=== PATIENT | female | born 1960 | race Caucasian/White ===

== ENCOUNTER 2017-09-18 09:00 | Outpatient (CLI) | payer MEDICARE, MEDICAID, SELFPAY ==
[2017-09-18 10:55] VITALS: BP 155/75; PULSE 82; RESP 18; O2SAT 98
== END 2017-09-18 11:20 | disposition home or self-care (01) ==
LOC: INF 14:18
PROVIDERS: Family Provider Nurse Practitioner Family; PCP Nurse Practitioner Family; Visit Provider Allergy & Immunology
DX: J45.998 Other asthma (principal)
CPT/HCPCS: 96372; J2357

== ENCOUNTER 2017-10-16 09:30 | Outpatient (CLI) | payer MEDICARE, MEDICAID, SELFPAY ==
[2017-10-16 09:42] VITALS: BMI 36.1
[2017-10-16 10:24] VITALS: BP 159/80; PULSE 80; RESP 20; TEMP 36.4; O2SAT 98
== END 2017-10-16 10:30 | disposition home or self-care (01) ==
LOC: INF 09:42
PROVIDERS: Family Provider Nurse Practitioner Family; PCP Nurse Practitioner Family; Visit Provider Allergy & Immunology
DX: J45.21 Mild intermittent asthma with (acute) exacerbation (principal)
CPT/HCPCS: 96372; J2357

== ENCOUNTER 2017-11-15 09:30 | Outpatient (CLI) | payer MEDICARE, MEDICAID, SELFPAY ==
[2017-11-15 10:05] VITALS: BP 160/76; PULSE 81; RESP 18; TEMP 36.7; O2SAT 96
== END 2017-11-15 10:15 | disposition home or self-care (01) ==
LOC: INF 09:37
PROVIDERS: Family Provider Nurse Practitioner Family; PCP Nurse Practitioner Family; Visit Provider Allergy & Immunology
DX: J45.21 Mild intermittent asthma with (acute) exacerbation (principal)
CPT/HCPCS: 96372

== ENCOUNTER 2017-12-11 09:20 | Outpatient (CLI) | payer MEDICARE, MEDICAID, SELFPAY ==
[2017-12-11 09:20] VITALS: BP 143/61; PULSE 76; RESP 18; TEMP 36.7; O2SAT 97
== END 2017-12-11 10:25 | disposition home or self-care (01) ==
LOC: INF 16:12
PROVIDERS: Family Provider Nurse Practitioner Family; PCP Nurse Practitioner Family; Visit Provider Allergy & Immunology
DX: J45.21 Mild intermittent asthma with (acute) exacerbation (principal)
CPT/HCPCS: 96372; J2357

== ENCOUNTER 2018-01-08 09:25 | Outpatient (CLI) | payer MEDICARE, MEDICAID, SELFPAY ==
[2018-01-08 10:03] VITALS: BP 148/70; PULSE 78; RESP 18; TEMP 36.6; O2SAT 95
--- NOTE | 2018-01-08 10:04 | PC.NURSE ---
01/08/18 0931 xolair 150mg SQ per L upper arm. xolair 150mg S! per R upper arm. Total of 300mg given. Pt emmett very well
[2018-01-08 10:20] VITALS: BP 136/72; PULSE 80; RESP 18; TEMP 36.6; O2SAT 97
== END 2018-01-08 10:20 | disposition home or self-care (01) ==
LOC: INF 09:38
PROVIDERS: Family Provider Nurse Practitioner Family; PCP Nurse Practitioner Family; Visit Provider Allergy & Immunology
DX: J45.21 Mild intermittent asthma with (acute) exacerbation (principal)
CPT/HCPCS: 96372; J2357

== ENCOUNTER → 2018-01-11 07:47 | Outpatient (CLI) | payer MEDICARE, MEDICAID, SELFPAY ==
[2018-01-11 13:45] LABS: Hemoglobin A1C 6.4 % (0.0-7.0)
[2018-01-11 14:17] LABS: Alanine Aminotransferase 30 U/L (12-78); Albumin Level 3.6 gm/dL (3.4-5.0); Albumin/Globulin Ratio 1.1 (1.1-1.8); Alkaline Phosphatase 60 U/L (46-116); Anion Gap 15.1 mEq/L (5-15); Aspartate Amino Transferase 20 U/L (15-37); Bilirubin,Total 0.4 mg/dL (0.2-1.0); Blood Urea Nitrogen 8 mg/dL (7-18); Calcium 9.6 mg/dL (8.5-10.1); Carbon Dioxide 26 mmol/L (21.0-32.0); Chloride 104 mmol/L (98-107); Cholesterol 173 mg/dL (140-200); Creatinine,Serum 0.76 mg/dL (0.55-1.02); Estimated Glomerular Filt Rate 79 ml/min (>60); GFR (African American) 96 ML/MIN (>60); Globulin 3.3 gm/dl (1.3-3.2); Glucose 157 mg/dL (74-106); HDL Cholesterol 43 mg/dL (29-89); LDL Cholesterol 93 mg/dL (0-130); Potassium 4.1 mmoL/L (3.5-5.1); Sodium 141 mmol/L (136-145); Thyroid Stimulating Hormone 0.99 uIU/ml (0.358-3.740); Total Protein,Serum 6.9 gm/dL (6.4-8.2); Triglycerides 186 mg/dL (30-200); VLDL Cholesterol 37 mg/dL (0-40)
[2018-01-11 14:30] LABS: Basophils # 0.1 K/mm3 (0-0.2); Basophils % 0.6 % (0.1-2.0); Eosinophils # 0.3 K/mm3 (0.0-0.4); Eosinophils % 3.1 % (0.1-12.0); Hematocrit 38.9 % (37.0-47.0); Hemoglobin 12.4 g/dL (12.2-16.2); Lymphocytes # 1.8 K/mm3 (0.7-4.5); Lymphocytes % 20.3 K/mm3 (10-50); Mean Corpuscular HGB Conc 31.8 g/dL (31.8-35.4); Mean Corpuscular Hemoglobin 29.8 pg (27.0-31.2); Mean Corpuscular Volume 93.6 fl (81-99); Mean Platelet Volume 7.9 fl (7.4-10.4); Monocytes # 0.3 K/mm3 (0.1-1.0); Monocytes % 3.1 % (1.7-9.3); Neutrophils # 6.6 K/mm3 (1.8-7.8); Neutrophils % 72.9 % (37.0-80.0); Platelet Count 309 K/mm3 (142-424); Red Blood Count 4.16 M/mm3 (4.20-5.40); Red Cell Distribution Width 13.9 % (11.5-17.5)
[2018-01-12 20:16] LABS: Lithium (Eskalith(R)) 0.6 mmol/L (0.6-1.2)
== END ==
PROVIDERS: PCP Nurse Practitioner Family; Visit Provider Nurse Practitioner Psychiatric/Mental Health
DX: F25.9 Schizoaffective disorder, unspecified (principal); Z79.899 Other long term (current) drug therapy
CPT/HCPCS: 36415; 80053; 80061; 80178; 83036; 84146; 84443; 85025

== ENCOUNTER 2018-02-05 09:14 | Outpatient (CLI) | payer MEDICARE, MEDICAID, SELFPAY ==
[2018-02-05 09:34] VITALS: BMI 36.1
[2018-02-05 09:40] VITALS: BP 143/79; PULSE 83; RESP 18; TEMP 36.4; O2SAT 96
--- NOTE | 2018-02-05 09:49 | PC.NURSE ---
02/05/18 0940 Xolair 300mg total given, Xolair 150mg L arm, Xolair 150mg R arm. Pt emmett very well
== END 2018-02-05 09:50 | disposition home or self-care (01) ==
LOC: INF 09:14
PROVIDERS: Family Provider Nurse Practitioner Family; PCP Nurse Practitioner Family; Visit Provider Allergy & Immunology
DX: J45.21 Mild intermittent asthma with (acute) exacerbation (principal)
CPT/HCPCS: 96372; J2357

== ENCOUNTER 2018-03-05 08:59 | Outpatient (CLI) | payer MEDICARE, MEDICAID, SELFPAY ==
[2018-03-05 09:22] VITALS: BP 148/83; PULSE 78; RESP 18; TEMP 36.6; O2SAT 97
--- NOTE | 2018-03-05 09:31 | PC.NURSE ---
03/05/18 0922 Xolair 150mg SQ L arm, Xolair 150mg SQ R arm, total of 300mg Xolair given as ordered. Pt emmett well
[2018-03-05 09:40] VITALS: BP 138/74; PULSE 69; RESP 18; TEMP 36.6; O2SAT 98
== END 2018-03-05 09:45 | disposition home or self-care (01) ==
LOC: INF 08:59
PROVIDERS: Family Provider Nurse Practitioner Family; PCP Nurse Practitioner Family; Visit Provider Allergy & Immunology
DX: J45.21 Mild intermittent asthma with (acute) exacerbation (principal)
CPT/HCPCS: 96372; J2357

== ENCOUNTER 2018-04-04 08:55 | Outpatient (CLI) | payer MEDICARE, MEDICAID, SELFPAY ==
[2018-04-04 09:20] VITALS: BP 156/82; PULSE 78; RESP 18; TEMP 36.7; O2SAT 96
== END 2018-04-04 09:40 | disposition home or self-care (01) ==
LOC: INF 08:55
PROVIDERS: Family Provider Nurse Practitioner Family; PCP Nurse Practitioner Family; Visit Provider Allergy & Immunology
DX: J45.21 Mild intermittent asthma with (acute) exacerbation (principal)
CPT/HCPCS: 96372; J2357

== ENCOUNTER 2018-05-17 08:49 | Outpatient (CLI) | payer MEDICARE, MEDICAID, SELFPAY ==
[2018-05-17 09:00] VITALS: BP 139/84; PULSE 68; RESP 20; TEMP 36.9; O2SAT 96
== END 2018-05-17 09:15 | disposition home or self-care (01) ==
LOC: INF 08:50
PROVIDERS: PCP Nurse Practitioner Family; Visit Provider Allergy & Immunology
DX: J45.21 Mild intermittent asthma with (acute) exacerbation (principal)
CPT/HCPCS: 96372; J2357

== ENCOUNTER 2018-06-13 08:43 | Outpatient (CLI) | payer MEDICARE, MEDICAID, SELFPAY ==
[2018-06-13 09:07] VITALS: BP 177/98; PULSE 73; RESP 18; TEMP 36.6; O2SAT 98
--- NOTE | 2018-06-13 09:11 | PC.NURSE ---
06/13/18 0907 Xolair 150mg SQ L arm , Xolair 150mg SQ R arm, total 300mg. Pt emmett well
== END 2018-06-13 09:15 | disposition home or self-care (01) ==
LOC: INF 08:43
PROVIDERS: Family Provider Nurse Practitioner Family; PCP Nurse Practitioner Family; Visit Provider Allergy & Immunology
DX: J45.21 Mild intermittent asthma with (acute) exacerbation (principal)
CPT/HCPCS: 96372; J2357

== ENCOUNTER 2018-07-11 08:59 | Outpatient (CLI) | payer MEDICARE, MEDICAID, SELFPAY ==
[2018-07-11 09:22] VITALS: BP 160/76; PULSE 65; RESP 18; TEMP 36.4; O2SAT 98
== END 2018-07-11 09:45 | disposition home or self-care (01) ==
LOC: INF 09:00
PROVIDERS: Visit Provider Allergy & Immunology
DX: J45.21 Mild intermittent asthma with (acute) exacerbation (principal)
CPT/HCPCS: 96372; J2357

== ENCOUNTER 2018-08-06 09:21 | Outpatient (CLI) | payer MEDICARE, MEDICAID, SELFPAY ==
[2018-08-06 09:40] VITALS: BP 147/79; PULSE 78; RESP 18; TEMP 36.6; O2SAT 96
== END 2018-08-06 10:00 | disposition home or self-care (01) ==
LOC: INF 09:21
PROVIDERS: Visit Provider Allergy & Immunology
DX: J45.21 Mild intermittent asthma with (acute) exacerbation (principal)
CPT/HCPCS: 96372; J2357

== ENCOUNTER → 2018-09-02 09:03 | Outpatient (CLI) | payer MEDICARE, MEDICAID, SELFPAY ==
[2018-09-02 13:57] LABS: Basophils % 0.3 % (0.1-2.0); Eosinophils # 0.3 K/mm3 (0.0-0.4); Hematocrit 37.9 % (37.0-47.0); Hemoglobin 11.9 g/dL (12.2-16.2); Lymphocytes # 1.4 K/mm3 (0.7-4.5); Lymphocytes % 14.9 % (10-50); Mean Corpuscular HGB Conc 31.5 g/dL (31.8-35.4); Mean Corpuscular Hemoglobin 29.1 pg (27.0-31.2); Mean Corpuscular Volume 92.4 fl (81-99); Mean Platelet Volume 7.4 fl (7.4-10.4); Monocytes # 0.3 K/mm3 (0.1-1.0); Monocytes % 3.5 % (1.7-9.3); Neutrophils # 7.3 K/mm3 (1.8-7.8); Neutrophils % 78.3 % (37.0-80.0); Platelet Count 274 K/mm3 (142-424); Red Cell Distribution Width 14.6 % (11.5-17.5); White Blood Count 9.3 K/mm3 (4.8-10.8)
[2018-09-02 14:06] LABS: Alanine Aminotransferase 27 U/L (12-78); Albumin Level 3.7 gm/dL (3.4-5.0); Albumin/Globulin Ratio 1.1 (1.1-1.8); Alkaline Phosphatase 64 U/L (46-116); Anion Gap 11.3 mEq/L (5-15); Aspartate Amino Transferase 15 U/L (15-37); Bilirubin,Total 0.5 mg/dL (0.2-1.0); Blood Urea Nitrogen 8 mg/dL (7-18); Calcium 9.2 mg/dL (8.5-10.1); Carbon Dioxide 28 mmol/L (21.0-32.0); Chloride 103 mmol/L (98-107); Chol/HDL Ratio 3.8 (1-3.5); Cholesterol 155 mg/dL (140-200); Creatinine,Serum 0.85 mg/dL (0.55-1.02); Estimated Glomerular Filt Rate 69 ml/min (>60); GFR (African American) 84 ML/MIN (>60); Globulin 3.3 gm/dl (1.3-3.2); Glucose 165 mg/dL (74-106); HDL Cholesterol 41 mg/dL (29-89); LDL Cholesterol 89 mg/dL (0-130); Potassium 4.3 mmoL/L (3.5-5.1); Sodium 138 mmol/L (136-145); Thyroid Stimulating Hormone 0.75 uIU/ml (0.358-3.740); Triglycerides 123 mg/dL (30-200); VLDL Cholesterol 25 mg/dL (0-40)
[2018-09-02 14:16] LABS: Hemoglobin A1C 6.8 % (0.0-7.0)
[2018-09-03 08:26] LABS: Prolactin 53.1 ng/mL (4.8-23.3)
[2018-09-03 11:14] LABS: Lithium (Eskalith(R)) 0.8 mmol/L (0.6-1.2)
== END ==
PROVIDERS: PCP Nurse Practitioner Family; Visit Provider Nurse Practitioner Psychiatric/Mental Health
DX: F25.9 Schizoaffective disorder, unspecified (principal); Z79.899 Other long term (current) drug therapy
CPT/HCPCS: 36415; 80053; 80061; 80178; 83036; 84146; 84443; 85025

== ENCOUNTER 2018-09-05 09:00 | Outpatient (CLI) | payer MEDICARE, MEDICAID, SELFPAY ==
[2018-09-05 09:20] VITALS: BP 151/72; PULSE 77; RESP 18; TEMP 36.6; O2SAT 96
== END 2018-09-05 09:24 | disposition home or self-care (01) ==
LOC: INF 09:04
PROVIDERS: Visit Provider Allergy & Immunology
DX: J45.21 Mild intermittent asthma with (acute) exacerbation (principal)
CPT/HCPCS: 96372; J2357

== ENCOUNTER 2018-10-03 09:02 | Outpatient (CLI) | payer MEDICARE, MEDICAID, SELFPAY ==
[2018-10-03 09:23] VITALS: BP 142/80; PULSE 72; RESP 18; TEMP 36.9; O2SAT 96
--- NOTE | 2018-10-03 09:35 | PC.NURSE ---
10/03/18 0923 Xolair 300mg given as ordered, 150mg SQ L arm, 150mg SQ R arm. Pt emmett well with no problems noted
[2018-10-03 09:45] VITALS: BP 144/72; PULSE 69; RESP 18; TEMP 36.8; O2SAT 96
== END 2018-10-03 09:45 | disposition home or self-care (01) ==
LOC: INF 09:02
PROVIDERS: Visit Provider Allergy & Immunology
DX: J45.21 Mild intermittent asthma with (acute) exacerbation (principal)
CPT/HCPCS: 96372; J2357

== ENCOUNTER 2018-10-31 09:12 | Outpatient (CLI) | payer MEDICARE, MEDICAID, SELFPAY ==
[2018-10-31 09:28] VITALS: BP 162/76; PULSE 78; RESP 18; TEMP 36.7; O2SAT 98
== END 2018-10-31 09:43 | disposition home or self-care (01) ==
LOC: INF 09:12
PROVIDERS: Visit Provider Allergy & Immunology
DX: J45.21 Mild intermittent asthma with (acute) exacerbation (principal)
CPT/HCPCS: 96372; J2357

== ENCOUNTER → 2018-11-21 08:33 | Outpatient (CLI) | payer MEDICARE, MEDICAID, SELFPAY ==
--- NOTE | 2018-11-21 | CA_ITS ---
PROCEDURE: 2-D M-mode and color Doppler study INDICATIONS FOR THE TEST: Chest pain COPD Heart Murmur Tobacco Smoking Palpitations+ Fatigue+ Syncope Edema Hypertension+Diabetes Mellitus+ Rheumatic Fever SOB+CRANE Obesity Hyperlipidemia+ Family History HD Additional History PATIENT INFORMATION HEIGHT: 65 WEIGHT: 220 GENDER: Female B/P: 138/72 2-D/M-MODE INTERPRETATION: 2-D MEASUREMENTS OBSERVED VALUES IN CMS Right Ventricular Dimension (RVDd) 3.0 Interventricular Septum (Thickness)(IVsd) 0.9 Left Ventricular Internal Dimensions(LVIDd) 3.1 Left Ventricular Posterior Wall (Thickness)(LVPWd) 0.9 Aortic Root 2.4 Aortic Cusp Separation 1.6 Left Atrial Dimensions (LAD) 4.2 2D 1. Left atrium is mildly enlarged, left ventricle is normal size, mild concentric left ventricular hypertrophy, visually estimated ejection fraction 55% with no regional wall motion abnormality. 2. The right atrium and right ventricle are mildly enlarged with normal contractility. 3. The aortic valve is minimally thickened and fibrosed. 4. The mitral and tricuspid valve leaflets are minimally thickened 5. The pulmonic valve is poorly present. 6. Small pericardial effusion noted. DOPPLER INTERROGATION: Doppler interrogation of the aortic, mitral and tricuspid valvular presence of mild mitral and tricuspid regurgitation, tricuspid regurgitation jet velocity is inadequate for calculation of the right ventricular systolic pressure, diastolic parameters are inconclusive. CONCLUSION: 1. Mildly enlarged left atrium, normal left ventricular size, mild concentric left ventricular hypertrophy, visually estimated ejection fraction 55% with no regional wall motion abnormality, diastolic parameters are inconclusive. 2. Mildly enlarged right atrium and right ventricle. Contractility of the right ventricle is normal. 3. Mild mitral and tricuspid regurgitation 4. Small pericardial effusion noted.
--- NOTE | 2018-11-21 | CI_ITS ---
Cerebrovascular Exam Indications: Follow-up carotid 433.10. 780.4 Dizziness and giddiness. IMPRESSIONS 1. The bilateral vertebral arteries are patent with normal antegrade flow. 2. Study suggests less than 20% stenosis involving the right internal carotid artery. No change from the study of 10-Mar-2015. 3. Study suggests less than 20% stenosis involving the left internal carotid artery. No change from the study of 10-Mar-2015. History: Risk factors: Hypertension. Diabetes mellitus. Hyperlipidemia. Carotid duplex study. Complete study and Doppler flow study including spectral analysis, color and morfin scale imaging. Location: Vascular laboratory. Patient status: Outpatient. Tables: Arterial flow: + +--------+--------+ Location V sys V ed + +--------+--------+ Right CCA - proximal 102cm/s 18.1cm/s + +--------+--------+ Right CCA - distal 76.2cm/s 18.9cm/s + +--------+--------+ Right ECA 130cm/s 17.3cm/s + +--------+--------+ Right ICA - proximal 85.6cm/s 33cm/s + +--------+--------+ Right ICA - mid 124cm/s 37.7cm/s + +--------+--------+ Right ICA - distal 111cm/s 25.1cm/s + +--------+--------+ Right vertebral 44cm/s 10.2cm/s + +--------+--------+ Left CCA - proximal 148cm/s 25.1cm/s + +--------+--------+ Left CCA - distal 105cm/s 21.2cm/s + +--------+--------+ Left ECA 111cm/s 13.4cm/s + +--------+--------+ Left ICA - proximal 80.9cm/s 19.6cm/s + +--------+--------+ Left ICA - mid 118cm/s 34.6cm/s + +--------+--------+ Left ICA - distal 119cm/s 33.8cm/s + +--------+--------+ Left vertebral 70.7cm/s 18.1cm/s + +--------+--------+ Velocity ratios: + + + + + + Right, V sys Right, V ed Left, V sys Left, V ed + + + + + + Max ICA/dist CCA 1.63 1.99 1.13 1.63 + + + + + + (Report amended ) Electronically signed by: Nnamdi Haynes [id number]
--- NOTE | 2018-11-21 | NVE_ITS ---
Venous Exam Indications: 729.5 Pain in limb. IMPRESSIONS 1. There is no evidence of significant Reflux. 2. No evidence of deep or superficial vein thrombosis involving the right lower extremity History: Risk factors: Obese. Right leg pain behind knee Right lower extremity venous duplex evaluation. Doppler flow study including spectral analysis, color and morfin scale imaging. Tables: Venous flow and imaging: + +-------+ + Location Overall Flow properties + +-------+ + Right common femoral Patent Normal phasicity; spontaneous; normal augmentation; compressible + +-------+ + Right saphenofemoral junction Patent Compressible + +-------+ + Right profunda femoral Patent Compressible + +-------+ + Right femoral Patent Normal phasicity; spontaneous; normal augmentation; compressible + +-------+ + Right greater saphenous Patent Normal phasicity; spontaneous; normal augmentation; compressible + +-------+ + Right popliteal Patent Normal phasicity; spontaneous; normal augmentation; compressible + +-------+ + Right posterior tibial Patent Compressible + +-------+ + Right peroneal Patent Compressible + +-------+ + Right gastrocnemius Patent Compressible + +-------+ + Right soleal Patent Compressible + +-------+ + (Report amended ) Electronically signed by: Nnamdi Haynes [id number]
== END ==
PROVIDERS: PCP Nurse Practitioner Family; Visit Provider Nurse Practitioner Family
DX: R06.00 Dyspnea, unspecified (principal); M79.661 Pain in right lower leg; R42 Dizziness and giddiness
CPT/HCPCS: 93306; 93880; 93970; 93971

== ENCOUNTER 2018-11-28 09:23 | Outpatient (CLI) | payer MEDICARE, MEDICAID, SELFPAY ==
[2018-11-28 09:45] VITALS: BP 152/60; PULSE 89; RESP 20; TEMP 36.9; O2SAT 97
[2018-11-28 10:13] VITALS: BMI 36.1
== END 2018-11-28 09:45 | disposition home or self-care (01) ==
LOC: INF 09:23
PROVIDERS: Visit Provider Allergy & Immunology
DX: J45.21 Mild intermittent asthma with (acute) exacerbation (principal)
CPT/HCPCS: 96372; J2357

== ENCOUNTER 2018-12-31 10:00 | Outpatient (CLI) | payer MEDICARE, MEDICAID, SELFPAY ==
[2018-12-31 10:02] VITALS: BP 139/73; PULSE 75; RESP 20; TEMP 36.9; O2SAT 95
== END 2018-12-31 10:33 | disposition home or self-care (01) ==
LOC: INF 10:00
PROVIDERS: Visit Provider Allergy & Immunology
DX: J45.21 Mild intermittent asthma with (acute) exacerbation (principal)
CPT/HCPCS: 96372; J2357

== ENCOUNTER 2019-01-30 09:35 | Outpatient (CLI) | payer MEDICARE, MEDICAID, SELFPAY ==
[2019-01-30 10:00] VITALS: BP 129/61; PULSE 80; RESP 18
== END 2019-01-30 10:00 | disposition home or self-care (01) ==
LOC: INF 09:35
PROVIDERS: Visit Provider Allergy & Immunology
DX: J45.21 Mild intermittent asthma with (acute) exacerbation (principal)
CPT/HCPCS: 96372; J2357

== ENCOUNTER → 2019-01-31 10:06 | Outpatient (CLI) | payer MEDICARE, MEDICAID, SELFPAY ==
--- NOTE | 2019-01-31 10:08 | MM_ITS ---
MM Dig screening mamm BI w/CAD ORDERING PHYSICIAN : Arely Hannon APRN PATIENT AGE: 59 years GENDER: Female COMPARISON: 02/26/2017 bilateral mammogram. Also bilateral breast ultrasound studies from February 2017 INDICATION: Routine screening mammogram. Takes Prempro.. No new complaints Percutaneous biopsy ultrasound-guided right and left breast June 2017 Family history. Mother breast cancer at age 89 TECHNIQUE: Standard CC and MLO images were obtained. R2 CAD reviewed. FINDINGS: Moderately dense rest imaging technique towards upper outer quadrant of region of both breasts. Mammography is slightly diminished sensitivity but we see no dominant or suspicious new areas of concern. Stable minimal calcifications bilaterally RIGHT BREAST:No new areas of significant concern. Follow up one year on right Tiny faint punctate calcifications superior right breast Is stable areas of mild asymmetry. Patient has had a ultrasound guided aspiration o'clock right breast-Ultrasound demonstrated a area at 12:00 right breast and February 2017. This was a debris-filled cyst and was aspirated March 2017. Thus Small Round density 12:00 no longer evident. LEFT BREAST:No new areas significant concern. Follow-up in one year on left. Metallic marker clip related to previous for today's biopsy is at the lateral left breast. Small nodule was removed The remaining the left breast appears stable. Mild stable asymmetric densities on the left, with no new areas of significant concern. IMPRESSION: No new areas of significant concern. Moderate breast density. BI-RADS Category: 1 Negative RECOMMENDED FOLLOW-UP: 1YR - 1 YEAR FOLLOW-UP (A letter has been sent to the patient regarding results of the study.)
== END ==
PROVIDERS: PCP Nurse Practitioner Family; Visit Provider Nurse Practitioner Family
DX: Z12.31 Encounter for screening mammogram for malignant neoplasm of breast (principal)
CPT/HCPCS: 77067

== ENCOUNTER 2019-02-25 15:25 | Outpatient (CLI) | payer MEDICARE, MEDICAID, SELFPAY ==
[2019-02-25 15:41] VITALS: BP 138/70; PULSE 77; RESP 18; TEMP 36.7; O2SAT 98
== END 2019-02-25 16:03 | disposition home or self-care (01) ==
LOC: INF 15:25
PROVIDERS: Visit Provider Allergy & Immunology
DX: J45.21 Mild intermittent asthma with (acute) exacerbation (principal)
CPT/HCPCS: 96372; J2357

== ENCOUNTER 2019-03-14 09:45 | Observation (INO) ==
--- NOTE | 2019-03-14 09:58 | Emergency Department Note ---
ED Disposition Clinical Impression: Acute kidney injury, Dehydration, Gastroenteritis Disposition: Admitted as Observation Condition on Discharge: Fair Referrals: Arely Hannon APRN [Primary Care Provider] - - Critical Care Critical Care Time: Yes Attestation: On , the high probability of a clinically significant, sudden or life threatening deterioration of the following system(s) required my full and direct attention, intervention and personal management. The time I documented below is in addition to time spent performing reported procedures but includes the following listed in this critical care notation. Total Critical Care Time: 30 Vital system(s) involved:: Renal Failure My critical care processes included: Assessment & monitoring of V/S, Initial and Re-exams, Data Review/Interpretation, Coordinating Care, Medication Orders and management, Documentation Medical Decision Making - Emile Inquiry Pt receiving controlled substance: No Vital Signs: 03/14/19 10:00 03/14/19 11:02 03/14/19 11:43 Temperature 98.7 F Temperature Source Oral Pulse Rate [Left Radial] 72 70 85 Respiratory Rate 18 Blood Pressure [Right Arm] 139/68 121/64 122/62 Blood Pressure Mean [Right Arm] 91 83 82 Blood Pressure Source [Right Arm] Automatic Cuff Automatic Cuff Blood Pressure Position [Right Arm] Sitting Sitting 02 Sat by Pulse Oximetry 98 99 Oxygen Delivery Method Room Air - Lab Data Lab Results 03/14/19 09:55: WBC 12.9 H, RBC 3.78 L, Hgb 11.7 L, Hct 37.2, MCV 98.3, MCH 30.8, MCHC 31.3 L, RDW 14.2, Plt Count 354, MPV 7.5, Neut % (Auto) 87.2 H, Lymph % (Auto) 8.2 L, [place] % (Auto) 2.5, Eos % (Auto) 1.8, Baso % (Auto) 0.3, Neut # (Auto) 11.2 H, Lymph # (Auto) 1.1, [place] # (Auto) 0.3, Eos # (Auto) 0.2, Baso # (Auto) 0.0, Total Counted 100, Neutrophils % (Manual) 90 H, Lymphocytes % (Manual) 9 L, Eosinophils % (Manual) 1, Platelet Estimate Normal, Hypochromasia 1+, Macrocytosis 1+ 03/14/19 09:55: Sodium 133 L, Potassium 4.3, Chloride 98, Carbon Dioxide 27, Anion Gap 12.3, BUN 34 H, Creatinine 2.30 H, Estimated Creat Clear 39, Estimated GFR 22 L, Est GFR ( Amer) 26 L, Glucose 124 H, Calcium 9.7, Total Bilirubin 0.6, AST 13 L, ALT 40, Alkaline Phosphatase 103, Troponin I < 0.02, Total Protein 7.8, Albumin 4.1, Globulin 3.7 H, Albumin/Globulin Ratio 1.1, Lipase 196, TSH 2.50 D, Free T4 1.28 Result diagrams: 03/14/19 09:55 03/14/19 09:55 Orders (Tests/Meds): ED MEDICATIONS Generic Name Dose Route Start Last Admin Trade Name Freq PRN Reason Stop Dose Admin Sodium Chloride 1,000 mls @ 150 mls/hr 03/14/19 12:00 Sod Chlor 0.9% 1000ml Bag IV 04/13/19 11:59 .[id number] DAYA Discontinued Medications Generic Name Dose Route Start Last Admin Trade Name Freq PRN Reason Stop Dose Admin Ondansetron HCl 4 mg 03/14/19 10:05 03/14/19 10:08 Zofran 4mg/2ml Vial IV 03/14/19 10:06 4 mg ONCE ONE Administration Sodium Chloride 1,000 ml 03/14/19 10:05 03/14/19 10:07 Sod Chlor 0.9% 1000ml Bag IV 03/14/19 10:06 1,000 ml BOLUS ONE Administration ORDERS Category Date Time Status Diarrhea 23 Panel, PCR Stat Lab 03/14/19 10:04 Ordered [place] (Eskalith(R)) Stat Lab 03/14/19 09:55 Received Urinalysis and Microscopic Stat Lab 03/14/19 11:50 Received - CT Data CT Scan: Abdomen, Pelvis Time Received: 11:[address] Reviewed: Yes: I have viewed the radiologist's interpretation Findings Narrative: Impression: Bilateral very small pleural effusions versus pleural thickening. There is possible posterior minimal pericardial effusion. Mild hepatic steatosis. Cholecystectomy. No other acute process. Dictated By: Ranjeet Ansari MD Signed By: <Electronically signed by Ranjeet Ansari MD in OV> 03/14/19 1121 - ECG Data Tracing #1 EKG interpreted by Javid Lewis MD: Rhythm: sinus Rate: 70 [place]: normal Ectopy: none Conduction: normal ST Segment Changes: none T Wave Changes: none Q Waves: none No evidence of acute ischemia or injury Low voltage QRS - Physician Consults Physician Consulted: Rosalio Time: 11:58 Reason -: Admission Comment/Response: Agrees to admit the patient to the hospital. We discussed the patient's clinical information, including history, exam, laboratory and radiology results and ED course. Per hospital procedure, I will write temporary bridge inpatient orders on the patient. Specific orders requested by the admitting physician: IV fluids, antiemetics, clear liquid diet General Adult HPI - General Stated complaint: lethargic, v/d Time Seen by Provider: 03/14/19 10:00 - History of Present Illness HPI narrative: Sick for 1 week with vomiting and diarrhea. She says very little abdominal pain. No fever. No blood in the diarrhea. Has seen her primary care doctor couple of times and was told it was likely a virus. No testing done in the office. Today feels lethargic and was sent to the emergency room. No recent antibiotics or travel. No recent exposures. - Related Data Home Medications Medication Instructions Recorded Confirmed Estrogen,Con/M-Progest Acet 1 each PO DAILY 09/18/17 03/14/19 [Prempro 0.625-2.5 mg Tablet] Levothyroxine Sodium 50 mcg PO DAILY 09/18/17 03/14/19 [Levothyroxine 50mcg (0.05mg) Tab] [place] Carbonate [[place] 900 mg PO DAILY 09/18/17 03/14/19 Carbonate ER] Losartan/Hydrochlorothiazide 1 each PO DAILY 09/18/17 03/14/19 [Losartan-Hctz 50-12.5 mg Tab] Metformin HCl 1,000 mg PO BID 09/18/17 03/14/19 Montelukast Sodium [Singulair 10mg 10 mg PO DAILY 09/18/17 03/14/19 tablet] Pravastatin Sodium [Pravachol 40mg 80 mg PO HS 09/18/17 03/14/19 Tablet] Risperidone Microspheres 50 mg IM MONTHLY 09/18/17 03/14/19 [Risperdal Consta] lamoTRIgine [Lamictal Xr] 250 mg PO HS 09/18/17 03/14/19 metHOTREXate sodium [metHOTREXate 10 mg PO WEEKLY 09/18/17 03/14/19 2.5mg Tablet] Fluoxetine HCl 40 mg PO DAILY 01/08/18 03/14/19 Allergies Allergy/AdvReac Type Severity Reaction Status Date / Time No Known Drug Allergies Allergy Unknown Verified 10/03/18 09:06 [NKDA] ENVIRONMENTAL ALLERGENS Allergy Unknown Uncoded 09/04/17 14:48 [facility] History - Hepatitis A Screen Attestation statement:: This patient has been screened for Hepatitis A risk factors. I have reviewed the patient's past medical history: Yes ROS Obtained: Yes All systems reviewed & no additional complaints - Constitutional Constitutional: Denies fever(s), Reports lethargy - Cardiovascular Cardiovascular: Denies chest pain - Respiratory Respiratory: No dyspnea - Gastrointestinal Gastrointestingal: Reports: abdominal pain, diarrhea, vomiting. Denies: vomiting blood, bright red blood in stools, black, tarry stools Physical Exam - General General appearance: other (Legs with eyes closed, but answers questions appropriately with clear speech) - Head Head exam: atraumatic, normocephalic - Eye Eye exam: Present: normal appearance - ENT ENT exam: Present: mucous membranes dry - Chest Chest inspection: Present: normal inspection, symmetric chest wall rise - Respiratory Respiratory exam: Present: normal lung sounds bilaterally. Absent: respiratory distress - Cardiovascular Cardiovascular exam: Present: regular rate, normal rhythm, normal heart sounds - Abdominal Exam Abdominal exam: Present: soft, tenderness, normal bowel sounds. Absent: distention, guarding, rebound, rigidity Abdominal tenderness: Present: LLQ - Extremities Exam Extremities exam: Present: normal inspection - Neurological Exam Neurological exam: Present: oriented X3, CN II-XII intact. Absent: motor sensory deficit - Psychiatric Psychiatric exam: Present: normal affect, normal mood - Skin Skin exam: Present: warm, dry
[2019-03-14 10:18] LABS: Basophils % 0.3 % (0.1-2.0); Eosinophils # 0.2 K/mm3 (0.0-0.4); Eosinophils % 1.8 % (0.1-12.0); Hematocrit 37.2 % (37.0-47.0); Hemoglobin 11.7 g/dL (12.2-16.2); Lymphocytes # 1.1 K/mm3 (0.7-4.5); Lymphocytes % 8.2 % (10-50); Mean Corpuscular HGB Conc 31.3 g/dL (31.8-35.4); Mean Corpuscular Volume 98.3 fl (81-99); Mean Platelet Volume 7.5 fl (7.4-10.4); Monocytes # 0.3 K/mm3 (0.1-1.0); Monocytes % 2.5 % (1.7-9.3); Neutrophils # 11.2 K/mm3 (1.8-7.8); Neutrophils % 87.2 % (37.0-80.0); Platelet Count 354 K/mm3 (142-424); Red Blood Count 3.78 M/mm3 (4.20-5.40); Red Cell Distribution Width 14.2 % (11.5-17.5); White Blood Count 12.9 K/mm3 (4.8-10.8)
[2019-03-14 10:36] LABS: Alanine Aminotransferase 40 U/L (12-78); Albumin Level 4.1 gm/dL (3.4-5.0); Albumin/Globulin Ratio 1.1 (1.1-1.8); Alkaline Phosphatase 103 U/L (46-116); Anion Gap 12.3 mEq/L (5-15); Aspartate Amino Transferase 13 U/L (15-37); Bilirubin,Total 0.6 mg/dL (0.2-1.0); Blood Urea Nitrogen 34 mg/dL (7-18); Calcium 9.7 mg/dL (8.5-10.1); Carbon Dioxide 27 mmol/L (21.0-32.0); Chloride 98 mmol/L (98-107); Free T4 (Free Thyroxine) 1.28 ng/dl (0.76-1.46); Globulin 3.7 gm/dl (1.3-3.2); Glucose 124 mg/dL (74-106); Sodium 133 mmol/L (136-145); Total Protein,Serum 7.8 gm/dL (6.4-8.2)
[2019-03-14 11:19] LABS: Eosinophils % 1 % (0-3); Hypochromasia 1+; Lymphocytes % 9 % (10-50); Macrocytosis 1+; Neutrophils % 90 % (42-76); Total Cells Counted 100
[2019-03-14 11:54] LABS: Microscopic, Urine URINE MICROSCOPIC (MICROSCOPIC)
[2019-03-14 11:56] LABS: Appearance,Urine CLEAR (Clear); Bilirubin,Urine Negative (Negative); Blood, Urine Negative (Negative); Color,Urine YELLOW (Yellow); Glucose,Urine (UA) Negative (Negative); Ketones,Urine TRACE (Negative); Leukocyte Esterase,Urine Negative (Negative); Protein,Urine Negative (Negative); Urobilinogen,Urine 0.2 EU/dl (0.2)
[2019-03-14 12:07] LABS: Bacteria,Urine 1+ /lpf; WBC,Urine Occasional #/hpf (0-3)
--- NOTE | 2019-03-14 15:23 | Pharmacy Consult Notes ---
[facility] Pharmacy VTE Monitoring - Patient Demographics Admission date: 03/14/19 Report Date: 03/14/19 Time: 15:22 Allergies/Adverse Reactions: Patient Allergies No Known Drug Allergies [NKDA] Allergy (Unknown, Verified 10/03/18 09:06) ENVIRONMENTAL ALLERGENS Allergy (Unknown, Uncoded 09/04/17 14:48) Height: 1.65 m Weight: 90.889 kg Patient Problems: Current Active Problems (Updated 03/14/19 @ 11:55 by Javid Lewis MD) Acute kidney injury (Acute) Dehydration (Acute) Gastroenteritis (Acute) - VTE Risk Labs: VTE Related Lab Results Hgb 11.7 g/dL (12.2-16.2) L 03/14/19 09:55 Hct 37.2 % (37.0-47.0) 03/14/19 09:55 Plt Count 354 K/mm3 (142-424) 03/14/19 09:55 BUN 34 mg/dL (7-18) H 03/14/19 09:55 Creatinine 2.30 mg/dL (0.55-1.02) H 03/14/19 09:55 Estimated Creat Clear 39 mL/min (50-200) 03/14/19 09:55 VTE Score: 3 VTE Risk Level: Low Risk Clinical Trial Participant: No - Prophylaxis VTE Prophylaxis Ordered?: Yes Types of VTE Prophylaxis: TEDS Knee High
--- NOTE | 2019-03-14 16:54 | History & Physical Report ---
*Admission Date: 03/14/19 *Chief complaint: Vomiting and diarrhea *History of present illness: 59-year-old female presented to the emergency department after weeklong episodes of vomiting and diarrhea which were unrelenting. She tells me her symptoms started 1 week ago. She visited her primary care provider and was given antiemetics. Symptoms persisted. Last episode of both vomiting and diarrhea was this morning prior to presentation to the emergency department. In the emergency department she was asymptomatic but work-up revealed acute kidney injury. Patient takes losartan with HCTZ as well as metformin. Patient was felt to be dehydrated as a partial cause of her acute kidney injury and decision was made to admit for IV fluids. Since admission patient has not had any further symptoms. She has tolerated a small can of Sprite and a small container of great juice. She denies fevers or chills during the week. She denies blood in her stool. CT scan performed in the emergency department was unremarkable [facility] History I have reviewed the patient's past medical history: Yes Medical History: Reports:: Cancer, Diabetes Mellitus Type 2, Hyperlipidemia, Hypertension Denies:: Diabetes Mellitus Type 1, MRSA *Have you ever received a pneumonia vaccine?: No *Have you received a flu vaccine this season?: Yes Other Surgeries: Yes: Cholecystectomy Amputation: No Fractures: No - *Social History Educational Level: Attended College Smoking Status: Never smoker Alcohol Intake: never *Occupational Status:: disabled Housing: house Household Members: family *Travel in the last 8 weeks: None - Psychiatric History Expresses thoughts of harming self/others: None Suicide Plan Description: No Plan Family Hx:: Cancer, Diabetes, Heart Attack, Hyperlipidemia, Hypertension, Stroke Review of Systems - Review of Systems Review of systems:: unable to obtain Meds Home Medications Medication Instructions Recorded Confirmed Type Levothyroxine Sodium 50 mcg PO DAILY 09/18/17 03/14/19 History [Levothyroxine 50mcg (0.05mg) Tab] Losartan/Hydrochlorothiazide 1 each PO DAILY 09/18/17 03/14/19 History [Losartan-Hctz 50-12.5 mg Tab] Metformin HCl 1,000 mg PO BID 09/18/17 03/14/19 History Montelukast Sodium [Singulair 10mg 10 mg PO DAILY 09/18/17 03/14/19 History tablet] Risperidone Microspheres 50 mg IM MONTHLY 09/18/17 03/14/19 History [Risperdal Consta] metHOTREXate sodium [metHOTREXate 10 mg PO WEEKLY 09/18/17 03/14/19 History 2.5mg Tablet] Fluoxetine HCl 40 mg PO DAILY 01/08/18 03/14/19 History Aspirin [Aspirin 81mg EC Tab] 81 mg PO DAILY 03/14/19 03/14/19 History Atorvastatin Calcium [Atorvastatin 40 mg PO HS 03/14/19 03/14/19 History 40mg Tab] Esomeprazole Magnesium 20 mg PO DAILY 03/14/19 03/14/19 History Estrogen,Con/M-Progest Acet 1 tab PO DAILY 03/14/19 03/14/19 History [Prempro 0.625-5 mg Tablet] Lisinopril/Hydrochlorothiazide 1 tab PO DAILY 03/14/19 03/14/19 History [Lisinopril-Hctz 20-12.5 mg Tab] [place] Carbonate 600 mg PO BID 03/14/19 03/14/19 History Loratadine [Allerclear] 10 mg PO DAILY 03/14/19 03/14/19 History buPROPion HCl [Bupropion HCl Sr] 150 mg PO DAILY 03/14/19 03/14/19 History lamoTRIgine [Lamotrigine] 200 mg PO BID 03/14/19 03/14/19 History Allergies Allergy/AdvReac Type Severity Reaction Status Date / Time No Known Drug Allergies Allergy Unknown Verified 10/03/18 09:06 [NKDA] ENVIRONMENTAL ALLERGENS Allergy Unknown Uncoded 09/04/17 14:48 Exam Vital signs and Labs for Last 24 Hours: Temp Pulse Resp BP Pulse Ox 98.1 F 70 20 144/58 H 98 03/14/19 16:00 03/14/19 16:00 03/14/19 16:00 03/14/19 16:00 03/14/19 16:00 Laboratory Results - last 24 hr 03/14/19 09:55: WBC 12.9 H, RBC 3.78 L, Hgb 11.7 L, Hct 37.2, MCV 98.3, MCH 30.8, MCHC 31.3 L, RDW 14.2, Plt Count 354, MPV 7.5, Neut % (Auto) 87.2 H, Lymph % (Auto) 8.2 L, [place] % (Auto) 2.5, Eos % (Auto) 1.8, Baso % (Auto) 0.3, Neut # (Auto) 11.2 H, Lymph # (Auto) 1.1, [place] # (Auto) 0.3, Eos # (Auto) 0.2, Baso # (Auto) 0.0, Total Counted 100, Neutrophils % (Manual) 90 H, Lymphocytes % (Manual) 9 L, Eosinophils % (Manual) 1, Platelet Estimate Normal, Hypochromasia 1+, Macrocytosis 1+ 03/14/19 09:55: Sodium 133 L, Potassium 4.3, Chloride 98, Carbon Dioxide 27, Anion Gap 12.3, BUN 34 H, Creatinine 2.30 H, Estimated Creat Clear 39, Estimated GFR 22 L, Est GFR ( Amer) 26 L, Glucose 124 H, Calcium 9.7, Total Bilirubin 0.6, AST 13 L, ALT 40, Alkaline Phosphatase 103, Troponin I < 0.02, Total Protein 7.8, Albumin 4.1, Globulin 3.7 H, Albumin/Globulin Ratio 1.1, Lipase 196, TSH 2.50 D, Free T4 1.28 03/14/19 11:50: Urine Color Yellow, Urine Appearance Clear, Urine pH 6.0, Ur Specific [place] 1.020, Urine Protein Negative, Urine Glucose (UA) Negative, Urine Ketones Trace, Urine Blood Negative, Urine Nitrate Negative, Urine Bilirubin Negative, Urine Urobilinogen 0.2, Ur Leukocyte Esterase Negative, Urine WBC Occasional, Ur Squamous Epith Cells 10-20, Urine Bacteria 1+ 03/14/19 16:03: POC Glucose 98 I & O for Last 24 hours: Intake & Output 03/12/19 03/13/19 03/14/19 03/15/19 11:59 11:59 11:59 11:59 Output Total 400 / 400 Balance -400 / -400 Weight 200 lb 200 lb 6 oz - Constitutional no acute distress, average body habitus - *Routine HEENT Exam Head: Present: normocephalic ENT: Present: mucous membranes moist - *Routine Neck Exam Present: supple - *Routine Respiratory Exam Present: CTA bilaterally - *Routine Cardiovascular Exam Present: RRR, Normal S1, Normal S2 - *Routine Abdominal Exam Present: soft, normoactive bowel sounds. Absent: tenderness, distended, rebound, guarding Assessment and Plan (1) Acute kidney injury Current visit: Yes Status: Acute Category: Medical Code(s): N17.9 - Acute kidney failure, unspecified (2) Dehydration Current visit: Yes Status: Acute Category: Medical Code(s): E86.0 - Dehydration (3) Gastroenteritis Current visit: Yes Status: Acute Category: Medical Code(s): K52.9 - Noninfective gastroenteritis and colitis, unspecified - Assessment and plan all Dx Assessment and Plan for all problems:: Patient has been admitted for IV fluids. She is already tolerating some liquids. BMP will be repeated in the morning and losartan with HCTZ and metformin are being held. Continue patient's other home medications. Out of bed with assistance
[2019-03-15 07:39] LABS: Anion Gap 8.5 mEq/L (5-15); Calcium 9.1 mg/dL (8.5-10.1)
--- NOTE | 2019-03-15 07:42 | Progress Note ---
Internal Medicine - PN: Subj *Date: 03/15/19 *Time: 07:41 Interval history: Patient has no new complaints this morning. There was apparently an unwitnessed episode of small emesis after a trip to the bathroom. Patient also reports diarrhea during that same trip to the bathroom although nursing staff just reports a small bowel movement. Exam Vital signs and Labs for Last 24 Hours: Temp Pulse Resp BP Pulse Ox 98.5 F 72 20 133/63 96 03/15/19 04:00 03/15/19 04:00 03/15/19 04:00 03/15/19 04:00 03/15/19 04:00 Laboratory Results - last 24 hr 03/14/19 09:55: WBC 12.9 H, RBC 3.78 L, Hgb 11.7 L, Hct 37.2, MCV 98.3, MCH 30.8, MCHC 31.3 L, RDW 14.2, Plt Count 354, MPV 7.5, Neut % (Auto) 87.2 H, Lymph % (Auto) 8.2 L, [place] % (Auto) 2.5, Eos % (Auto) 1.8, Baso % (Auto) 0.3, Neut # (Auto) 11.2 H, Lymph # (Auto) 1.1, [place] # (Auto) 0.3, Eos # (Auto) 0.2, Baso # (Auto) 0.0, Total Counted 100, Neutrophils % (Manual) 90 H, Lymphocytes % (Manual) 9 L, Eosinophils % (Manual) 1, Platelet Estimate Normal, Hypochromasia 1+, Macrocytosis 1+ 03/14/19 09:55: Sodium 133 L, Potassium 4.3, Chloride 98, Carbon Dioxide 27, Anion Gap 12.3, BUN 34 H, Creatinine 2.30 H, Estimated Creat Clear 39, Estimated GFR 22 L, Est GFR ( Amer) 26 L, Glucose 124 H, Calcium 9.7, Total Bilirubin 0.6, AST 13 L, ALT 40, Alkaline Phosphatase 103, Troponin I < 0.02, Total Protein 7.8, Albumin 4.1, Globulin 3.7 H, Albumin/Globulin Ratio 1.1, Lipase 196, TSH 2.50 D, Free T4 1.28 03/14/19 11:50: Urine Color Yellow, Urine Appearance Clear, Urine pH 6.0, Ur Specific [place] 1.020, Urine Protein Negative, Urine Glucose (UA) Negative, Urine Ketones Trace, Urine Blood Negative, Urine Nitrate Negative, Urine Bilirubin Negative, Urine Urobilinogen 0.2, Ur Leukocyte Esterase Negative, Urine WBC Occasional, Ur Squamous Epith Cells 10-20, Urine Bacteria 1+ 03/14/19 16:03: POC Glucose 98 03/14/19 20:56: POC Glucose 109 I & O for Last 24 hours: Intake & Output 03/12/19 03/13/19 03/14/19 03/15/19 11:59 11:59 11:59 11:59 Intake Total 1841 / 1841 Output Total 1900 / 1900 Balance - / - Weight 200 lb 200 lb 3 oz Narrative: Patient looks well. Lungs are clear. Heart has regular rate and rhythm. Abdomen is soft and nontender Assessment and Plan (1) Acute kidney injury Current visit: Yes Status: Acute Category: Medical Code(s): N17.9 - Acute kidney failure, unspecified (2) Dehydration Current visit: Yes Status: Acute Category: Medical Code(s): E86.0 - Dehydration (3) Gastroenteritis Current visit: Yes Status: Acute Category: Medical Code(s): K52.9 - Noninfective gastroenteritis and colitis, unspecified - Assessment and plan all Dx Assessment and Plan for all problems:: Await labs and tentatively plan for discharge
--- NOTE | 2019-03-15 07:45 | Discharge Summary ---
General - General Admission date:: 03/14/19 Discharge date: 03/15/19 HPI HPI: 59-year-old female presented to the emergency department after weeklong episodes of vomiting and diarrhea which were unrelenting. She tells me her symptoms started 1 week ago. She visited her primary care provider and was given antiemetics. Symptoms persisted. Last episode of both vomiting and diarrhea was this morning prior to presentation to the emergency department. In the emergency department she was asymptomatic but work-up revealed acute kidney injury. Patient takes losartan with HCTZ as well as metformin. Patient was felt to be dehydrated as a partial cause of her acute kidney injury and decision was made to admit for IV fluids. Since admission patient has not had any further symptoms. She has tolerated a small can of Sprite and a small container of great juice. She denies fevers or chills during the week. She denies blood in her stool. CT scan performed in the emergency department was unremarkable Hospital Course Hospital Course: Patient was admitted and placed on IV fluids. She tolerated clear liquids. 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 However she continued to be able to tolerate liquids. On repeat labs renal function had improved. Patient was discharged home Objective Vital signs: Temp Pulse Resp BP Pulse Ox 98.5 F 72 20 133/63 96 03/15/19 04:00 03/15/19 04:00 03/15/19 04:00 03/15/19 04:00 03/15/19 04:00 Results Labs on day of discharge: Labs from last 24 hours 03/14/19 03/14/19 03/14/19 20:56 16:03 11:50 WBC RBC Hgb Hct MCV MCH MCHC RDW Plt Count MPV Neut % (Auto) Lymph % (Auto) [place] % (Auto) Eos % (Auto) Baso % (Auto) Neut # (Auto) Lymph # (Auto) [place] # (Auto) Eos # (Auto) Baso # (Auto) Total Counted Neutrophils % (Manual) Lymphocytes % (Manual) Eosinophils % (Manual) Platelet Estimate Hypochromasia Macrocytosis Sodium Potassium Chloride Carbon Dioxide Anion Gap BUN Creatinine Estimated Creat Clear Estimated GFR Est GFR ( Amer) Glucose POC Glucose 109 98 Calcium Total Bilirubin AST ALT Alkaline Phosphatase Troponin I Total Protein Albumin Globulin Albumin/Globulin Ratio Lipase TSH Free T4 Urine Color Yellow Urine Appearance Clear Urine pH 6.0 Ur Specific [place] 1.020 Urine Protein Negative Urine Glucose (UA) Negative Urine Ketones Trace Urine Blood Negative Urine Nitrate Negative Urine Bilirubin Negative Urine Urobilinogen 0.2 Ur Leukocyte Esterase Negative Urine WBC Occasional Ur Squamous Epith Cells 10-20 Urine Bacteria 1+ 03/14/19 03/14/19 09:55 09:55 WBC 12.9 H RBC 3.78 L Hgb 11.7 L Hct 37.2 MCV 98.3 MCH 30.8 MCHC 31.3 L RDW 14.2 Plt Count 354 MPV 7.5 Neut % (Auto) 87.2 H Lymph % (Auto) 8.2 L [place] % (Auto) 2.5 Eos % (Auto) 1.8 Baso % (Auto) 0.3 Neut # (Auto) 11.2 H Lymph # (Auto) 1.1 [place] # (Auto) 0.3 Eos # (Auto) 0.2 Baso # (Auto) 0.0 Total Counted 100 Neutrophils % (Manual) 90 H Lymphocytes % (Manual) 9 L Eosinophils % (Manual) 1 Platelet Estimate Normal Hypochromasia 1+ Macrocytosis 1+ Sodium 133 L Potassium 4.3 Chloride 98 Carbon Dioxide 27 Anion Gap 12.3 BUN 34 H Creatinine 2.30 H Estimated Creat Clear 39 Estimated GFR 22 L Est GFR ( Amer) 26 L Glucose 124 H POC Glucose Calcium 9.7 Total Bilirubin 0.6 AST 13 L ALT 40 Alkaline Phosphatase 103 Troponin I < 0.02 Total Protein 7.8 Albumin 4.1 Globulin 3.7 H Albumin/Globulin Ratio 1.1 Lipase 196 TSH 2.50 D Free T4 1.28 Urine Color Urine Appearance Urine pH Ur Specific [place] Urine Protein Urine Glucose (UA) Urine Ketones Urine Blood Urine Nitrate Urine Bilirubin Urine Urobilinogen Ur Leukocyte Esterase Urine WBC Ur Squamous Epith Cells Urine Bacteria DS: Diagnosis - Discharge Diagnosis (1) Acute kidney injury Status: Acute (2) Dehydration Status: Acute (3) Gastroenteritis Status: Acute Discharge Plan - Patient Discharge Instructions ACTIVITY: Continue current activity DIET: continue same diet - Follow up Plan Follow up with: Arely Hannon APRN [Primary Care Provider] - 03/17/19 Disposition: Home, Self-Half-Way Medications: Home Medications Medication Instructions Recorded Confirmed Type Levothyroxine Sodium 50 mcg PO DAILY 09/18/17 03/14/19 History [Levothyroxine 50mcg (0.05mg) Tab] Losartan/Hydrochlorothiazide 1 each PO DAILY 09/18/17 03/14/19 History [Losartan-Hctz 50-12.5 mg Tab] Metformin HCl 1,000 mg PO BID 09/18/17 03/14/19 History Montelukast Sodium [Singulair 10mg 10 mg PO DAILY 09/18/17 03/14/19 History tablet] Risperidone Microspheres 50 mg IM MONTHLY 09/18/17 03/14/19 History [Risperdal Consta] metHOTREXate sodium [metHOTREXate 10 mg PO WEEKLY 09/18/17 03/14/19 History 2.5mg Tablet] Fluoxetine HCl 40 mg PO DAILY 01/08/18 03/14/19 History Aspirin [Aspirin 81mg EC Tab] 81 mg PO DAILY 03/14/19 03/14/19 History Atorvastatin Calcium [Atorvastatin 40 mg PO HS 03/14/19 03/14/19 History 40mg Tab] Esomeprazole Magnesium 20 mg PO DAILY 03/14/19 03/14/19 History Estrogen,Con/M-Progest Acet 1 tab PO DAILY 03/14/19 03/14/19 History [Prempro 0.625-5 mg Tablet] Lisinopril/Hydrochlorothiazide 1 tab PO DAILY 03/14/19 03/14/19 History [Lisinopril-Hctz 20-12.5 mg Tab] [place] Carbonate 600 mg PO BID 03/14/19 03/14/19 History Loratadine [Allerclear] 10 mg PO DAILY 03/14/19 03/14/19 History buPROPion HCl [Bupropion HCl Sr] 150 mg PO DAILY 03/14/19 03/14/19 History lamoTRIgine [Lamotrigine] 200 mg PO BID 03/14/19 03/14/19 History Promethazine HCl [Phenergan 25mg 25 mg PO Q6H PRN #10 tab 03/15/19 Rx tab] Prescriptions/Medication Reconciliation: New Promethazine HCl [Phenergan 25mg tab] 25 mg PO Q6H PRN #10 tab PRN Reason: Nausea And Vomiting Continued Levothyroxine Sodium [Levothyroxine 50mcg (0.05mg) Tab] 50 mcg PO DAILY metHOTREXate sodium [metHOTREXate 2.5mg Tablet] 10 mg PO WEEKLY Fluoxetine HCl 40 mg PO DAILY lamoTRIgine [Lamotrigine] 200 mg PO BID [place] Carbonate 600 mg PO BID buPROPion HCl [Bupropion HCl Sr] 150 mg PO DAILY Loratadine [Allerclear] 10 mg PO DAILY Aspirin [Aspirin 81mg EC Tab] 81 mg PO DAILY Estrogen,Con/M-Progest Acet [Prempro 0.625-5 mg Tablet] 1 tab PO DAILY Esomeprazole Magnesium 20 mg PO DAILY Atorvastatin Calcium [Atorvastatin 40mg Tab] 40 mg PO HS Risperidone Microspheres [Risperdal Consta] 50 mg IM MONTHLY Montelukast Sodium [Singulair 10mg tablet] 10 mg PO DAILY Discontinued Metformin HCl 1,000 mg PO BID Losartan/Hydrochlorothiazide [Losartan-Hctz 50-12.5 mg Tab] 1 each PO DAILY Lisinopril/Hydrochlorothiazide [Lisinopril-Hctz 20-12.5 mg Tab] 1 tab PO DAILY
== END 2019-03-15 10:36 | disposition home or self-care (01) ==
LOC: 2ND 09:45 → ER 09:45 → 2ND 13:24
PROVIDERS: ADMIT Family Medicine; ATTEND Family Medicine
DX: N17.9 Acute kidney failure, unspecified; Z79.899 Other long term (current) drug therapy; K52.9 Noninfective gastroenteritis and colitis, unspecified; Z79.890 Hormone replacement therapy; Z79.84 Long term (current) use of oral hypoglycemic drugs; E86.0 Dehydration
CPT/HCPCS: 74176; 80048; 80053; 80178; 81001; 82962; 83690; 84439; 84443; 84484; 85007; 85025; 93005; 96365; 96366; 96375; 99284; G0378; J2405

== ENCOUNTER 2019-03-16 18:43 | Observation (INO) ==
--- NOTE | 2019-03-16 19:19 | Emergency Department Note ---
ED Disposition Clinical Impression: Altered mental status, Renal insufficiency, Anemia, Bipolar disorder, Medication side effect Disposition: Still a Patient Condition on Discharge: Fair Referrals: Provider,Referral, [Referring] - - Critical Care Critical Care Time: No Attestation: On 03/16/19, the high probability of a clinically significant, sudden or life threatening deterioration of the following system(s) required my full and direct attention, intervention and personal management. The time I documented below is in addition to time spent performing reported procedures but includes the fol lowing listed in this critical care notation. Medical Decision Making - Emile Inquiry Pt receiving controlled substance: No Emile was queried for this patient: No Vital Signs: 03/16/19 18:44 Temperature 98.6 F Temperature Source Oral Pulse Rate [Left Radial] 77 Respiratory Rate 18 Blood Pressure [Right Arm] 164/78 H Blood Pressure Mean [Right Arm] 106 Blood Pressure Source [Right Arm] Automatic Cuff Blood Pressure Position [Right Arm] Sitting 02 Sat by Pulse Oximetry 98 Oxygen Delivery Method Room Air - Lab Data Lab Results 03/16/19 19:10: WBC 9.3 D, RBC 3.46 L, Hgb 10.6 L, Hct 33.4 L, MCV 96.7, MCH 30.6, MCHC 31.6 L, RDW 14.5, Plt Count 300, MPV 7.7, Neut % (Auto) 81.8 H, Lymph % (Auto) 11.1, [place] % (Auto) 4.4, Eos % (Auto) 2.4, Baso % (Auto) 0.3, Neut # (Auto) 7.6, Lymph # (Auto) 1.0, [place] # (Auto) 0.4, Eos # (Auto) 0.2, Baso # (Auto) 0.0 03/16/19 19:10: Sodium 138, Potassium 4.0, Chloride 103, Carbon Dioxide 27, Anion Gap 12.0, BUN 11 D, Creatinine 1.31 H, Estimated Creat Clear 68, Estimated GFR 42 L, Est GFR ( Amer) 51 L, Glucose 146 H, Calcium 9.3, Total Bilirubin 0.4, AST 17 D, ALT 40, Alkaline Phosphatase 121 H, Total Protein 6.9, Albumin 3.5, Globulin 3.4 H, Albumin/Globulin Ratio 1.0 L 03/16/19 19:10: PT 10.6, INR 1.02, APTT 22.4 L 03/16/19 19:10: Ammonia 23 03/16/19 19:10: Troponin I < 0.02, Plasma/Serum Alcohol 0 03/16/19 19:20: Urine Color Yellow, Urine Appearance Clear, Urine pH 6.5, Ur Specific [place] 1.010, Urine Protein Negative, Urine Glucose (UA) Negative, Urine Ketones Negative, Urine Blood Negative, Urine Nitrate Negative, Urine Bilirubin Negative, Urine Urobilinogen 0.2, Ur Leukocyte Esterase Negative, Urine WBC 3-5, Ur Squamous Epith Cells 3-5 03/16/19 19:20: Urine Opiates Screen Negative, Urine Methadone Screen Negative, Ur Barbituates Screen Negative, Ur Phencyclidine Scrn Negative, Ur Amphetamines Screen Negative, U Benzodiazepines Scrn Negative, Urine Cocaine Screen Negative, U Marijuana (THC) Screen Negative 03/16/19 19:38: Specimen Source R/r, O2 % R/a, ABG pH 7.40, ABG pCO2 37.4, ABG pO2 74.0 L, ABG HCO3 22.8, ABG Total CO2 23.9, ABG O2 Saturation 95, ABG Base Excess -2.0, Nnamdi Test Y Result diagrams: 03/16/19 19:10 03/16/19 19:10 Orders (Tests/Meds): ORDERS Category Date Time Status Chest XR -- portable [XR chest portable] Stat Exams 03/16/19 19:16 Taken Arterial Blood Gas Stat RT 03/16/19 19:15 Ordered ECG Request by Dr/Nse Stat Y 03/16/19 19:22 Ordered - Radiology Data #1 Image(s): Chest Image Reviewed: Yes I reviewed the patient's radiology image Preliminary Findings: Normal/NAD Medical Decision Narrative: I discussed with Dr. Johnson who agreed to admit the patient for observation and top her newest psych medications. After medication review I found that that the patient is on trazodone 50 mg at bedtime that is in her medicine bag but not on the list. I will asto her Trazodon and wellbutrin. Altered Mental Status HPI - General Chief Complaint: Weakness Stated Complaint: WEAKNESS Time Seen by Provider: 03/16/19 18:50 Mode of Arrival: Wheelchair Limitations: No Limitations Description of Symptoms (Recalled from ER Triage Doc. by RN): c/o slurred speech, drooling, weakness, family states pt was discharged here yesterday for dehydration. PT is A&O x4, NIHSS 0 - History of Present Illness HPI narrative: 59 years old white female with multiple mental and medical problems on long list of psychiatric medications. Yesterday, she was released from the hospital after a short stay due to dehydration. Per family members she was drooling on herself prior to discharge and this morning at 1140 she was found to be sitting nodding in her seat. This afternoon she is sleepy with slurred speech she was brought to the hospital with a stroke alert. 1850 in the emergency department the patient is arousable alert oriented x4, she has no focal complain, she denies having chest pain headache abdominal pain numbness tingling weakness involving upper or lower extremities she complains of fatigue and is wanting to go to sleep. Underwent NIH stroke scale of [address] scan that was negative of acute findings. MD complaint: other (See HPI. ) Onset (ago): day(s) Time: 10:30 (Yesterday morning) Timing confirmed by: family member Severity: mild Consistency of symptoms: waxing and waning Associated symptoms: denies other symptoms - Related Data Home Medications Medication Instructions Recorded Confirmed RX: Levothyroxine Sodium 50 mcg PO DAILY 09/18/17 03/14/19 [Levothyroxine 50mcg (0.05mg) Tab] RX: Montelukast Sodium [Singulair 10 mg PO DAILY 09/18/17 03/14/19 10mg tablet] RX: Risperidone Microspheres 50 mg IM MONTHLY 09/18/17 03/14/19 [Risperdal Consta] RX: metHOTREXate sodium 10 mg PO WEEKLY 09/18/17 03/14/19 [metHOTREXate 2.5mg Tablet] RX: Fluoxetine HCl 40 mg PO DAILY 01/08/18 03/14/19 RX: Aspirin [Aspirin 81mg EC 81 mg PO DAILY 03/14/19 03/14/19 Tab] RX: Atorvastatin Calcium 40 mg PO HS 03/14/19 03/14/19 [Atorvastatin 40mg Tab] RX: Esomeprazole Magnesium 20 mg PO DAILY 03/14/19 03/14/19 RX: Estrogen,Con/M-Progest Acet 1 tab PO DAILY 03/14/19 03/14/19 [Prempro 0.625-5 mg Tablet] RX: [place] Carbonate 600 mg PO BID 03/14/19 03/14/19 RX: Loratadine [Allerclear] 10 mg PO DAILY 03/14/19 03/14/19 RX: buPROPion HCl [Bupropion HCl 150 mg PO DAILY 03/14/19 03/14/19 Sr] RX: lamoTRIgine [Lamotrigine] 200 mg PO BID 03/14/19 03/14/19 Previous Rx's Medication Instructions Recorded RX: Promethazine HCl [Phenergan 25 mg PO Q6H PRN #10 tab 03/15/19 25mg tab] Allergies Allergy/AdvReac Type Severity Reaction Status Date / Time No Known Drug Allergies Allergy Unknown Verified 10/03/18 09:06 [NKDA] ENVIRONMENTAL ALLERGENS Allergy Unknown Uncoded 09/04/17 14:48 [facility] History - Hepatitis A Screen Drug use history?: No High risk sexual behaviors?: No History of sexually transmitted infection?: No Currently employed?: No Childcare worker?: No Do you have indoor plumbing?: Yes Do you have electricity?: Yes Attestation statement:: This patient has been screened for Hepatitis A risk factors. I have reviewed the patient's past medical history: Yes Medical History: Reports:: Cancer, Diabetes Mellitus Type 2, Hyperlipidemia, Hypertension Denies:: Diabetes Mellitus Type 1, MRSA Other Surgeries: Yes: Cholecystectomy Amputation: No Fractures: No - Social History Smoking Status: Never smoker Alcohol Intake: never Occupational Status: disabled Housing: house Household Members: family - Psychiatric History Expresses thoughts of harming self/others: None Suicide Plan Description: No Plan Family Hx:: Cancer, Diabetes, Heart Attack, Hyperlipidemia, Hypertension, Stroke ROS Obtained: Yes All systems reviewed & no additional complaints Physical Exam - General General appearance: alert, in no apparent distress, other (She is sleepy but easily arousable.) - Head Head exam: atraumatic, normocephalic, normal inspection - Eye Eye exam: Present: normal appearance, PERRL, EOMI. Absent: scleral icterus, nystagmus - ENT ENT exam: Present: normal exam, normal oropharynx, mucous membranes moist, TM's normal bilaterally, normal external ear exam - Neck Neck exam: Present: normal inspection, full ROM, trachea midline. Absent: tenderness, meningismus, lymphadenopathy - Chest Chest inspection: Present: normal inspection, symmetric chest wall rise. Absent: tenderness - Respiratory Respiratory exam: Present: normal lung sounds bilaterally. Absent: respiratory distress, wheezes - Cardiovascular Cardiovascular exam: Present: regular rate, normal rhythm, normal heart sounds. Absent: JVD - Abdominal Exam Abdominal exam: Present: soft, normal bowel sounds. Absent: distention, tenderness, guarding, rebound, rigidity - Extremities Exam Extremities exam: Present: normal inspection, full ROM, normal capillary refill. Absent: pedal edema, calf tenderness - Back Exam Back exam: Present: normal inspection. Absent: tenderness, CVA tenderness (R), CVA tenderness (L) - Neurological Exam Neurological exam: Present: alert, oriented X3, CN II-XII intact, motor sensory deficit, reflexes normal - Psychiatric Psychiatric exam: Present: normal affect, normal mood - Skin Skin exam: Present: warm, dry, intact, normal color - Lymphatic Lymphatic Findings: no adenopathy
[2019-03-16 19:26] LABS: Basophils % 0.3 % (0.1-2.0); Eosinophils # 0.2 K/mm3 (0.0-0.4); Eosinophils % 2.4 % (0.1-12.0); Hematocrit 33.4 % (37.0-47.0); Hemoglobin 10.6 g/dL (12.2-16.2); Lymphocytes % 11.1 % (10-50); Mean Corpuscular HGB Conc 31.6 g/dL (31.8-35.4); Mean Corpuscular Volume 96.7 fl (81-99); Mean Platelet Volume 7.7 fl (7.4-10.4); Monocytes # 0.4 K/mm3 (0.1-1.0); Monocytes % 4.4 % (1.7-9.3); Neutrophils # 7.6 K/mm3 (1.8-7.8); Neutrophils % 81.8 % (37.0-80.0); Platelet Count 300 K/mm3 (142-424); Red Blood Count 3.46 M/mm3 (4.20-5.40); Red Cell Distribution Width 14.5 % (11.5-17.5); White Blood Count 9.3 K/mm3 (4.8-10.8)
[2019-03-16 19:27] LABS: Microscopic, Urine URINE MICROSCOPIC (MICROSCOPIC)
[2019-03-16 19:29] LABS: Activated Partial Thrombo Time 22.4 seconds (23.6-34.0); INR 1.02 (0.9-1.1); Prothrombin Time 10.6 seconds (9.4-11.8)
[2019-03-16 19:39] LABS: Appearance,Urine CLEAR (Clear); Bilirubin,Urine Negative (Negative); Blood, Urine Negative (Negative); Color,Urine YELLOW (Yellow); Glucose,Urine (UA) Negative (Negative); Ketones,Urine Negative (Negative); Leukocyte Esterase,Urine Negative (Negative); PH,Urine 6.5 (5.0-8.5); Protein,Urine Negative (Negative); Urobilinogen,Urine 0.2 EU/dl (0.2)
[2019-03-16 19:40] LABS: Ethyl Alcohol 0 mg/dL (0-99)
[2019-03-16 19:40] LABS: ABG HCO3 22.8 mmhg (22.0-26.0); ABG Oxygen Saturation 95 % (90-100); ABG PCO2 37.4 mmhg (35.0-45.0); ABG TCO2 23.9 mmhg (23-27); Allen's Test Y; Oxygen R/A %
[2019-03-16 19:43] LABS: Amphetamine/Metha Screen,Urine Negative ng/mL (<1000); Barbiturates Screen,Urine Negative ng/mL (<200); Benzodiazepines Screen,Urine Negative ng/mL (<200); Cannabinoid Screen,Urine Negative ng/mL (<50); Cocaine Screen,Urine Negative ng/mL (<300); Methadone Screen,Urine Negative ng/mL (<300); Opiate Screen,Urine Negative ng/mL (<300); Phencyclidine Screen,Urine Negative ng/mL (<25)
[2019-03-16 19:44] LABS: Albumin Level 3.5 gm/dL (3.4-5.0); Bilirubin,Total 0.4 mg/dL (0.2-1.0); Calcium 9.3 mg/dL (8.5-10.1); Globulin 3.4 gm/dl (1.3-3.2); Total Protein,Serum 6.9 gm/dL (6.4-8.2)
[2019-03-17 06:14] LABS: Basophils % 0.5 % (0.1-2.0); Eosinophils # 0.2 K/mm3 (0.0-0.4); Eosinophils % 2.5 % (0.1-12.0); Hematocrit 33.7 % (37.0-47.0); Hemoglobin 10.4 g/dL (12.2-16.2); Lymphocytes # 1.2 K/mm3 (0.7-4.5); Lymphocytes % 13.7 % (10-50); Mean Corpuscular Volume 98.3 fl (81-99); Mean Platelet Volume 8.2 fl (7.4-10.4); Monocytes # 0.3 K/mm3 (0.1-1.0); Monocytes % 3.5 % (1.7-9.3); Neutrophils # 7.1 K/mm3 (1.8-7.8); Neutrophils % 79.9 % (37.0-80.0); Platelet Count 269 K/mm3 (142-424); Red Blood Count 3.42 M/mm3 (4.20-5.40); Red Cell Distribution Width 14.4 % (11.5-17.5); White Blood Count 8.9 K/mm3 (4.8-10.8)
[2019-03-17 06:48] LABS: Anion Gap 9.1 mEq/L (5-15); Calcium 9.3 mg/dL (8.5-10.1)
--- NOTE | 2019-03-17 07:17 | History & Physical Report ---
*Admission Date: 03/16/19 *Chief complaint: Extreme drowsiness *History of present illness: 59-year-old female with recent hospitalization at [facility] for dehydration from gastroenteritis causing some renal insufficiency. On 15 March she was discharged home with a prescription for Phenergan to use for nausea. Patient reports she took Phenergan on Sunday night and Sunday morning and by Sunday afternoon felt like she could not "control my arms and legs". Family reported patient did not seem to be herself. She presented to the ER. In the ER she underwent evaluation without any significant findings. She was alert and oriented x3 but extremely somnolent. It was postulated that she was experiencing a reaction or an extreme response to the use of Phenergan and decision was made to admit her for observation. [facility] History I have reviewed the patient's past medical history: Yes Medical History: Reports:: Diabetes Mellitus Type 2, Hyperlipidemia, Hypertension Denies:: Cancer, Diabetes Mellitus Type 1, MRSA *Have you ever received a pneumonia vaccine?: No *Have you received a flu vaccine this season?: Yes Other Surgeries: Yes: Cholecystectomy Amputation: No Fractures: No - *Social History Educational Level: Attended College Smoking Status: Never smoker Alcohol Intake: never *Occupational Status:: disabled Housing: house Household Members: family *Travel in the last 8 weeks: None - Psychiatric History Expresses thoughts of harming self/others: None Suicide Plan Description: No Plan Family Hx:: Cancer, Diabetes, Heart Attack, Hyperlipidemia, Hypertension, Stroke Review of Systems - Review of Systems Review of systems:: pertinent systems reviewed and negative unless documented below Meds Home Medications Medication Instructions Recorded Confirmed Type Levothyroxine Sodium 50 mcg PO DAILY 09/18/17 03/16/19 History [Levothyroxine 50mcg (0.05mg) Tab] Montelukast Sodium [Singulair 10mg 10 mg PO DAILY 09/18/17 03/16/19 History tablet] Risperidone Microspheres 50 mg IM MONTHLY 09/18/17 03/16/19 History [Risperdal Consta] metHOTREXate sodium [metHOTREXate 15 mg PO WEEKLY 09/18/17 03/17/19 History 2.5mg Tablet] Fluoxetine HCl 40 mg PO DAILY 01/08/18 03/16/19 History Aspirin [Aspirin 81mg EC Tab] 81 mg PO DAILY 03/14/19 03/16/19 History Atorvastatin Calcium [Atorvastatin 40 mg PO HS 03/14/19 03/16/19 History 40mg Tab] Esomeprazole Magnesium 20 mg PO DAILY 03/14/19 03/16/19 History Estrogen,Con/M-Progest Acet 1 tab PO DAILY 03/14/19 03/16/19 History [Prempro 0.625-5 mg Tablet] [place] Carbonate 600 mg PO BID 03/14/19 03/16/19 History Loratadine [Allerclear] 10 mg PO DAILY 03/14/19 03/16/19 History buPROPion HCl [Bupropion HCl Sr] 150 mg PO DAILY 03/14/19 03/16/19 History lamoTRIgine [Lamotrigine] 200 mg PO BID 03/14/19 03/16/19 History Promethazine HCl [Phenergan 25mg 25 mg PO Q6H PRN #10 tab 03/15/19 03/16/19 Rx tab] Lisinopril/Hydrochlorothiazide 1 tab PO DAILY 03/17/19 03/17/19 History [Lisinopril-Hctz 20-12.5 mg Tab] Allergies Allergy/AdvReac Type Severity Reaction Status Date / Time No Known Drug Allergies Allergy Unknown Verified 10/03/18 09:06 [NKDA] ENVIRONMENTAL ALLERGENS Allergy Unknown Uncoded 09/04/17 14:48 Exam Vital signs and Labs for Last 24 Hours: Temp Pulse Resp BP Pulse Ox 97.9 F 66 16 139/69 98 03/17/19 04:00 03/17/19 04:00 03/17/19 04:00 03/17/19 04:00 03/17/19 04:00 Laboratory Results - last 24 hr 03/16/19 19:10: WBC 9.3 D, RBC 3.46 L, Hgb 10.6 L, Hct 33.4 L, MCV 96.7, MCH 30.6, MCHC 31.6 L, RDW 14.5, Plt Count 300, MPV 7.7, Neut % (Auto) 81.8 H, Lymph % (Auto) 11.1, [place] % (Auto) 4.4, Eos % (Auto) 2.4, Baso % (Auto) 0.3, Neut # (Auto) 7.6, Lymph # (Auto) 1.0, [place] # (Auto) 0.4, Eos # (Auto) 0.2, Baso # (Auto) 0.0 03/16/19 19:10: Sodium 138, Potassium 4.0, Chloride 103, Carbon Dioxide 27, Anion Gap 12.0, BUN 11 D, Creatinine 1.31 H, Estimated Creat Clear 68, Estimated GFR 42 L, Est GFR ( Amer) 51 L, Glucose 146 H, Calcium 9.3, Total Bilirubin 0.4, AST 17 D, ALT 40, Alkaline Phosphatase 121 H, Total Protein 6.9, Albumin 3.5, Globulin 3.4 H, Albumin/Globulin Ratio 1.0 L 03/16/19 19:10: PT 10.6, INR 1.02, APTT 22.4 L 03/16/19 19:10: Ammonia 23 03/16/19 19:10: Troponin I < 0.02, Plasma/Serum Alcohol 0 03/16/19 19:20: Urine Color Yellow, Urine Appearance Clear, Urine pH 6.5, Ur Specific [place] 1.010, Urine Protein Negative, Urine Glucose (UA) Negative, Urine Ketones Negative, Urine Blood Negative, Urine Nitrate Negative, Urine Bilirubin Negative, Urine Urobilinogen 0.2, Ur Leukocyte Esterase Negative, Urine WBC 3-5, Ur Squamous Epith Cells 3-5 03/16/19 19:20: Urine Opiates Screen Negative, Urine Methadone Screen Negative, Ur Barbituates Screen Negative, Ur Phencyclidine Scrn Negative, Ur Amphetamines Screen Negative, U Benzodiazepines Scrn Negative, Urine Cocaine Screen Negative, U Marijuana (THC) Screen Negative 03/16/19 19:38: Specimen Source R/r, O2 % R/a, ABG pH 7.40, ABG pCO2 37.4, ABG pO2 74.0 L, ABG HCO3 22.8, ABG Total CO2 23.9, ABG O2 Saturation 95, ABG Base Excess -2.0, Nnamdi Test Y 03/17/19 06:00: WBC 8.9, RBC 3.42 L, Hgb 10.4 L, Hct 33.7 L, MCV 98.3, MCH 30.4, MCHC 31.0 L, RDW 14.4, Plt Count 269, MPV 8.2, Neut % (Auto) 79.9, Lymph % (Auto) 13.7, [place] % (Auto) 3.5, Eos % (Auto) 2.5, Baso % (Auto) 0.5, Neut # (Auto) 7.1, Lymph # (Auto) 1.2, [place] # (Auto) 0.3, Eos # (Auto) 0.2, Baso # (Auto) 0.0 03/17/19 06:00: Sodium 138, Potassium 4.1, Chloride 104, Carbon Dioxide 29, Anion Gap 9.1, BUN 10, Creatinine 1.30 H, Estimated Creat Clear 67, Estimated GFR 42 L, Est GFR ( Amer) 51 L, Glucose 171 H, Calcium 9.3 I & O for Last 24 hours: Intake & Output 03/14/19 03/15/19 03/16/19 03/17/19 11:59 11:59 11:59 11:59 Intake Total 383 / 383 Balance 383 / 383 Weight 196 lb 4 oz Narrative: Patient is snoring loudly when I enter the room. With a lot of effort she awakens. ENT exam is normal. Neck has no carotid bruits. Lungs are clear to auscultation. Heart has a regular rate and rhythm. Abdomen is obese and soft. Patient has active range of motion in all extremities. Neurologically there is no deficits. Patient is oriented to person place and time Assessment and Plan (1) Medication side effect Current visit: Yes Status: Acute Category: Medical Code(s): T88.7XXA - Unspecified adverse effect of drug or medicament, initial encounter - Assessment and plan all Dx Assessment and Plan for all problems:: Phenergan has been discontinued. IV fluids will be stopped. Patient will be out of bed to chair today. She may be discharged this afternoon
--- NOTE | 2019-03-17 07:18 | Pharmacy Consult Notes ---
[facility] Pharmacy VTE Monitoring - Patient Demographics Admission date: 03/16/19 Report Date: 03/17/19 Time: 07:18 Allergies/Adverse Reactions: Patient Allergies No Known Drug Allergies [NKDA] Allergy (Unknown, Verified 10/03/18 09:06) ENVIRONMENTAL ALLERGENS Allergy (Unknown, Uncoded 09/04/17 14:48) Height: 1.65 m Weight: 89.018 kg Patient Problems: Current Active Problems (Updated 03/16/19 @ 20:05 by Ondina Randolph MD) Altered mental status (Acute) Renal insufficiency (Acute) Anemia (Acute) Bipolar disorder (Acute) Medication side effect (Acute) - VTE Risk Labs: VTE Related Lab Results Hgb 10.4 g/dL (12.2-16.2) L 03/17/19 06:00 Hct 33.7 % (37.0-47.0) L 03/17/19 06:00 Plt Count 269 K/mm3 (142-424) 03/17/19 06:00 PT 10.6 seconds (9.4-11.8) 03/16/19 19:10 INR 1.02 (0.9-1.1) 03/16/19 19:10 APTT 22.4 seconds (23.6-34.0) L 03/16/19 19:10 BUN 10 mg/dL (7-18) 03/17/19 06:00 Creatinine 1.30 mg/dL (0.55-1.02) H 03/17/19 06:00 Estimated Creat Clear 67 mL/min (50-200) 03/17/19 06:00 Was VTE Risk Assessment Performed: Yes VTE Score: 5 VTE Risk Level: Low Risk - Prophylaxis VTE Prophylaxis Ordered?: Yes Types of VTE Prophylaxis: TEDS Knee High Location of Applied Device: Bilateral Lower Extremeties - VTE Diagnosis Confirmed Treatment or plan recommended: Continue Current Treatment
--- NOTE | 2019-03-17 15:43 | Consult Report ---
*Admission Date: 03/16/19 *Reason for consult:: behavioral health; altered mental status *History of present illness: I was consulted on Ms. Ramos for altered mental status; questionable if this is related to her medications: HOME MEDICATIONS; -Risperdal Consta 50mg IM every 2 weeks -Lamitcal 200mg BID -Wellubtrin SR 150mg daily -Bernice 600mg BID -Prozac 40mg daily -Trazodone 50mg at bedtime--states this is new -vistaril unknown dose; this is also new She states that she came to the ER cause her sister came to check on her and she was really sleepy. States that the doctor in the ER thought that she was on drugs. -she has been getting the above medications from her PMHNP Lavinia Torrez in [place], [place]. -she is not oriented today; states that it is February; cannot give me a date; and that it is Sunday. She did get the year and president correct. -she states that she is sleepy; but she is not sure if this is related to her medications -she states that she does get a regular lithium level done by her PCP; Arely Hannon in [place]. NOt sure when her last one was or the level or this -reports she was on the trazodone and vistaril at bedtime only for about the past week Reports she was in the hospital last week as well. That she was told she was dehydrated and that her kidneys were not working like they should have. Reports diarrhea; nausea; vomiting; lethargy; and being really tired. NO tremor. Positive slurred speech today; thick tongue. States that she also had the urge to urinate a lot last week; but would get to the toilet and nothing would happen. -was not sleeping good prior to admit last week into the hospital -reports only getting about 5 hours of sleep on a regular basis -denies any depression -denies anxiety I did review her chart; labs; and medications. They did draw a lithium level on her; called lab; it was recorded that on 03.14.2019 her lithium level was 3.0. Ernestina heredia did draw one yesterday; but this is a send out so this has not come back yet. Her kidney function is also slightly off. However, this has improved over the past couple days. Her lithium is currently on hold by her attending. He also put her lamictal, wellbutrin, and prozac on hold for the time being. I did talk to Dr. Santamaria regarding this patient. SHe appears to me to be lithium toxic. This is reflected by symptoms as well as the lab work that was done. We did order a repeat lithium level with stat results as well as a TSH stat to check this. -no other orders today -continue to leave the lithium on hold at this time -did discuss that lithium may not be the best medication for her at this time -may need to change to a different mood stabilizer or antipsychotic TIME IN: 1230 TIME OUT: 1300 [facility] History Medical History: Reports:: Diabetes Mellitus Type 2, Hyperlipidemia, Hypertension Denies:: Cancer, Diabetes Mellitus Type 1, MRSA *Have you ever received a pneumonia vaccine?: No *Have you received a flu vaccine this season?: Yes Other Surgeries: Yes: Cholecystectomy Amputation: No Fractures: No - *Social History Educational Level: Attended College Smoking Status: Never smoker Alcohol Intake: never *Occupational Status:: disabled Housing: house Household Members: family *Travel in the last 8 weeks: None - Psychiatric History Expresses thoughts of harming self/others: None Suicide Plan Description: No Plan Family Hx:: Cancer, Diabetes, Heart Attack, Hyperlipidemia, Hypertension, Stroke Meds Home Medications Medication Instructions Recorded Confirmed Type Levothyroxine Sodium 50 mcg PO DAILY 09/18/17 03/16/19 History [Levothyroxine 50mcg (0.05mg) Tab] Montelukast Sodium [Singulair 10mg 10 mg PO HS 09/18/17 03/17/19 History tablet] Risperidone Microspheres 50 mg IM DIRECTED 09/18/17 03/17/19 History [Risperdal Consta] metHOTREXate sodium [metHOTREXate 15 mg PO WEEKLY 09/18/17 03/17/19 History 2.5mg Tablet] Fluoxetine HCl 40 mg PO DAILY 01/08/18 03/16/19 History Aspirin [Aspirin 81mg EC Tab] 81 mg PO DAILY 03/14/19 03/16/19 History Atorvastatin Calcium [Atorvastatin 40 mg PO HS 03/14/19 03/16/19 History 40mg Tab] Esomeprazole Magnesium 20 mg PO DAILY 03/14/19 03/16/19 History Estrogen,Con/M-Progest Acet 1 tab PO DAILY 03/14/19 03/16/19 History [Prempro 0.625-5 mg Tablet] [place] Carbonate 600 mg PO BID 03/14/19 03/16/19 History Loratadine [Allerclear] 10 mg PO DAILY 03/14/19 03/16/19 History buPROPion HCl [Bupropion HCl Sr] 150 mg PO DAILY 03/14/19 03/16/19 History lamoTRIgine [Lamotrigine] 200 mg PO BID 03/14/19 03/16/19 History Promethazine HCl [Phenergan 25mg 25 mg PO Q6H PRN #10 tab 03/15/19 03/16/19 Rx tab] Losartan/Hydrochlorothiazide 1 each PO DAILY 03/17/19 03/17/19 History [Losartan-Hctz 50-12.5 mg Tab] Trazodone HCl 50 mg PO HS 03/17/19 03/17/19 History Allergies Allergy/AdvReac Type Severity Reaction Status Date / Time No Known Drug Allergies Allergy Unknown Verified 10/03/18 09:06 [NKDA] ENVIRONMENTAL ALLERGENS Allergy Unknown Uncoded 09/04/17 14:48 Exam Vital signs and Labs for Last 24 Hours: Temp Pulse Resp BP Pulse Ox 98.2 F 67 16 138/69 100 03/17/19 07:58 03/17/19 07:58 03/17/19 07:58 03/17/19 07:58 03/17/19 07:58 Laboratory Results - last 24 hr 03/16/19 18:43: POC Glucose 147 H 03/16/19 19:10: WBC 9.3 D, RBC 3.46 L, Hgb 10.6 L, Hct 33.4 L, MCV 96.7, MCH 30.6, MCHC 31.6 L, RDW 14.5, Plt Count 300, MPV 7.7, Neut % (Auto) 81.8 H, Lymph % (Auto) 11.1, [place] % (Auto) 4.4, Eos % (Auto) 2.4, Baso % (Auto) 0.3, Neut # (Auto) 7.6, Lymph # (Auto) 1.0, [place] # (Auto) 0.4, Eos # (Auto) 0.2, Baso # (Auto) 0.0 03/16/19 19:10: Sodium 138, Potassium 4.0, Chloride 103, Carbon Dioxide 27, Anion Gap 12.0, BUN 11 D, Creatinine 1.31 H, Estimated Creat Clear 68, Estimated GFR 42 L, Est GFR ( Amer) 51 L, Glucose 146 H, Calcium 9.3, Total Bilirubin 0.4, AST 17 D, ALT 40, Alkaline Phosphatase 121 H, Total Protein 6.9, Albumin 3.5, Globulin 3.4 H, Albumin/Globulin Ratio 1.0 L 03/16/19 19:10: PT 10.6, INR 1.02, APTT 22.4 L 03/16/19 19:10: Ammonia 23 03/16/19 19:10: Troponin I < 0.02, Plasma/Serum Alcohol 0 03/16/19 19:20: Urine Color Yellow, Urine Appearance Clear, Urine pH 6.5, Ur Specific [place] 1.010, Urine Protein Negative, Urine Glucose (UA) Negative, Urine Ketones Negative, Urine Blood Negative, Urine Nitrate Negative, Urine Bilirubin Negative, Urine Urobilinogen 0.2, Ur Leukocyte Esterase Negative, Urine WBC 3-5, Ur Squamous Epith Cells 3-5 03/16/19 19:20: Urine Opiates Screen Negative, Urine Methadone Screen Negative, Ur Barbituates Screen Negative, Ur Phencyclidine Scrn Negative, Ur Amphetamines Screen Negative, U Benzodiazepines Scrn Negative, Urine Cocaine Screen Negative, U Marijuana (THC) Screen Negative 03/16/19 19:38: Specimen Source R/r, O2 % R/a, ABG pH 7.40, ABG pCO2 37.4, ABG pO2 74.0 L, ABG HCO3 22.8, ABG Total CO2 23.9, ABG O2 Saturation 95, ABG Base Excess -2.0, Nnamdi Test Y 03/17/19 06:00: WBC 8.9, RBC 3.42 L, Hgb 10.4 L, Hct 33.7 L, MCV 98.3, MCH 30.4, MCHC 31.0 L, RDW 14.4, Plt Count 269, MPV 8.2, Neut % (Auto) 79.9, Lymph % (Auto) 13.7, [place] % (Auto) 3.5, Eos % (Auto) 2.5, Baso % (Auto) 0.5, Neut # (Auto) 7.1, Lymph # (Auto) 1.2, [place] # (Auto) 0.3, Eos # (Auto) 0.2, Baso # (Auto) 0.0 03/17/19 06:00: Sodium 138, Potassium 4.1, Chloride 104, Carbon Dioxide 29, Anion Gap 9.1, BUN 10, Creatinine 1.30 H, Estimated Creat Clear 67, Estimated GF R 42 L, Est GFR ( Amer) 51 L, Glucose 171 H, Calcium 9.3 03/17/19 08:51: Ammonia 21 03/17/19 13:13: TSH 1.25 D I & O for Last 24 hours: Intake & Output 03/15/19 03/16/19 03/17/19 03/18/19 11:59 11:59 11:59 11:59 Intake Total 623 / 623 329 / 329 Balance 623 / 623 329 / 329 Weight 196 lb 4 oz 196 lb 4.017 oz Internal Medicine - CN: Reslt - Labs CBC & Chem 7: 03/17/19 06:00 03/17/19 06:00 Labs: Short CBC 03/16/19 03/17/19 Range/Units 19:10 06:00 WBC 9.3 D 8.9 (4.8-10.8) K/mm3 Hgb 10.6 L 10.4 L (12.2-16.2) g/dL Hct 33.4 L 33.7 L (37.0-47.0) % Plt Count 300 269 (142-424) K/mm3 BMP 03/16/19 03/17/19 19:10 06:00 Sodium 138 138 Potassium 4.0 4.1 Chloride 103 104 Carbon Dioxide 27 29 BUN 11 D 10 Creatinine 1.31 H 1.30 H Glucose 146 H 171 H Calcium 9.3 9.3 Cardiac Enzymes 03/16/19 Range/Units 19:10 Troponin I < 0.02 (0.00-0.06) ng/ml Liver Function 03/16/19 Range/Units 19:10 Total Bilirubin 0.4 (0.2-1.0) mg/dL AST 17 D (15-37) U/L ALT 40 (12-78) U/L Alkaline Phosphatase 121 H (46-116) U/L Albumin 3.5 (3.4-5.0) gm/dL Urine 03/16/19 Range/Units 19:20 Urine Color Yellow (Yellow) Urine Appearance Clear (Clear) Urine pH 6.5 (5.0-8.5) Ur Specific [place] 1.010 (1.005-1.030) Urine Protein Negative (Negative) Urine Glucose (UA) Negative (Negative) - ABG Interpretation ABG results: 03/16/19 19:38 ABG pH 7.40 ABG pCO2 37.4 ABG pO2 74.0 L ABG HCO3 22.8 ABG Total CO2 23.9 ABG O2 Saturation 95 ABG Base Excess -2.0 Assessment and Plan (1) Medication side effect Current visit: Yes Status: Acute Category: Medical Code(s): T88.7XXA - Unspecified adverse effect of drug or medicament, initial encounter
--- NOTE | 2019-03-18 07:10 | Progress Note ---
Internal Medicine - PN: Subj *Date: 03/18/19 *Time: 07:09 Interval history: Patient feels a little more awake this morning. She feels like she is participating when she is actually up walking. Exam Vital signs and Labs for Last 24 Hours: Temp Pulse Resp BP Pulse Ox 97.6 F 74 17 151/72 H 94 L 03/18/19 04:00 03/18/19 04:00 03/18/19 04:00 03/18/19 04:00 03/18/19 04:00 Laboratory Results - last 24 hr 03/16/19 18:43: POC Glucose 147 H 03/17/19 08:51: Ammonia 21 03/17/19 13:13: TSH 1.25 D 03/17/19 21:00: POC Glucose 119 H I & O for Last 24 hours: Intake & Output 03/15/19 03/16/19 03/17/19 03/18/19 11:59 11:59 11:59 11:59 Intake Total 623 / 623 749 / 749 Output Total 500 / 500 Balance 623 / 623 249 / 249 Weight 196 lb 4 oz 199 lb 6 oz Narrative: She is awake and more alert. Lungs are clear. Heart has regular rate and rhythm today Assessment and Plan (1) [place] toxicity Current visit: Yes Status: Acute Category: Medical Code(s): T56.891A - Toxic effect of other metals, accidental (unintentional), initial encounter (2) Medication side effect Current visit: Yes Status: Acute Category: Medical Code(s): T88.7XXA - Unspecified adverse effect of drug or medicament, initial encounter - Assessment and plan all Dx Assessment and Plan for all problems:: Continue IV fluids to the day today and patient is a possible discharge this afternoon
--- NOTE | 2019-03-18 12:42 | Discharge Summary ---
General - General Admission date:: 03/16/19 Discharge date: 03/18/19 HPI HPI: 59-year-old female with recent hospitalization at [facility] for dehydration from gastroenteritis causing some renal insufficiency. On 15 March she was discharged home with a prescription for Phenergan to use for nausea. Patient reports she took Phenergan on Sunday night and Sunday morning and by Sunday afternoon felt like she could not "control my arms and legs". Family reported patient did not seem to be herself. She presented to the ER. In the ER she underwent evaluation without any significant findings. She was alert and oriented x3 but extremely somnolent. It was postulated that she was experiencing a reaction or an extreme response to the use of Phenergan and decision was made to admit her for observation. Hospital Course Hospital Course: He was admitted and placed on IV fluids and encouraged to ambulate. She required 2 person assist to transfer from bed to chair initially. Patient was f ound to be lithium toxic which likely explain her symptoms. [place] toxicity developed after her acute kidney injury from her gastroenteritis. Patient was hydrated. By the morning of March 18 patient's lithium level had decreased. She was becoming more alert and was ambulating under her own power. At this point she was discharged home. She will follow-up with her primary care provider within the next 1 to 2 days. She will discontinue use of lithium. Objective Vital signs: Temp Pulse Resp BP Pulse Ox 98.1 F 76 16 159/72 H 97 03/18/19 07:48 03/18/19 07:48 03/18/19 07:48 03/18/19 07:48 03/18/19 08:00 Results Labs on day of discharge: Labs from last 24 hours 03/17/19 03/17/19 03/16/19 21:00 13:13 19:10 POC Glucose 119 H TSH 1.25 D [place] 2.1 H* DS: Diagnosis - Discharge Diagnosis (1) [place] toxicity Status: Acute (2) Medication side effect Status: Acute Discharge Plan - Patient Discharge Instructions ACTIVITY: Continue current activity DIET: continue same diet Patient Instructions: Bipolar Disorder, Anemia, Delirium, Carbohydrate-Counting Diet, DI for Altered Mental Status - Follow up Plan Follow up with: Arely Hannon APRN [Primary Care Provider] - 1 day Disposition: Home, Self-Halfway Medications: Home Medications Medication Instructions Recorded Confirmed Type Levothyroxine Sodium 50 mcg PO DAILY 09/18/17 03/16/19 History [Levothyroxine 50mcg (0.05mg) Tab] Montelukast Sodium [Singulair 10mg 10 mg PO HS 09/18/17 03/17/19 History tablet] Risperidone Microspheres 50 mg IM DIRECTED 09/18/17 03/17/19 History [Risperdal Consta] metHOTREXate sodium [metHOTREXate 15 mg PO WEEKLY 09/18/17 03/17/19 History 2.5mg Tablet] Fluoxetine HCl 40 mg PO DAILY 01/08/18 03/16/19 History Aspirin [Aspirin 81mg EC Tab] 81 mg PO DAILY 03/14/19 03/16/19 History Atorvastatin Calcium [Atorvastatin 40 mg PO HS 03/14/19 03/16/19 History 40mg Tab] Esomeprazole Magnesium 20 mg PO DAILY 03/14/19 03/16/19 History Estrogen,Con/M-Progest Acet 1 tab PO DAILY 03/14/19 03/16/19 History [Prempro 0.625-5 mg Tablet] [place] Carbonate 600 mg PO BID 03/14/19 03/16/19 History Loratadine [Allerclear] 10 mg PO DAILY 03/14/19 03/16/19 History buPROPion HCl [Bupropion HCl Sr] 150 mg PO DAILY 03/14/19 03/16/19 History lamoTRIgine [Lamotrigine] 200 mg PO BID 03/14/19 03/16/19 History Promethazine HCl [Phenergan 25mg 25 mg PO Q6H PRN #10 tab 03/15/19 03/16/19 Rx tab] Losartan/Hydrochlorothiazide 1 each PO DAILY 03/17/19 03/17/19 History [Losartan-Hctz 50-12.5 mg Tab] Metformin HCl 1,000 mg PO BID 03/17/19 03/17/19 History Trazodone HCl 50 mg PO HS 03/17/19 03/17/19 History Prescriptions/Medication Reconciliation: Continued Levothyroxine Sodium [Levothyroxine 50mcg (0.05mg) Tab] 50 mcg PO DAILY metHOTREXate sodium [metHOTREXate 2.5mg Tablet] 15 mg PO WEEKLY Fluoxetine HCl 40 mg PO DAILY lamoTRIgine [Lamotrigine] 200 mg PO BID buPROPion HCl [Bupropion HCl Sr] 150 mg PO DAILY Loratadine [Allerclear] 10 mg PO DAILY Aspirin [Aspirin 81mg EC Tab] 81 mg PO DAILY Estrogen,Con/M-Progest Acet [Prempro 0.625-5 mg Tablet] 1 tab PO DAILY Esomeprazole Magnesium 20 mg PO DAILY Atorvastatin Calcium [Atorvastatin 40mg Tab] 40 mg PO HS Promethazine HCl [Phenergan 25mg tab] 25 mg PO Q6H PRN #10 tab PRN Reason: Nausea And Vomiting Losartan/Hydrochlorothiazide [Losartan-Hctz 50-12.5 mg Tab] 1 each PO DAILY Trazodone HCl 50 mg PO HS Risperidone Microspheres [Risperdal Consta] 50 mg IM DIRECTED Montelukast Sodium [Singulair 10mg tablet] 10 mg PO HS Metformin HCl 1,000 mg PO BID Discontinued [place] Carbonate 600 mg PO BID
== END 2019-03-18 15:12 | disposition home or self-care (01) ==
LOC: ER 18:43 → 2ND 18:43
PROVIDERS: ADMIT Internal Medicine Adolescent Medicine; ATTEND Family Medicine
CPT/HCPCS: 36415; 70450; 71010; 71045; 80048; 80053; 80178; 80305; 81001; 82140; 82803; 82962; 84443; 84484; 85025; 85610; 85730; 93005; 99284; G0378

== ENCOUNTER 2019-04-02 12:40 | Outpatient (CLI) | payer MEDICARE, MEDICAID, SELFPAY ==
[2019-04-02 13:19] VITALS: BP 142/74; PULSE 85; RESP 18; O2SAT 96
== END 2019-04-02 13:40 | disposition home or self-care (01) ==
LOC: INF 13:02
PROVIDERS: Visit Provider Allergy & Immunology
DX: J45.21 Mild intermittent asthma with (acute) exacerbation (principal)
CPT/HCPCS: 96372; J2357

== ENCOUNTER 2019-05-02 12:48 | Outpatient (CLI) | payer MEDICARE, MEDICAID, SELFPAY ==
[2019-05-02 13:10] VITALS: BP 143/71; PULSE 82; RESP 20; TEMP 36.9; O2SAT 95
== END 2019-05-02 13:35 | disposition home or self-care (01) ==
LOC: INF 12:48
PROVIDERS: Visit Provider Allergy & Immunology
DX: J45.21 Mild intermittent asthma with (acute) exacerbation (principal)
CPT/HCPCS: 96372; J2357

== ENCOUNTER 2019-05-27 13:02 | Outpatient (CLI) | payer MEDICARE, MEDICAID, SELFPAY ==
[2019-05-27 13:04] VITALS: BP 159/78; PULSE 77; RESP 20; TEMP 36.9; O2SAT 95
== END 2019-05-27 13:10 | disposition home or self-care (01) ==
LOC: INF 13:02
PROVIDERS: Visit Provider Allergy & Immunology
DX: J45.21 Mild intermittent asthma with (acute) exacerbation (principal)
CPT/HCPCS: 96372; J2357

== ENCOUNTER → 2019-06-11 09:52 | Outpatient (CLI) | payer MEDICARE, MEDICAID, SELFPAY ==
--- NOTE | 2019-06-11 09:57 | XR_ITS ---
PROCEDURE: XR SHOULDER RT MIN 2V CLINICAL INDICATION: RT SHOULDER PAIN COMPARISON: No exams were available for comparison FINDINGS: No acute fracture or dislocation. There are hypertrophic changes along the undersurface of the a chromium which may result in impingement upon the supraspinatus tendon. IMPRESSION: Hypertrophic changes along the undersurface of the a chromium otherwise negative Dictated by: Nnamdi Haynes MD 06/11/2019 12:59 Electronically signed by Nnamdi Haynes MD in [place] 06/11/2019 12:59
== END ==
PROVIDERS: PCP Nurse Practitioner; Visit Provider Nurse Practitioner
DX: M25.511 Pain in right shoulder (principal)
CPT/HCPCS: 73030

== ENCOUNTER 2019-06-18 13:00 | Outpatient (RCR) | payer MEDICARE, MEDICAID, SELFPAY | END 2019-07-28 15:51 | disposition home or self-care (01) | LOC: OT 13:00 | PROVIDERS: PCP Nurse Practitioner; Visit Provider Nurse Practitioner | DX: M75.40 Impingement syndrome of unspecified shoulder (principal); M25.511 Pain in right shoulder | CPT/HCPCS: 97014; 97033; 97110; 97165; G0283 ==

== ENCOUNTER 2019-06-24 13:03 | Outpatient (CLI) | payer MEDICARE, MEDICAID, SELFPAY ==
[2019-06-24 13:27] VITALS: BP 145/77; PULSE 96; RESP 20; TEMP 36.7; O2SAT 98
== END 2019-06-24 13:50 | disposition home or self-care (01) ==
LOC: INF 13:03
PROVIDERS: Visit Provider Allergy & Immunology
DX: J45.21 Mild intermittent asthma with (acute) exacerbation (principal)
CPT/HCPCS: 96372; J2357

== ENCOUNTER 2019-07-22 12:07 | Outpatient (CLI) | payer MEDICARE, MEDICAID, SELFPAY ==
[2019-07-22 12:58] VITALS: BP 155/73; PULSE 105; RESP 18; O2SAT 100
== END 2019-07-22 12:58 | disposition home or self-care (01) ==
LOC: INF 12:07
PROVIDERS: Visit Provider Nurse Practitioner
DX: J45.21 Mild intermittent asthma with (acute) exacerbation (principal)
CPT/HCPCS: 96372; J2357

== ENCOUNTER 2019-08-19 12:37 | Outpatient (CLI) | payer MEDICARE, MEDICAID, SELFPAY ==
[2019-08-19 12:45] VITALS: BP 112/67; PULSE 82; RESP 18; TEMP 36.6; O2SAT 98
== END 2019-08-19 13:00 | disposition home or self-care (01) ==
LOC: INF 12:37
PROVIDERS: Visit Provider Allergy & Immunology
DX: J45.21 Mild intermittent asthma with (acute) exacerbation (principal)
CPT/HCPCS: 96372; J2357

== ENCOUNTER 2019-09-18 12:15 | Outpatient (CLI) | payer MEDICARE, MEDICAID, SELFPAY ==
[2019-09-18 12:25] VITALS: BP 136/69; PULSE 81; RESP 18; TEMP 36.6; O2SAT 98
== END 2019-09-18 12:39 | disposition home or self-care (01) ==
LOC: INF 12:16
PROVIDERS: Visit Provider Allergy & Immunology
DX: J45.21 Mild intermittent asthma with (acute) exacerbation (principal)
CPT/HCPCS: 96372; J2357

== ENCOUNTER 2019-10-14 12:41 | Outpatient (CLI) | payer MEDICARE, MEDICAID, SELFPAY ==
[2019-10-14 13:07] VITALS: BP 135/57; PULSE 87; RESP 18; O2SAT 98
== END 2019-10-14 13:07 | disposition home or self-care (01) ==
LOC: INF 12:42
PROVIDERS: Visit Provider Allergy & Immunology
DX: J45.21 Mild intermittent asthma with (acute) exacerbation (principal)
CPT/HCPCS: 96372; J2357

== ENCOUNTER 2019-11-17 11:56 | Outpatient (CLI) | payer MEDICARE, MEDICAID, SELFPAY ==
[2019-11-17 12:20] VITALS: BP 145/70; PULSE 66; RESP 18; O2SAT 96
== END 2019-11-17 12:20 | disposition home or self-care (01) ==
LOC: INF 11:56
PROVIDERS: PCP Nurse Practitioner; Visit Provider Allergy & Immunology
DX: J45.21 Mild intermittent asthma with (acute) exacerbation (principal)
CPT/HCPCS: 96372; J2357

== ENCOUNTER 2019-12-16 13:23 | Outpatient (CLI) | payer MEDICARE, MEDICAID, SELFPAY ==
[2019-12-16 13:54] VITALS: BP 131/74; PULSE 99; RESP 18; TEMP 36.7; O2SAT 99
== END 2019-12-16 14:15 | disposition home or self-care (01) ==
LOC: INF 13:23
PROVIDERS: Visit Provider Allergy & Immunology
DX: J45.21 Mild intermittent asthma with (acute) exacerbation (principal)
CPT/HCPCS: 96372; J2357

== ENCOUNTER 2020-01-14 08:33 | Outpatient (CLI) | payer MEDICARE, MEDICAID, SELFPAY ==
[2020-01-14 08:46] VITALS: BP 144/60; PULSE 84; RESP 20; TEMP 36.4; O2SAT 96
== END 2020-01-14 09:00 | disposition home or self-care (01) ==
LOC: INF 08:33
PROVIDERS: Visit Provider Allergy & Immunology
DX: J45.21 Mild intermittent asthma with (acute) exacerbation (principal)
CPT/HCPCS: 96372; J2357

== ENCOUNTER 2020-02-10 10:08 | Outpatient (CLI) | payer MEDICARE, MEDICAID, SELFPAY ==
[2020-02-10 10:15] VITALS: BP 127/64; PULSE 86; RESP 18; TEMP 36.7; O2SAT 96
== END 2020-02-10 10:30 | disposition home or self-care (01) ==
LOC: INF 10:08
PROVIDERS: Visit Provider Allergy & Immunology
DX: J45.21 Mild intermittent asthma with (acute) exacerbation (principal)
CPT/HCPCS: 96372; J2357

== ENCOUNTER → 2020-02-12 10:26 | Outpatient (CLI) | payer MEDICARE, MEDICAID, SELFPAY ==
--- NOTE | 2020-02-12 10:26 | NM_ITS ---
APPROVED REPORT Exam: Nuclear Stress Test Indication: chest pain..short of breath Patient Location: Outpatient Stress Tech: Preethi Blair MT Tech:Dahlia Villalpando ALTHEAErnestina RT(R)(N) Ht: 5 ft 5 in Wt: 220 lbs Bra Size: 40D HR: 67 bpm BP: 125/83 mmHg BSA: 2.06 m2 BMI: 36.6 History: chest pain..short of breath Procedure: Patient received a 0.4 mg of intravenous Lexiscan, resting heart rate 67 bpm, resting blood pressure 125/83 mmHg, with Lexiscan maximum heart rate achived was 101 bpm which is Less than 85 % of the maximum predicted heart rate and blood pressure was 157/73 mmHg. With Lexiscan, patient denied any complaint of chest pain. Electrocardiogram Resting electrocardiogram showed sinus rhythm, with Lexiscan there is less than 1.[address] segment depression noted from the baseline EKG. The EKG portion of the Lexiscan Myoview is nondiagnostic. Cardiac Stress and Resting SPECT Images: Cardiac Stress and Resting SPECT images were obtained using technetium 99m Myoview 32.0 mCi stress and 10.33 mCi at rest. Gated SPECT with analysis of segmental wall motion and calculation of the ejection fraction also done. Cardiac stress and resting SPECT images show decrease tracer activity in the anteroapical apex and anterolateral wall which improves on the resting images suggestive of reversible ischemia. Possibility of soft tissue attenuation from the breast cannot be excluded. The study is technically limited due to patient's body habitus. Computer derived ejection fraction is 65% with no regional wall motion abnormality, right ventricle is normal size and contractility. Conclusion: 1. The EKG portion of the Lexiscan Myoview is nondiagnostic. 2. Scintigraphic evidence of reversible ischemia involving the anterior apical and anterolateral wall, possibility of soft tissue attenuation cannot be excluded. Computer derived ejection fraction is 65% with no regional wall motion abnormality, right ventricle is normal size and contractility. 3. Likely normal Lexiscan Myoview study. Electronically signed by : Benson Leonardo, 02/12/2020 15:36:19
--- NOTE | 2020-02-12 10:41 | CA_ITS ---
APPROVED REPORT EXAM: Comprehensive 2D, Doppler, and color-flow Echocardiogram Full Stack Engineer: Marylou Navarro RDCS Ht: 5 ft 5 in Wt: 213lbs BSA: 2.03 BP: 140/57 mmHg Indications: CP ABN EKG 2D Dimensions LVOT 1.44 cm (M/F) 1.5-2.5 M-Mode Dimensions RVDd 3.57 cm (0.9-2.6) LVDd 5.13 cm (3.5-5.7) LVDs 3.42 cm (3.5-5.7) IVSd 1.03 cm (0.6-1.1) PWd 0.76 cm (0.6-1.1) EF (Teich) 61.70% FS 33.30% EDV (Teich) 125.50 mL ESV (Teich) 48.10 mL LV Diastology E/A Ratio 0.50 Mitral Valve MV A Velocity 74.00 (40-130 cm/s) Left Ventricle Left atrium is mildly enlarged, left ventricle is normal size, left ventricle wall thickness is upper limit of the normal, there is preserved left ventricular systolic function, visually estimated ejection fraction 55% with no regional wall motion abnormality, endocardial surfaces are poorly visualized. Grade 1 diastolic dysfunction seen without tissue Doppler evidence of raise left atrial pressure. Right Ventricle Right atrium and right ventricular normal size and contractility. Aortic Valve Aortic valve is minimally thickened and fibrosed. There is no aortic stenosis or aortic insufficiency. Mitral Valve Mitral valve is grossly normal, there is mild mitral regurgitation. Tricuspid Valve Tricuspid valve is grossly normal, there is trace tricuspid regurgitation, tricuspid regurgitation jet velocity is inadequate for calculation of the right ventricular systolic pressure. Pulmonic Valve Pulmonic valve is not well visualized. Great Vessels Aortic root is normal size. Pericardium No significant pericardial effusion noted. Conclusion 1. Mildly enlarged left atrium, normal left ventricular size, visually estimated ejection fraction 55% with no regional wall motion abnormality, endocardial surfaces are poorly visualized, grade 1 diastolic dysfunction seen without tissue Doppler evidence of raise left atrial pressure. 2. Mild mitral and trace tricuspid regurgitation. 3. No significant pericardial effusion noted. Electronically signed by : Benson Leonardo, 02/13/2020 09:55:21
--- NOTE | 2020-02-12 12:30 | CA_ITS ---
APPROVED REPORT Exam: Pharmacologic Technologist: Preethi Blair, Ht: 5 ft 5 in Wt: 210 lbs BSA: 2.02 m2 Indications: CP/SOA Medical History Medical History: HTN, Hyperlipidemia, Diabetic ??? Insulin Medications: Lisinopril,,,,, Levothyroxine,,,,, Aspirin,,,,, Metformin,,,,, INSULIN,,,,, Methotrexate,,,,, Esomeprazole,,,,, Singulair,,,,, Fluoxetine,,,,, Divalproex,,,,, AtorvaASTATIN,,,,, Fexofenadine,,,,, Cardiac Risk Factors: HTN, Hyperlipidemia, Diabetes (insulin), FHX of CAD Stress Test Details Test: LEXISCAN Reason for pharmacologic stress test: physical limitation. HR Resting HR: 70 bpm Max Heart Rate (APMHR): 162 bpm Max HR Achieved: 109 bpm Target HR (85% APMHR): 137 bpm % of APMHR: 67 BP Resting BP: 125/83 mmHg Max BP: 157/73 mmHg ECG Clinical Exercise duration: 04:01 min Highest Stage Achieved: Exercise capacity: 1.0 METs Stress ECG Conclusion NSR, low voltage ORS, cannot rule out old anteroseptal AK positive for SOA and mild NAVA / no CP no arrhythmias mild nonspecific T wave changes unremarkable lexiscan stress myoview images reported separately Test Summary REST 07:51 . . 70 . 125/ 83 . . Stage 1 01:00 . . 104 . . . . Stage 2 01:00 . . 105 . 144/ 78 . . Stage 3 01:00 . . 105 . 157/ 73 . . Stage 4 01:00 . . 91 . 145/ 72 . . Stage 4 01:01 . . 91 . 145/ 72 . Stop exercise at 04:01 RECOVERY 01:00 . . 101 . . . . RECOVERY 02:00 . . 90 . . . . RECOVERY 03:00 . . 90 . 141/ 71 . . RECOVERY 04:00 . . 84 . 149/ 83 . . RECOVERY 05:00 . . 92 . 134/ 69 . . RECOVERY 05:14 . . 85 . 134/ 69 . . Electronically signed by : Benson Leonardo, 02/12/2020 15:28:22
--- NOTE | 2020-02-12 13:22 | HMH.ITSHM ---
Current Home Medications as stated by this patient Margo Ramos or customer success representative. [] metformin lisinopril asp atorvastatin lantus lveothyroxine
== END ==
PROVIDERS: PCP Nurse Practitioner Family; Visit Provider Urology
DX: R06.00 Dyspnea, unspecified (principal); R07.9 Chest pain, unspecified; R42 Dizziness and giddiness; R94.31 Abnormal electrocardiogram [ECG] [EKG]
CPT/HCPCS: 78452; 93017; 93306; A9502; J2785

== ENCOUNTER 2020-02-29 17:24 | Observation (INO) | payer MEDICARE, MEDICAID, SELFPAY ==
[2020-02-29 17:25] VITALS: BP 167/87; PULSE 84; PULSE 86; RESP 16; RESP 18; TEMP 36.6; O2SAT 94; O2SAT 98; BMI 34.9
[2020-02-29 17:26] VITALS: BMI 34.9
--- NOTE | 2020-02-29 17:26 | ECG_ITS ---
APPROVED REPORT Exam: Resting ECG HR:73 bpm ECG Measurements Heart Rate 73 AXES AR 134 P 49 QRSd 78 QRS 1 QT 390 T 44 QTc 429 <Conclusion> Normal sinus rhythm Low voltage QRS Late R-wave progression, previously noted Abnormal ECG Electronically signed by : Sanjay Mendosa, 03/03/2020 17:10:51
--- NOTE | 2020-02-29 17:26 | XR_ITS ---
PROCEDURE: XR CHEST PORTABLE CLINICAL HISTORY: chest pain COMPARISON: No exams were available for comparison FINDINGS: The cardiomediastinal silhouette and pulmonary vascularity are within normal limits. The lungs are clear without infiltrates, suspicious nodules, or pleural effusions. Calcification noted in the infra acromial region on the right and may be related to spurring or calcific tendinitis IMPRESSION: No acute findings. Dictated by: Nnamdi Haynes MD 02/29/2020 18:39 Electronically signed by Nnamid Haynes MD in [place] 02/29/2020 18:39
--- NOTE | 2020-02-29 17:32 | HMH.EDGENADL ---
ED Disposition Clinical Impression: Angina at rest Disposition: Admitted As Inpatient Condition on Discharge: Fair Referrals: Provider,Referral, [Referring] - Time of Disposition: 19:32 - Critical Care Critical Care Time: No Attestation: On 02/29/20, the high probability of a clinically significant, sudden or life threatening deterioration of the following system(s) required my full and direct attention, intervention and personal management. The time I documented below is in addition to time spent performing reported procedures but includes the following listed in this critical care notation. Medical Decision Making - Emile Inquiry Pt receiving controlled substance: No Vital Signs: 02/29/20 17:25 Temperature 97.9 F Temperature Source Oral Pulse Rate [Left Radial] 86 Respiratory Rate 16 Blood Pressure [Right Arm] 167/87 H Blood Pressure Mean [Right Arm] 113 Blood Pressure Position [Right Arm] Sitting 02 Sat by Pulse Oximetry 98 Oxygen Delivery Method Room Air - Lab Data Lab Results 02/29/20 17:25: WBC 7.6, RBC 3.97 L, Hgb 12.8, Hct 36.9 L, MCV 93.0, MCH 32.3 H, MCHC 34.7, RDW 15.1, Plt Count 201, MPV 7.0 L, Neut % (Auto) 68.5, Lymph % (Auto) 22.6, [place] % (Auto) 5.8, Eos % (Auto) 2.7, Baso % (Auto) 0.5, Neut # (Auto) 5.2, Lymph # (Auto) 1.7, [place] # (Auto) 0.4, Eos # (Auto) 0.2, Baso # (Auto) 0.0 02/29/20 17:25: Sodium 138, Potassium 4.6, Chloride 98, Carbon Dioxide 29, Anion Gap 15.6 H, BUN 14, Creatinine 0.90, Estimated Creat Clear 102, Estimated GFR 64, Est GFR ( Amer) 78, Glucose 212 H, Calcium 9.9, Troponin I < 0.01 Result diagrams: 02/29/20 17:25 02/29/20 17:25 Orders (Tests/Meds): ED MEDICATIONS Discontinued Medications Generic Name Dose Route Start Last Admin Trade Name Freq PRN Reason Stop Dose Admin Aspirin 324 mg 02/29/20 17:35 02/29/20 17:36 Aspirin 81mg Chewable Tablet PO 02/29/20 17:36 324 mg ONCE ONE Administration Clopidogrel Bisulfate 300 mg 02/29/20 19:10 Plavix 300mg Tablet PO 02/29/20 19:11 ONCE ONE Nitroglycerin 0.5 gm 02/29/20 19:11 Nitroglycerin 1 Inch Oint Udp TD 02/29/20 19:12 ONCE ONE ORDERS Category Date Time Status Troponin I Q3H Lab 02/29/20 20:30 Ordered Troponin I Q3H Lab 02/29/20 23:30 Ordered - ECG Data Tracing #1 Sinus rhythm with ventricular rate of 73 bpm. QRS 78, QTc 429. T wave inversions in V1 and V2. Concern for septal infarction. - CRISTELA Score for Non-Stemi Age of Patient: 50-59 years old Heart Rate: 70-89 bpm Systolic Blood Pressure: 160-199 mmHg Serum Creatinine: 0.80-1.19 mg/dl CHF [place] Class: I-No CHF Other Risk Factors: None Non-Stemi Risk Score: 67 Medical Decision Narrative: In summary this is a 60-year-old female presenting to the emergency department with chest pain. Patient is in no acute distress on arrival to the emergency department. Vital signs are stable. Differential diagnoses include acute coronary syndrome, vasospasm, unstable angina, myocarditis, pericarditis, musculoskeletal pain. Plan to obtain CBC, CMP, chest x-ray, EKG, troponin profile. Patient given 325 mg of chewable aspirin. Initial EKG shows sinus rhythm. Some ST segment flattening in V2 and V3. But no significant ST segment elevation. Initial laboratory results are generally unremarkable. Initial troponin is not elevated. Will obtain delta troponin. Patient continues to have occasional pressure sensation in her chest. But no new or worsening symptoms delta troponin shows no change. After Lilian consulted for recommendations. Given 300 mg Plavix. Given nitro. She will be admitted tonight for possible cardiac catheterization in the morning. Patient agreeable with plan General Adult HPI - General Chief complaint: Chest Pain Stated complaint: chest pain Time Seen by Provider: 02/29/20 17:32 Mode of Arrival: Ambulatory Source of Information: Patient Limitations: No Limitations
[2020-02-29 17:55] LABS: Basophils % 0.5 % (0.1-2.0); Eosinophils # 0.2 K/mm3 (0.0-0.4); Eosinophils % 2.7 % (0.1-12.0); Hematocrit 36.9 % (37.0-47.0); Hemoglobin 12.8 g/dL (12.2-16.2); Lymphocytes # 1.7 K/mm3 (0.7-4.5); Lymphocytes % 22.6 % (10-50); Mean Corpuscular HGB Conc 34.7 g/dL (31.8-35.4); Mean Corpuscular Hemoglobin 32.3 pg (27.0-31.2); Monocytes # 0.4 K/mm3 (0.1-1.0); Monocytes % 5.8 % (1.7-9.3); Neutrophils # 5.2 K/mm3 (1.8-7.8); Neutrophils % 68.5 % (37.0-80.0); Platelet Count 201 K/mm3 (142-424); Red Blood Count 3.97 M/mm3 (4.20-5.40); Red Cell Distribution Width 15.1 % (11.5-17.5); White Blood Count 7.6 K/mm3 (4.8-10.8)
[2020-02-29 18:01] LABS: Anion Gap 15.6 mEq/L (5-15); Blood Urea Nitrogen 14 mg/dl (7-17); Calcium 9.9 mg/dl (8.4-10.2); Carbon Dioxide 29 mmol/L (22.0-30.0); Chloride 98 mmol/L (98-107); Creatinine Clearance Estimated 102 mL/min (50-200); Estimated Glomerular Filt Rate 64 ml/min (>60); GFR (African American) 78 ML/MIN (>60); Glucose 212 mg/dl (74-100); Potassium 4.6 mmoL/L (3.5-5.1); Sodium 138 mmol/L (136-145)
[2020-02-29 18:14] LABS: Troponin I < 0.01 ng/ml (0.00-0.034)
[2020-02-29 19:01] VITALS: BP 126/67; PULSE 72; O2SAT 95
--- NOTE | 2020-02-29 19:22 | PC.NURSE ---
speaking with Dr. Mendosa
[2020-02-29 19:30] VITALS: BP 135/72; PULSE 72; RESP 16; O2SAT 94
[2020-02-29 20:00] VITALS: BP 153/76; PULSE 80; O2SAT 96
--- NOTE | 2020-02-29 20:31 | PC.NURSE ---
Report called to Dwayne
[2020-02-29 20:33] VITALS: BP 121/84; PULSE 77; RESP 16; TEMP 36.7; O2SAT 95
--- NOTE | 2020-02-29 20:48 | PC.NURSE ---
PT ARRIVED TO THE FLOOR VIA W/C FROM ED @2044.
[2020-02-29 21:02] VITALS: BP 146/69; PULSE 60; PULSE 68; RESP 17; TEMP 36.6; O2SAT 96; BMI 34.8
[2020-02-29 21:35] LABS: Troponin I < 0.01 ng/ml (0.00-0.034)
[2020-02-29 22:48] LABS: POC Glucose,Bedside 191 (70-110)
[2020-03-01] VITALS (20 sets, daily range): BP systolic 109–156; BP diastolic 57–91; PULSE 60–90; RESP 12–20; TEMP 36.4–36.7; O2SAT 92–100; BMI 34.9
--- NOTE | 2020-03-01 | IR_ITS ---
APPROVED REPORT Patient Location: Inpatient PROCEDURES Left heart catheterization Left ventriculogram Selective coronary angiogram INDICATION High risk abnormal Myoview Informed consent was obtained prior to the procedure. COMPLICATIONS none Estimated Blood Loss: less than 10 mls TECHNIQUE One percent lidocaine used to anesthetize the right anterior aspect of the wrist. The right radial artery was accessed via the Seldinger technique. A 6 [place] sheath was placed in the right radial artery. 2.5 mg of verapamil, 800 mcg of nitroglycerin, 1mg Lidocaine and 5000 U Heparin were given through the arterial sheath. The trap catheter and 6 [place] JL 3 guide catheter were also used to perform left heart catheterization, left ventriculogram and selective coronary angiogram. At the end of the procedure the sheath was removed good hemostasis was achieved using Traclet band, patient was transferred to the postop holding area in stable condition. ANGIOGRAPHIC RESULTS The left main artery Normal The left anterior descending artery Normal The circumflex artery Dominant normal The right coronary artery Normal The DOMINGUEZ ventriculogram reveals Normal 65% The left ventricular end-diastolic pressure 15 mmHg IMPRESSION Normal coronary arteries Normal ejection fraction Borderline high LVEDP PLAN 1. Medical management Electronically signed by : Daniel Quintana, 03/01/2020 13:01:48
--- NOTE | 2020-03-01 03:25 | ECG_ITS ---
APPROVED REPORT Exam: Resting ECG HR:76 bpm ECG Measurements Heart Rate 76 AXES TN 160 P 56 QRSd 78 QRS 35 QT 414 T 66 QTc 465 <Conclusion> Normal sinus rhythm Low voltage QRS Borderline ECG Electronically signed by : Sanjay Mendosa, 03/03/2020 17:10:17
--- NOTE | 2020-03-01 04:11 | PC.NURSE ---
0315- Pt c/o chest pain with rating of 10/10 Vitals obtained: 156/83 73 HR 100% on RA EKG obtained- NSR (1) Nitro SL administered 0- Pt stated pain had improved, but was still present 033- MD Thakur verified-NSR 0350- MD Mendosa notified- New orders: Nitro Paste (1) inch
[2020-03-01 05:56] LABS: Basophils % 0.4 % (0.1-2.0); Eosinophils # 0.1 K/mm3 (0.0-0.4); Eosinophils % 1.9 % (0.1-12.0); Hematocrit 34.3 % (37.0-47.0); Hemoglobin 11.7 g/dL (12.2-16.2); Lymphocytes # 1.8 K/mm3 (0.7-4.5); Lymphocytes % 23.8 % (10-50); Mean Corpuscular HGB Conc 34.1 g/dL (31.8-35.4); Mean Corpuscular Hemoglobin 31.2 pg (27.0-31.2); Mean Corpuscular Volume 91.5 fl (81-99); Mean Platelet Volume 7.7 fl (7.4-10.4); Monocytes # 0.4 K/mm3 (0.1-1.0); Monocytes % 5.7 % (1.7-9.3); Neutrophils # 5.1 K/mm3 (1.8-7.8); Neutrophils % 68.1 % (37.0-80.0); Platelet Count 177 K/mm3 (142-424); Red Blood Count 3.75 M/mm3 (4.20-5.40); Red Cell Distribution Width 14.8 % (11.5-17.5); White Blood Count 7.5 K/mm3 (4.8-10.8)
[2020-03-01 06:03] LABS: Chloride 107 mmol/L (98-107)
[2020-03-01 06:04] LABS: Potassium 4.3 mmoL/L (3.5-5.1); Sodium 139 mmol/L (136-145)
[2020-03-01 06:06] LABS: Alanine Aminotransferase 39 U/L (12-78); Albumin Level 3.5 g/dl (3.5-5.0); Albumin/Globulin Ratio 1.2 (1.1-1.8); Alkaline Phosphatase 85 U/L (38-126); Anion Gap 9.3 mEq/L (5-15); Aspartate Amino Transferase 46 U/L (14-36); Bilirubin,Total 0.5 mg/dl (0.2-1.3); Blood Urea Nitrogen 14 mg/dl (7-17); Carbon Dioxide 27 mmol/L (22.0-30.0); Cholesterol 176 mg/dl (140-200); Creatinine Clearance Estimated 115 mL/min (50-200); Estimated Glomerular Filt Rate 74 ml/min (>60); GFR (African American) 89 ML/MIN (>60); Globulin 2.9 g/dL (1.3-3.2); Total Protein,Serum 6.4 g/dl (6.3-8.2); Triglycerides 150 mg/dl (30-150); VLDL Cholesterol 30 mg/dL (0-40)
[2020-03-01 06:07] LABS: Chol/HDL Ratio 3.9 (1-3.5); HDL Cholesterol 45 mg/dl (40-60); Magnesium 1.8 mg/dl (1.6-2.3); Phosphorous 5.1 mg/dl (2.5-4.5)
[2020-03-01 06:13] LABS: Glucose 151 mg/dl (74-100)
--- NOTE | 2020-03-01 06:13 | PC.NURSE ---
VIBHA LOCKETT NOTIFIED OF CONSULT.
[2020-03-01 06:14] LABS: POC Glucose,Bedside 141 (70-110)
[2020-03-01 06:18] LABS: Direct LDL Cholesterol 104.52 mg/dL (100-129)
--- NOTE | 2020-03-01 07:36 | HMH.CNCARD ---
History of Present Illness Consult date: 03/01/20 Requesting physician: Sanjay Santamaria Consult reason: chest pain Chief complaint: chest pain Additional Medical History:: 1. Diabetes mellitus, insulin requiring, treated for about 15 years A. Hemoglobin A1c greater than 10, 01/2020 2. Hypertension A. Echo, 01/2020, 1. Mildly enlarged left atrium, normal left ventricular size, visually estimated ejection fraction 55% with no regional wall motion abnormality, endocardial surfaces are poorly visualized, grade 1 diastolic dysfunction seen without tissue Doppler evidence of raise left atrial pressure. 2. Mild mitral and trace tricuspid regurgitation. 3. No significant pericardial effusion noted. 3. Hyperlipidemia, on statin therapy a. LDL 104, triglycerides 150, HDL 45, 02/2020 4. History of asthma 5. Anxiety/depression 6. Hypothyroidism, on supplement therapy 7. GERD, on PPI 8. Chest pain, 01/2020 A. Lexiscan Myoview, 1. The EKG portion of the Lexiscan Myoview is nondiagnostic. 2. Scintigraphic evidence of reversible ischemia involving the anterior apical and anterolateral wall, possibility of soft tissue attenuation cannot be excluded. Computer derived ejection fraction is 65% with no regional wall motion abnormality, right ventricle is normal size and contractility. 3. Likely normal Lexiscan Myoview study 9. Carotid ultrasound, less than 20% ICA stenosis bilaterally, 11/2018 History of present illness: 58-year-old female presenting to the emergency department with chest pain. Symptoms started 4-1/2 hours ago as she was making lunch. Described as midsternal chest pain that radiates to the left. It is sharp and stabbing. Now it is a dull pressure sensation. She had one episode of vomiting. Feels like a heavy sensation through her chest. She has had multiple episodes like this in the past few weeks. She is scheduled for a heart catheterization on Sunday. She has never had a heart attack or stroke. Non-smoker. Positive family history of [place]. She has not taken any medications today. Denies pain with inspiration, cough, fevers, chills. The above per HIGINIO Garcia MD. Patient did have some recurrent chest discomfort overnight that resolved with replacement of her nitroglycerin paste. Enzymes have returned normal. Patient is asymptomatic at this time. EKG on admission is sinus rhythm with no acute ST segment changes. [facility] History Medical History: Reports:: Asthma, Diabetes Mellitus Type 2, Hyperlipidemia, Hypertension Denies:: Cancer, Diabetes Mellitus Type 1, MRSA *Have you ever received a pneumonia vaccine?: No *Have you received a flu vaccine this season?: Yes Other Medical History: Reports: Arthritis, Hypothyroidism, Sinus Problems Other Surgeries: Yes: Cholecystectomy Amputation: No Fractures: No - *Social History Educational Level: Attended College Smoking Status: Never smoker Alcohol Intake: never Substance Use Type: denies use *Occupational Status:: disabled Housing: house Household Members: none *Travel in the last 8 weeks: None Family Hx:: Asthma, Cancer, Diabetes, Heart Attack, Hypertension, Stroke, Thyroid Disorder, Substance abuse, Mental illness Meds Home Medications Medication Instructions Recorded Confirmed Type Levothyroxine Sodium 50 mcg PO DAILY 09/18/17 02/29/20 History [Levothyroxine 50mcg (0.05mg) Tab] Montelukast Sodium [Singulair 10mg 10 mg PO HS 09/18/17 02/29/20 History tablet] metHOTREXate sodium [metHOTREXate 15 mg PO WEEKLY 09/18/17 02/29/20 History 2.5mg Tablet] Fluoxetine HCl 40 mg PO DAILY 01/08/18 02/29/20 History Aspirin [Aspirin 81mg EC Tab] 81 mg PO DAILY 03/14/19 02/29/20 History Atorvastatin Calcium [Atorvastatin 40 mg PO HS 03/14/19 02/29/20 History 40mg Tab] Esomeprazole Magnesium 20 mg PO DAILY 03/14/19 02/29/20 History Divalproex Sodium [Depakote 250mg 250 mg PO TID 07/22/19 02/29/20 History (Extended-Release) Tablet] Ca
--- NOTE | 2020-03-01 07:42 | HMH.HP ---
*Admission Date: 02/29/20 *Chief complaint: Chest pain *History of present illness: 57-year-old female with hypertension, hyperlipidemia, diabetes and recent failure of an outpatient stress test and was scheduled for outpatient left heart catheterization presented to the emergency department yesterday with chest tightness that was nonradiating but had associated diaphoresis and shortness of breath. Patient had a negative initial troponin but was admitted for serial troponins and cardiology consultation today [facility] History I have reviewed the patient's past medical history: Yes Medical History: Reports:: Asthma, Diabetes Mellitus Type 2, Hyperlipidemia, Hypertension Denies:: Cancer, Diabetes Mellitus Type 1, MRSA *Have you ever received a pneumonia vaccine?: No *Have you received a flu vaccine this season?: Yes Other Medical History: Reports: Arthritis, Hypothyroidism, Sinus Problems Other Surgeries: Yes: Cholecystectomy Amputation: No Fractures: No - *Social History Educational Level: Attended College Smoking Status: Never smoker Alcohol Intake: never Substance Use Type: denies use *Occupational Status:: disabled Housing: house Household Members: none *Travel in the last 8 weeks: None Family Hx:: Asthma, Cancer, Diabetes, Heart Attack, Hypertension, Stroke, Thyroid Disorder, Substance abuse, Mental illness Review of Systems - Review of Systems Review of systems:: pertinent systems reviewed and negative unless documented below - *Neurologic Reports weakness, Denies headache(s), Denies loss of vision Meds Home Medications Medication Instructions Recorded Confirmed Type Levothyroxine Sodium 50 mcg PO DAILY 09/18/17 02/29/20 History [Levothyroxine 50mcg (0.05mg) Tab] Montelukast Sodium [Singulair 10mg 10 mg PO HS 09/18/17 02/29/20 History tablet] metHOTREXate sodium [metHOTREXate 15 mg PO WEEKLY 09/18/17 02/29/20 History 2.5mg Tablet] Fluoxetine HCl 40 mg PO DAILY 01/08/18 02/29/20 History Aspirin [Aspirin 81mg EC Tab] 81 mg PO DAILY 03/14/19 02/29/20 History Atorvastatin Calcium [Atorvastatin 40 mg PO HS 03/14/19 02/29/20 History 40mg Tab] Esomeprazole Magnesium 20 mg PO DAILY 03/14/19 02/29/20 History Divalproex Sodium [Depakote 250mg 250 mg PO TID 07/22/19 02/29/20 History (Extended-Release) Tablet] Cariprazine HCl [Vraylar] 6 mg PO DAILY 08/19/19 02/29/20 History Insulin Glargine,Hum.rec.anlog 20 unit SQ HS 01/14/20 02/29/20 History [Lantus] lisinopril 20 1 tab PO DAILY tab 01/27/20 02/29/20 History mg-hydrochlorothiazide 12.5 mg tablet metformin 1,000 mg tablet 500 mg PO BID tab 01/27/20 02/29/20 History Allergies Allergy/AdvReac Type Severity Reaction Status Date / Time No Known Drug Allergies Allergy Unknown Verified 02/24/20 14:15 [NKDA] ENVIRONMENTAL ALLERGENS Allergy Unknown Uncoded 02/24/20 14:15 Exam Vital signs and Labs for Last 24 Hours: Temp Pulse Resp BP Pulse Ox 98.0 F 66 18 135/74 97 03/01/20 04:53 03/01/20 04:53 03/01/20 04:53 03/01/20 04:53 03/01/20 04:53 Laboratory Results - last 24 hr 02/29/20 17:25: WBC 7.6, RBC 3.97 L, Hgb 12.8, Hct 36.9 L, MCV 93.0, MCH 32.3 H, MCHC 34.7, RDW 15.1, Plt Count 201, MPV 7.0 L, Neut % (Auto) 68.5, Lymph % (Auto) 22.6, [place] % (Auto) 5.8, Eos % (Auto) 2.7, Baso % (Auto) 0.5, Neut # (Auto) 5.2, Lymph # (Auto) 1.7, [place] # (Auto) 0.4, Eos # (Auto) 0.2, Baso # (Auto) 0.0 02/29/20 17:25: Sodium 138, Potassium 4.6, Chloride 98, Carbon Dioxide 29, Anion Gap 15.6 H, BUN 14, Creatinine 0.90, Estimated Creat Clear 102, Estimated GFR 64, Est GFR ( Amer) 78, Glucose 212 H, Calcium 9.9, Troponin I < 0.01 02/29/20 20:45: Troponin I < 0.01 02/29/20 22:39: POC Glucose 191 H 03/01/20 05:36: WBC 7.5, RBC 3.75 L, Hgb 11.7 L, Hct 34.3 L, MCV 91.5, MCH 31.2, MCHC 34.1, RDW 14.8, Plt Count 177, MPV 7.7, Neut % (Auto) 68.1, Lymph % (Auto) 23.8, [place] % (Auto) 5.7, Eos % (Auto) 1.9, Baso % (Auto) 0.4, Neut # (Auto)
--- NOTE | 2020-03-01 07:51 | HMH.PHAVTE ---
[facility] [place] Pharm[facility] VTE Monitoring - Patient Demographics Admission date: 02/29/20 Report Date: 03/01/20 Time: 07:51 Allergies/Adverse Reactions: Patient Allergies No Known Drug Allergies [NKDA] Allergy (Unknown, Verified 02/24/20 14:15) ENVIRONMENTAL ALLERGENS Allergy (Unknown, Uncoded 02/24/20 14:15) Height: 1.65 m Weight: 94.999 kg Patient Problems: Current Active Problems Angina at rest (Acute) - VTE Risk Labs: VTE Related Lab Results Hgb 11.7 g/dL (12.2-16.2) L 03/01/20 05:36 Hct 34.3 % (37.0-47.0) L 03/01/20 05:36 Plt Count 177 K/mm3 (142-424) 03/01/20 05:36 BUN 14 mg/dl (7-17) 03/01/20 05:36 Creatinine 0.80 mg/dl (0.52-1.04) 03/01/20 05:36 Estimated Creat Clear 115 mL/min (50-200) 03/01/20 05:36 - Prophylaxis VTE Prophylaxis Ordered?: Yes Types of VTE Prophylaxis: TEDS Knee High Location of Applied Device: Bilateral Lower Extremeties - VTE Diagnosis Confirmed Treatment or plan recommended: Continue Current Treatment
--- NOTE | 2020-03-01 09:42 | HMH.PHAINT ---
MEDICATION RECONCILIATION COMPLETED ON PATIENT USING EXTERNAL FILL HISTORY FROM PHARMACY. -MADHU YIN, ANTONIETTAD
[2020-03-01 13:31] LABS: POC Glucose,Bedside 136 (70-110)
--- NOTE | 2020-03-01 16:43 | HMH.DCSUM ---
General - General Admission date:: 02/29/20 Discharge date: 03/01/20 HPI HPI: 57-year-old female with hypertension, hyperlipidemia, diabetes and recent failure of an outpatient stress test and was scheduled for outpatient left heart catheterization presented to the emergency department yesterday with chest tightness that was nonradiating but had associated diaphoresis and shortness of breath. Patient had a negative initial troponin but was admitted for serial troponins and cardiology consultation today Hospital Course Hospital Course: Patient was admitted and ruled out for OH overnight. Following morning there was cardiology consultation. Cardiology proceeded with left heart catheterization. Patient had normal coronary arteries. Patient was discharged home later in the day on March 01 and will follow-up with her primary care provider regarding her chest pain. Objective Vital signs: Temp Pulse Resp BP Pulse Ox 97.7 F 80 16 151/60 H 97 03/01/20 16:25 03/01/20 16:25 03/01/20 16:25 03/01/20 16:25 03/01/20 16:25 Results Labs on day of discharge: Labs from last 24 hours 03/01/20 03/01/20 03/01/20 13:19 05:57 05:36 WBC RBC Hgb Hct MCV MCH MCHC RDW Plt Count MPV Neut % (Auto) Lymph % (Auto) Story % (Auto) Eos % (Auto) Baso % (Auto) Neut # (Auto) Lymph # (Auto) Story # (Auto) Eos # (Auto) Baso # (Auto) Sodium 139 Potassium 4.3 Chloride 107 Carbon Dioxide 27 Anion Gap 9.3 BUN 14 Creatinine 0.80 Estimated Creat Clear 115 Estimated GFR 74 Est GFR ( Amer) 89 Glucose 151 H D POC Glucose 136 H 141 H Calcium 9.0 Phosphorus 5.1 H Magnesium 1.8 Total Bilirubin 0.5 AST 46 H ALT 39 Alkaline Phosphatase 85 Troponin I Total Protein 6.4 Albumin 3.5 Globulin 2.9 Albumin/Globulin Ratio 1.2 Triglycerides 150 Cholesterol 176 LDL Cholesterol Direct 104.52 VLDL Cholesterol 30 HDL Cholesterol 45 Cholesterol/HDL Ratio 3.9 H 03/01/20 02/29/20 02/29/20 05:36 22:39 20:45 WBC 7.5 RBC 3.75 L Hgb 11.7 L Hct 34.3 L MCV 91.5 MCH 31.2 MCHC 34.1 RDW 14.8 Plt Count 177 MPV 7.7 Neut % (Auto) 68.1 Lymph % (Auto) 23.8 Story % (Auto) 5.7 Eos % (Auto) 1.9 Baso % (Auto) 0.4 Neut # (Auto) 5.1 Lymph # (Auto) 1.8 Story # (Auto) 0.4 Eos # (Auto) 0.1 Baso # (Auto) 0.0 Sodium Potassium Chloride Carbon Dioxide Anion Gap BUN Creatinine Estimated Creat Clear Estimated GFR Est GFR ( Amer) Glucose POC Glucose 191 H Calcium Phosphorus Magnesium Total Bilirubin AST ALT Alkaline Phosphatase Troponin I < 0.01 Total Protein Albumin Globulin Albumin/Globulin Ratio Triglycerides Cholesterol LDL Cholesterol Direct VLDL Cholesterol HDL Cholesterol Cholesterol/HDL Ratio 02/29/20 02/29/20 17:25 17:25 WBC 7.6 RBC 3.97 L Hgb 12.8 Hct 36.9 L MCV 93.0 MCH 32.3 H MCHC 34.7 RDW 15.1 Plt Count 201 MPV 7.0 L Neut % (Auto) 68.5 Lymph % (Auto) 22.6 Story % (Auto) 5.8 Eos % (Auto) 2.7 Baso % (Auto) 0.5 Neut # (Auto) 5.2 Lymph # (Auto) 1.7 Story # (Auto) 0.4 Eos # (Auto) 0.2 Baso # (Auto) 0.0 Sodium 138 Potassium 4.6 Chloride 98 Carbon Dioxide 29 Anion Gap 15.6 H BUN 14 Creatinine 0.90 Estimated Creat Clear 102 Estimated GFR 64 Est GFR ( Amer) 78 Glucose 212 H POC Glucose Calcium 9.9 Phosphorus Magnesium Total Bilirubin AST ALT Alkaline Phosphatase Troponin I < 0.01 Total Protein Albumin Globulin Albumin/Globulin Ratio Triglycerides Cholesterol LDL Cholesterol Direct VLDL Cholesterol HDL Cholesterol Cholesterol/HDL Ratio DS: Diagnosis - Disc
== END 2020-03-01 17:49 | disposition home or self-care (01) ==
LOC: ER 19:33 → 2ND 20:03
PROVIDERS: Internal Medicine; Admitting Provider Internal Medicine Adolescent Medicine; Emergency Provider Emergency Medicine; PCP Nurse Practitioner Family; Visit Provider Family Medicine
DX: I20.8 Other forms of angina pectoris (principal); R07.9 Chest pain, unspecified; R94.30 Abnormal result of cardiovascular function study, unspecified; I10 Essential (primary) hypertension; E78.5 Hyperlipidemia, unspecified; E11.9 Type 2 diabetes mellitus without complications; Z79.4 Long term (current) use of insulin; E03.9 Hypothyroidism, unspecified; Z79.899 Other long term (current) drug therapy; K21.9 Gastro-esophageal reflux disease without esophagitis; M19.90 Unspecified osteoarthritis, unspecified site
CPT/HCPCS: 36415; 71045; 80048; 80053; 80061; 82962; 83735; 84100; 84484; 85025; 93005; 93458; 99152; 99284; C1725; C1769; G0378; J1644; Q9967

== ENCOUNTER 2020-03-09 13:00 | Outpatient (CLI) | payer MEDICARE, MEDICAID, SELFPAY ==
[2020-03-09 13:25] VITALS: BP 122/76; PULSE 91; RESP 20; TEMP 36.7; O2SAT 97
== END 2020-03-09 13:50 | disposition home or self-care (01) ==
LOC: INF 13:00
PROVIDERS: Visit Provider Allergy & Immunology
DX: J45.21 Mild intermittent asthma with (acute) exacerbation (principal)
CPT/HCPCS: 96372; J2357

== ENCOUNTER → 2020-03-17 15:53 | Outpatient (CLI) | payer MEDICARE, MEDICAID, SELFPAY ==
--- NOTE | 2020-03-17 15:57 | MM_ITS ---
PROCEDURE: MM DIG SCREENING MAMM BI W/CAD Digital Breast Tomosynthesis Included CLINICAL INDICATION: SCREENING COMPARISON: DMSB DIG MAMM-SCREEN SWETHA W/CAD from 02/26/2017 DMBAV DIG MAMM- SWETHA ADD VIEWS W/CAD from 03/12/2017 DMDXUL DIG MAMM-DX UNI-LT W/CAD from 04/12/2017 DMDXUL DIG MAMM-DX UNI-LT W/CAD from 07/04/2017 DIG MAMM-SCREEN SWETHA from 01/31/2019 TECHNIQUE: Standard CC and MLO images and 3D Tomosynthesis was obtained. R2 CAD reviewed. FINDINGS: Average fibroglandular tissue. No malignant appearing mass or malignant-appearing microcalcification. Scattered areas of asymmetry unchanged. Postsurgical change on the left with a clip in the outer aspect of the left breast. Stable benign-appearing calcifications. IMPRESSION: BI-RAD Category: 2 Benign Finding(s) FOLLOW-UP: 1YR 1 Year Follow-up (A letter has been sent to the patient regarding results of the study.) Dictated by: Nnamdi Haynes MD 03/19/2020 13:46 Electronically signed by Nnmadi Haynes MD in [place] 03/19/2020 13:46
== END ==
PROVIDERS: PCP Nurse Practitioner Family; Visit Provider Nurse Practitioner
DX: Z12.31 Encounter for screening mammogram for malignant neoplasm of breast (principal)
CPT/HCPCS: 77063; 77067

== ENCOUNTER 2020-04-07 11:50 | Outpatient (CLI) | payer MEDICARE, MEDICAID, SELFPAY ==
[2020-04-07 12:20] VITALS: BP 123/68; PULSE 84; RESP 18; TEMP 36.6
== END 2020-04-07 12:30 | disposition home or self-care (01) ==
LOC: INF 11:59
PROVIDERS: Visit Provider Allergy & Immunology
DX: J45.21 Mild intermittent asthma with (acute) exacerbation (principal)
CPT/HCPCS: 96372; J2357

== ENCOUNTER 2020-05-04 10:23 | Outpatient (CLI) | payer MEDICARE, MEDICAID, SELFPAY ==
[2020-05-04 10:35] VITALS: BP 134/78; PULSE 90; RESP 20; TEMP 36.9; O2SAT 95
[2020-05-04 10:50] VITALS: BP 138/74; PULSE 68; RESP 20; TEMP 37; O2SAT 95
== END 2020-05-04 10:45 | disposition home or self-care (01) ==
PROVIDERS: Visit Provider Nurse Practitioner
DX: J45.21 Mild intermittent asthma with (acute) exacerbation (principal)
CPT/HCPCS: 96372; J2357

== ENCOUNTER 2020-06-04 11:47 | Outpatient (CLI) | payer MEDICARE, MEDICAID, SELFPAY ==
[2020-06-04 12:11] VITALS: BP 134/77; PULSE 79; RESP 18; O2SAT 99
== END 2020-06-04 12:20 | disposition home or self-care (01) ==
LOC: INF 11:47
PROVIDERS: Visit Provider Allergy & Immunology
DX: J45.21 Mild intermittent asthma with (acute) exacerbation (principal)
CPT/HCPCS: 96372; J2357

== ENCOUNTER 2020-06-28 09:53 | Outpatient (CLI) | payer MEDICARE, MEDICAID, SELFPAY ==
--- NOTE | 2020-06-28 10:02 | XR_ITS ---
PROCEDURE: XR WRIST LT MIN 3V CLINICAL INDICATION: RT wrist pain COMPARISON: CR WRR3 WRIST-3 VIEWS-RT from 02/17/2016 FINDINGS: No fracture or dislocation. No lytic or blastic change. There is normal mineralization. There are mild osteoarthritic changes at the 1st metacarpal-carpal joint with some minimal spurring at the trapezium Other findings:None. IMPRESSION: Mild osteoarthritic change 1st metacarpal-carpal joint otherwise negative Dictated by: Nnamdi Haynes MD 06/28/2020 11:34 Nnamdi Haynes MD in [place] 06/28/2020 11:34
--- NOTE | 2020-06-28 10:02 | XR_ITS ---
PROCEDURE: XR WRIST RT MIN 3V CLINICAL INDICATION: wrist pain COMPARISON: CR WRR3 WRIST-3 VIEWS-RT from 02/17/2016 FINDINGS: No fracture or dislocation. No lytic or blastic change. There is normal mineralization. Osteoarthritic changes of the 1st metacarpal-carpal joint. Other findings:None. 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
[2020-06-28 11:34] VITALS: BP 136/84; PULSE 89; RESP 18; TEMP 36.7; O2SAT 98
== END 2020-06-28 11:50 | disposition home or self-care (01) ==
PROVIDERS: PCP Nurse Practitioner Family; Visit Provider Orthopaedic Surgery
DX: M25.531 Pain in right wrist (principal); J45.21 Mild intermittent asthma with (acute) exacerbation
CPT/HCPCS: 73110; 96372; J2357

== ENCOUNTER 2020-07-27 08:09 | Outpatient (CLI) | payer MEDICARE, MEDICAID, SELFPAY ==
[2020-07-27 08:38] VITALS: BP 144/69; PULSE 81; RESP 18; TEMP 36.6; O2SAT 98
== END 2020-07-27 08:44 | disposition home or self-care (01) ==
LOC: INF 08:10
PROVIDERS: Visit Provider Allergy & Immunology
DX: J45.50 Severe persistent asthma, uncomplicated (principal)
CPT/HCPCS: 96372; J2357

== ENCOUNTER 2020-08-25 10:10 | Outpatient (CLI) | payer MEDICARE, MEDICAID, SELFPAY ==
[2020-08-25 10:35] VITALS: BP 131/70; PULSE 96; RESP 18; TEMP 35.9; O2SAT 100
== END 2020-08-25 10:50 | disposition home or self-care (01) ==
PROVIDERS: Visit Provider Allergy & Immunology
DX: J45.50 Severe persistent asthma, uncomplicated (principal)
CPT/HCPCS: 96372; J2357

== ENCOUNTER 2020-08-26 05:25 | Emergency (ER) | payer MEDICARE, MEDICAID, SELFPAY ==
[2020-08-26 05:26] VITALS: BP 158/75; PULSE 93; RESP 16; TEMP 36.5; O2SAT 99; BMI 33.3
--- NOTE | 2020-08-26 05:42 | CT_ITS ---
PROCEDURE: CT ABDOMEN PELVIS W CON CLINICAL INDICATION: RUQ pain Right upper quadrant pain COMPARISON: CT ABDPELWO CT abdomen pelvis wo con from 03/14/2019 TECHNIQUE: IV Contrast: 75ML Isovue 370 Oral Contrast None Axial images obtained with sagittal and coronal reformats. All CT scans at the facility use one or more dose reduction, viz: automated exposure control, ma/kV adjustment per patient size (including targeted exams where dose is matched to indication, i.e. head), or iterative reconstruction technique. FINDINGS: LOWER THORAX: There are minimal atelectatic changes in the left lower lobe. ABDOMEN & PELVIS: Mild fatty liver. No focal liver lesion. Prior cholecystectomy. The spleen, adrenal glands, and pancreas has an unremarkable appearance. Stomach is nondistended with mild prominence of the gastric wall which may be due to the nondistention. No renal or ureteral calculi. No hydronephrosis. No evidence of appendicitis or diverticulitis. No intestinal obstruction or free air. No pelvic mass or abnormal fluid collection. No acute bony findings. IMPRESSION: No acute finding Dictated by: Nnamdi Haynes MD 08/26/2020 06:36 Nnamdi Haynes MD in [place] 08/26/2020 06:36
[2020-08-26 05:55] LABS: Basophils # 0.1 K/mm3 (0-0.2); Basophils % 0.9 % (0.1-2.0); Eosinophils # 0.3 K/mm3 (0.0-0.4); Eosinophils % 3.2 % (0.1-12.0); Hematocrit 41.7 % (37.0-47.0); Hemoglobin 13.6 g/dL (12.2-16.2); Lymphocytes # 2.4 K/mm3 (0.7-4.5); Lymphocytes % 28.7 % (10-50); Mean Corpuscular HGB Conc 32.6 g/dL (31.8-35.4); Mean Corpuscular Hemoglobin 30.1 pg (27.0-31.2); Mean Corpuscular Volume 92.2 fl (81-99); Mean Platelet Volume 7.4 fl (7.4-10.4); Monocytes # 0.2 K/mm3 (0.1-1.0); Monocytes % 2.8 % (1.7-9.3); Neutrophils # 5.4 K/mm3 (1.8-7.8); Neutrophils % 64.3 % (37.0-80.0); Platelet Count 284 K/mm3 (142-424); Red Blood Count 4.52 M/mm3 (4.20-5.40); Red Cell Distribution Width 15.8 % (11.5-17.5); White Blood Count 8.4 K/mm3 (4.8-10.8)
[2020-08-26 05:57] LABS: Chloride 103 mmol/L (98-107); Sodium 139 mmol/L (136-145)
[2020-08-26 05:59] LABS: Amylase 82 U/L (30-110)
[2020-08-26 06:00] VITALS: BP 157/68; PULSE 78; RESP 17; O2SAT 98
[2020-08-26 06:00] LABS: Alanine Aminotransferase 66 U/L (12-78); Albumin Level 4.6 g/dl (3.5-5.0); Albumin/Globulin Ratio 1.4 (1.1-1.8); Alkaline Phosphatase 132 U/L (38-126); Aspartate Amino Transferase 46 U/L (14-36); Bilirubin,Total 0.6 mg/dl (0.2-1.3); Blood Urea Nitrogen 14 mg/dl (7-17); Calcium 9.9 mg/dl (8.4-10.2); Carbon Dioxide 26 mmol/L (22.0-30.0); Creatinine Clearance Estimated 73 mL/min (50-200); Estimated Glomerular Filt Rate 46 ml/min (>60); GFR (African American) 56 ML/MIN (>60); Globulin 3.3 g/dL (1.3-3.2); Glucose 259 mg/dl (74-100); Lipase 152 U/L (23-300); Total Protein,Serum 7.9 g/dl (6.3-8.2)
[2020-08-26 06:05] LABS: C-Reactive Protein 10.8 mg/L (0-4)
[2020-08-26 06:30] VITALS: BP 132/70; PULSE 84; RESP 17; O2SAT 100
[2020-08-26 06:36] LABS: Microscopic, Urine URINE MICROSCOPIC (MICROSCOPIC)
[2020-08-26 06:40] LABS: Appearance,Urine CLEAR (Clear); Bilirubin,Urine Negative (Negative); Blood, Urine Negative (Negative); Color,Urine YELLOW (Yellow); Glucose,Urine (UA) 1+ (Negative); Ketones,Urine Negative (Negative); Leukocyte Esterase,Urine Negative (Negative); Nitrate,Urine Negative (Negative); Protein,Urine Negative (Negative); Specific Gravity, Urine 1.015 (1.005-1.030); Urobilinogen,Urine 0.2 EU/dl (0.2)
[2020-08-26 06:46] LABS: Erythrocyte Sedimentation Rate 47 mm/hr (0-30)
--- NOTE | 2020-08-26 06:52 | HMH.EDNVD ---
ED Disposition Clinical Impression: Sphincter of Oddi dysfunction Abdominal pain Qualifiers: Abdominal location: right upper quadrant Qualified Code(s): R10.11 - Right upper quadrant pain Disposition: Home, Self-Care Condition on Discharge: Good Instructions: DI for Acute Abdomen Additional Instructions: fluids and see pcp for follow up and gi Prescriptions: Dicyclomine HCl [Bentyl 10mg capsule] 10 mg PO TID #21 cap Transmission Status: Pending to [facility] Referrals: Lavinia Juarez [Primary Care Provider] - Robin Roque MD [Staff Physician] - - Critical Care Critical Care Time: No Attestation: On 08/26/20, the high probability of a clinically significant, sudden or life threatening deterioration of the following system(s) required my full and direct attention, intervention and personal management. The time I documented below is in addition to time spent performing reported procedures but includes the following listed in this critical care notation. Medical Decision Making - Medical Records Medical records reviewed: Yes: I reviewed the patient's medical records. - Emile Inquiry Pt receiving controlled substance: No Vital Signs: 08/26/20 05:26 08/26/20 06:00 08/26/20 06:30 Temperature 97.7 F Temperature Source Oral Pulse Rate [Right Brachial] 93 H 78 84 Respiratory Rate 16 17 17 Blood Pressure [Right Arm] 158/75 H 157/68 H 132/70 Blood Pressure Mean [Right Arm] 102 97 90 Blood Pressure Source [Right Arm] Automatic Cuff Automatic Cuff Blood Pressure Position [Right Arm] Supine Supine 02 Sat by Pulse Oximetry 99 98 100 Oxygen Delivery Method Room Air Room Air Room Air - Lab Data Lab results reviewed: Yes: I reviewed the patient's lab results. Lab Results 08/26/20 05:33: Urine Color Yellow, Urine Appearance Clear, Urine pH 5.0, Ur Specific [place] 1.015, Urine Protein Negative, Urine Glucose (UA) 1+, Urine Ketones Negative, Urine Blood Negative, Urine Nitrate Negative, Urine Bilirubin Negative, Urine Urobilinogen 0.2, Ur Leukocyte Esterase Negative 08/26/20 05:35: WBC 8.4, RBC 4.52, Hgb 13.6, Hct 41.7, MCV 92.2, MCH 30.1, MCHC 32.6, RDW 15.8, Plt Count 284, MPV 7.4, Neut % (Auto) 64.3, Lymph % (Auto) 28.7, [place] % (Auto) 2.8, Eos % (Auto) 3.2, Baso % (Auto) 0.9, Neut # (Auto) 5.4, Lymph # (Auto) 2.4, [place] # (Auto) 0.2, Eos # (Auto) 0.3, Baso # (Auto) 0.1, ESR 47 H 08/26/20 05:35: Sodium 139, Potassium 4.0, Chloride 103, Carbon Dioxide 26, Anion Gap 14.0, BUN 14, Creatinine 1.20 H, Estimated Creat Clear 73, Estimated GFR 46 L, Est GFR ( Amer) 56 L, Glucose 259 H, Calcium 9.9, Total Bilirubin 0.6, AST 46 H, ALT 66, Alkaline Phosphatase 132 H, C-Reactive Protein 10.8 H, Total Protein 7.9, Albumin 4.6, Globulin 3.3 H, Albumin/Globulin Ratio 1.4, Amylase 82, Lipase 152 Result diagrams: 08/26/20 05:35 08/26/20 05:35 Orders (Tests/Meds): ED MEDICATIONS Generic Name Dose Route Start Last Admin Trade Name Freq PRN Reason Stop Dose Admin Sodium Chloride 1,000 mls @ 999 mls/hr 08/26/20 06:00 08/26/20 05:50 Sod Chlor 0.9% 1000ml Bag IV 08/26/20 07:00 999 mls/hr .Q1H1M DAYA Administration Discontinued Medications Generic Name Dose Route Start Last Admin Trade Name Freq PRN Reason Stop Dose Admin Iopamidol 75 ml 08/26/20 06:28 08/26/20 06:29 Iopamidol-370 (76%);100ml Bottle IV 08/26/20 06:29 75 ml ONCE ONE Administration Ketorolac Tromethamine 30 mg 08/26/20 05:47 08/26/20 05:50 Ketorolac 30mg/Ml Vial IV 08/26/20 05:48 30 mg ONCE ONE Administration Ondansetron HCl 4 mg 08/26/20 05:47 08/26/20 05:50 Ondansetron 4mg/2ml Vial IV 08/26/20 05:48 4 mg ONCE ONE Administration Sodium Chloride 10 ml 08/26/20 06:28 08/26/20 06:29 Sodium Chloride 0.9% 10ml Syr (Rad Only) IV 08/26/20 06:29 10 ml ONCE ONE Administration ORDERS Category Date Time Status UA [Urinalysis and Microscopic] Stat Lab 08/26/20 05:33
[2020-08-26 07:22] VITALS: BP 137/70; PULSE 78; RESP 16; TEMP 36.6; O2SAT 99
== END 2020-08-26 07:24 | disposition home or self-care (01) ==
PROVIDERS: Emergency Provider Emergency Medicine; PCP Nurse Practitioner Family
DX: K83.4 Spasm of sphincter of Oddi (principal); R10.11 Right upper quadrant pain; E11.65 Type 2 diabetes mellitus with hyperglycemia; I10 Essential (primary) hypertension; E78.5 Hyperlipidemia, unspecified; E03.9 Hypothyroidism, unspecified; Z79.899 Other long term (current) drug therapy
CPT/HCPCS: 74177; 80053; 81001; 82150; 83690; 85025; 85651; 86140; 86328; 96365; 96375; 96376; 99283; J2405; Q9967

== ENCOUNTER → 2020-08-26 15:31 | Outpatient (CLI) | payer MEDICARE, MEDICAID, SELFPAY ==
[2020-08-26 17:10] LABS: Coronavirus 19 IgG Antibody Negative (Negative); Coronavirus 19 IgM Antibody Negative (Negative)
== END ==
PROVIDERS: Visit Provider Internal Medicine Gastroenterology
DX: R10.11 Right upper quadrant pain (principal)
CPT/HCPCS: 86328

== ENCOUNTER 2020-08-27 11:44 | Day surgery (SDC) | payer MEDICARE, MEDICAID, SELFPAY ==
[2020-08-26 14:40] VITALS: BMI 33.3
[2020-08-27] VITALS (8 sets, daily range): BP systolic 163–191; BP diastolic 74–99; PULSE 68–97; RESP 16–18; TEMP 36.2; O2SAT 95–100
[2020-08-27 13:47] LABS: POC Glucose,Bedside 141 (70-110)
--- NOTE | 2020-08-27 13:58 | FL_ITS ---
PROCEDURE: FL ERCP CLINICAL INDICATION: right upper quadrant pain COMPARISON: No exams were available for comparison FINDINGS: Fluoroscopy time: 1 minutes and 26 seconds. There are 2 images submitted with a guidewire in the pancreatic duct. Two images also submitted showing some contrast within the pancreatic duct incompletely filled. The common bile duct was not opacified. IMPRESSION: Common bile duct not opacified. The proximal portion of the pancreatic duct has an unremarkable appearance. Dictated by: Nnamdi Haynes MD 08/30/2020 06:04 Nnamdi Haynes MD in [place] 08/30/2020 06:04
--- NOTE | 2020-08-27 14:46 | HMH.PROC ---
[facility] Procedure Note Procedure Note:: ERCP procedure Report: Endoscopic retrograde cholangiopancreatography with pancreatic stent placement and needle-knife biliary sphincterotomy Endoscopist: Robin Roque II, MD Referring Physician: OMKAR Hawkins/Enio Thakur MD Date of Procedure: August 27, 2020 Equipment: Olympus 180 side viewing endoscope duodenoscope Sedation: MAC sedation Indication: Mrs. Ramos is a 60-year-old female with right upper quadrant abdominal pain that radiates into the back. This is new and can be excruciating. She did go to the emergency department yesterday and had a CT scan of the abdomen and pelvis as well as labs. The CAT scan did show mild fatty liver and prior cholecystectomy. The patient formerly had gallstones with cholecystectomy. There was no biliary ductal dilation and her pancreas was unremarkable. The patient reports no bloating, gassiness or belching. She has had some intermittent diarrhea. Her lab work showed a slightly elevated alkaline phosphatase of 132. Her C-reactive protein was 10.8. Her amylase 82 and lipase 152 were normal. She also had normal CBC with hemoglobin 13.6 and hematocrit 41.7. It was felt that this was likely biliary pain because of the clinical symptomatology typical of biliary colic as well as her elevated alkaline phosphatase. ERCP is performed for further evaluation. Procedure: Prior to the procedure, a history and physical exam was performed, and patient's medications and allergies were reviewed. The risks, benefits and alternatives of the sedation and procedure were discussed with the patient. All questions were answered and informed consent was obtained. The patient was brought to the fluoroscopic radiology room. Patient identification and proposed procedure were verified by the physician and the nurse. The patient was placed in a swimmer's position between left lateral decubitus and prone position and the scope was passed under direct vision. Throughout the procedure, the patient's blood pressure, pulse, and oxygen saturations were monitored continuously. The ERCP was accomplished without difficulty. The patient tolerated the procedure well. Findings: The side-viewing duodenal scope was passed directly into the upper esophagus and advanced to the second portion of the duodenum. The esophagus, stomach and duodenum were grossly normal. There was mild chronic gastritis. The ampulla was identified and was sitting below a medium sized duodenal diverticulum. This did make cannulation a little bit more difficult. The pancreatic duct was initially cannulated with a guidewire. The ampullary orifice was very tight so that was some difficulty the pancreatic duct was cannulated with the sphincterotome. I did not inject contrast and did avoid injection of dye into the pancreatic system. However, I did feel that a pancreatic ductal stent would protect the pancreas and with the tightness of the ampullary orifice, I did place a 5 [place] 3 cm single pigtail unfalanged pancreatic ductal stent into the pancreas. Next, the needle knife was utilized to perform limited needle-knife sphincterotomy with the stent in place. There was extravasation of bile. After biliary sphincterotomy, attempts were made to cannulate the biliary system which was still quite difficult but after the flow of bile repeated attempts were not performed and there was excellent extravasation of flow of bile from the biliary system. The procedure was then ended. Impression: 1. 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 Periampullary diverticulum 3. Mild chronic gastritis Plan: I will plan to do routine abdominal film in 7 to 10 days to ensure that the pancreatic ductal stent has passed appropriately. I will discuss the findings with the patient and family.
--- NOTE | 2020-08-27 16:09 | HMH.ANESCL ---
[facility] Anesthesia Checklist - Structural Data Admitted From: Home Planned Operative Procedure/s: ercp Consent for Planned Operative Procedure(s) Verified: Yes - Airway Assessment C-Spine Mobility Assessed: Yes TMJ Mobility Assessed: Yes Dentition: Good Dentition - Neurological Assessment Level of Consciousness: Awake, Alert, Appropriate - Anesthesia Plan Anesthesia Risk discussed: Yes Anesthesia Plan: Verified ASA Class: III Anesthesia Type: MAC [facility] History I have reviewed the patient's past medical history: Yes Medical History: Reports:: Asthma, Diabetes Mellitus Type 2, Hyperlipidemia, Hypertension Denies:: Cancer, Diabetes Mellitus Type 1, Internal Pacemaker, MRSA, Seizures *Have you ever received a pneumonia vaccine?: No *Have you received a flu vaccine this season?: Yes Other Medical History: Reports: Arthritis, Hypothyroidism, Sinus Problems, Thyroid Disease Anesthesia experience/problems:: none Other Surgeries: Yes: Cholecystectomy. No: Pacemaker Amputation: No Fractures: No - *Social History Last grade of school completed: Some college Smoking Status: Never smoker Alcohol Intake: never Substance Use Type: denies use *Occupational Status:: unemployed Housing: house Household Members: family *Travel in the last 8 weeks: None Family Hx:: Cancer, Diabetes, Heart Attack, Hyperlipidemia, Hypertension, Stroke
== END 2020-08-27 17:30 | disposition home or self-care (01) ==
LOC: OUTP 11:46
PROVIDERS: PCP Nurse Practitioner Family; Visit Provider Internal Medicine Gastroenterology
DX: K63.9 Disease of intestine, unspecified (principal); K57.10 Diverticulosis of small intestine without perforation or abscess without bleeding; K29.30 Chronic superficial gastritis without bleeding; Z87.19 Personal history of other diseases of the digestive system; J45.909 Unspecified asthma, uncomplicated; E11.9 Type 2 diabetes mellitus without complications; E78.5 Hyperlipidemia, unspecified; I10 Essential (primary) hypertension; M19.90 Unspecified osteoarthritis, unspecified site; E03.9 Hypothyroidism, unspecified; E07.9 Disorder of thyroid, unspecified; Z79.899 Other long term (current) drug therapy
CPT/HCPCS: 43262; 43274; 74330; 82962

== ENCOUNTER → 2020-09-07 13:39 | Outpatient (CLI) | payer MEDICARE, MEDICAID, SELFPAY ==
--- NOTE | 2020-09-07 13:43 | XR_ITS ---
PROCEDURE: XR ABDOMEN MIN 2V CLINICAL INDICATION: RUQ PAIN,R/O RETAINED PANCRATIC STENT COMPARISON: CT CT ABDOMEN PELVIS W CON from 08/26/2020 RF FL ERCP from 08/27/2020 FINDINGS: There are surgical clips in the right upper quadrant. There is elevated right hemidiaphragm. No obvious radiopaque retained stent is identified. There is a thin curvilinear area of increased density along the lower abdomen at the L4 level on the left. This is of uncertain etiology and does not appear to represent a stent. Bowel gas pattern is nonspecific. IMPRESSION: No retained radiopaque stent identified. Dictated by: Nnamdi Haynes MD 09/07/2020 14:37 Nnamdi Haynes MD in [place] 09/07/2020 14:37
== END ==
PROVIDERS: PCP Nurse Practitioner Family; Visit Provider Internal Medicine Gastroenterology
DX: R10.11 Right upper quadrant pain (principal)
CPT/HCPCS: 74019

== ENCOUNTER 2020-09-13 15:49 | Emergency (ER) | payer MEDICARE, MEDICAID, SELFPAY ==
[2020-09-13] VITALS (7 sets, daily range): BP systolic 129–165; BP diastolic 58–84; PULSE 81–100; RESP 16; TEMP 36.6–36.7; O2SAT 96–100; BMI 33.3
--- NOTE | 2020-09-13 15:54 | HMH.EDABDPAI ---
ED Disposition Clinical Impression: Acute vomiting, Epigastric abdominal pain Disposition: Home, Self-Care Condition on Discharge: Good Instructions: DI for Acute Abdominal Pain Additional Instructions: Return to the ED for any new or worsening symptoms including persistent vomiting, severe abdominal pain, fever. Prescriptions: Promethazine HCl [Phenergan 25mg tab] 25 mg PO Q8H PRN 3 Days #9 tab PRN Reason: Nausea And Vomiting Transmission Status: Pending to [facility] Referrals: Lavinia Juarez [Primary Care Provider] - - Critical Care Critical Care Time: No Attestation: On , the high probability of a clinically significant, sudden or life threatening deterioration of the following system(s) required my full and direct attention, intervention and personal management. The time I documented below is in addition to time spent performing reported procedures but includes the following listed in this critical care notation. Medical Decision Making - Medical Records Medical records reviewed: Yes: I reviewed the patient's medical records. - Emile Inquiry Pt receiving controlled substance: No Vital Signs: 09/13/20 15:49 09/13/20 16:00 09/13/20 16:30 Temperature 98.1 F Temperature Source Oral Pulse Rate [Right] 87 100 H 91 H Respiratory Rate 16 Blood Pressure [Right Arm] 144/74 H 157/80 H 138/68 Blood Pressure Mean [Right Arm] 97 105 91 Blood Pressure Source [Right Arm] Automatic Cuff Automatic Cuff Automatic Cuff Blood Pressure Position [Right Arm] Sitting Sitting Sitting 02 Sat by Pulse Oximetry 100 96 100 Oxygen Delivery Method Room Air Room Air Room Air 09/13/20 18:00 Temperature Temperature Source Pulse Rate [Right] 89 Respiratory Rate Blood Pressure [Right Arm] 129/61 Blood Pressure Mean [Right Arm] 83 Blood Pressure Source [Right Arm] Automatic Cuff Blood Pressure Position [Right Arm] Sitting 02 Sat by Pulse Oximetry 100 Oxygen Delivery Method Room Air - Lab Data Lab Results 09/13/20 16:40: Sodium 138, Potassium 4.7, Chloride 102, Carbon Dioxide 29, Anion Gap 11.7, BUN 15, Creatinine 1.10 H, Estimated Creat Clear 80, Estimated GFR 51 L, Est GFR ( Amer) 62, Glucose 265 H, Calcium 10.1, Total Bilirubin 0.4, AST 59 H, ALT 46, Alkaline Phosphatase 115, Total Protein 8.0, Albumin 4.1, Globulin 3.9 H, Albumin/Globulin Ratio 1.1, Lipase 177 09/13/20 16:40: Lactate 2.6 H 09/13/20 16:55: WBC 7.4, RBC 4.35, Hgb 12.8, Hct 39.3, MCV 90.4, MCH 29.4, MCHC 32.5, RDW 14.8, Plt Count 385, MPV 7.1 L, Neut % (Auto) 52.3, Lymph % (Auto) 37.0, [place] % (Auto) 6.6, Eos % (Auto) 2.9, Baso % (Auto) 1.1, Neut # (Auto) 3.9, Lymph # (Auto) 2.7, [place] # (Auto) 0.5, Eos # (Auto) 0.2, Baso # (Auto) 0.1 09/13/20 17:00: Urine Color Yellow, Urine Appearance Clear, Urine pH 6.0, Ur Specific [place] 1.010, Urine Protein Negative, Urine Glucose (UA) 2+, Urine Ketones Negative, Urine Blood Negative, Urine Nitrate Negative, Urine Bilirubin Negative, Urine Urobilinogen 0.2, Ur Leukocyte Esterase Negative, Urine RBC None, Urine WBC Occasional, Ur Squamous Epith Cells 10-20, Urine Bacteria Trace Result diagrams: 09/13/20 16:55 09/13/20 16:40 Orders (Tests/Meds): ED MEDICATIONS Discontinued Medications Generic Name Dose Route Start Last Admin Trade Name Freq PRN Reason Stop Dose Admin Belladonna Alkaloids 60 ml 09/13/20 18:53 09/13/20 19:00 Gi Cocktail 60ml Udc PO 09/13/20 18:54 60 ml ONCE ONE Administration Lactated Ringer's 1,000 mls @ 999 mls/hr 09/13/20 16:00 09/13/20 16:00 Lactated Ringer's 1000 Ml Bag IV 09/13/20 17:00 999 mls/hr .Q1H1M DAYA Administration Iopamidol 75 ml 09/13/20 17:44 09/13/20 17:44 Iopamidol-370 (76%);100ml Bottle IV 09/13/20 17:45 75 ml ONCE ONE Administration Morphine Sulfate 4 mg 09/13/20 15:56 09/13/20 16:00 Morphine 4mg/Ml Syringe IV 09/13/20 15:57 4 mg ONCE ONE Administration Ondansetron HCl 4 mg 09/13/20 15:56 09/13/
--- NOTE | 2020-09-13 15:56 | CT_ITS ---
Procedure: CT ABDOMEN PELVIS W CON Referring Doctor: Juan Olguin Patient Age:60Y CLINICAL INDICATION: epigastric abdominal pain COMPARISON: CT CT ABDOMEN PELVIS W CON from 08/26/2020 TECHNIQUE: Axial images obtained with sagittal and coronal reformats. All CT scans at the facility use one or more dose reduction, viz: automated exposure control, ma/kV adjustment per patient size (including targeted exams where dose is matched to indication, i.e. head), or iterative reconstruction technique. FINDINGS: Lower thorax: Stippled somewhat nodular areas of airspace disease at the periphery of the right lower lobe. This is a change since August 26 and could reflect some developing pneumonia. Warrants laboratory correlation and suggest screening for covid. The . ABDOMEN: Liver: No masses or biliary dilatation. Mild diffuse fatty changes liver Portal vein upper normal Gallbladder: Surgically removed. Common duct normal Pancreas: Unremarkable no masses or peripancreatic fluid collections. Spleen: unremarkable normal-sized Adrenals: unremarkable Kidneys/ureters: unremarkable normal enhancement with no calculi nor obstruction or significant mass evident. Tiny less than 1 cm cyst at the lateral margin of the upper right kidney the PELVIS: uterus appears satisfactory normal size and position. No adnexal masses small ovaries appear normal size but no fluid cul-de-sac but Bladder: Nondistended. No obvious stones or masses. ---GI tract---. Large bowel. Relatively empty left colon, rectosigmoid and transverse colon. Minimal stool at hepatic flexure and right colon.. Mobile cecum to the right of midline No evidence of appendicitis. The terminal ileum unremarkable Small bowel.. Slight increased fluid at the proximal small bowel with borderline distended of small bowel loop at the upper abdomen, axial image 66 coronal 25. This loop measures up to 3 cm diameter. There is small air-fluid levels in the proximal small bowel but findings could reflect mild ileus proximal small bowel or early enteritis. Nonspecific but The stomach is nondistended with upper normal wall thickness most likely reflecting its lack of distension Stomach bowel: Nondistended. No obvious mass or thickening. Peritoneum: No abnormal fluid collections. No obvious inflammatory changes. No free air.Small fat containing umbilical hernia Lymph nodes: No enlarged lymph nodes apparent. Vasculature: No evidence of abdominal aortic aneurysm. No retroperitoneal hemorrhage evident. Bones: No acute fracture or findings. Mild degenerative changes lumbar. IMPRESSION: 1..Small patchy/nodular appearing areas of opacity/airspace disease have developed along the posterior aspect of the RLL. Suggest early infiltrate rather than merely atelectasis-warrants correlation and screening for covid. 2.. Slight increased fluid and borderline dilatation proximal small bowel loops. Scattered small air-fluid levels Nonspecific, but could reflect mild ileus or developing enteritis 3.. Minimal fatty changes liver. Small fat containing umbilical hernia the Dictated by: Andres Lacey MD 09/14/2020 11:20 Andres Lacey MD in [facility] 09/14/2020 11:20
--- NOTE | 2020-09-13 16:45 | PC.NURSE ---
pt states she cannot urinate at this time.
--- NOTE | 2020-09-13 16:50 | PC.NURSE ---
Pt taken to restroom at this time.
[2020-09-13 16:56] LABS: Chloride 102 mmol/L (98-107)
[2020-09-13 16:57] LABS: Potassium 4.7 mmoL/L (3.5-5.1); Sodium 138 mmol/L (136-145)
[2020-09-13 16:59] LABS: Alanine Aminotransferase 46 U/L (12-78); Aspartate Amino Transferase 59 U/L (14-36); Blood Urea Nitrogen 15 mg/dl (7-17); Creatinine Clearance Estimated 80 mL/min (50-200); Estimated Glomerular Filt Rate 51 ml/min (>60); GFR (African American) 62 ML/MIN (>60)
[2020-09-13 17:00] LABS: Albumin Level 4.1 g/dl (3.5-5.0); Albumin/Globulin Ratio 1.1 (1.1-1.8); Alkaline Phosphatase 115 U/L (38-126); Anion Gap 11.7 mEq/L (5-15); Bilirubin,Total 0.4 mg/dl (0.2-1.3); Calcium 10.1 mg/dl (8.4-10.2); Carbon Dioxide 29 mmol/L (22.0-30.0); Globulin 3.9 g/dL (1.3-3.2); Glucose 265 mg/dl (74-100); Lipase 177 U/L (23-300)
[2020-09-13 17:03] LABS: Basophils # 0.1 K/mm3 (0-0.2); Basophils % 1.1 % (0.1-2.0); Eosinophils # 0.2 K/mm3 (0.0-0.4); Eosinophils % 2.9 % (0.1-12.0); Hematocrit 39.3 % (37.0-47.0); Hemoglobin 12.8 g/dL (12.2-16.2); Lymphocytes # 2.7 K/mm3 (0.7-4.5); Mean Corpuscular HGB Conc 32.5 g/dL (31.8-35.4); Mean Corpuscular Hemoglobin 29.4 pg (27.0-31.2); Mean Corpuscular Volume 90.4 fl (81-99); Mean Platelet Volume 7.1 fl (7.4-10.4); Monocytes # 0.5 K/mm3 (0.1-1.0); Monocytes % 6.6 % (1.7-9.3); Neutrophils # 3.9 K/mm3 (1.8-7.8); Neutrophils % 52.3 % (37.0-80.0); Platelet Count 385 K/mm3 (142-424); Red Blood Count 4.35 M/mm3 (4.20-5.40); Red Cell Distribution Width 14.8 % (11.5-17.5); White Blood Count 7.4 K/mm3 (4.8-10.8)
[2020-09-13 17:04] LABS: Microscopic, Urine URINE MICROSCOPIC (MICROSCOPIC)
[2020-09-13 17:06] LABS: Appearance,Urine CLEAR (Clear); Bilirubin,Urine Negative (Negative); Blood, Urine Negative (Negative); Color,Urine YELLOW (Yellow); Glucose,Urine (UA) 2+ (Negative); Ketones,Urine Negative (Negative); Leukocyte Esterase,Urine Negative (Negative); Nitrate,Urine Negative (Negative); Protein,Urine Negative (Negative); Urobilinogen,Urine 0.2 EU/dl (0.2)
[2020-09-13 17:10] LABS: Lactic Acid 2.6 mmol/L (0.7-2.1)
[2020-09-13 17:54] LABS: Bacteria,Urine Trace /lpf; WBC,Urine Occasional #/hpf (0-3)
== END 2020-09-13 20:17 | disposition home or self-care (01) ==
PROVIDERS: Emergency Provider Student in an Organized Health Care Education/Training Program; PCP Nurse Practitioner Family
DX: R11.2 Nausea with vomiting, unspecified (principal); R10.13 Epigastric pain; I10 Essential (primary) hypertension; E78.5 Hyperlipidemia, unspecified; E03.9 Hypothyroidism, unspecified; E11.9 Type 2 diabetes mellitus without complications; Z79.84 Long term (current) use of oral hypoglycemic drugs; Z79.899 Other long term (current) drug therapy
CPT/HCPCS: 74177; 80053; 81001; 83605; 83690; 85025; 96365; 96375; 99284; J2405; Q9967

== ENCOUNTER 2020-09-24 09:29 | Outpatient (CLI) | payer MEDICARE, MEDICAID, SELFPAY ==
[2020-09-24 09:29] VITALS: BP 147/71; PULSE 68; RESP 20; TEMP 36.9; O2SAT 95
[2020-09-24 09:55] VITALS: BP 112/74; PULSE 68; RESP 20; TEMP 36.9; O2SAT 95
--- NOTE | 2020-09-24 10:38 | PC.NURSE ---
INJECTIONS GIVEN IN BILATERAL ARMS; TWO INJECTIONS ON IN EACH ARM
== END 2020-09-24 10:00 | disposition home or self-care (01) ==
LOC: INF 09:29
PROVIDERS: Visit Provider Allergy & Immunology
DX: J45.50 Severe persistent asthma, uncomplicated (principal)
CPT/HCPCS: 96372; J2357

== ENCOUNTER 2020-10-22 11:15 | Outpatient (CLI) | payer MEDICARE, MEDICAID, SELFPAY ==
[2020-10-22 11:45] VITALS: BP 153/82; PULSE 91; RESP 18; O2SAT 97
== END 2020-10-22 11:45 | disposition home or self-care (01) ==
LOC: INF 11:15
PROVIDERS: Visit Provider Nurse Practitioner
DX: J45.50 Severe persistent asthma, uncomplicated (principal)
CPT/HCPCS: 96372; J2357

== ENCOUNTER 2020-11-17 10:25 | Outpatient (CLI) | payer MEDICARE, MEDICAID, SELFPAY ==
[2020-11-17 10:34] VITALS: BP 127/79; PULSE 92; RESP 18; TEMP 36.4; O2SAT 97
== END 2020-11-17 11:25 | disposition home or self-care (01) ==
LOC: INF 10:25
PROVIDERS: Visit Provider Nurse Practitioner
DX: J45.50 Severe persistent asthma, uncomplicated (principal)
CPT/HCPCS: 96372; J2357

== ENCOUNTER → 2020-12-08 11:49 | Outpatient (CLI) | payer MEDICARE, MEDICAID, SELFPAY ==
--- NOTE | 2020-12-08 11:54 | XR_ITS ---
PROCEDURE: XR SHOULDER RT MIN 2V CLINICAL INDICATION: PAIN IN RT SHOULDER COMPARISON: CR XR SHOULDER RT MIN 2V from 06/11/2019 FINDINGS: No fracture or dislocation. No lytic or blastic change. There is normal mineralization. Unremarkable glenohumeral joint. There is subacromial stenosis. Other findings:None. IMPRESSION: Subacromial stenosis which may be seen with rotator cuff abnormalities. Dictated by: Nnamdi Haynes MD 12/08/2020 16:10 Nnamdi Haynes MD in [facility] 12/08/2020 16:10
== END ==
PROVIDERS: PCP Nurse Practitioner Family; Visit Provider Nurse Practitioner Family
DX: M25.511 Pain in right shoulder (principal)
CPT/HCPCS: 73030

== ENCOUNTER → 2020-12-11 09:37 | Outpatient (CLI) | payer MEDICARE, MEDICAID, SELFPAY ==
--- NOTE | 2020-12-11 09:40 | XR_ITS ---
PROCEDURE: XR SHOULDER RT MIN 2V CLINICAL INDICATION: Rt shoulder pain COMPARISON: No exams were available for comparison FINDINGS: Is intact. There is minor degenerate change of the AC joint with spurring superiorly. There is a slightly lateral downsloping acromion process which could predispose the some degree of impingement syndrome. The humeral head and glenoid appear normal. There no soft tissue calcifications. IMPRESSION: Minor degenerative changes AC joint and possible predisposition to impingement syndrome Dictated by: Dr. Erik Aguiar MD 12/11/2020 12:08 Dr. Erik Aguiar MD in [facility] 12/11/2020 12:08
== END ==
PROVIDERS: PCP Nurse Practitioner Family; Referring Provider Orthopaedic Surgery; Visit Provider Orthopaedic Surgery
DX: M25.511 Pain in right shoulder (principal)
CPT/HCPCS: 73030

== ENCOUNTER → 2020-12-16 13:24 | Outpatient (CLI) | payer MEDICARE, MEDICAID, SELFPAY ==
--- NOTE | 2020-12-16 13:25 | MR_ITS ---
PROCEDURE: MR SHOULDER RT WO CON CLINICAL INDICATION: Rt shoulder pain COMPARISON: No exams were available for comparison TECHNIQUE: Routine multiplanar multi echo sequences are performed without gadolinium enhancement. FINDINGS: Complex full-thickness partial width tear of the supraspinatus is noted with the intact posterior fibers. There is supraspinatus tendinopathy. Intrasubstance extension of the tear is noted. There is signal abnormality of the superior fibers of the subscapularis, concerning for partial-thickness tear. Intrasubstance tear of the infraspinatus is noted. The teres minor is intact. There is subluxation of the biceps tendon. The tendon otherwise appears intact without evidence of tears. There is mild supraspinatus atrophy. Non arthrographic limited images of the labrum demonstrate no evidence of labral tears. Small joint effusion is noted. Fluid in the subacromial/subdeltoid bursa. Bone marrow signal intensity appears within normal limits. No marrow infiltrative process. Minor degenerative changes of the acromioclavicular joint are noted. IMPRESSION: Full-thickness partial width tear of the supraspinatus with the tendinopathy. Mild supraspinatus atrophy. Tendinopathy with fraying of the as superior fibers of the subscapularis. Mild biceps tendon subluxation is noted. Intrasubstance tear of the infraspinatus. Subacromial/subdeltoid bursitis. Small joint effusion. Dictated by: Cordelia Lares 12/16/2020 16:35 Cordelia Lares in [facility] 12/16/2020 16:35
== END ==
PROVIDERS: PCP Nurse Practitioner Family; Visit Provider Orthopaedic Surgery
DX: M25.511 Pain in right shoulder (principal)
CPT/HCPCS: 73221

== ENCOUNTER 2021-02-10 19:27 | Emergency (ER) | payer MEDICARE, MEDICAID, SELFPAY ==
[2021-02-10 19:29] VITALS: BP 144/66; PULSE 99; RESP 16; TEMP 36.7; O2SAT 99; BMI 33.3
[2021-02-10 19:30] VITALS: BP 136/64; PULSE 103; O2SAT 100
--- NOTE | 2021-02-10 19:54 | CT_ITS ---
PROCEDURE INFORMATION: Exam: CT Cervical Spine Without Contrast Exam date and time: 02/10/2021 7:54 PM Age: 61 years old Clinical indication: Injury or trauma; Other: Hit head on car door frame trying to get out of her car at [facility]; Blunt trauma; Additional info: Head injury TECHNIQUE: Imaging protocol: Computed tomography images of the cervical spine without contrast. Radiation optimization: All CT scans at this facility use at least one of these dose optimization techniques: automated exposure control; mA and/or kV adjustment per patient size (includes targeted exams where dose is matched to clinical indication); or iterative reconstruction. COMPARISON: US CA carotid duplex BI 11/21/2018 9:31 AM FINDINGS: Bones/joints: Normal anatomic alignment. Vertebral body heights are well preserved. Small multilevel anterior osteophytes are appreciated. There is no evidence of acutely displaced fractures. There is no evidence of dislocation. No aggressive osseous lesions. Discs/Spinal canal/Neural foramina: There is no significant disc space narrowing. The spinal canal is patent. There is no evidence of foraminal stenosis. Lungs: Lung apices are normal. Vasculature: There is mild atherosclerotic calcification of the carotid arteries. Soft tissues: Unremarkable. IMPRESSION: Negative for acute skeletal pathology.
--- NOTE | 2021-02-10 19:54 | CT_ITS ---
PROCEDURE INFORMATION: Exam: CT Head Without Contrast Exam date and time: 02/10/2021 7:54 PM Age: 61 years old Clinical indication: Injury or trauma; Other: Hit head on car door frame trying to get out of car at [facility]. ; Blunt trauma (contusions or hematomas); Additional info: Head injury TECHNIQUE: Imaging protocol: Computed tomography of the head without contrast. Radiation optimization: All CT scans at this facility use at least one of these dose optimization techniques: automated exposure control; mA and/or kV adjustment per patient size (includes targeted exams where dose is matched to clinical indication); or iterative reconstruction. COMPARISON: HEADWO CT head/brain wo con 03/16/2019 6:48 PM FINDINGS: Brain: Age related brain involution is present. No acute intracranial hemorrhage, mass effect, midline shift, or brain herniation. Diffuse subcortical and periventricular white matter hypodensities are most in favor with chronic small vessel disease. Cerebral ventricles: There is ex vacuo ventriculomegaly. Paranasal sinuses: Visualized sinuses are unremarkable. No fluid levels. Mastoid air cells: Visualized mastoid air cells are well aerated. Bones/joints: Unremarkable. No acute fracture. Soft tissues: Unremarkable. IMPRESSION: Negative for acute intracranial pathology.
[2021-02-10 20:16] LABS: Basophils # 0.1 K/mm3 (0-0.2); Basophils % 0.7 % (0.1-2.0); Eosinophils # 0.3 K/mm3 (0.0-0.4); Eosinophils % 3.5 % (0.1-12.0); Hematocrit 35.3 % (37.0-47.0); Hemoglobin 11.6 g/dL (12.2-16.2); Lymphocytes # 3.2 K/mm3 (0.7-4.5); Mean Corpuscular HGB Conc 32.9 g/dL (31.8-35.4); Mean Corpuscular Volume 88.1 fl (81-99); Monocytes # 0.4 K/mm3 (0.1-1.0); Neutrophils # 4.7 K/mm3 (1.8-7.8); Neutrophils % 53.9 % (37.0-80.0); Platelet Count 255 K/mm3 (142-424); Red Blood Count 4.01 M/mm3 (4.20-5.40); Red Cell Distribution Width 13.5 % (11.5-17.5); White Blood Count 8.7 K/mm3 (4.8-10.8)
[2021-02-10 20:27] LABS: Alanine Aminotransferase 37 U/L (12-78); Albumin/Globulin Ratio 1.3 (1.1-1.8); Alkaline Phosphatase 132 U/L (38-126); Anion Gap 9.2 mEq/L (5-15); Aspartate Amino Transferase 30 U/L (14-36); Bilirubin,Total 0.3 mg/dl (0.2-1.3); Blood Urea Nitrogen 14 mg/dl (7-17); Calcium 8.7 mg/dl (8.4-10.2); Carbon Dioxide 28 mmol/L (22.0-30.0); Chloride 104 mmol/L (98-107); Creatinine Clearance Estimated 87 mL/min (50-200); Estimated Glomerular Filt Rate 57 ml/min (>60); GFR (African American) 69 ML/MIN (>60); Glucose 246 mg/dl (74-100); Potassium 4.2 mmoL/L (3.5-5.1); Sodium 137 mmol/L (136-145)
--- NOTE | 2021-02-10 20:31 | HMH.EDHA ---
ED Disposition Clinical Impression: Concussion without loss of consciousness Qualifiers: Encounter type: initial encounter Qualified Code(s): S06.0X0A - Concussion without loss of consciousness, initial encounter Disposition: Home, Self-Care Condition on Discharge: Good Instructions: DI for Concussion Additional Instructions: ice and see pcp for follow up Referrals: Lavinia Juarez [Primary Care Provider] - - Critical Care Critical Care Time: No Attestation: On 02/10/21, the high probability of a clinically significant, sudden or life threatening deterioration of the following system(s) required my full and direct attention, intervention and personal management. The time I documented below is in addition to time spent performing reported procedures but includes the following listed in this critical care notation. Medical Decision Making - Medical Records Medical records reviewed: Yes: I reviewed the patient's medical records. - Emile Inquiry Pt receiving controlled substance: No Vital Signs: 02/10/21 19:29 02/10/21 19:30 Temperature 98.0 F Temperature Source Oral Pulse Rate 103 H Pulse Rate [Right] 99 H Respiratory Rate 16 Blood Pressure 136/64 Blood Pressure [Right Arm] 144/66 H Blood Pressure Mean [Right Arm] 92 Blood Pressure Source [Right Arm] Automatic Cuff Blood Pressure Position [Right Arm] Supine 02 Sat by Pulse Oximetry 99 100 Oxygen Delivery Method Room Air - Lab Data Lab results reviewed: Yes: I reviewed the patient's lab results. Lab Results 02/10/21 20:00: WBC 8.7, RBC 4.01 L, Hgb 11.6 L, Hct 35.3 L, MCV 88.1, MCH 29.0, MCHC 32.9, RDW 13.5, Plt Count 255, MPV 8.0, Neut % (Auto) 53.9, Lymph % (Auto) 37.0, [place] % (Auto) 5.0, Eos % (Auto) 3.5, Baso % (Auto) 0.7, Neut # (Auto) 4.7, Lymph # (Auto) 3.2, [place] # (Auto) 0.4, Eos # (Auto) 0.3, Baso # (Auto) 0.1, ESR 32 H 02/10/21 20:00: Sodium 137, Potassium 4.2, Chloride 104, Carbon Dioxide 28, Anion Gap 9.2, BUN 14, Creatinine 1.00, Estimated Creat Clear 87, Estimated GFR 57 L, Est GFR ( Amer) 69, Glucose 246 H, Calcium 8.7, Total Bilirubin 0.3, AST 30, ALT 37, Alkaline Phosphatase 132 H, C-Reactive Protein 5.1 H, Total Protein 7.0, Albumin 4.0, Globulin 3.0, Albumin/Globulin Ratio 1.3, Procalcitonin 0.277 Result diagrams: 02/10/21 20:00 02/10/21 20:00 Orders (Tests/Meds): ED MEDICATIONS Generic Name Dose Route Start Last Admin Trade Name Freq PRN Reason Stop Dose Admin Sodium Chloride 1,000 mls @ 999 mls/hr 02/10/21 20:00 02/10/21 19:59 Sod Chlor 0.9% 1000ml Bag IV 02/10/21 21:00 999 mls/hr .Q1H1M DAYA Administration Discontinued Medications Generic Name Dose Route Start Last Admin Trade Name Freq PRN Reason Stop Dose Admin Ondansetron HCl 4 mg 02/10/21 19:54 02/10/21 19:59 Ondansetron 4mg/2ml Vial IV 02/10/21 19:55 4 mg ONCE ONE Administration - CT Data CT Scan: Head, C-Spine Time Received: 21:[address] Reviewed: Yes: I have viewed the radiologist's interpretation Preliminary Findings: No Fracture Seen Medical Decision Narrative: stable exam and neg ct Headache HPI - General Chief Complaint: Head Injury Stated Complaint: Ribeiro Time Seen by Provider: 02/10/21 20:00 Mode of Arrival: EMS Source of Information: Patient, Relative, EMS, Medical Record Limitations: No Limitations Description of Symptoms (Recalled from ER Triage Doc. by RN): Pt states she stood up and hit her head on the door edge at approx 1700 and now had generalized head pain and nausea. Pt denies LOC and has no Neuro deficits. - History of Present Illness HPI Narrative: acute head injury as she hit head on door frame with ribeiro and nausea but no loc and no sz and no focal neuro sx Complaint: headache Onset (ago): hour(s) Onset description: sudden Location: diffuse Severity: moderate Context: recent head injury Associated symptoms: none Treatments prior to arrival: none - Related Data Home Medication
[2021-02-10 20:32] LABS: C-Reactive Protein 5.1 mg/L (0-4)
[2021-02-10 20:42] LABS: Erythrocyte Sedimentation Rate 32 mm/hr (0-30)
[2021-02-10 20:46] LABS: Procalcitonin 0.277 ng/mL (0.0-2.0)
[2021-02-10 21:29] VITALS: BP 139/71; PULSE 95; RESP 16; TEMP 36.7; O2SAT 97
== END 2021-02-10 21:31 | disposition home or self-care (01) ==
PROVIDERS: Emergency Provider Emergency Medicine; PCP Nurse Practitioner Family
DX: S06.0X0A Concussion without loss of consciousness, initial encounter (principal); W22.8XXA Striking against or struck by other objects, initial encounter; Y92.019 Unspecified place in single-family (private) house as the place of occurrence of the external cause; E11.9 Type 2 diabetes mellitus without complications; I10 Essential (primary) hypertension; E78.5 Hyperlipidemia, unspecified; E03.9 Hypothyroidism, unspecified
CPT/HCPCS: 70450; 72125; 80053; 84145; 85025; 85651; 86140; 96365; 96375; 99282; J2405

== ENCOUNTER → 2021-04-04 14:22 | Outpatient (CLI) | payer MEDICARE, MEDICAID, SELFPAY ==
--- NOTE | 2021-04-04 14:26 | MR_ITS ---
PROCEDURE: MR ANKLE LT WO CON CLINICAL INDICATION: LEFT ANKLE PAIN COMPARISON: No exams were available for comparison TECHNIQUE: Routine multiplanar multi echo sequences are performed without gadolinium enhancement. FINDINGS: The flexor, extensor and peroneal tendons are intact. The Achilles tendon is within normal limits without evidence of focal signal abnormality. The syndesmotic ligaments are intact. The anterior talofibular and posterior talofibular ligaments are intact. The deltoid ligament complex is within normal limits. There are multiple subchondral cystic changes noted, likely degenerative. The tibiotalar joints are within normal limits. Small joint effusion is noted. There is no evidence of acute fractures or marrow infiltrative process. Calcaneal spur is noted. There is focal soft tissue density noted at the minor soft tissue density is noted inferior to the heel in the subcutaneous soft tissues, may represent mild cellulitis. No other soft tissue abnormality is noted. No evidence of retrocalcaneal bursitis. IMPRESSION: Findings are suggestive of degenerative changes at the lateral malleolus and talus. The ligaments and tendons are intact. Soft tissue signal abnormality in the soft tissues of the foot at the calcaneum, raises the concern for cellulitis. Dictated by: Cordelia Lares 04/04/2021 16:38 Cordelia Lares in [facility] 04/04/2021 16:38
== END ==
PROVIDERS: PCP Nurse Practitioner Family; Visit Provider Podiatrist
DX: M66.872 Spontaneous rupture of other tendons, left ankle and foot (principal)
CPT/HCPCS: 73721

== ENCOUNTER 2021-05-05 05:18 | Emergency (ER) | payer MEDICARE, MEDICAID, SELFPAY ==
[2021-05-05] VITALS (9 sets, daily range): BP systolic 117–143; BP diastolic 57–73; PULSE 88–103; RESP 16–21; TEMP 36.4–36.6; O2SAT 96–100; BMI 33.3
--- NOTE | 2021-05-05 05:18 | ECG_ITS ---
APPROVED REPORT Exam: Resting ECG HR:90 bpm ECG Measurements Heart Rate 90 AXES PA 154 P 56 QRSd 78 QRS 38 QT 370 T 55 QTc 452 Conclusion Normal sinus rhythm Low voltage QRS Cannot rule out Anterior infarct, age undetermined Abnormal ECG Electronically signed by : Sanjay Mendosa MD 05/06/2021 12:05:51
--- NOTE | 2021-05-05 05:29 | XR_ITS ---
PROCEDURE INFORMATION: Exam: XR Chest Exam date and time: 05/05/2021 5:29 AM Age: 61 years old Clinical indication: Shortness of breath; Additional info: SOA TECHNIQUE: Imaging protocol: XR of the chest. Views: 2 views. COMPARISON: CR XR CHEST PORTABLE 02/29/2020 6:06 PM FINDINGS: Lungs: Unremarkable. No consolidation. Pleural spaces: Unremarkable. No pleural effusion. No pneumothorax. Heart/Mediastinum: Unremarkable. No cardiomegaly. Bones/joints: Unremarkable. IMPRESSION: No acute findings.
--- NOTE | 2021-05-05 05:38 | CT_ITS ---
PROCEDURE INFORMATION: Exam: CT Head Without Contrast Exam date and time: 05/05/2021 5:38 AM Age: 61 years old Clinical indication: Dizziness; Additional info: Dizzy, weakness TECHNIQUE: Imaging protocol: Computed tomography of the head without contrast. Radiation optimization: All CT scans at this facility use at least one of these dose optimization techniques: automated exposure control; mA and/or kV adjustment per patient size (includes targeted exams where dose is matched to clinical indication); or iterative reconstruction. COMPARISON: CT HEAD/BRAIN WO CON 02/10/2021 8:09 PM FINDINGS: Brain: Normal. No hemorrhage. Unremarkable white matter. No mass effect. Cerebral ventricles: No ventriculomegaly. Paranasal sinuses: Visualized sinuses are unremarkable. No fluid levels. Mastoid air cells: Visualized mastoid air cells are well aerated. Bones/joints: Unremarkable. No acute fracture. Soft tissues: Unremarkable. IMPRESSION: No acute intracranial abnormality.
[2021-05-05 05:39] LABS: Coronavirus 19, PCR Not Detected (NotDetected); Influenza A, PCR Not Detected (NotDetected); Influenza B, PCR Not Detected (NotDetected)
[2021-05-05 05:43] LABS: Basophils # 0.1 K/mm3 (0-0.2); Basophils % 0.9 % (0.1-2.0); Eosinophils # 0.2 K/mm3 (0.0-0.4); Eosinophils % 2.1 % (0.1-12.0); Hematocrit 37.2 % (37.0-47.0); Hemoglobin 12.6 g/dL (12.2-16.2); Lymphocytes # 2.8 K/mm3 (0.7-4.5); Lymphocytes % 31.8 % (10-50); Mean Corpuscular HGB Conc 33.8 g/dL (31.8-35.4); Mean Corpuscular Hemoglobin 29.2 pg (27.0-31.2); Mean Corpuscular Volume 86.5 fl (81-99); Mean Platelet Volume 7.9 fl (7.4-10.4); Monocytes # 0.4 K/mm3 (0.1-1.0); Monocytes % 4.7 % (1.7-9.3); Neutrophils # 5.4 K/mm3 (1.8-7.8); Neutrophils % 60.4 % (37.0-80.0); Platelet Count 281 K/mm3 (142-424); Red Cell Distribution Width 13.4 % (11.5-17.5); White Blood Count 8.9 K/mm3 (4.8-10.8)
[2021-05-05 05:52] LABS: Alanine Aminotransferase 26 U/L (12-78); Albumin Level 4.3 g/dl (3.5-5.0); Alkaline Phosphatase 109 U/L (38-126); Anion Gap 12.9 mEq/L (5-15); Aspartate Amino Transferase 23 U/L (14-36); Bilirubin,Direct 0.5 mg/dl (0.0-0.4); Bilirubin,Total 0.5 mg/dl (0.2-1.3); Blood Urea Nitrogen 23 mg/dl (7-17); Calcium 9.5 mg/dl (8.4-10.2); Carbon Dioxide 29 mmol/L (22.0-30.0); Chloride 97 mmol/L (98-107); Creatinine Clearance Estimated 72 mL/min (50-200); Estimated Glomerular Filt Rate 46 ml/min (>60); GFR (African American) 56 ML/MIN (>60); Glucose 248 mg/dl (74-100); Magnesium 1.6 mg/dl (1.6-2.3); Potassium 4.9 mmoL/L (3.5-5.1); Sodium 134 mmol/L (136-145); Total Protein,Serum 7.7 g/dl (6.3-8.2)
[2021-05-05 06:05] LABS: Hemoglobin A1C 8.5 % (4.0-6.0)
[2021-05-05 06:07] LABS: Troponin I < 0.01 ng/ml (0.00-0.034)
[2021-05-05 06:11] LABS: Procalcitonin 0.309 ng/mL (0.0-2.0)
[2021-05-05 06:13] LABS: Erythrocyte Sedimentation Rate 38 mm/hr (0-30)
[2021-05-05 06:25] LABS: Microscopic, Urine URINE MICROSCOPIC (MICROSCOPIC)
[2021-05-05 06:25] LABS: Thyroid Stimulating Hormone 0.82 uIU/mL (0.465-4.68)
[2021-05-05 06:27] LABS: Appearance,Urine CLEAR (Clear); Bilirubin,Urine Negative (Negative); Blood, Urine Negative (Negative); Color,Urine YELLOW (Yellow); Glucose,Urine (UA) 1+ (Negative); Ketones,Urine Negative (Negative); Leukocyte Esterase,Urine Negative (Negative); Nitrate,Urine Negative (Negative); Protein,Urine Negative (Negative); Specific Gravity, Urine <= 1.005 (1.005-1.030); Urobilinogen,Urine 0.2 EU/dl (0.2)
--- NOTE | 2021-05-05 07:47 | HMH.EDWEAK ---
ED Disposition Clinical Impression: Weakness DM (diabetes mellitus) Qualifiers: Diabetes mellitus type: type 2 Diabetes mellitus assisted insulin use: unspecified assisted insulin use status Diabetes mellitus complication status: with other specified complication Qualified Code(s): E11.69 - Type 2 diabetes mellitus with other specified complication Disposition: Home, Self-Care Condition on Discharge: Good Instructions: DI for Muscle Weakness Additional Instructions: call pcp for follow up Referrals: Lavinia Juarez [Primary Care Provider] - - Critical Care Critical Care Time: No Attestation: On 05/05/21, the high probability of a clinically significant, sudden or life threatening deterioration of the following system(s) required my full and direct attention, intervention and personal management. The time I documented below is in addition to time spent performing reported procedures but includes the following listed in this critical care notation. Medical Decision Making - Medical Records Medical records reviewed: Yes: I reviewed the patient's medical records. - Emile Inquiry Pt receiving controlled substance: No Vital Signs: 05/05/21 05:13 05/05/21 05:30 05/05/21 05:59 Temperature 97.8 F Temperature Source Oral Pulse Rate 93 H 88 Pulse Rate [Right] 95 H Respiratory Rate 21 Blood Pressure 118/68 127/66 Blood Pressure [Right Arm] 143/71 H Blood Pressure Mean [Right Arm] 95 Blood Pressure Source [Right Arm] Automatic Cuff 02 Sat by Pulse Oximetry 99 99 100 Oxygen Delivery Method Room Air Room Air Room Air 05/05/21 06:18 05/05/21 06:31 Temperature Temperature Source Pulse Rate 92 H 92 H Pulse Rate [Right] Respiratory Rate Blood Pressure 143/73 H 117/62 Blood Pressure [Right Arm] Blood Pressure Mean [Right Arm] Blood Pressure Source [Right Arm] 02 Sat by Pulse Oximetry 99 98 Oxygen Delivery Method Room Air Room Air - Lab Data Lab results reviewed: Yes: I reviewed the patient's lab results. Lab Results 05/05/21 05:24: WBC 8.9, RBC 4.30, Hgb 12.6, Hct 37.2, MCV 86.5, MCH 29.2, MCHC 33.8, RDW 13.4, Plt Count 281, MPV 7.9, Neut % (Auto) 60.4, Lymph % (Auto) 31.8, [place] % (Auto) 4.7, Eos % (Auto) 2.1, Baso % (Auto) 0.9, Neut # (Auto) 5.4, Lymph # (Auto) 2.8, [place] # (Auto) 0.4, Eos # (Auto) 0.2, Baso # (Auto) 0.1, ESR 38 H 05/05/21 05:24: Sodium 134 L, Potassium 4.9, Chloride 97 L, Carbon Dioxide 29, Anion Gap 12.9, BUN 23 H, Creatinine 1.20 H, Estimated Creat Clear 72, Estimated GFR 46 L, Est GFR ( Amer) 56 L, Glucose 248 H, Calcium 9.5, Magnesium 1.6, Total Bilirubin 0.5, Direct Bilirubin 0.5 H, Conjugated Bilirubin 0.0, Indirect Bilirubin 0.0, Unconjugated Bilirubin 0.0, AST 23, ALT 26, Alkaline Phosphatase 109, Troponin I < 0.01, C-Reactive Protein 9.0 H, Total Protein 7.7, Albumin 4.3, Procalcitonin 0.309, TSH 0.82, Thyroxine (T4) 12.0 H 05/05/21 05:24: SARS-CoV-2 (PCR) Not detected, Influenza A Untype (PCR) Not detected, Influenza Type B (PCR) Not detected 05/05/21 05:24: Hemoglobin A1c 8.5 H 05/05/21 06:15: Urine Color Yellow, Urine Appearance Clear, Urine pH 6.0, Ur Specific [place] <= 1.005, Urine Protein Negative, Urine Glucose (UA) 1+, Urine Ketones Negative, Urine Blood Negative, Urine Nitrate Negative, Urine Bilirubin Negative, Urine Urobilinogen 0.2, Ur Leukocyte Esterase Negative, Urine RBC None, Urine WBC 3-5, Ur Squamous Epith Cells 3-5, Urine Bacteria None Result diagrams: 05/05/21 05:24 05/05/21 05:24 Orders (Tests/Meds): ED MEDICATIONS Discontinued Medications Generic Name Dose Route Start Last Admin Trade Name Freq PRN Reason Stop Dose Admin Sodium Chloride 1,000 mls @ 999 mls/hr 05/05/21 05:45 05/05/21 05:39 Sod Chlor 0.9% 1000ml Bag IV 05/05/21 06:45 999 mls/hr .Q1H1M DAAY Administration ORDERS Category Date Time Status Troponin I Q3H Lab 05/05/21 08:30 Ordered Troponin I Q3H Lab 05/05/21 11:30 Ordered
[2021-05-05 08:06] LABS: POC Glucose,Bedside 268 (70-110)
== END 2021-05-05 08:10 | disposition home or self-care (01) ==
PROVIDERS: Emergency Provider Emergency Medicine; PCP Nurse Practitioner Family
DX: R53.83 Other fatigue (principal); E11.65 Type 2 diabetes mellitus with hyperglycemia; Z20.822 Contact with and (suspected) exposure to COVID-19; I10 Essential (primary) hypertension; E78.5 Hyperlipidemia, unspecified; Z79.899 Other long term (current) drug therapy
CPT/HCPCS: 70450; 71046; 80048; 80076; 81001; 82962; 83036; 83735; 84145; 84436; 84443; 84484; 85025; 85651; 86140; 93005; 96365; 99284; U0003

== ENCOUNTER → 2021-06-14 08:58 | Outpatient (POV) | payer MEDICARE, MEDICAID, SELFPAY | PROVIDERS: Visit Provider Dermatology | DX: Z00.00 Encounter for general adult medical examination without abnormal findings (principal) ==

== ENCOUNTER 2021-07-16 05:23 | Emergency (ER) | payer MEDICARE, MEDICAID, SELFPAY ==
[2021-07-16 05:25] VITALS: BP 150/83; PULSE 98; RESP 20; TEMP 36.6; O2SAT 99; BMI 36.6
--- NOTE | 2021-07-16 05:41 | ECG_ITS ---
APPROVED REPORT Exam: Resting ECG HR:93 bpm ECG Measurements Heart Rate 93 AXES OH 156 P 43 QRSd 74 QRS 13 QT 378 T 46 QTc 469 Conclusion Normal sinus rhythm Low voltage QRS Poor r wave progression - no change from prior Abnormal ECG Electronically signed by : Sanjay Mendosa MD 07/17/2021 09:07:36
[2021-07-16 05:42] VITALS: BMI 33.3
--- NOTE | 2021-07-16 05:45 | XR_ITS ---
PROCEDURE INFORMATION: Exam: XR Chest Exam date and time: 07/16/2021 5:45 AM Age: 61 years old Clinical indication: Shortness of breath; Additional info: SOA, dizzy nausea TECHNIQUE: Imaging protocol: XR of the chest. Views: 2 views. COMPARISON: CR XR CHEST 2V 05/05/2021 5:30 AM FINDINGS: Lungs: Unremarkable. No consolidation. Pleural spaces: Unremarkable. No pleural effusion. No pneumothorax. Heart/Mediastinum: Unremarkable. No cardiomegaly. Bones/joints: Unremarkable. IMPRESSION: No acute findings.
[2021-07-16 05:50] LABS: Basophils # 0.1 K/mm3 (0-0.2); Basophils % 1.4 % (0.1-2.0); Eosinophils # 0.3 K/mm3 (0.0-0.4); Eosinophils % 3.1 % (0.1-12.0); Hematocrit 44.6 % (37.0-47.0); Hemoglobin 13.7 g/dL (12.2-16.2); Lymphocytes # 2.8 K/mm3 (0.7-4.5); Lymphocytes % 34.2 % (10-50); Mean Corpuscular HGB Conc 30.8 g/dL (31.8-35.4); Mean Corpuscular Hemoglobin 28.9 pg (27.0-31.2); Mean Corpuscular Volume 93.9 fl (81-99); Mean Platelet Volume 8.1 fl (7.4-10.4); Monocytes # 0.4 K/mm3 (0.1-1.0); Monocytes % 4.8 % (1.7-9.3); Neutrophils # 4.6 K/mm3 (1.8-7.8); Neutrophils % 56.5 % (37.0-80.0); Platelet Count 394 K/mm3 (142-424); Red Blood Count 4.75 M/mm3 (4.20-5.40); Red Cell Distribution Width 13.5 % (11.5-17.5); White Blood Count 8.1 K/mm3 (4.8-10.8)
[2021-07-16 05:55] LABS: Coronavirus 19, PCR Not Detected (NotDetected); Influenza A, PCR Not Detected (NotDetected); Influenza B, PCR Not Detected (NotDetected)
[2021-07-16 05:58] LABS: Alanine Aminotransferase 39 U/L (12-78); Albumin Level 4.5 g/dl (3.5-5.0); Albumin/Globulin Ratio 1.1 (1.1-1.8); Alkaline Phosphatase 126 U/L (38-126); Anion Gap 18.3 mEq/L (5-15); Aspartate Amino Transferase 36 U/L (14-36); Bilirubin,Total 0.3 mg/dl (0.2-1.3); Blood Urea Nitrogen 19 mg/dl (7-17); Calcium 9.9 mg/dl (8.4-10.2); Carbon Dioxide 25 mmol/L (22.0-30.0); Chloride 97 mmol/L (98-107); Creatinine Clearance Estimated 67 mL/min (50-200); Estimated Glomerular Filt Rate 42 ml/min (>60); GFR (African American) 51 ML/MIN (>60); Globulin 4.2 g/dL (1.3-3.2); Glucose 351 mg/dl (74-100); Lipase 180 U/L (23-300); Potassium 4.3 mmoL/L (3.5-5.1); Sodium 136 mmol/L (136-145); Total Protein,Serum 8.7 g/dl (6.3-8.2)
[2021-07-16 05:59] LABS: Amylase 103 U/L (30-110)
[2021-07-16 06:01] LABS: Acetone, Serum (Rapid) None Detected (None Detect)
[2021-07-16 06:06] LABS: Hemoglobin A1C 9.3 % (4.0-6.0)
[2021-07-16 06:13] LABS: Troponin I < 0.01 ng/ml (0.00-0.034)
[2021-07-16 06:17] LABS: Procalcitonin 0.492 ng/mL (0.0-2.0)
--- NOTE | 2021-07-16 06:17 | HMH.EDDIZZ ---
ED Disposition Clinical Impression: Dizziness DM (diabetes mellitus) Qualifiers: Diabetes mellitus type: type 2 Diabetes mellitus penitentiary insulin use: unspecified penitentiary insulin use status Diabetes mellitus complication status: with other specified complication Qualified Code(s): E11.69 - Type 2 diabetes mellitus with other specified complication Disposition: Home, Self-Care Condition on Discharge: Good Instructions: Dizziness, Nonvertigo Additional Instructions: fluids and see pcp for follow up Referrals: Lavinia Juarez [Primary Care Provider] - - Critical Care Critical Care Time: No Attestation: On 07/16/21, the high probability of a clinically significant, sudden or life threatening deterioration of the following system(s) required my full and direct attention, intervention and personal management. The time I documented below is in addition to time spent performing reported procedures but includes the following listed in this critical care notation. Medical Decision Making - Medical Records Medical records reviewed: Yes: I reviewed the patient's medical records. - Emile Inquiry Pt receiving controlled substance: No Vital Signs: 07/16/21 05:25 07/16/21 07:12 Temperature 97.9 F Temperature Source Oral Pulse Rate [Right] 98 H Respiratory Rate 20 Blood Pressure [Right Arm] 150/83 H Blood Pressure Mean [Right Arm] 105 Blood Pressure Source [Right Arm] Automatic Cuff 02 Sat by Pulse Oximetry 99 Oxygen Delivery Method Room Air Room Air - Lab Data Lab results reviewed: Yes: I reviewed the patient's lab results. Lab Results 07/16/21 05:35: WBC 8.1, RBC 4.75, Hgb 13.7, Hct 44.6, MCV 93.9, MCH 28.9, MCHC 30.8 L, RDW 13.5, Plt Count 394, MPV 8.1, Neut % (Auto) 56.5, Lymph % (Auto) 34.2, [place] % (Auto) 4.8, Eos % (Auto) 3.1, Baso % (Auto) 1.4, Neut # (Auto) 4.6, Lymph # (Auto) 2.8, [place] # (Auto) 0.4, Eos # (Auto) 0.3, Baso # (Auto) 0.1, ESR 29 07/16/21 05:35: Sodium 136, Potassium 4.3, Chloride 97 L, Carbon Dioxide 25, Anion Gap 18.3 H, BUN 19 H, Creatinine 1.30 H, Estimated Creat Clear 67, Estimated GFR 42 L, Est GFR ( Amer) 51 L, Glucose 351 H, Calcium 9.9, Total Bilirubin 0.3, AST 36, ALT 39, Alkaline Phosphatase 126, C-Reactive Protein 14.0 H, Total Protein 8.7 H, Albumin 4.5, Globulin 4.2 H, Albumin/Globulin Ratio 1.1, Lipase 180, Procalcitonin 0.492 07/16/21 05:35: Hemoglobin A1c 9.3 H 07/16/21 05:35: Troponin I < 0.01, Amylase 103, Acetone Level None detected 07/16/21 05:35: SARS-CoV-2 (PCR) Not detected, Influenza A Untype (PCR) Not detected, Influenza Type B (PCR) Not detected 07/16/21 05:35: Magnesium 2.0, TSH 0.73, Thyroxine (T4) 11.3 H 07/16/21 06:40: Urine Color Yellow, Urine Appearance Clear, Urine pH 5.5, Ur Specific [place] 1.010, Urine Protein Negative, Urine Glucose (UA) 3+, Urine Ketones Negative, Urine Blood Negative, Urine Nitrate Negative, Urine Bilirubin Negative, Urine Urobilinogen 0.2, Ur Leukocyte Esterase Negative, Ur Squamous Epith Cells 3-5 Result diagrams: 07/16/21 05:35 07/16/21 05:35 Orders (Tests/Meds): ED MEDICATIONS Generic Name Dose Route Start Last Admin Trade Name Freq PRN Reason Stop Dose Admin Sodium Chloride 1,000 mls @ 999 mls/hr 07/16/21 05:45 07/16/21 05:52 Sod Chlor 0.9% 1000ml Bag IV 07/16/21 06:45 999 mls/hr .Q1H1M DAYA Administration Discontinued Medications Generic Name Dose Route Start Last Admin Trade Name Freq PRN Reason Stop Dose Admin Ketorolac Tromethamine 30 mg 07/16/21 05:45 07/16/21 05:53 Ketorolac 30mg/Ml Vial IV 07/16/21 05:46 30 mg ONCE ONE Administration Ondansetron HCl 4 mg 07/16/21 05:45 07/16/21 05:53 Ondansetron 4mg/2ml Vial IV 07/16/21 05:46 4 mg ONCE ONE Administration ORDERS Category Date Time Status Troponin I Q3H Lab 07/16/21 09:00 Ordered Troponin I Q3H Lab 07/16/21 12:00 Ordered Holter Monitor Req by Nancy/ Stat Y 07/16/21 07:06 Ordered - Radiology Data
--- NOTE | 2021-07-16 06:20 | CT_ITS ---
PROCEDURE INFORMATION: Exam: CT Head Without Contrast Exam date and time: 07/16/2021 6:20 AM Age: 61 years old Clinical indication: Dizziness; Additional info: Dizzy TECHNIQUE: Imaging protocol: Computed tomography of the head without contrast. Radiation optimization: All CT scans at this facility use at least one of these dose optimization techniques: automated exposure control; mA and/or kV adjustment per patient size (includes targeted exams where dose is matched to clinical indication); or iterative reconstruction. COMPARISON: CT HEAD/BRAIN WO CON 05/05/2021 5:42 AM FINDINGS: Brain: Normal. No hemorrhage. Unremarkable white matter. No mass effect. Cerebral ventricles: No ventriculomegaly. Paranasal sinuses: Visualized sinuses are unremarkable. No fluid levels. Mastoid air cells: Visualized mastoid air cells are well aerated. Bones/joints: Unremarkable. No acute fracture. Soft tissues: Unremarkable. IMPRESSION: No acute intracranial abnormality.
[2021-07-16 06:21] LABS: Erythrocyte Sedimentation Rate 29 mm/hr (0-30)
[2021-07-16 06:43] LABS: T4 (Thyroxine) 11.3 ug/dl (5.53-11.0)
[2021-07-16 06:46] LABS: Microscopic, Urine URINE MICROSCOPIC (MICROSCOPIC)
[2021-07-16 06:47] LABS: Appearance,Urine CLEAR (Clear); Bilirubin,Urine Negative (Negative); Blood, Urine Negative (Negative); Color,Urine YELLOW (Yellow); Glucose,Urine (UA) 3+ (Negative); Ketones,Urine Negative (Negative); Leukocyte Esterase,Urine Negative (Negative); Nitrate,Urine Negative (Negative); PH,Urine 5.5 (5.0-8.5); Protein,Urine Negative (Negative); Urobilinogen,Urine 0.2 EU/dl (0.2)
[2021-07-16 06:57] LABS: Thyroid Stimulating Hormone 0.73 uIU/mL (0.465-4.68)
--- NOTE | 2021-07-16 07:11 | PC.NURSE ---
respiratory notified of the need for holter monitor
--- NOTE | 2021-07-16 07:26 | PC.NURSE ---
respiratory with pt, giving teaching with holter monitor
[2021-07-16 07:40] VITALS: BP 143/87; PULSE 88; RESP 18; TEMP 36.8; O2SAT 98
== END 2021-07-16 07:52 | disposition home or self-care (01) ==
PROVIDERS: Emergency Provider Emergency Medicine; PCP Nurse Practitioner Family
DX: R42 Dizziness and giddiness (principal); E11.65 Type 2 diabetes mellitus with hyperglycemia; I10 Essential (primary) hypertension; E03.9 Hypothyroidism, unspecified; E78.5 Hyperlipidemia, unspecified; Z79.899 Other long term (current) drug therapy; Z20.822 Contact with and (suspected) exposure to COVID-19
CPT/HCPCS: 70450; 71046; 80053; 81001; 82009; 82150; 83036; 83690; 83735; 84145; 84436; 84443; 84484; 85025; 85651; 86140; 93005; 93225; 93226; 96365; 96375; 99284; C9803; J2405; U0003; U0005

== ENCOUNTER → 2021-08-23 14:12 | Outpatient (POV) | payer MEDICARE, MEDICAID, SELFPAY | PROVIDERS: Visit Provider Dermatology | DX: Z00.00 Encounter for general adult medical examination without abnormal findings (principal) ==

== ENCOUNTER → 2021-09-12 12:30 | Outpatient (CLI) | payer MEDICARE, MEDICAID, SELFPAY ==
--- NOTE | 2021-09-12 12:41 | XR_ITS ---
PROCEDURE: XR SHOULDER RT MIN 2V CLINICAL INDICATION: ROTATOR CUFF TEAR OR RUPTURE OF RT SHOULDER COMPARISON: CR XR SHOULDER RT MIN 2V from 06/11/2019 CR XR SHOULDER RT MIN 2V from 12/08/2020 CR XR SHOULDER RT MIN 2V from 12/11/2020 FINDINGS: No fracture or dislocation. No lytic or blastic change. There is normal mineralization. There are mild osteoarthritic changes the glenohumeral joint. Prominent spur is noted along the inferior aspect of the distal acromion which may contribute to rotator cuff disease with associated subacromial stenosis.. Other findings:None. IMPRESSION: No change osteoarthritis with prominent subacromial spur and subacromial stenosis Dictated by: Nnamdi Haynes MD 09/12/2021 13:52 Nnamdi Haynes MD in [place] 09/12/2021 13:52
== END ==
PROVIDERS: PCP Nurse Practitioner Family; Visit Provider Nurse Practitioner Family
DX: M75.101 Unspecified rotator cuff tear or rupture of right shoulder, not specified as traumatic (principal)
CPT/HCPCS: 73030

== ENCOUNTER → 2021-10-10 13:30 | Outpatient (CLI) | payer MEDICARE, MEDICAID, SELFPAY ==
--- NOTE | 2021-10-10 13:34 | CA_ITS ---
FINAL REPORT TECHNIQUE: Ultrasound images of the deep venous system were obtained from the left groin to the calf veins. CLINICAL HISTORY: .lt posterior knee pain x 2 weeks FINDINGS: The deep venous system is normally compressible. Normal flow is identified. IMPRESSION: No evidence of left lower extremity DVT. Reviewed, Interpreted and Dictated by Jesse Romero MD Transcribed by Анна Rousseau Authenticated by Jesse Romero MD on 10/10/2021 03:37:35 PM [facility]
== END ==
PROVIDERS: PCP Nurse Practitioner Family; Visit Provider Nurse Practitioner Family
DX: M79.662 Pain in left lower leg (principal)
CPT/HCPCS: 93971

== ENCOUNTER 2021-12-13 09:59 | Emergency (ER) | payer MEDICARE, MEDICAID, SELFPAY ==
[2021-12-13 09:59] VITALS: BP 161/92; PULSE 79; RESP 18; TEMP 36.5; O2SAT 100; BMI 31.6
--- NOTE | 2021-12-13 10:05 | HMH.EDGENADL ---
ED Disposition Clinical Impression: Dehydration Disposition: Home, Self-Care Condition on Discharge: Good Instructions: DI for Dehydration -- Adult Additional Instructions: follow up pcp - Critical Care Critical Care Time: No Attestation: On , the high probability of a clinically significant, sudden or life threatening deterioration of the following system(s) required my full and direct attention, intervention and personal management. The time I documented below is in addition to time spent performing reported procedures but includes the following listed in this critical care notation. Medical Decision Making - Medical Records Medical records reviewed: Yes: I reviewed the patient's medical records. - Emile Inquiry Pt receiving controlled substance: No Vital Signs: 12/13/21 09:59 12/13/21 10:42 Temperature 97.7 F 97.7 F Temperature Source Oral Oral Pulse Rate 94 H Pulse Rate [Left Radial] 79 Respiratory Rate 18 18 Blood Pressure 153/86 H Blood Pressure [Right Arm] 161/92 H Blood Pressure Mean [Right Arm] 115 Blood Pressure Source Automatic Cuff Blood Pressure Source [Right Arm] Automatic Cuff Blood Pressure Position Supine Blood Pressure Position [Right Arm] Sitting 02 Sat by Pulse Oximetry 100 97 Oxygen Delivery Method Room Air Room Air - Lab Data Lab Results 12/13/21 10:27: WBC 6.4, RBC 4.66, Hgb 13.9, Hct 43.0, MCV 92.5, MCH 29.8, MCHC 32.3, RDW 13.9, Plt Count 308, MPV 8.0, Neut % (Auto) 65.3, Lymph % (Auto) 28.0, [place] % (Auto) 4.0, Eos % (Auto) 2.1, Baso % (Auto) 0.6, Neut # (Auto) 4.2, Lymph # (Auto) 1.8, [place] # (Auto) 0.3, Eos # (Auto) 0.1, Baso # (Auto) 0.0 12/13/21 10:27: Sodium 140, Potassium 3.9, Chloride 102, Carbon Dioxide 29, Anion Gap 12.9, BUN 9, Creatinine 1.10 H, Estimated Creat Clear 75, Estimated GFR 51 L, Est GFR ( Amer) 62, Glucose 119 H, Calcium 9.8, Total Bilirubin 0.4, AST 45 H, ALT 49, Alkaline Phosphatase 91, Total Protein 8.5 H, Albumin 4.7, Globulin 3.8 H, Albumin/Globulin Ratio 1.2 Result diagrams: 12/13/21 10:27 12/13/21 10:27 Orders (Tests/Meds): ED MEDICATIONS Generic Name Dose Route Start Last Admin Trade Name Peri PRN Reason Stop Dose Admin Sodium Chloride 1,000 mls @ 999 mls/hr 12/13/21 10:15 12/13/21 10:37 Sod Chlor 0.9% 1000ml Bag IV 12/13/21 11:15 999 mls/hr .Q1H1M DAYA Administration Discontinued Medications Generic Name Dose Route Start Last Admin Trade Name Peri PRN Reason Stop Dose Admin Ondansetron HCl 8 mg 12/13/21 10:04 12/13/21 10:35 Ondansetron 4mg/2ml Vial IV 12/13/21 10:05 8 mg ONCE ONE Administration Medical Decision Narrative: 1108 reeval, vss, appears well, says she has her sister for emotional support ans is feeling better General Adult HPI - General Stated complaint: weakness Time Seen by Provider: 12/13/21 10:05 Mode of Arrival: EMS Source of Information: Patient Limitations: No Limitations - History of Present Illness HPI narrative: general weakness not eating/drinking well Onset (ago): day(s) Radiation: non-radiation Severity: moderate Consistency: constant Relieving factors: none Exacerbating factors: none Associated symptoms: denies other symptoms - Related Data Home Medications Medication Instructions Recorded Confirmed Levothyroxine Sodium 50 mcg PO DAILY 09/18/17 09/30/21 [Levothyroxine 50mcg (0.05mg) Tab] Aspirin [Aspirin 81mg EC Tab] 81 mg PO DAILY 03/14/19 09/30/21 Atorvastatin Calcium [Lipitor 40mg 40 mg PO HS 03/14/19 09/30/21 Tab] Esomeprazole Magnesium 20 mg PO DAILY 03/14/19 09/30/21 Cariprazine HCl [Vraylar] 4.5 mg PO DAILY 08/19/19 09/30/21 lisinopril 20 1 tab PO DAILY tab 01/27/20 09/30/21 mg-hydrochlorothiazide 12.5 mg tablet Metformin HCl [Metformin HCl ER] 500 mg PO BID 03/01/20 09/30/21 insulin glargine 100 unit/mL (3 40 unit SQ HS 03/09/20 09/30/21 mL) subcutaneous pen Buspirone HCl [Buspar 5mg tablet] 5 mg PO
[2021-12-13 10:37] LABS: Basophils % 0.6 % (0.1-2.0); Eosinophils # 0.1 K/mm3 (0.0-0.4); Eosinophils % 2.1 % (0.1-12.0); Hemoglobin 13.9 g/dL (12.2-16.2); Lymphocytes # 1.8 K/mm3 (0.7-4.5); Mean Corpuscular HGB Conc 32.3 g/dL (31.8-35.4); Mean Corpuscular Hemoglobin 29.8 pg (27.0-31.2); Mean Corpuscular Volume 92.5 fl (81-99); Monocytes # 0.3 K/mm3 (0.1-1.0); Neutrophils # 4.2 K/mm3 (1.8-7.8); Neutrophils % 65.3 % (37.0-80.0); Platelet Count 308 K/mm3 (142-424); Red Blood Count 4.66 M/mm3 (4.20-5.40); Red Cell Distribution Width 13.9 % (11.5-17.5); White Blood Count 6.4 K/mm3 (4.8-10.8)
[2021-12-13 10:41] LABS: Alanine Aminotransferase 49 U/L (12-78); Albumin Level 4.7 g/dl (3.5-5.0); Albumin/Globulin Ratio 1.2 (1.1-1.8); Alkaline Phosphatase 91 U/L (38-126); Anion Gap 12.9 mEq/L (5-15); Aspartate Amino Transferase 45 U/L (14-36); Bilirubin,Total 0.4 mg/dl (0.2-1.3); Blood Urea Nitrogen 9 mg/dl (7-17); Calcium 9.8 mg/dl (8.4-10.2); Carbon Dioxide 29 mmol/L (22.0-30.0); Chloride 102 mmol/L (98-107); Creatinine Clearance Estimated 75 mL/min (50-200); Estimated Glomerular Filt Rate 51 ml/min (>60); GFR (African American) 62 ML/MIN (>60); Globulin 3.8 g/dL (1.3-3.2); Glucose 119 mg/dl (74-100); Potassium 3.9 mmoL/L (3.5-5.1); Sodium 140 mmol/L (136-145); Total Protein,Serum 8.5 g/dl (6.3-8.2)
[2021-12-13 10:42] VITALS: BP 153/86; PULSE 94; RESP 18; TEMP 36.5; O2SAT 97
[2021-12-13 11:43] VITALS: BP 142/80; PULSE 93; RESP 18; TEMP 36.5; O2SAT 98
== END 2021-12-13 11:43 | disposition home or self-care (01) ==
PROVIDERS: Emergency Provider Emergency Medicine; PCP Nurse Practitioner Family
DX: E86.0 Dehydration (principal); J45.909 Unspecified asthma, uncomplicated; E11.9 Type 2 diabetes mellitus without complications; E78.5 Hyperlipidemia, unspecified; I10 Essential (primary) hypertension; E03.9 Hypothyroidism, unspecified; Z79.899 Other long term (current) drug therapy
CPT/HCPCS: 80053; 85025; 96360; 96365; 96375; 99283; J2405

== ENCOUNTER 2022-01-24 17:38 | Emergency (ER) | payer MEDICARE, MEDICAID, SELFPAY ==
[2022-01-24 17:39] VITALS: BP 162/88; PULSE 89; RESP 18; TEMP 36.8; O2SAT 97; BMI 32.4
--- NOTE | 2022-01-24 17:48 | CT_ITS ---
PROCEDURE INFORMATION: Exam: CT Abdomen And Pelvis With Contrast Exam date and time: 01/24/2022 6:34 PM Age: 61 years old Clinical indication: Abdominal pain TECHNIQUE: Imaging protocol: Computed tomography of the abdomen and pelvis with contrast. Radiation optimization: All CT scans at this facility use at least one of these dose optimization techniques: automated exposure control; mA and/or kV adjustment per patient size (includes targeted exams where dose is matched to clinical indication); or iterative reconstruction. Contrast material: ISOVUE; Contrast volume: 75 ml; Contrast route: IV; COMPARISON: CT ABDOMEN PELVIS W CON 09/13/2020 5:35 PM FINDINGS: Lungs: Lung bases are clear. Liver: There is enlargement of the liver, measuring 21 cm. There is a diffuse decrease in hepatic parenchymal density, consistent with fatty infiltration. The liver is otherwise unremarkable. Gallbladder and bile ducts: Prior cholecystectomy. There is no evidence of biliary ductal dilation. Pancreas: Normal. No ductal dilation. Spleen: Normal. No splenomegaly. Adrenal glands: Normal. No mass. Kidneys and ureters: There is a simple cyst in the right kidney measuring 1.4 cm. The kidneys are otherwise unremarkable. The ureters are normal. Stomach and bowel: Unremarkable. No obstruction. No mucosal thickening. Appendix: A normal appendix is identified. Intraperitoneal space: No free fluid, fluid collections, or pneumoperitoneum. Vasculature: The vasculature demonstrates diffuse moderate atherosclerotic calcification. Lymph nodes: No retroperitoneal, pelvic, or mesenteric adenopathy. Urinary bladder: Unremarkable as visualized. Reproductive: Unremarkable as visualized. Bones/joints: No acute skeletal pathology. Mild multilevel degenerative changes of the spine, as manifested by multilevel anterior osteophytes and multilevel decrease in intervertebral disc space. Soft tissues: No acute body wall soft tissue findings. IMPRESSION: 1. No acute abdominopelvic pathology. 2. Incidental findings as above. COMMENTS: Consistent with the [employer]'s Incidental Findings Committee white paper (J Am Cb Radiol 2018): Any incidental renal lesion less than 1 cm or classified as too small to characterize, or any incidental cystic renal lesion characterized as simple-appearing, is likely benign. No follow-up imaging is recommended for these lesions per consensus recommendations based on imaging criteria.
[2022-01-24 17:52] VITALS: BP 162/88; PULSE 89; O2SAT 94
--- NOTE | 2022-01-24 17:54 | HMH.EDGENADL ---
ED Disposition Clinical Impression: Epigastric abdominal pain Disposition: Home, Self-Care Condition on Discharge: Good Instructions: DI for Acute Abdominal Pain Prescriptions: polyethylene glycoL 3350 [Miralax 17gm Packet] 17 gm PO DAILYP PRN #30 packet PRN Reason: Constipation Transmission Status: Received by [facility] Omeprazole [Omeprazole 20mg Capsule] 20 mg PO DAILY #30 cap Transmission Status: Received by [facility] Sucralfate 1 gm PO Q8 PRN #100 ml PRN Reason: Acid Reflux Transmission Status: Pending to [facility] Referrals: Lavinia Juarez [Primary Care Provider] - Time of Disposition: 19:39 - Critical Care Critical Care Time: No Attestation: On 01/24/22, the high probability of a clinically significant, sudden or life threatening deterioration of the following system(s) required my full and direct attention, intervention and personal management. The time I documented below is in addition to time spent performing reported procedures but includes the following listed in this critical care notation. Medical Decision Making - Medical Records Medical records reviewed: Yes: I reviewed the patient's medical records. - Emile Inquiry Pt receiving controlled substance: No Vital Signs: 01/24/22 17:39 01/24/22 17:52 01/24/22 18:01 Temperature 98.2 F Temperature Source Oral Pulse Rate 89 90 Pulse Rate [Left Radial] 89 Respiratory Rate 18 Blood Pressure 162/88 H 152/73 H Blood Pressure [Right Arm] 162/88 H Blood Pressure Mean [Right Arm] 112 Blood Pressure Source Automatic Cuff Automatic Cuff Blood Pressure Source [Right Arm] Automatic Cuff Blood Pressure Position Sitting Sitting Blood Pressure Position [Right Arm] Sitting 02 Sat by Pulse Oximetry 97 94 L 99 Oxygen Delivery Method Room Air Room Air Room Air 01/24/22 18:31 Temperature Temperature Source Pulse Rate 80 Pulse Rate [Left Radial] Respiratory Rate Blood Pressure 147/64 H Blood Pressure [Right Arm] Blood Pressure Mean [Right Arm] Blood Pressure Source Automatic Cuff Blood Pressure Source [Right Arm] Blood Pressure Position Sitting Blood Pressure Position [Right Arm] 02 Sat by Pulse Oximetry 97 Oxygen Delivery Method Room Air - Lab Data Lab Results 01/24/22 18:00: WBC 8.6, RBC 4.48, Hgb 13.7, Hct 40.4, MCV 90.2, MCH 30.6, MCHC 33.9, RDW 13.5, Plt Count 291, MPV 7.6, Neut % (Auto) 65.3, Lymph % (Auto) 26.3, [place] % (Auto) 5.1, Eos % (Auto) 1.9, Baso % (Auto) 1.4, Neut # (Auto) 5.6, Lymph # (Auto) 2.3, [place] # (Auto) 0.4, Eos # (Auto) 0.2, Baso # (Auto) 0.1 01/24/22 18:00: Sodium 137, Potassium 4.0, Chloride 102, Carbon Dioxide 26, Anion Gap 13.0, BUN 11, Creatinine 1.10 H, Estimated Creat Clear 77, Estimated GFR 51 L, Est GFR ( Amer) 62, Glucose 155 H, Calcium 9.7, Total Bilirubin 0.4, AST 33, ALT 36, Alkaline Phosphatase 101, Total Protein 7.3, Albumin 4.0, Globulin 3.3 H, Albumin/Globulin Ratio 1.2, Lipase 158 Result diagrams: 01/24/22 18:00 01/24/22 18:00 Orders (Tests/Meds): ED MEDICATIONS Generic Name Dose Route Start Last Admin Trade Name Freq PRN Reason Stop Dose Admin Sodium Chloride 1,000 mls @ 999 mls/hr 01/24/22 18:00 01/24/22 18:08 Sod Chlor 0.9% 1000ml Bag IV 01/24/22 19:00 999 mls/hr .Q1H1M DAYA Administration Sucralfate 1 gm 01/24/22 21:00 Sucralfate 1gm/10ml Susp Udc PO 02/23/22 20:59 ACHS DAYA Discontinued Medications Generic Name Dose Route Start Last Admin Trade Name Freq PRN Reason Stop Dose Admin Iopamidol 75 ml 01/24/22 18:44 01/24/22 18:45 Iopamidol-370 (76%);100ml Bottle IV 01/24/22 18:45 75 ml ONCE ONE Administration Ketorolac Tromethamine 15 mg 01/24/22 17:48 01/24/22 18:08 Ketorolac 30mg/Ml Vial IV 01/24/22 17:49 15 mg ONCE ONE Administration Ondansetron HCl 4 mg 01/24/22 17:48 01/24/22 18:07 Ondansetron 4mg/2ml Vial IV 01/24/22 17:49 4 mg ONCE ONE Administr
[2022-01-24 18:01] VITALS: BP 152/73; PULSE 90; O2SAT 99
[2022-01-24 18:20] LABS: Basophils # 0.1 K/mm3 (0-0.2); Basophils % 1.4 % (0.1-2.0); Eosinophils # 0.2 K/mm3 (0.0-0.4); Eosinophils % 1.9 % (0.1-12.0); Hematocrit 40.4 % (37.0-47.0); Hemoglobin 13.7 g/dL (12.2-16.2); Lymphocytes # 2.3 K/mm3 (0.7-4.5); Lymphocytes % 26.3 % (10-50); Mean Corpuscular HGB Conc 33.9 g/dL (31.8-35.4); Mean Corpuscular Hemoglobin 30.6 pg (27.0-31.2); Mean Corpuscular Volume 90.2 fl (81-99); Mean Platelet Volume 7.6 fl (7.4-10.4); Monocytes # 0.4 K/mm3 (0.1-1.0); Monocytes % 5.1 % (1.7-9.3); Neutrophils # 5.6 K/mm3 (1.8-7.8); Neutrophils % 65.3 % (37.0-80.0); Platelet Count 291 K/mm3 (142-424); Red Blood Count 4.48 M/mm3 (4.20-5.40); Red Cell Distribution Width 13.5 % (11.5-17.5); White Blood Count 8.6 K/mm3 (4.8-10.8)
[2022-01-24 18:21] LABS: Chloride 102 mmol/L (98-107); Sodium 137 mmol/L (136-145)
[2022-01-24 18:23] LABS: Blood Urea Nitrogen 11 mg/dl (7-17); Creatinine Clearance Estimated 77 mL/min (50-200); Estimated Glomerular Filt Rate 51 ml/min (>60); GFR (African American) 62 ML/MIN (>60)
[2022-01-24 18:24] LABS: Alanine Aminotransferase 36 U/L (12-78); Albumin/Globulin Ratio 1.2 (1.1-1.8); Alkaline Phosphatase 101 U/L (38-126); Aspartate Amino Transferase 33 U/L (14-36); Bilirubin,Total 0.4 mg/dl (0.2-1.3); Calcium 9.7 mg/dl (8.4-10.2); Carbon Dioxide 26 mmol/L (22.0-30.0); Globulin 3.3 g/dL (1.3-3.2); Glucose 155 mg/dl (74-100); Lipase 158 U/L (23-300); Total Protein,Serum 7.3 g/dl (6.3-8.2)
[2022-01-24 18:31] VITALS: BP 147/64; PULSE 80; O2SAT 97
--- NOTE | 2022-01-24 19:49 | ECG_ITS ---
APPROVED REPORT Exam: Resting ECG HR:77 bpm ECG Measurements Heart Rate 77 AXES VA 164 P 53 QRSd 91 QRS 21 QT 404 T 48 QTc 436 Conclusion SINUS RHYTHM WITH OCCASIONAL VENTRICULAR PREMATURE COMPLEXES LOW QRS VOLTAGE IN PRECORDIAL LEADS [QRS DEFLECTION < 1.0 mV IN CHEST LEADS] INCOMPLETE RIGHT BUNDLE BRANCH BLOCK [90+ ms QRS DURATION, TERMINAL R IN V1/V2, 40+ ms S IN I/aVL/V4/V5/V6] ANTEROSEPTAL MYOCARDIAL INFARCTION , PROBABLY OLD [40+ ms Q WAVE IN V1-V4] ABNORMAL ECG UNCONFIRMED REPORT Electronically signed by : Sanjay Mendosa MD 01/25/2022 17:37:40
[2022-01-24 20:22] VITALS: BP 135/78; PULSE 80; RESP 19; TEMP 36.8; O2SAT 99
== END 2022-01-24 20:24 | disposition home or self-care (01) ==
PROVIDERS: Emergency Provider Emergency Medicine; PCP Nurse Practitioner Family
DX: R10.13 Epigastric pain (principal); N28.1 Cyst of kidney, acquired; R53.82 Chronic fatigue, unspecified; R53.81 Other malaise; R63.4 Abnormal weight loss; I10 Essential (primary) hypertension; E03.9 Hypothyroidism, unspecified; E78.5 Hyperlipidemia, unspecified; E11.9 Type 2 diabetes mellitus without complications; R63.0 Anorexia; M19.90 Unspecified osteoarthritis, unspecified site; Z79.4 Long term (current) use of insulin; Z79.82 Long term (current) use of aspirin; Z79.84 Long term (current) use of oral hypoglycemic drugs; Z79.899 Other long term (current) drug therapy; Z68.32 Body mass index [BMI] 32.0-32.9, adult; Z82.49 Family history of ischemic heart disease and other diseases of the circulatory system; Z83.438 Family history of other disorder of lipoprotein metabolism and other lipidemia; Z80.9 Family history of malignant neoplasm, unspecified; Z83.3 Family history of diabetes mellitus
CPT/HCPCS: 74177; 80053; 83690; 85025; 93005; 96361; 96374; 96375; 99285; J2405; Q9967

== ENCOUNTER → 2022-02-27 12:16 | Outpatient (CLI) | payer MEDICARE, MEDICAID, SELFPAY | PROVIDERS: PCP Nurse Practitioner Family; Visit Provider Internal Medicine | DX: Z01.812 Encounter for preprocedural laboratory examination (principal); Z20.822 Contact with and (suspected) exposure to COVID-19; Z13.810 Encounter for screening for upper gastrointestinal disorder | CPT/HCPCS: C9803; U0003; U0005 ==

== ENCOUNTER 2022-03-01 07:41 | Day surgery (SDC) | payer MEDICARE, MEDICAID, SELFPAY ==
[2022-02-28 11:34] VITALS: BMI 33.3
[2022-03-01 08:06] VITALS: BP 122/63; PULSE 92; RESP 18; TEMP 36.5; O2SAT 98
[2022-03-01 09:06] VITALS: O2SAT 98
--- NOTE | 2022-03-01 09:17 | HMH.ANESCL ---
[facility] Anesthesia Checklist - Patient Identification Patient Identification: Arm Band - Structural Data Admitted From: Home Planned Operative Procedure/s: egd Consent for Planned Operative Procedure(s) Verified: Yes Verified Documents: Surgical Consent, History and Physical - NPO Status Verified Time NPO: 00:00 - Additional verifications Anesthesia Reactions: No - Airway Assessment C-Spine Mobility Assessed: Yes (mp2) TMJ Mobility Assessed: Yes Dentition: Good Dentition - Neurological Assessment Level of Consciousness: Awake, Alert - Anesthesia Plan Anesthesia Risk discussed: Yes Anesthesia Plan: Verified ASA Class: III Anesthesia Type: MAC [facility] History I have reviewed the patient's past medical history: Yes Medical History: Reports:: Asthma, Diabetes Mellitus Type 2, Hyperlipidemia, Hypertension Denies:: Cancer, Diabetes Mellitus Type 1, Internal Pacemaker, MRSA, Seizures *Have you ever received a pneumonia vaccine?: No *Have you received a flu vaccine this season?: Yes Other Medical History: Reports: Arthritis, Hypothyroidism, Sinus Problems, Thyroid Disease Anesthesia experience/problems:: nac Other Surgeries: Yes: Cholecystectomy. No: Pacemaker Amputation: No Fractures: No - *Social History Last grade of school completed: Some college Smoking Status: Never smoker Alcohol Intake: never Substance Use Type: denies use *Occupational Status:: unemployed Housing: house Household Members: none *Travel in the last 8 weeks: None Family Hx:: Cancer, Diabetes, Heart Attack, Hyperlipidemia, Hypertension, Stroke
--- NOTE | 2022-03-01 09:19 | HMH.SCOPE ---
- Procedure: Date: 03/01/22 Patient Date of :: 1960 Procedure Performed:: EGD Indications:: 62 year old with upper abdominal pain and dysphagia. Recent CT abdomen unremarkable. History of cholecystectomy. Patient has chronic PPI use with nexium. Performing Provider:: Eduin Hewitt MD Referring Provider:: Lavinia Juarez APRN Sedation:: See RN records Procedure:: The gastroscope was gently passed through the incisoral orifice into the oral cavity and under direct visualization the esophagus was intubated. The endoscope was passed down the esophagus, through the stomach, and into the duodenum. Color, texture, mucosa, and anatomy of the esophagus, stomach, and duodenum were carefully examined with the scope. Findings:: Oropharynx: normal Esophagus: normal. Biopsies obtained. Empiric dilatation performed with 54F bougie dilator EG Junction: intact at 40 cm Cardia: normal Fundus: normal Body: Mild gastritis. Biopsies obtained. Bilious fluid Antrum: Mild gastritis. Biopsies obtained Duodenal bulb: normal Duodenum (second and third portion): normal. Biopsies obtained Recommendations:: Await pathology results Will prescribe Carafate 1 gm QID x 4 weeks Follow up with referring provider Complications:: None Estimated blood obtained (mL): 0
[2022-03-01 09:20] VITALS: BP 106/59; PULSE 97; RESP 18; TEMP 36.3; O2SAT 93
[2022-03-01 09:30] VITALS: BP 99/69; PULSE 95; RESP 18; O2SAT 95
[2022-03-01 09:40] VITALS: BP 107/66; PULSE 91; RESP 18; O2SAT 95
[2022-03-01 09:50] VITALS: BP 101/65; PULSE 85; RESP 18; O2SAT 97
[2022-03-02 12:07] LABS: POC Glucose,Bedside 162 (70-110)
== END 2022-03-01 09:50 | disposition home or self-care (01) ==
LOC: OUTP 07:43
PROVIDERS: PCP Nurse Practitioner Family; Visit Provider Internal Medicine
PROC: 0DJ08ZZ Inspection of Upper Intestinal Tract, Via Natural or Artificial Opening Endoscopic (ICD-10-PCS; CPT 43235; principal; 2022-03-01 09:00)
DX: R10.10 Upper abdominal pain, unspecified (principal); Z90.49 Acquired absence of other specified parts of digestive tract; E11.9 Type 2 diabetes mellitus without complications; J45.909 Unspecified asthma, uncomplicated; E78.5 Hyperlipidemia, unspecified; I10 Essential (primary) hypertension; E03.9 Hypothyroidism, unspecified; M19.90 Unspecified osteoarthritis, unspecified site; Z79.4 Long term (current) use of insulin
CPT/HCPCS: 43239; 43499; 82962; 88305

== ENCOUNTER 2022-03-22 12:07 | Outpatient (CLI) | payer MEDICARE, MEDICAID, SELFPAY ==
[2022-03-22 12:20] VITALS: BP 136/71; PULSE 71; RESP 18; TEMP 36.4; O2SAT 99
[2022-03-22 12:54] VITALS: BP 144/70; PULSE 80; RESP 18; TEMP 36.4; O2SAT 99
== END 2022-03-22 12:54 | disposition home or self-care (01) ==
LOC: INF 12:07
PROVIDERS: PCP Nurse Practitioner Family; Visit Provider Allergy & Immunology
DX: J45.50 Severe persistent asthma, uncomplicated (principal)
CPT/HCPCS: 96372; J2357

== ENCOUNTER 2022-04-19 11:36 | Outpatient (CLI) | payer MEDICARE, MEDICAID, SELFPAY ==
[2022-04-19 11:49] VITALS: BP 123/61; PULSE 72; RESP 18; O2SAT 100
== END 2022-04-19 12:05 | disposition home or self-care (01) ==
LOC: INF 11:37
PROVIDERS: PCP Nurse Practitioner Family; Visit Provider Allergy & Immunology
DX: J45.50 Severe persistent asthma, uncomplicated (principal)
CPT/HCPCS: 96372; J2357

== ENCOUNTER → 2022-04-25 12:49 | Outpatient (CLI) | payer MEDICARE, MEDICAID, SELFPAY ==
--- NOTE | 2022-04-25 12:51 | MM_ITS ---
PROCEDURE INFORMATION: Exam: MG Bilateral Screening 3D Mammography Exam date and time: 04/25/2022 12:59 PM Age: 62 years old Clinical indication: Screening examination TECHNIQUE: Imaging protocol: Bilateral Screening tomosynthesis and 2D mammography including computer-aided detection (CAD) when performed. COMPARISON: 1. MG MM DIG SCREENING MAMM BI W/CAD 03/17/2020 3:56 PM 2. MG DIG MAMM-SCREEN SWETHA 01/31/2019 10:59 AM FINDINGS: MAMMOGRAPHY: Breast composition: The breasts are heterogeneously dense, which may obscure small masses. Mass: None. Architectural distortion: None. Calcifications: No suspicious calcifications. Asymmetric density: None. Skin thickening: None. Axillary adenopathy: None. IMPRESSION: No mammographic evidence of malignancy. Annual screening is recommended unless otherwise clinically indicated. ASSESSMENT: BI-RADS Category 1: Negative
== END ==
PROVIDERS: PCP Nurse Practitioner Family; Visit Provider Nurse Practitioner Family
DX: Z12.31 Encounter for screening mammogram for malignant neoplasm of breast (principal)
CPT/HCPCS: 77063; 77067

== ENCOUNTER → 2022-05-12 13:54 | Outpatient (CLI) | payer MEDICARE, MEDICAID, SELFPAY ==
--- NOTE | 2022-05-12 14:02 | XR_ITS ---
FINAL REPORT CLINICAL HISTORY: right shoulder pain COMPARISON: September 12, 2021 FINDINGS: RIGHT SHOULDER Three views demonstrate no acute fracture or dislocation. There are mild hypertrophic changes of the acromioclavicular joint. The soft tissues are unremarkable. IMPRESSION: Degenerative changes with no acute bony abnormality. Reviewed, Interpreted and Dictated by Jesse Romero MD Transcribed by Crista Pizarro Authenticated and [facility]
== END ==
PROVIDERS: PCP Nurse Practitioner Family; Visit Provider Orthopaedic Surgery
DX: M25.511 Pain in right shoulder (principal)
CPT/HCPCS: 73030

== ENCOUNTER 2022-05-17 09:26 | Outpatient (CLI) | payer MEDICARE, MEDICAID, SELFPAY ==
[2022-05-17 09:55] VITALS: BP 138/66; PULSE 71; RESP 18; TEMP 36; O2SAT 99
== END 2022-05-17 09:55 | disposition home or self-care (01) ==
LOC: INF 09:27
PROVIDERS: PCP Nurse Practitioner Family; Visit Provider Allergy & Immunology
DX: J45.50 Severe persistent asthma, uncomplicated (principal)
CPT/HCPCS: 96372; J2357

== ENCOUNTER → 2022-06-14 11:40 | Outpatient (CLI) | payer MEDICARE, MEDICAID, SELFPAY ==
[2022-06-14 12:00] VITALS: BP 127/80; PULSE 86; RESP 18; O2SAT 100
--- NOTE | 2022-06-14 13:04 | MR_ITS ---
FINAL REPORT TECHNIQUE: Multiplanar MR without contrast CLINICAL HISTORY: shoulder pain right shoulder pain after a fall x 2 years ago prior mri of right shoulder re-evaluate right shoulder prior to potential surgery COMPARISON: 12/16/2020 FINDINGS: Marrow signal: Unremarkable Glenohumeral joint: Mild degenerative change. AC joint: Mild arthropathy. Trace fluid in the subacromial bursa. Rotator cuff: Large focal full-thickness tear involving the mid and anterior distal supraspinatus tendon, similar to prior. Labrum: Normal morphology without tear Biceps tendon: Persistent medial subluxation of the long head of the biceps tendon. IMPRESSION: No change from prior. Reviewed, Interpreted and Dictated by Livan Bruce MD Transcribed by Odell Daniels Authenticated and [facility]
== END ==
LOC: INF 11:41 → RAD 01-07 02:03
PROVIDERS: PCP Nurse Practitioner Family; Referring Provider Allergy & Immunology; Visit Provider Orthopaedic Surgery
DX: M75.101 Unspecified rotator cuff tear or rupture of right shoulder, not specified as traumatic (principal)
CPT/HCPCS: 73221; 96372; J2357

== ENCOUNTER 2022-07-10 19:49 | Emergency (ER) | payer MEDICARE, MEDICAID, SELFPAY ==
[2022-07-10 19:50] VITALS: BP 128/73; PULSE 94; RESP 18; TEMP 36.8; O2SAT 96; BMI 31.6
--- NOTE | 2022-07-10 20:07 | XR_ITS ---
PROCEDURE INFORMATION: Exam: XR Left Ankle Exam date and time: 07/10/2022 8:14 PM Age: 62 years old Clinical indication: Pain; Ankle; Left; Additional info: Lateral pain, tendonitis TECHNIQUE: Imaging protocol: Radiologic exam of the Left ankle. Views: 3 or more views. COMPARISON: MR ANKLE LT WO CON 04/04/2021 3:11 PM FINDINGS: Bones/joints: No acute fracture or malalignment. Ankle mortise appears intact. Calcaneal enthesopathy. Soft tissues: Unremarkable. IMPRESSION: 1. No evidence of acute osseous abnormality in the left ankle. 2. Calcaneal enthesopathy.
--- NOTE | 2022-07-10 20:07 | HMH.EDGENADL ---
Discharge Plan Disposition Patient Disposition: Home, Self-Care Condition: Good Prescriptions Prescriptions: New ibuprofen 600 mg tablet 600 mg PO Q8H PRN (Reason: pain) Qty: 30 0RF methocarbamol 750 mg tablet 750 mg PO Q8H PRN (Reason: spasm) Qty: 10 0RF No Action lisinopril-hydrochlorothiazide 20-12.5 mg tablet 1 tab PO DAILY Lantus Solostar U-100 Insulin 100 unit/mL (3 mL) insulin pen 40 unit SQ HS bupropion HCl 100 MG tablet sustained-release 12 hr 200 mg PO DAILY duloxetine 60 MG capsule,delayed release(DR/EC) 60 mg PO DAILY levothyroxine 50 MCG tablet 50 mcg PO DAILY esomeprazole magnesium 20 MG capsule,delayed release(DR/EC) 20 mg PO DAILY Label Comments: TAKE 1 CAPSULE BY MOUTH EVERY DAY cariprazine 6 MG capsule 4.5 mg PO DAILY coenzyme Q10 10 MG capsule 10 mg PO DAILY bupropion HCl 100 MG tablet 100 mg PO DAILY montelukast 10 MG tablet 10 mg PO DAILY empagliflozin 10 MG tablet 10 mg PO DAILY dulaglutide 0.75 MG/0.5 ML pen injector 0.75 mg SQ WEEKLY Referrals Follow up/Referrals: Lavinia Juarez [Primary Care Provider] - See instructions Activity Restrictions/Add. Instructions Additional Instructions/Restrictions: You have been evaluated for ankle pain, diagnosed with tendinitis/ plantar facciitis. Please take anti-inflammatory medication like ibuprofen every 6-8 hours. Use a splint. Do gentle stretching and strengthening exercises. Keep your ankle elevated. Follow-up with your primary care doctor. Return to the emergency department at once for any new or worsening symptoms, pain, numbness, difficulty walking or any other concerns Clinical Impressions Clinical Impression: Tendonitis of ankle, left, Plantar fasciitis, left Instructions Patient Instructions: DI for Tendinitis, DI for Plantar Fasciitis Discharge ED Provider: Nuvia Garcia Adult HPI General Chief complaint: Extremity Problem,Nontraumatic Stated complaint: pain L foot no accident Time Seen by Provider: 07/10/22 20:00 History of Present Illness HPI narrative: 62-year-old female presenting to the emergency department with left ankle pain. Pain started this morning. She noticed it when she was walking upstairs. She has sharp pain that is located on the lateral left ankle, near the ankle bone. It radiates to the back portion of the ankle and around to the right side. Pain is worse with walking. Improved with rest. A few years ago, she was told that she tore a tendon in her ankle, had a sprain. She saw a insights manager and wore a brace. Today, the brace too uncomfortable to wear. She has been taking cyqb-yzz-synuelt medication. Denies known injury, fall. Denies calf pain or swelling. Denies numbness, weakness, tingling in the toes. Related Data Home Medications Medication Instructions Recorded Confirmed levothyroxine 50 mcg tablet 50 mcg PO DAILY HYPOTHYROID 09/18/17 06/14/22 esomeprazole magnesium 20 mg 20 mg PO DAILY GERD 03/14/19 06/14/22 capsule,delayed release cariprazine 6 mg capsule 4.5 mg PO DAILY MOOD 08/19/19 06/14/22 lisinopril 20 1 tab PO DAILY Hypertension 01/27/20 06/14/22 mg-hydrochlorothiazide 12.5 mg tablet insulin glargine 100 unit/mL (3 40 unit SQ HS Diabetes 03/09/20 06/14/22 mL) subcutaneous pen (Lantus Solostar U-100 Insulin) bupropion HCl 100 mg tablet,12 hr 200 mg PO DAILY Depression 10/22/20 06/14/22 sustained-release duloxetine 60 mg capsule,delayed 60 mg PO DAILY Depression 10/22/20 06/14/22 release bupropion HCl 100 mg tablet 100 mg PO DAILY Depression 03/01/22 06/14/22 coenzyme Q10 10 mg capsule 10 mg PO DAILY preventative 03/01/22 06/14/22 dulaglutide 0.75 mg/0.5 mL 0.75 mg SQ WEEKLY Diabetes 03/01/22 06/14/22 subcutaneous pen injector empagliflozin 10 mg tablet 10 mg PO DAILY Diabetes 03/01/22 06/14/22 montelukast 10 mg tablet 10 mg PO DAILY allergies 03/01/22 06/14/22
--- NOTE | 2022-07-10 20:28 | PC.NURSE ---
PT back in room from XRAY
[2022-07-10 21:43] VITALS: BP 109/67; PULSE 85; RESP 18; TEMP 36.7; O2SAT 97
== END 2022-07-10 21:51 | disposition home or self-care (01) ==
PROVIDERS: Emergency Provider Emergency Medicine; PCP Nurse Practitioner Family
DX: M25.572 Pain in left ankle and joints of left foot (principal); K21.9 Gastro-esophageal reflux disease without esophagitis; E11.9 Type 2 diabetes mellitus without complications; E07.9 Disorder of thyroid, unspecified; M79.10 Myalgia, unspecified site; E78.00 Pure hypercholesterolemia, unspecified; F31.9 Bipolar disorder, unspecified; F41.9 Anxiety disorder, unspecified; Z79.1 Long term (current) use of non-steroidal anti-inflammatories (NSAID); Z79.4 Long term (current) use of insulin; Z79.899 Other long term (current) drug therapy; Z82.49 Family history of ischemic heart disease and other diseases of the circulatory system; Z83.3 Family history of diabetes mellitus; Z80.9 Family history of malignant neoplasm, unspecified; Z83.438 Family history of other disorder of lipoprotein metabolism and other lipidemia
CPT/HCPCS: 73610; 99283

== ENCOUNTER 2022-07-11 11:28 | Outpatient (CLI) | payer MEDICARE, MEDICAID, SELFPAY ==
[2022-07-11 11:46] VITALS: BP 132/70; PULSE 83; RESP 18; O2SAT 100
== END 2022-07-11 11:46 | disposition home or self-care (01) ==
LOC: INF 11:30
PROVIDERS: PCP Nurse Practitioner Family; Visit Provider Allergy & Immunology
DX: J45.50 Severe persistent asthma, uncomplicated (principal)
CPT/HCPCS: 96372; J2357

== ENCOUNTER 2022-08-16 10:09 | Outpatient (CLI) | payer MEDICARE, MEDICAID, SELFPAY ==
[2022-08-16 10:35] VITALS: BP 123/88; PULSE 96; RESP 20; TEMP 36.4; O2SAT 98
== END 2022-08-16 10:48 | disposition home or self-care (01) ==
LOC: INF 10:11
PROVIDERS: PCP Nurse Practitioner Family; Visit Provider Allergy & Immunology
DX: J45.50 Severe persistent asthma, uncomplicated (principal)
CPT/HCPCS: 96372; J2357

== ENCOUNTER 2022-09-17 03:24 | Emergency (ER) | payer MEDICARE, MEDICAID, SELFPAY ==
--- NOTE | 2022-09-17 03:34 | HMH.EDGENADL ---
Discharge Plan Disposition Patient Disposition: Home, Self-Care Condition: Good Prescriptions Prescriptions: New prednisone 20 mg tablet 20 mg PO DAILY 3 Days Qty: 3 0RF budesonide-formoterol [Symbicort] 160-4.5 mcg/actuation HFA aerosol inhaler 1 inh inhalation BID Qty: 10.2 0RF benzonatate 200 mg capsule 200 mg PO TID PRN (Reason: cough) Qty: 14 0RF No Action lisinopril-hydrochlorothiazide 20-12.5 mg tablet 1 tab PO DAILY Lantus Solostar U-100 Insulin 100 unit/mL (3 mL) insulin pen 40 unit SQ HS bupropion HCl 100 MG tablet sustained-release 12 hr 200 mg PO DAILY duloxetine 60 MG capsule,delayed release(DR/EC) 60 mg PO DAILY ibuprofen 600 mg tablet 600 mg PO Q8H PRN (Reason: pain) Qty: 30 0RF methocarbamol 750 mg tablet 750 mg PO Q8H PRN (Reason: spasm) Qty: 10 0RF levothyroxine 50 MCG tablet 50 mcg PO DAILY esomeprazole magnesium 20 MG capsule,delayed release(DR/EC) 20 mg PO DAILY Label Comments: TAKE 1 CAPSULE BY MOUTH EVERY DAY cariprazine 6 MG capsule 4.5 mg PO DAILY coenzyme Q10 10 MG capsule 10 mg PO DAILY bupropion HCl 100 MG tablet 100 mg PO DAILY montelukast 10 MG tablet 10 mg PO DAILY empagliflozin 10 MG tablet 10 mg PO DAILY dulaglutide 0.75 MG/0.5 ML pen injector 0.75 mg SQ WEEKLY Referrals Follow up/Referrals: Lavinia Juarez [Primary Care Provider] - See instructions Clinical Impressions Clinical Impression: Acute viral syndrome, Acute asthma exacerbation, Acute dehydration Instructions Patient Instructions: DI for Acute Bronchitis Discharge ED Provider: Huy Soriano General Adult HPI General Chief complaint: Shortness of Breath/Dyspnea Stated complaint: Difficulty breathing Time Seen by Provider: 09/17/22 03:34 Mode of Arrival: Ambulatory Source of Information: Patient Limitations: No Limitations History of Present Illness HPI narrative: 62yo F with history of asthma and diabetes presents to the emergency department secondary to ongoing cough. Patient reports she developed rhinorrhea which lasted for approximately 3 days and has now had a cough for 4 days, 7 days of total illness. No fever. No known sick contact. Taking all medication as directed. Related Data Home Medications Medication Instructions Recorded Confirmed levothyroxine 50 mcg tablet 50 mcg PO DAILY HYPOTHYROID 09/18/17 08/16/22 esomeprazole magnesium 20 mg 20 mg PO DAILY GERD 03/14/19 08/16/22 capsule,delayed release cariprazine 6 mg capsule 4.5 mg PO DAILY MOOD 08/19/19 08/16/22 lisinopril 20 1 tab PO DAILY Hypertension 01/27/20 08/16/22 mg-hydrochlorothiazide 12.5 mg tablet insulin glargine 100 unit/mL (3 40 unit SQ HS Diabetes 03/09/20 08/16/22 mL) subcutaneous pen (Lantus Solostar U-100 Insulin) bupropion HCl 100 mg tablet,12 hr 200 mg PO DAILY Depression 10/22/20 08/16/22 sustained-release duloxetine 60 mg capsule,delayed 60 mg PO DAILY Depression 10/22/20 08/16/22 release bupropion HCl 100 mg tablet 100 mg PO DAILY Depression 03/01/22 08/16/22 coenzyme Q10 10 mg capsule 10 mg PO DAILY preventative 03/01/22 08/16/22 dulaglutide 0.75 mg/0.5 mL 0.75 mg SQ WEEKLY Diabetes 03/01/22 08/16/22 subcutaneous pen injector empagliflozin 10 mg tablet 10 mg PO DAILY Diabetes 03/01/22 08/16/22 montelukast 10 mg tablet 10 mg PO DAILY allergies 03/01/22 08/16/22 Previous Rx's Medication Instructions Recorded ibuprofen 600 mg tablet 600 mg PO Q8H PRN pain #30 tabs 07/10/22 methocarbamol 750 mg tablet 750 mg PO Q8H PRN spasm #10 tabs 07/10/22 benzonatate 200 mg capsule 200 mg PO TID PRN cough #14 caps 09/17/22 budesonide-formoterol HFA 160 1 inh inhalation BID #10.2 grams 09/17/22 mcg-4.5 mcg/actuation aerosol inhaler (Symbicort) prednisone 20 mg tablet 20 mg PO DAILY 3 days #3 tabs 09/17/22 Allergies Allergy/AdvReac Type Severity Reaction Status Date / Time No Known All
--- NOTE | 2022-09-17 03:35 | XR_ITS ---
PROCEDURE INFORMATION: Exam: XR Chest Exam date and time: 09/17/2022 3:54 AM Age: 62 years old Clinical indication: Cough and shortness of breath; Additional info: SOB, cough x 1 week TECHNIQUE: Imaging protocol: Radiologic exam of the chest. Views: 1 view. COMPARISON: CR XR CHEST 2V 07/16/2021 6:19 AM FINDINGS: Lungs: Unremarkable. No consolidation. Pleural spaces: Unremarkable. No pleural effusion. No pneumothorax. Heart/Mediastinum: Unremarkable. No cardiomegaly. Bones/joints: Unremarkable. IMPRESSION: No acute findings.
[2022-09-17 03:37] VITALS: BP 172/88; PULSE 103; RESP 20; TEMP 37; O2SAT 99; BMI 31.6
[2022-09-17 03:45] LABS: Basophils # 0.1 K/mm3 (0-0.2); Basophils % 1.1 % (0.1-2.0); Eosinophils # 0.3 K/mm3 (0.0-0.4); Eosinophils % 2.5 % (0.1-12.0); Hematocrit 39.1 % (37.0-47.0); Hemoglobin 12.8 g/dL (12.2-16.2); Lymphocytes # 3.3 K/mm3 (0.7-4.5); Lymphocytes % 31.3 % (10-50); Mean Corpuscular HGB Conc 32.9 g/dL (31.8-35.4); Mean Corpuscular Hemoglobin 29.7 pg (27.0-31.2); Mean Corpuscular Volume 90.3 fl (81-99); Mean Platelet Volume 7.1 fl (7.4-10.4); Monocytes # 0.5 K/mm3 (0.1-1.0); Monocytes % 4.5 % (1.7-9.3); Neutrophils # 6.5 K/mm3 (1.8-7.8); Neutrophils % 60.6 % (37.0-80.0); Platelet Count 387 K/mm3 (142-424); Red Blood Count 4.32 M/mm3 (4.20-5.40); Red Cell Distribution Width 13.3 % (11.5-17.5); White Blood Count 10.7 K/mm3 (4.8-10.8)
[2022-09-17 03:52] LABS: Chloride 103 mmol/L (98-107); Sodium 137 mmol/L (136-145)
[2022-09-17 03:53] LABS: Potassium 4.4 mmoL/L (3.5-5.1)
[2022-09-17 03:55] LABS: Blood Urea Nitrogen 17 mg/dl (7-17); Creatinine Clearance Estimated 63 mL/min (50-200); Estimated Glomerular Filt Rate 42 ml/min (>60); GFR (African American) 51 ML/MIN (>60)
[2022-09-17 03:56] LABS: Anion Gap 17.4 mEq/L (5-15); Calcium 8.9 mg/dl (8.4-10.2); Carbon Dioxide 21 mmol/L (22.0-30.0); Glucose 296 mg/dl (74-100)
[2022-09-17 04:05] LABS: NT Pro Brain Natriuretic Pep. 39.1 pg/mL (0-125)
[2022-09-17 04:24] VITALS: PULSE 87; PULSE 88
[2022-09-17 04:45] VITALS: BP 165/80; PULSE 80; RESP 18; TEMP 36.6; O2SAT 99
== END 2022-09-17 04:48 | disposition home or self-care (01) ==
PROVIDERS: Emergency Provider Family Medicine; PCP Nurse Practitioner Family
DX: R06.00 Dyspnea, unspecified (principal); B34.9 Viral infection, unspecified; J45.901 Unspecified asthma with (acute) exacerbation; E86.0 Dehydration; E11.9 Type 2 diabetes mellitus without complications; F41.9 Anxiety disorder, unspecified; F31.9 Bipolar disorder, unspecified; R07.9 Chest pain, unspecified; L30.9 Dermatitis, unspecified; K21.9 Gastro-esophageal reflux disease without esophagitis; E78.00 Pure hypercholesterolemia, unspecified; I10 Essential (primary) hypertension; E07.9 Disorder of thyroid, unspecified
CPT/HCPCS: 71045; 80048; 83880; 85025; 96361; 96374; 99285

== ENCOUNTER 2022-09-20 11:21 | Outpatient (CLI) | payer MEDICARE, MEDICAID, SELFPAY ==
[2022-09-20 11:43] VITALS: BP 139/88; PULSE 85; RESP 18; TEMP 36.4; O2SAT 96
== END 2022-09-20 11:50 | disposition home or self-care (01) ==
LOC: INF 11:22
PROVIDERS: PCP Nurse Practitioner Family; Visit Provider Allergy & Immunology
DX: J45.50 Severe persistent asthma, uncomplicated (principal)
CPT/HCPCS: 96372; J2357

== ENCOUNTER 2022-10-18 12:22 | Outpatient (CLI) | payer MEDICARE, MEDICAID, SELFPAY ==
[2022-10-18 13:40] VITALS: BP 117/73; PULSE 98; RESP 18; TEMP 36.6; O2SAT 97
== END 2022-10-18 14:00 | disposition home or self-care (01) ==
LOC: INF 12:23
PROVIDERS: PCP Nurse Practitioner Family; Visit Provider Allergy & Immunology
DX: J45.50 Severe persistent asthma, uncomplicated (principal)
CPT/HCPCS: 96372; J2357

== ENCOUNTER 2022-11-15 06:08 | Emergency (ER) | payer MEDICARE, MEDICAID, SELFPAY ==
[2022-11-15] VITALS (7 sets, daily range): BP systolic 115–136; BP diastolic 52–77; PULSE 77–90; RESP 18; TEMP 36.5–36.7; O2SAT 100; BMI 31.6
--- NOTE | 2022-11-15 06:15 | ECG_ITS ---
APPROVED REPORT Exam: Resting ECG HR:80 bpm ECG Measurements Heart Rate 80 AXES UT 159 P 59 QRSd 98 QRS 47 QT 398 T 53 QTc 434 Conclusion SINUS RHYTHM LOW QRS VOLTAGE IN PRECORDIAL LEADS [QRS DEFLECTION < 1.0 mV IN CHEST LEADS] SEPTAL MYOCARDIAL INFARCTION , OF INDETERMINATE AGE [40+ ms Q WAVE IN V1/V2] ABNORMAL ECG UNCONFIRMED REPORT Electronically signed by : Sanjay Mendosa MD 11/15/2022 20:19:49
[2022-11-15 06:26] LABS: POC Glucose,Bedside 226 (70-110)
[2022-11-15 06:48] LABS: Basophils # 0.1 K/mm3 (0-0.2); Basophils % 1.1 % (0.1-2.0); Eosinophils # 0.2 K/mm3 (0.0-0.4); Eosinophils % 3.2 % (0.1-12.0); Hematocrit 44.3 % (37.0-47.0); Hemoglobin 14.1 g/dL (12.2-16.2); Lymphocytes # 1.8 K/mm3 (0.7-4.5); Lymphocytes % 26.4 % (10-50); Mean Corpuscular HGB Conc 31.7 g/dL (31.8-35.4); Mean Corpuscular Hemoglobin 29.2 pg (27.0-31.2); Mean Corpuscular Volume 91.9 fl (81-99); Mean Platelet Volume 7.3 fl (7.4-10.4); Monocytes # 0.3 K/mm3 (0.1-1.0); Monocytes % 4.1 % (1.7-9.3); Neutrophils # 4.5 K/mm3 (1.8-7.8); Neutrophils % 65.1 % (37.0-80.0); Platelet Count 307 K/mm3 (142-424); Red Blood Count 4.82 M/mm3 (4.20-5.40); Red Cell Distribution Width 13.5 % (11.5-17.5); White Blood Count 6.9 K/mm3 (4.8-10.8)
[2022-11-15 06:51] LABS: Alanine Aminotransferase 27 U/L (12-78); Albumin Level 4.7 g/dl (3.5-5.0); Albumin/Globulin Ratio 1.3 (1.1-1.8); Alkaline Phosphatase 114 U/L (38-126); Anion Gap 7.8 mEq/L (5-15); Aspartate Amino Transferase 29 U/L (14-36); Bilirubin,Total 0.4 mg/dl (0.2-1.3); Blood Urea Nitrogen 20 mg/dl (7-17); Calcium 9.9 mg/dl (8.4-10.2); Carbon Dioxide 31 mmol/L (22.0-30.0); Chloride 103 mmol/L (98-107); Creatinine Clearance Estimated 54 mL/min (50-200); Estimated Glomerular Filt Rate 35 ml/min (>60); GFR (African American) 43 ML/MIN (>60); Globulin 3.6 g/dL (1.3-3.2); Glucose 174 mg/dl (74-100); Potassium 4.8 mmoL/L (3.5-5.1); Sodium 137 mmol/L (136-145); Total Protein,Serum 8.3 g/dl (6.3-8.2)
[2022-11-15 07:04] LABS: Troponin I < 0.01 ng/ml (0.00-0.034)
--- NOTE | 2022-11-15 07:52 | PC.NURSE ---
rounded on pt assisted her to restroom no other complaints at this time family at bedside
--- NOTE | 2022-11-15 07:55 | CT_ITS ---
FINAL REPORT TECHNIQUE: Thin section axial images were obtained from skull base to vertex without contrast. Coronal and sagittal reconstruction images were obtained from the axial data. Exam was performed using dose reduction technique. CLINICAL HISTORY: DIZZINESS..fall COMPARISON: 07/16/2021 FINDINGS: There is no mass effect or midline shift. There is no hydrocephalus. There is no intracranial hemorrhage. The posterior fossa is without acute abnormality. The basilar cisterns are preserved. The soft tissues are without acute abnormality. No acute osseous abnormality is identified. IMPRESSION: No acute intracranial abnormality. Reviewed, Interpreted and Dictated by Sabine Bashir MD Transcribed by Анна Rousseau Authenticated and [facility]
--- NOTE | 2022-11-15 08:00 | PC.NURSE ---
rounded on pt, no needs at this time
--- NOTE | 2022-11-15 08:13 | HMH.EDGENADL ---
Discharge Plan Disposition Patient Disposition: Home, Self-Care Condition: Good Chief Complaint: Dizziness Prescriptions Prescriptions: No Action lisinopril-hydrochlorothiazide 20-12.5 mg tablet 1 tab PO DAILY Lantus Solostar U-100 Insulin 100 unit/mL (3 mL) insulin pen 40 unit SQ HS bupropion HCl 100 MG tablet sustained-release 12 hr 200 mg PO DAILY duloxetine 60 MG capsule,delayed release(DR/EC) 60 mg PO DAILY cariprazine 6 MG capsule 4.5 mg PO DAILY montelukast 10 MG tablet 10 mg PO DAILY empagliflozin 10 MG tablet 25 mg PO DAILY dulaglutide 0.75 MG/0.5 ML pen injector 0.75 mg SQ WEEKLY fluoxetine 40 mg capsule 40 mg PO DAILY buspirone 10 mg tablet 10 mg PO BID esomeprazole magnesium 20 mg capsule,delayed release(DR/EC) 20 mg PO DAILY Referrals Follow up/Referrals: Lavinia Juarez [Primary Care Provider] - See instructions Activity Restrictions/Add. Instructions Additional Instructions/Restrictions: Follow-up with your primary care provider, call today to make appointment. Rest and drink plenty of fluids. Rise to a standing position and carefully, holding onto objects until you are steady. Clinical Impressions Clinical Impression: Dizziness Instructions Patient Instructions: DI for Dizziness-Nonvertigo Discharge ED Provider: Javid Lewis General Adult HPI General Chief complaint: Dizziness Stated complaint: dizzy, fallen twice, weak Time Seen by Provider: 11/15/22 08:05 Mode of Arrival: Ambulatory Source of Information: Patient Limitations: No Limitations Description of Symptoms (Recalled from ER Triage Doc. by RN): pt c/o being dizzy and shakiness x2 wks. pts states she woke up this morning and was dizzy and shaking leadin to pt falling. pt states she is not in any pain and was not injured in the fall. pt is diabetic and reports her glucose was 202 at the time of the fall. FS is now 226. pt denies any other symptoms. History of Present Illness HPI narrative: Patient states that she has been dizzy for 2 months. She says that she is not dizzy at rest, but is dizzy when she gets up and moves around and in particular when she bends over and stands back up sometimes she feels like she is going to pass out. She has not had loss of consciousness, but says that she did fall this morning twice. She says prior to that she was always able to catch herself before she fell. She says she holds onto lynn to walk around. She says that she has also had problems with vomiting after she eats or drinks for the past 2-1/2 years. States that she has had an extensive work-up including endoscopies. She says that she currently wears a patch behind her ear, prescribed by her primary care provider, for the symptoms. She denies headaches, visual disturbance, auditory disturbance, numbness or weakness of the extremities, problems with speech. No chest pain or shortness of breath. No diarrhea or abdominal pain. No cough or URI symptoms. No urinary symptoms. Related Data Home Medications Medication Instructions Recorded Confirmed cariprazine 6 mg capsule 4.5 mg PO DAILY MOOD 08/19/19 10/26/22 lisinopril 20 1 tab PO DAILY Hypertension 01/27/20 10/26/22 mg-hydrochlorothiazide 12.5 mg tablet insulin glargine 100 unit/mL (3 40 unit SQ HS Diabetes 03/09/20 10/26/22 mL) subcutaneous pen (Lantus Solostar U-100 Insulin) bupropion HCl 100 mg tablet,12 hr 200 mg PO DAILY Depression 10/22/20 11/15/22 sustained-release duloxetine 60 mg capsule,delayed 60 mg PO DAILY Depression 10/22/20 10/26/22 release dulaglutide 0.75 mg/0.5 mL 0.75 mg SQ WEEKLY Diabetes 03/01/22 10/26/22 subcutaneous pen injector empagliflozin 10 mg tablet 25 mg PO DAILY Diabetes 03/01/22 11/15/22 montelukast 10 mg tablet 10 mg PO DAILY allergies 03/01/22 11/15/22 buspirone 10 mg tablet 10 mg PO BID Depression 11/15/22 11/15/22 esomeprazole magnesium 20 mg 20 mg PO
[2022-11-15 08:23] LABS: Microscopic, Urine URINE MICROSCOPIC (MICROSCOPIC)
[2022-11-15 08:27] LABS: Appearance,Urine CLEAR (Clear); Bilirubin,Urine Negative (Negative); Blood, Urine Negative (Negative); Color,Urine YELLOW (Yellow); Glucose,Urine (UA) 3+ (Negative); Ketones,Urine Negative (Negative); Leukocyte Esterase,Urine Negative (Negative); Nitrate,Urine Negative (Negative); PH,Urine 7.5 (5.0-8.5); Protein,Urine Negative (Negative); Urobilinogen,Urine 0.2 EU/dl (0.2)
--- NOTE | 2022-11-15 08:27 | PC.NURSE ---
pt is gone to ct via wheelchair
--- NOTE | 2022-11-15 08:29 | PC.NURSE ---
pt arrived back to room
[2022-11-15 08:51] LABS: Bacteria,Urine Trace /lpf; Squamous Epithelial Cell,Urine Occasional #/hpf (0-5)
== END 2022-11-15 09:23 | disposition home or self-care (01) ==
PROVIDERS: Emergency Medicine; Emergency Provider Emergency Medicine; PCP Nurse Practitioner Family
DX: R42 Dizziness and giddiness (principal); J45.909 Unspecified asthma, uncomplicated; F41.8 Other specified anxiety disorders; K21.9 Gastro-esophageal reflux disease without esophagitis; L30.9 Dermatitis, unspecified; E78.00 Pure hypercholesterolemia, unspecified; I10 Essential (primary) hypertension; E07.9 Disorder of thyroid, unspecified; E11.9 Type 2 diabetes mellitus without complications; Z79.4 Long term (current) use of insulin; Z90.49 Acquired absence of other specified parts of digestive tract; Z80.9 Family history of malignant neoplasm, unspecified; Z83.3 Family history of diabetes mellitus; Z82.3 Family history of stroke; Z82.5 Family history of asthma and other chronic lower respiratory diseases
CPT/HCPCS: 70450; 80053; 81001; 82962; 84484; 85025; 93005; 96360; 96372; 99285; J2357

== ENCOUNTER 2022-11-15 09:28 | Outpatient (CLI) | payer MEDICARE, MEDICAID, SELFPAY ==
[2022-11-15 09:37] VITALS: BP 127/73; PULSE 80; RESP 18; TEMP 36.6; O2SAT 100
== END 2022-11-15 10:03 | disposition home or self-care (01) ==
LOC: INF 09:29
PROVIDERS: PCP Nurse Practitioner Family; Visit Provider Allergy & Immunology
DX: J45.50 Severe persistent asthma, uncomplicated (principal)
CPT/HCPCS: 96372; J2357

== ENCOUNTER 2022-12-13 10:31 | Outpatient (CLI) | payer MEDICARE, MEDICAID, SELFPAY ==
[2022-12-13 10:52] VITALS: BP 115/57; PULSE 68; RESP 18; TEMP 36.6; O2SAT 98
== END 2022-12-13 11:10 | disposition home or self-care (01) ==
LOC: INF 10:32
PROVIDERS: PCP Nurse Practitioner Family; Visit Provider Allergy & Immunology
DX: J45.50 Severe persistent asthma, uncomplicated (principal)
CPT/HCPCS: 96372; J2357

== ENCOUNTER 2022-12-22 17:16 | Observation (INO) | payer MEDICARE, MEDICAID, SELFPAY ==
[2022-12-22 17:18] VITALS: BP 125/79; PULSE 92; RESP 17; TEMP 36.4; O2SAT 95; BMI 31.6
--- NOTE | 2022-12-22 17:29 | CT_ITS ---
PROCEDURE INFORMATION: Exam: CT Abdomen And Pelvis With Contrast Exam date and time: 12/22/2022 6:37 PM Age: 62 years old Clinical indication: Nausea and vomiting; Additional info: Intractable n/v TECHNIQUE: Imaging protocol: Computed tomography of the abdomen and pelvis with contrast. Radiation optimization: All CT scans at this facility use at least one of these dose optimization techniques: automated exposure control; mA and/or kV adjustment per patient size (includes targeted exams where dose is matched to clinical indication); or iterative reconstruction. Contrast material: ISOVUE; Contrast volume: 75 ml; Contrast route: IV; REPORTING DATA: Count of CT and Cardiac NM exams in prior 12 months: This patient has received 2 known [address]s and 0 known cardiac nuclear medicine studies in the 12 months prior to the current study. COMPARISON: CT ABDOMEN PELVIS W CON 01/24/2022 6:34 PM FINDINGS: Lungs: Lung bases are clear. Liver: Normal. No mass. Gallbladder and bile ducts: Gallbladder has been removed. No evident bile duct dilatation. Pancreas: Normal. No ductal dilation. Spleen: Normal. No splenomegaly. Adrenal glands: Normal. No mass. Kidneys and ureters: Stable 11 mm benign appearing cyst in the lateral posterior right kidney. Kidneys and ureters otherwise unremarkable with no obstructing stones or uropathy. Stomach and bowel: Unremarkable. No obstruction. No mucosal thickening. Appendix: Appendix is normal. No evidence of appendicitis. Intraperitoneal space: Unremarkable. No free air. No significant fluid collection. Vasculature: Atherosclerotic changes of the aorta and iliacs noted. No evidence of aneurysm. Lymph nodes: Unremarkable. No enlarged lymph nodes. Urinary bladder: Unremarkable as visualized. Reproductive: Unremarkable as visualized. Bones/joints: Unremarkable. No acute fracture. Soft tissues: Unremarkable. IMPRESSION: No acute abnormalities of the abdomen and pelvis. Nonemergent findings as above.
--- NOTE | 2022-12-22 17:56 | HMH.EDGENADL ---
Discharge Plan Disposition Patient Disposition: Admitted As Inpatient Condition: Good Prescriptions Prescriptions: No Action lisinopril-hydrochlorothiazide 20-12.5 mg tablet 1 tab PO DAILY Lantus Solostar U-100 Insulin 100 unit/mL (3 mL) insulin pen 40 unit SQ HS bupropion HCl 100 MG tablet sustained-release 12 hr 200 mg PO DAILY duloxetine 60 MG capsule,delayed release(DR/EC) 60 mg PO DAILY cariprazine 6 MG capsule 4.5 mg PO DAILY montelukast 10 MG tablet 10 mg PO DAILY empagliflozin 10 MG tablet 25 mg PO DAILY dulaglutide 0.75 MG/0.5 ML pen injector 0.75 mg SQ WEEKLY fluoxetine 40 mg capsule 40 mg PO DAILY buspirone 10 mg tablet 10 mg PO BID esomeprazole magnesium 20 mg capsule,delayed release(DR/EC) 20 mg PO DAILY Referrals Follow up/Referrals: Lavinia Juarez [Primary Care Provider] - See instructions Clinical Impressions Clinical Impression: Acute kidney injury, Acute dehydration, Intractable vomiting Instructions Patient Instructions: DI for Acute Abdominal Pain Discharge ED Provider: Daina Grey General Adult HPI General Chief complaint: Abdominal Pain Stated complaint: vomiting Time Seen by Provider: 12/22/22 17:23 Mode of Arrival: Ambulatory Source of Information: Patient Limitations: No Limitations Description of Symptoms (Recalled from ER Triage Doc. by RN): pt to the ED with intermitten nausea and vomiting x 3 months with failed outpatient therapy with PO meds and scopalamine patches. History of Present Illness HPI narrative: This patient is a 62-year-old female with a history of hypertension, hyperlipidemia, type 2 diabetes, GERD, renal insufficiency, bipolar disorder, and chronic nausea and vomiting presenting to the emergency department for evaluation with concern for nausea and vomiting. Patient states that for the past 3 months, she has intermittently had nausea and vomiting that will range from once a day to 4-5 times a day. She states that over the last few days, she has not even been able to keep down liquids, which is unusual for her. Given this, she decided to come to the emergency department. She states that she has been seen by her primary care provider several times for this, but she does not believe that she has ever had imaging. She states she was referred to a ekg technician, but her appointment is not until the end of the month. She states that she wears a scopolamine patch provided by her primary care provider for the symptoms. Medical record review, she was evaluated here approximately 1 month ago for similar symptoms. At this point, CT scan of the head without contrast was obtained that did not demonstrate any acutely concerning findings. She was discharged home with instructions for supportive management. At that time, according to medical record review, she stated that her symptoms have been present for approximately 2.5 years. She denies any other concerns, such as headache, vision changes, unilateral weakness, numbness, tingling, abdominal pain, changes in bowel movements such as diarrhea constipation, or other concerns. She also denies any unintentional weight loss. She does admit to poor appetite. Related Data Home Medications Medication Instructions Recorded Confirmed cariprazine 6 mg capsule 4.5 mg PO DAILY MOOD 08/19/19 12/13/22 lisinopril 20 1 tab PO DAILY Hypertension 01/27/20 12/13/22 mg-hydrochlorothiazide 12.5 mg tablet insulin glargine 100 unit/mL (3 40 unit SQ HS Diabetes 03/09/20 12/13/22 mL) subcutaneous pen (Lantus Solostar U-100 Insulin) bupropion HCl 100 mg tablet,12 hr 200 mg PO DAILY Depression 10/22/20 12/13/22 sustained-release duloxetine 60 mg capsule,delayed 60 mg PO DAILY Depression 10/22/20 12/13/22 release dulaglutide 0.75 mg/0.5 mL 0.75 mg SQ WEEKLY Diabetes 03/01/22 12/13/22 subcutaneous pen injector empagliflozin 10 mg tablet 25 mg PO DAILY D
[2022-12-22 17:59] LABS: Basophils # 0.1 K/mm3 (0-0.2); Basophils % 0.9 % (0.1-2.0); Eosinophils # 0.2 K/mm3 (0.0-0.4); Eosinophils % 2.5 % (0.1-12.0); Hematocrit 47.2 % (37.0-47.0); Hemoglobin 14.8 g/dL (12.2-16.2); Lymphocytes # 2.3 K/mm3 (0.7-4.5); Lymphocytes % 26.8 % (10-50); Mean Corpuscular HGB Conc 31.3 g/dL (31.8-35.4); Mean Corpuscular Hemoglobin 28.3 pg (27.0-31.2); Mean Corpuscular Volume 90.6 fl (81-99); Mean Platelet Volume 7.3 fl (7.4-10.4); Monocytes # 0.3 K/mm3 (0.1-1.0); Monocytes % 3.9 % (1.7-9.3); Neutrophils # 5.7 K/mm3 (1.8-7.8); Platelet Count 276 K/mm3 (142-424); Red Blood Count 5.21 M/mm3 (4.20-5.40); Red Cell Distribution Width 13.9 % (11.5-17.5); White Blood Count 8.7 K/mm3 (4.8-10.8)
[2022-12-22 18:04] LABS: Chloride 99 mmol/L (98-107); Potassium 4.8 mmoL/L (3.5-5.1); Sodium 138 mmol/L (136-145)
[2022-12-22 18:06] LABS: Alanine Aminotransferase 26 U/L (12-78); Albumin Level 4.6 g/dl (3.5-5.0); Albumin/Globulin Ratio 1.3 (1.1-1.8); Alkaline Phosphatase 81 U/L (38-126); Anion Gap 11.8 mEq/L (5-15); Aspartate Amino Transferase 26 U/L (14-36); Bilirubin,Total 0.3 mg/dl (0.2-1.3); Blood Urea Nitrogen 20 mg/dl (7-17); Calcium 9.6 mg/dl (8.4-10.2); Carbon Dioxide 32 mmol/L (22.0-30.0); Creatinine Clearance Estimated 48 mL/min (50-200); Estimated Glomerular Filt Rate 31 ml/min (>60); GFR (African American) 37 ML/MIN (>60); Globulin 3.5 g/dL (1.3-3.2); Glucose 116 mg/dl (74-100); Lipase 108 U/L (23-300); Total Protein,Serum 8.1 g/dl (6.3-8.2)
[2022-12-22 19:54] LABS: Coronavirus 19, PCR Not Detected (NotDetected); Influenza A, PCR Not Detected (NotDetected); Influenza B, PCR Not Detected (NotDetected)
--- NOTE | 2022-12-22 20:02 | PC.NURSE ---
Hospitalist Chayo at bedside
--- NOTE | 2022-12-22 20:20 | ECG_ITS ---
APPROVED REPORT Exam: Resting ECG HR:84 bpm ECG Measurements Heart Rate 84 AXES DC 168 P 63 QRSd 97 QRS 82 QT 382 T 58 QTc 423 Conclusion SINUS RHYTHM LOW QRS VOLTAGE IN PRECORDIAL LEADS [QRS DEFLECTION < 1.0 mV IN CHEST LEADS] SEPTAL MYOCARDIAL INFARCTION , OF INDETERMINATE AGE [40+ ms Q WAVE IN V1/V2] ABNORMAL ECG UNCONFIRMED REPORT Electronically signed by : Sanjay Mendosa MD 12/23/2022 20:16:11
--- NOTE | 2022-12-22 20:20 | PC.NURSE ---
Gave report to Kiya CUMMINGS on 2nd floor
[2022-12-22 20:21] VITALS: BP 124/80; PULSE 88; RESP 19; TEMP 36.9; O2SAT 97
--- NOTE | 2022-12-22 20:22 | EXP.HP ---
History of Present Illness *Admission Date: 12/22/22 *Reason for visit:: Vomiting *History of present illness: This is a 62-year-old female with a past medical history of mood disorder, DM, HLD, HTN, recurrent abdominal pain with nausea and vomiting who presents emergency department today with complaints of worsening nausea and vomiting. She reports been ongoing for approximately 3 months and has GI appointment scheduled for 01/01/2023. She reports that she should be undergoing a scope at that time. She reports that today she developed worsening fatigue and dizziness likely secondary to her vomiting. She denies any abdominal pain associated with this. She does endorse poor p.o. intake secondary to persistent vomiting. She states she has not been able to keep her medicines down in some time. She denies any fever. She denies any diarrhea. Emergency department work-up mostly unremarkable except for mild ENMANUEL with a creatinine of 1.7 from a baseline of 1.0. Electrolytes are within normal limits. No anion gap acidosis noted. Urine negative. CT abdomen pelvis unremarkable. Given her continued vomiting and her ENMANUEL, internal medicine was consulted for admission. She will be admitted to the hospital service for further evaluation management [facility] Disclaimer: The information contained in this section may have been updated after the patient was seen, as this information can be updated by other users. Medical History Anxiety Asthma Bipolar depression Chest pain Depression Eczema GERD (gastroesophageal reflux disease) High cholesterol Hypertension Insulin dependent diabetes mellitus Thyroid disease Type 2 diabetes mellitus Surgical History History of cholecystectomy Family History Other Cancer Diabetes Heart attack High cholesterol Hypertension Stroke Social History (Updated 12/22/22 @ 21:55 by Nicole Rosenberg RN) Smoking Status: Never smoker second hand exposure: No alcohol intake: never substance use type: denies use current occupational status: disabled Travel in the last 8 weeks: None household members: family housing: house current occupational exposures/hazards: Yes caffeine: Yes Review of Systems Review of Systems Review of systems:: pertinent systems reviewed and negative unless documented below *Gastrointestinal Gastrointestinal: Reports vomiting Meds Home Medications and Allergies Home Medications Medication Instructions Recorded Confirmed Type cariprazine 6 mg capsule 4.5 mg PO DAILY MOOD 08/19/19 12/22/22 History lisinopril 20 1 tab PO DAILY Hypertension 01/27/20 12/22/22 History mg-hydrochlorothiazide 12.5 mg tablet insulin glargine 100 unit/mL (3 40 unit SQ HS Diabetes 03/09/20 12/22/22 History mL) subcutaneous pen (Lantus Solostar U-100 Insulin) bupropion HCl 100 mg tablet,12 hr 300 mg PO DAILY Depression 10/22/20 12/22/22 History sustained-release duloxetine 60 mg capsule,delayed 60 mg PO DAILY Depression 10/22/20 12/22/22 History release dulaglutide 0.75 mg/0.5 mL 0.75 mg SQ WEEKLY Diabetes 03/01/22 12/22/22 History subcutaneous pen injector empagliflozin 10 mg tablet 25 mg PO DAILY Diabetes 03/01/22 12/22/22 History montelukast 10 mg tablet 10 mg PO DAILY allergies 03/01/22 12/22/22 History buspirone 10 mg tablet 10 mg PO TID Depression 11/15/22 12/22/22 History esomeprazole magnesium 20 mg 20 mg PO DAILY Heartburn 11/15/22 12/22/22 History capsule,delayed release fluoxetine 40 mg capsule 50 mg PO DAILY Depression 11/15/22 12/22/22 History New Prescriptions to Start Prescriptions: Allergies Allergy/AdvReac Type Severity Reaction Status Date / Time No Known Allergies Allergy Verified 10/26/22 12:18 Exam Data for Last 24 hours Vital signs and Labs for
[2022-12-22 20:24] LABS: Magnesium 2.2 mg/dl (1.6-2.3)
--- NOTE | 2022-12-22 20:36 | PC.NURSE ---
PT ARRIVED TO FLOOR AT THIS TIME
[2022-12-22 20:45] VITALS: BP 138/76; PULSE 80; RESP 20; TEMP 36.6; O2SAT 100; BMI 30.9
[2022-12-22 23:32] LABS: POC Glucose,Bedside 85 (70-110)
[2022-12-23] VITALS (7 sets, daily range): BP systolic 103–130; BP diastolic 53–76; PULSE 66–80; RESP 16–20; TEMP 36.5–37; O2SAT 94–98; BMI 30.9
[2022-12-23 04:49] LABS: POC Glucose,Bedside 96 (70-110)
[2022-12-23 07:40] LABS: Basophils # 0.1 K/mm3 (0-0.2); Basophils % 0.7 % (0.1-2.0); Eosinophils # 0.2 K/mm3 (0.0-0.4); Eosinophils % 3.3 % (0.1-12.0); Hematocrit 42.8 % (37.0-47.0); Hemoglobin 13.9 g/dL (12.2-16.2); Lymphocytes # 2.1 K/mm3 (0.7-4.5); Lymphocytes % 29.4 % (10-50); Mean Corpuscular HGB Conc 32.4 g/dL (31.8-35.4); Mean Corpuscular Volume 89.4 fl (81-99); Mean Platelet Volume 7.3 fl (7.4-10.4); Monocytes # 0.4 K/mm3 (0.1-1.0); Monocytes % 5.3 % (1.7-9.3); Neutrophils # 4.3 K/mm3 (1.8-7.8); Neutrophils % 61.3 % (37.0-80.0); Platelet Count 229 K/mm3 (142-424); Red Blood Count 4.79 M/mm3 (4.20-5.40); Red Cell Distribution Width 13.8 % (11.5-17.5)
[2022-12-23 07:46] LABS: Chloride 102 mmol/L (98-107); Potassium 4.5 mmoL/L (3.5-5.1); Sodium 138 mmol/L (136-145)
[2022-12-23 07:48] LABS: Blood Urea Nitrogen 17 mg/dl (7-17); Creatinine Clearance Estimated 53 mL/min (50-200); Estimated Glomerular Filt Rate 35 ml/min (>60); GFR (African American) 43 ML/MIN (>60)
[2022-12-23 07:49] LABS: Anion Gap 9.5 mEq/L (5-15); Calcium 9.2 mg/dl (8.4-10.2); Carbon Dioxide 31 mmol/L (22.0-30.0); Glucose 89 mg/dl (74-100)
--- NOTE | 2022-12-23 08:54 | PC.NURSE ---
courtesy tech note; rounded on pt, pt denied the need to use the restroom and need for a drink at this time. call light within reach, no further requests at this time. Stephanie Enamorado, ISIAH
--- NOTE | 2022-12-23 09:09 | EXP.PN ---
Subjective *Date: 12/23/22 *Time: 11:12 Interval history: creatinine level decreased from 1.7 to 1.5. She continues to have nausea and abdominal pain. She hasn't attempted to drink anything. Exam Data for Last 24 hours Vital signs and Labs for Last 24 Hours: Temp Pulse Resp BP Pulse Ox 98.3 F 79 16 130/69 96 12/23/22 07:44 12/23/22 07:44 12/23/22 07:44 12/23/22 07:44 12/23/22 07:44 Laboratory Results - last 24 hr 12/22/22 17:49: WBC 8.7, RBC 5.21, Hgb 14.8, Hct 47.2 H, MCV 90.6, MCH 28.3, MCHC 31.3 L, RDW 13.9, Plt Count 276, MPV 7.3 L, Neut % (Auto) 66.0, Lymph % (Auto) 26.8, [place] % (Auto) 3.9, Eos % (Auto) 2.5, Baso % (Auto) 0.9, Neut # (Auto) 5.7, Lymph # (Auto) 2.3, [place] # (Auto) 0.3, Eos # (Auto) 0.2, Baso # (Auto) 0.1 12/22/22 17:49: Sodium 138, Potassium 4.8, Chloride 99, Carbon Dioxide 32 H, Anion Gap 11.8, BUN 20 H, Creatinine 1.70 H, Estimated Creat Clear 48, Estimated GFR 31 L, Est GFR ( Amer) 37 L, Glucose 116 H, Calcium 9.6, Total Bilirubin 0.3, AST 26, ALT 26, Alkaline Phosphatase 81, Total Protein 8.1, Albumin 4.6, Globulin 3.5 H, Albumin/Globulin Ratio 1.3, Lipase 108 12/22/22 17:50: Magnesium 2.2 12/22/22 19:50: SARS-CoV-2 (PCR) Not detected, Influenza A Untype (PCR) Not detected, Influenza Type B (PCR) Not detected 12/22/22 23:26: POC Glucose 85 12/23/22 04:38: POC Glucose 96 12/23/22 06:52: WBC 7.0, RBC 4.79, Hgb 13.9, Hct 42.8, MCV 89.4, MCH 29.0, MCHC 32.4, RDW 13.8, Plt Count 229, MPV 7.3 L, Neut % (Auto) 61.3, Lymph % (Auto) 29.4, [place] % (Auto) 5.3, Eos % (Auto) 3.3, Baso % (Auto) 0.7, Neut # (Auto) 4.3, Lymph # (Auto) 2.1, [place] # (Auto) 0.4, Eos # (Auto) 0.2, Baso # (Auto) 0.1 12/23/22 06:52: Sodium 138, Potassium 4.5, Chloride 102, Carbon Dioxide 31 H, Anion Gap 9.5, BUN 17, Creatinine 1.50 H, Estimated Creat Clear 53, Estimated GFR 35 L, Est GFR ( Amer) 43 L, Glucose 89 D, Calcium 9.2 I & O for Last 24 hours: Intake & Output 12/20/22 12/21/22 12/22/22 12/23/22 23:59 23:59 23:59 23:59 Intake Total 1000 / 1000 0 / 0 Balance 1000 / 1000 0 / 0 Weight 84.096 kg 84.096 kg Constitutional Constitutional: no acute distress *Routine HEENT Exam Head: Present normocephalic Eye: Present EOMI and PERRL ENT: Present mucous membranes moist *Routine Neck Exam Neck: Present supple; Absent lymphadenopathy *Routine Respiratory Exam Respiratory: Present CTA bilaterally *Routine Cardiovascular Exam Cardiovascular: Present RRR *Routine Abdominal Exam Abdominal: Present soft and normoactive bowel sounds Comments: discomfort with palpation in epigastrium *Routine Extremities Exam Extremities: Absent cyanosis, clubbing or edema *Routine Skin Exam Skin: Present warm; Absent rash *Routine Neurological Exam Neurological: Present alert and oriented X3 Assessment and Plan *Assessment and plan (1) Acute dehydration: Status: Acute Category: Medical Code(s): E86.0 - Dehydration (2) Acute kidney injury: Status: Acute Category: Medical Code(s): N17.9 - Acute kidney failure, unspecified (3) Intractable vomiting: Status: Acute Category: Medical Code(s): R11.10 - Vomiting, unspecified (4) HTN (hypertension): Status: Chronic Qualifiers: Hypertension type: essential hypertension Qualified Code(s): I10 - Essential (primary) hypertension Category: Medical Code(s): I10 - Essential (primary) hypertension (5) HLD (hyperlipidemia): Status: Chronic Qualifiers: Hyperlipidemia type: mixed hyperlipidemia Qualified Code(s): E78.2 - Mixed hyperlipidemia Category: Medical Code(s): E78.5 - Hyperlipidemia, unspecified (6) DM (diabetes mellitus): Status: Chronic Qualifiers: Diabetes mellitus type: type 2 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
[2022-12-23 12:15] LABS: POC Glucose,Bedside 109 (70-110)
[2022-12-23 13:38] LABS: Microscopic, Urine URINE MICROSCOPIC (MICROSCOPIC)
[2022-12-23 13:40] LABS: Appearance,Urine CLEAR (Clear); Bilirubin,Urine Negative (Negative); Blood, Urine Negative (Negative); Color,Urine YELLOW (Yellow); Glucose,Urine (UA) 2+ (Negative); Ketones,Urine Negative (Negative); Leukocyte Esterase,Urine Negative (Negative); Nitrate,Urine Negative (Negative); PH,Urine 7.5 (5.0-8.5); Protein,Urine Negative (Negative); Urobilinogen,Urine 0.2 EU/dl (0.2)
[2022-12-23 13:56] LABS: Bacteria,Urine Trace /lpf
--- NOTE | 2022-12-23 15:30 | PC.NURSE ---
courtesy tech note; rounded on pt, brought snack at pts request, pt denied drink, need to use the restroom, need to reposition in chair. call light within reach. no further requests at this time. Stephanie Enamorado, SRNA
--- NOTE | 2022-12-23 15:35 | PC.NURSE ---
tech note; pt tolerated crackers from low resin diet well with no assistance.
--- NOTE | 2022-12-23 17:55 | PC.NURSE ---
pt requested to attempt to eat something other than liquids. spoke with dr deshpande who said we could attempt small portion of food from low residue diet. patient tolerated well at first but later developed abd pain. she was medicated with john reglan and symptoms subsided. will continue liquid diet. no other changes this shift.
--- NOTE | 2022-12-23 18:17 | PC.NURSE ---
courtesy tech note; rounded on pt, pt refused dinner tray, denied drink, pt states reason for refusal is, crackers did not sit well on her stomach. Brought extra pillow at pt request, assisted pt to restroom, voided 800 ml. call light within reach. no further requests at this time.
[2022-12-23 20:23] LABS: POC Glucose,Bedside 95 (70-110)
[2022-12-24 00:55] LABS: POC Glucose,Bedside 90 (70-110)
[2022-12-24 03:41] VITALS: BMI 30.3
[2022-12-24 03:42] VITALS: BP 134/76; PULSE 78; RESP 18; TEMP 36.7; O2SAT 94
--- NOTE | 2022-12-24 05:56 | PC.NURSE ---
pt is A&OX4, ambulates in room independently. no complaints of pain or nausea this shift. tolerating clear liquid diet. call light in reach.
[2022-12-24 07:20] LABS: Chloride 104 mmol/L (98-107); Potassium 4.4 mmoL/L (3.5-5.1); Sodium 139 mmol/L (136-145)
[2022-12-24 07:23] LABS: Anion Gap 11.4 mEq/L (5-15); Blood Urea Nitrogen 15 mg/dl (7-17); Calcium 8.8 mg/dl (8.4-10.2); Carbon Dioxide 28 mmol/L (22.0-30.0); Creatinine Clearance Estimated 60 mL/min (50-200); Estimated Glomerular Filt Rate 42 ml/min (>60); GFR (African American) 51 ML/MIN (>60); Glucose 93 mg/dl (74-100)
[2022-12-24 07:30] VITALS: BP 138/78; PULSE 80; RESP 17; TEMP 37; O2SAT 99
[2022-12-24 07:37] LABS: Hemoglobin A1C 9.2 % (4.0-6.0)
[2022-12-24 08:00] VITALS: O2SAT 99
--- NOTE | 2022-12-24 09:15 | EXP.PN ---
Subjective *Date: 12/24/22 *Time: 09:15 Interval history: Creatinine continues to improve: 1.7 -> 1.5 -> 1.3 hgb a1c is 9.2 Exam Data for Last 24 hours Vital signs and Labs for Last 24 Hours: Temp Pulse Resp BP Pulse Ox 98.6 F 80 17 138/78 99 12/24/22 07:30 12/24/22 07:30 12/24/22 07:30 12/24/22 07:30 12/24/22 08:00 Laboratory Results - last 24 hr 12/23/22 11:28: POC Glucose 109 12/23/22 13:03: Urine Color Yellow, Urine Appearance Clear, Urine pH 7.5, Ur Specific [place] 1.010, Urine Protein Negative, Urine Glucose (UA) 2+, Urine Ketones Negative, Urine Blood Negative, Urine Nitrate Negative, Urine Bilirubin Negative, Urine Urobilinogen 0.2, Ur Leukocyte Esterase Negative, Urine RBC None, Urine WBC None, Ur Squamous Epith Cells None, Urine Bacteria Trace 12/23/22 17:02: POC Glucose 90 12/23/22 20:16: POC Glucose 95 12/24/22 06:30: Sodium 139, Potassium 4.4, Chloride 104, Carbon Dioxide 28, Anion Gap 11.4, BUN 15, Creatinine 1.30 H, Estimated Creat Clear 60, Estimated GFR 42 L, Est GFR ( Amer) 51 L, Glucose 93, Calcium 8.8 12/24/22 06:30: Hemoglobin A1c 9.2 H I & O for Last 24 hours: Intake & Output 12/21/22 12/22/22 12/23/22 12/24/22 23:59 23:59 23:59 23:59 Intake Total 1000 / 1000 840 / 1657 1117 / 1117 Output Total 1600 / 1600 900 / 900 Balance 1000 / 1000 -760 / 57 217 / 217 Weight 84.096 kg 84.096 kg 82.554 kg Assessment and Plan *Assessment and plan (1) Acute dehydration: Status: Acute Category: Medical Code(s): E86.0 - Dehydration (2) Acute kidney injury: Status: Acute Category: Medical Code(s): N17.9 - Acute kidney failure, unspecified (3) Intractable vomiting: Status: Acute Category: Medical Code(s): R11.10 - Vomiting, unspecified (4) HTN (hypertension): Status: Chronic Qualifiers: Hypertension type: essential hypertension Qualified Code(s): I10 - Essential (primary) hypertension Category: Medical Code(s): I10 - Essential (primary) hypertension (5) HLD (hyperlipidemia): Status: Chronic Qualifiers: Hyperlipidemia type: mixed hyperlipidemia Qualified Code(s): E78.2 - Mixed hyperlipidemia Category: Medical Code(s): E78.5 - Hyperlipidemia, unspecified (6) DM (diabetes mellitus): Status: Chronic Qualifiers: Diabetes mellitus type: type 2 Diabetes mellitus retirement insulin use: unspecified retirement insulin use status Diabetes mellitus complication status: with other specified complication Qualified Code(s): E11.69 - Type 2 diabetes mellitus with other specified complication Category: Medical Code(s): E11.9 - Type 2 diabetes mellitus without complications Plan Ms. Ramos is a 62 year old female with a past medical history of mood disorder, DM, HLD, HTN and recurrent abdominal pain with nausea and vomiting who was admitted on 12/22/22 with ENMANUEL, nausea and vomiting. Cr was elevated at 1.7 from a baseline of 1.0. CT abd/pel was unremarkable. #enmanuel #nausea and vomiting #abdominal pain #t2dm Her kidney function is improving. She was given 1L bolus of LR yesterday in the ED and has been on LR @ 100mL/hr. I will change LR to NS. Her intermittent abdominal pain a/w nausea and vomiting has been ongoing for the past 3 months. She has been taking insulin for over a decade. I'll check a hgb a1c level in the morning. She doesn't have a history of marijuana use. The only medications she's taken for her nausea and vomiting have been antiemetics. She has an appointment with GI on 01/01/2023 and there is a plan for her to have an EGD. I think she should have a gastric emptying study in the outpatient setting. Continue Reglan Will hold her fluoxetine and blood pressure medications for now. DVT ppx: lovenox Full code CLD
[2022-12-24 09:18] VITALS: BMI 30.3
--- NOTE | 2022-12-24 10:36 | EXP.DC.SUM ---
General Admission date:: 12/22/22 Discharge date: 12/24/22 Hospital Course Hospital Course Hospital Course: Ms. Ramos is a 62 year old female with a past medical history of mood disorder, DM, HLD, HTN and recurrent abdominal pain with nausea and vomiting who was admitted on 12/22/22 with ENMANUEL, nausea and vomiting. Cr was elevated at 1.7 from a baseline of 1.0. CT abd/pel was unremarkable. #enmanuel #nausea and vomiting #abdominal pain #t2dm, uncontrolled Her kidney function is improving. She was given 1L bolus of LR in the ED and followed by maintenance fluids at a rate of 100mL/hr. Her creatinine level trended down 1.7 -> 1.5 -> 1.3. Her intermittent abdominal pain a/w nausea and vomiting has been ongoing for the past 3 months. I believe the patient's recurrent episodes of n/v/abdominal pain is due to diabetic gastroparesis. She has been taking insulin for over a decade. Her a1c was checked and found to be high at 9.2. Her blood sugars were monitored and were within normal limits while on her home dose of insulin so no changes were made to her diabetic medications. She doesn't have a history of marijuana use. The only medications she's taken for her nausea and vomiting have been antiemetics. While in the hospital she received Reglan and had improvement in her symptoms. By the day of discharge her nausea had resolved and she was tolerating a clear liquid diet well. She has been on multiple medications that can interact with Reglan including Vraylar, buproprion, fluoxetine and duloxetine; she states that she has been on these medications for years and that they are prescribed by her Psychiatrist; I decided against discharging her with a new prescription of Reglan. She has an appointment with GI on 01/04/2023 and per patient there is a plan for her to have an EGD. I think she should have a gastric emptying study in the outpatient setting; consulted CM for this study to be done prior to her appointment with GI. Exam Data for Last 24 hours Vital signs and Labs for Last 24 Hours: Temp Pulse Resp BP Pulse Ox 98.6 F 80 17 138/78 99 12/24/22 07:30 12/24/22 07:30 12/24/22 07:30 12/24/22 07:30 12/24/22 08:00 Laboratory Results - last 24 hr 12/23/22 11:28: POC Glucose 109 12/23/22 13:03: Urine Color Yellow, Urine Appearance Clear, Urine pH 7.5, Ur Specific [place] 1.010, Urine Protein Negative, Urine Glucose (UA) 2+, Urine Ketones Negative, Urine Blood Negative, Urine Nitrate Negative, Urine Bilirubin Negative, Urine Urobilinogen 0.2, Ur Leukocyte Esterase Negative, Urine RBC None, Urine WBC None, Ur Squamous Epith Cells None, Urine Bacteria Trace 12/23/22 17:02: POC Glucose 90 12/23/22 20:16: POC Glucose 95 12/24/22 06:30: Sodium 139, Potassium 4.4, Chloride 104, Carbon Dioxide 28, Anion Gap 11.4, BUN 15, Creatinine 1.30 H, Estimated Creat Clear 60, Estimated GFR 42 L, Est GFR ( Amer) 51 L, Glucose 93, Calcium 8.8 12/24/22 06:30: Hemoglobin A1c 9.2 H I & O for Last 24 hours: Intake & Output 12/21/22 12/22/22 12/23/22 12/24/22 23:59 23:59 23:59 23:59 Intake Total 1000 / 1000 840 / 1657 1117 / 1117 Output Total 1600 / 1600 900 / 900 Balance 1000 / 1000 -760 / 57 217 / 217 Weight 84.096 kg 84.096 kg 82.5 kg Constitutional Constitutional: no acute distress *Routine HEENT Exam Head: Present normocephalic Eye: Present EOMI and PERRL ENT: Present mucous membranes moist *Routine Neck Exam Neck: Present supple; Absent lymphadenopathy *Routine Respiratory Exam Respiratory: Present CTA bilaterally *Routine Cardiovascular Exam Cardiovascular: Present RRR *Routine Abdominal Exam Abdominal: Present soft and normoactive bowel sounds; Absent tenderness Comments: discomfort with palpation in epigastrium *Routine Extremities Exam Extremities: Absent cyanosis, clubbing or edema *Routine Skin Exam Skin: Present warm; Absent rash *Routine Neurological Exam Neurological: Present alert and oriented X3 Results Data Completed and Pend
--- NOTE | 2022-12-25 14:02 | CARE MANAGER ---
Addendum entered by France Arzola RN 12/26/22 12:14: Correction: Not Dr. Rosenberg's patient. Addendum entered by France Arzola RN 12/26/22 12:12: Unable to reach patient via telephone. Dr. Rosenberg's office notified. Original Note: Attempted to schedule outpatient gastric emptying study. Earliest available is 01/08, which is after her GI appt (01/04). GI may need to order it if warranted following the 01/04 appt. I attempted a phone call to patient, but had to leave a VM to call CM. I will attempt another call tomorrow.
[2022-12-26 01:51] LABS: POC Glucose,Bedside 116 (70-110)
== END 2022-12-24 10:50 | disposition home or self-care (01) ==
LOC: ER 19:41 → 2ND 20:12
PROVIDERS: Nurse Practitioner Acute Care; Admitting Provider Internal Medicine; Emergency Provider Emergency Medicine; PCP Nurse Practitioner Family; Visit Provider Internal Medicine
DX: E86.0 Dehydration (principal); I10 Essential (primary) hypertension; E78.2 Mixed hyperlipidemia; Z79.4 Long term (current) use of insulin; Z79.899 Other long term (current) drug therapy; N17.9 Acute kidney failure, unspecified; E11.43 Type 2 diabetes mellitus with diabetic autonomic (poly)neuropathy; K31.84 Gastroparesis; Z20.822 Contact with and (suspected) exposure to COVID-19
CPT/HCPCS: G0378; 36415; 74177; 80048; 80053; 81001; 82962; 83036; 83690; 83735; 85025; 93005; 99285; C9803; J2405; Q9967; U0003; U0005

== ENCOUNTER → 2023-01-04 09:27 | Outpatient (CLI) | payer MEDICARE, MEDICAID, SELFPAY ==
[2023-01-04 10:29] LABS: Alanine Aminotransferase 29 U/L (12-78); Albumin Level 4.3 g/dl (3.5-5.0); Albumin/Globulin Ratio 1.5 (1.1-1.8); Alkaline Phosphatase 80 U/L (38-126); Aspartate Amino Transferase 26 U/L (14-36); Bilirubin,Total 0.3 mg/dl (0.2-1.3); Blood Urea Nitrogen 15 mg/dl (7-17); Calcium 9.1 mg/dl (8.4-10.2); Carbon Dioxide 31 mmol/L (22.0-30.0); Chloride 96 mmol/L (98-107); Estimated Glomerular Filt Rate 38 ml/min (>60); GFR (African American) 46 ML/MIN (>60); Globulin 2.9 g/dL (1.3-3.2); Glucose 95 mg/dl (74-100); Potassium 4.5 mmoL/L (3.5-5.1); Total Protein,Serum 7.2 g/dl (6.3-8.2)
[2023-01-04 11:32] LABS: Anion Gap 12.5 mEq/L (5-15); Sodium 135 mmol/L (136-145)
== END ==
PROVIDERS: PCP Nurse Practitioner Family; Visit Provider Nurse Practitioner
DX: E11.69 Type 2 diabetes mellitus with other specified complication (principal); N17.9 Acute kidney failure, unspecified; R11.0 Nausea; R11.10 Vomiting, unspecified; Z86.39 Personal history of other endocrine, nutritional and metabolic disease; Z79.4 Long term (current) use of insulin
CPT/HCPCS: 36415; 80053

== ENCOUNTER → 2023-01-08 09:50 | Outpatient (CLI) | payer MEDICARE, MEDICAID, SELFPAY ==
--- NOTE | 2023-01-08 09:56 | NM_ITS ---
FINAL REPORT TECHNIQUE: 0.50 Millicuries of technetium 99m sulfur colloid was ingested with eggs, toast and water. CLINICAL HISTORY: daily n/v- 3 years 10:20 am .50 [facility] sulfur colloid injected into 2 whole eggs white toast with butter 6 oz cup of water FINDINGS: GASTRIC EMPTYING SCAN Static images show normal emptying of the stomach into the small bowel. Based on the time activity curve, the estimated half-emptying time is 104 minutes. IMPRESSION: Normal gastric emptying study. Reviewed, Interpreted and Dictated by Miguel Jeong III, MD Transcribed by Odell Daniels Authenticated and [facility]
== END ==
PROVIDERS: PCP Nurse Practitioner Family; Visit Provider Nurse Practitioner
DX: E11.69 Type 2 diabetes mellitus with other specified complication (principal); R11.0 Nausea; R11.10 Vomiting, unspecified; Z79.4 Long term (current) use of insulin
CPT/HCPCS: 78264; A9541

== ENCOUNTER 2023-01-10 10:40 | Outpatient (CLI) | payer MEDICARE, MEDICAID, SELFPAY ==
[2023-01-10 11:00] VITALS: BP 124/75; PULSE 84; RESP 18; TEMP 36.8; O2SAT 99
== END 2023-01-10 11:10 | disposition home or self-care (01) ==
PROVIDERS: PCP Nurse Practitioner Family; Visit Provider Allergy & Immunology
DX: J45.50 Severe persistent asthma, uncomplicated (principal)
CPT/HCPCS: 96372; J2357

== ENCOUNTER 2023-01-31 16:05 | Emergency (ER) | payer MEDICARE, MEDICAID, SELFPAY ==
[2023-01-31] VITALS (7 sets, daily range): BP systolic 92–109; BP diastolic 49–65; PULSE 86–96; RESP 18; TEMP 36.4–36.9; O2SAT 96–100; BMI 31.6
--- NOTE | 2023-01-31 16:30 | PC.NURSE ---
Vick in CT notified patient completed oral contrast
--- NOTE | 2023-01-31 16:37 | CT_ITS ---
PROCEDURE INFORMATION: Exam: CT Abdomen And Pelvis With Contrast Exam date and time: 01/31/2023 5:56 PM Age: 62 years old Clinical indication: Abdominal pain; Generalized; Patient HX: N/v/abd pain; Additional info: Abdominal pain, nausea/vomiting TECHNIQUE: Imaging protocol: Computed tomography of the abdomen and pelvis with contrast. Radiation optimization: All CT scans at this facility use at least one of these dose optimization techniques: automated exposure control; mA and/or kV adjustment per patient size (includes targeted exams where dose is matched to clinical indication); or iterative reconstruction. Contrast material: ISOVUE; Contrast volume: 75 ml; Contrast route: IV; REPORTING DATA: Count of CT and Cardiac NM exams in prior 12 months: This patient has received 2 known CTs and 0 known cardiac nuclear medicine studies in the 12 months prior to the current study. COMPARISON: CT ABDOMEN PELVIS W CON 03/20/2023 18:37 FINDINGS: Liver: Mild fatty infiltration of the liver along the falciform ligament. Gallbladder and bile ducts: Gallbladder is absent. Pancreas: Normal. No ductal dilation. Spleen: Normal. No splenomegaly. Adrenal glands: Normal. No mass. Kidneys and ureters: Low attenuation renal lesions measuring up to 1.5 cm in diameter are incompletely characterized, but are likely cysts. No followup imaging is warranted. Stomach and bowel: Duodenal diverticula. Mild nonspecific bowel wall thickening of segments of small bowel. Mildly dilated segments of proximal small bowel. Appendix: Unremarkable appendix. Intraperitoneal space: Unremarkable. No free air. No significant fluid collection. Vasculature: The arteries demonstrate mild atherosclerotic disease. Lymph nodes: Unremarkable. No enlarged lymph nodes. Urinary bladder: Unremarkable as visualized. Reproductive: Unremarkable as visualized. Bones/joints: Unremarkable. No acute fracture. Soft tissues: Tiny fat containing umbilical hernia. IMPRESSION: Nonspecific appearance of the small bowel suggesting enteritis with ileus. COMMENTS: Consistent with the [employer]'s Incidental Findings Committee white paper (J Am Cb Radiol 2018): Any incidental renal lesion less than 1 cm or classified as too small to characterize, or any incidental cystic renal lesion characterized as simple-appearing, is likely benign. No follow-up imaging is recommended for these lesions per consensus recommendations based on imaging criteria.
[2023-01-31 16:43] LABS: Microscopic, Urine URINE MICROSCOPIC (MICROSCOPIC)
[2023-01-31 17:11] LABS: Alanine Aminotransferase 35 U/L (12-78); Albumin Level 4.3 g/dl (3.5-5.0); Albumin/Globulin Ratio 1.3 (1.1-1.8); Alkaline Phosphatase 93 U/L (38-126); Anion Gap 17.2 mEq/L (5-15); Aspartate Amino Transferase 33 U/L (14-36); Bilirubin,Total 0.4 mg/dl (0.2-1.3); Blood Urea Nitrogen 26 mg/dl (7-17); Calcium 8.8 mg/dl (8.4-10.2); Carbon Dioxide 29 mmol/L (22.0-30.0); Chloride 92 mmol/L (98-107); Creatinine Clearance Estimated 58 mL/min (50-200); Estimated Glomerular Filt Rate 38 ml/min (>60); GFR (African American) 46 ML/MIN (>60); Globulin 3.4 g/dL (1.3-3.2); Glucose 147 mg/dl (74-100); Lipase 178 U/L (23-300); Potassium 4.2 mmoL/L (3.5-5.1); Sodium 134 mmol/L (136-145); Total Protein,Serum 7.7 g/dl (6.3-8.2)
--- NOTE | 2023-01-31 17:21 | PC.NURSE ---
Attending notified that patient still nauseated.
[2023-01-31 17:35] LABS: Appearance,Urine CLEAR (Clear); Bilirubin,Urine Negative (Negative); Blood, Urine Negative (Negative); Color,Urine YELLOW (Yellow); Glucose,Urine (UA) 3+ (Negative); Ketones,Urine Negative (Negative); Leukocyte Esterase,Urine Negative (Negative); Nitrate,Urine Negative (Negative); Protein,Urine Negative (Negative); Specific Gravity, Urine <= 1.005 (1.005-1.030); Urobilinogen,Urine 0.2 EU/dl (0.2)
[2023-01-31 17:49] LABS: Bacteria,Urine Trace /lpf; Yeast,Urine Occasional /lpf
[2023-01-31 18:09] LABS: Basophils % 0.4 % (0.1-2.0); Eosinophils # 0.2 K/mm3 (0.0-0.4); Eosinophils % 1.7 % (0.1-12.0); Hemoglobin 14.6 g/dL (12.2-16.2); Lymphocytes # 0.9 K/mm3 (0.7-4.5); Lymphocytes % 9.9 % (10-50); Mean Corpuscular HGB Conc 31.7 g/dL (31.8-35.4); Mean Corpuscular Hemoglobin 28.9 pg (27.0-31.2); Mean Corpuscular Volume 91.1 fl (81-99); Mean Platelet Volume 7.7 fl (7.4-10.4); Monocytes # 0.3 K/mm3 (0.1-1.0); Monocytes % 3.6 % (1.7-9.3); Neutrophils # 7.6 K/mm3 (1.8-7.8); Neutrophils % 84.4 % (37.0-80.0); Platelet Count 298 K/mm3 (142-424); Red Blood Count 5.05 M/mm3 (4.20-5.40); Red Cell Distribution Width 13.9 % (11.5-17.5)
--- NOTE | 2023-01-31 18:12 | HMH.ITSTN ---
SPOKE TO RYNE ABOUT FLUIDS PRIOR TO SCAN AND SHE HAD ALREADY HAD A BAG , I INSTRUCTED HER TO FOLLOW UP WITH ANOTHER BAG AFTER HER CT SCAN DUE TO KIDNEY FUNCTION BEING LOW
--- NOTE | 2023-01-31 18:16 | PC.NURSE ---
rounded on pt no complaints at this time
--- NOTE | 2023-01-31 18:49 | HMH.EDGENADL ---
Discharge Plan Disposition Patient Disposition: Home, Self-Care Condition: Good Chief Complaint: Nausea/Vomiting/Diarrhea Prescriptions Prescriptions: No Action fluoxetine 40 mg capsule 40 mg PO DAILY bupropion HCl 150 mg tablet sustained-release 12 hr 150 mg PO BID lisinopril-hydrochlorothiazide 20-12.5 mg tablet 1 tab PO DAILY clonazepam 1 mg tablet 1 mg PO HS levothyroxine 50 mcg tablet 50 mcg PO AM buspirone 10 mg tablet 10 mg PO DAILY fluoxetine 10 mg capsule 10 mg PO DAILY montelukast 10 mg tablet 10 mg PO DAILY scopolamine base 1 mg over 3 days patch 3 day 1 patch transdermal Q3D albuterol sulfate [Ventolin HFA] 90 mcg/actuation HFA aerosol inhaler 2 inh INHALATION Q4-6H PRN (Reason: Breathing Problems) fluticasone propionate 50 mcg/actuation spray,suspension 2 spray INTRANASAL DAILY esomeprazole magnesium 20 mg capsule,delayed release(DR/EC) 20 mg PO DAILY duloxetine 60 mg capsule,delayed release(DR/EC) 60 mg PO DAILY budesonide-formoterol [Symbicort] 160-4.5 mcg/actuation HFA aerosol inhaler 1 inh INHALATION DAILY insulin glargine [Lantus Solostar U-100 Insulin] 100 unit/mL (3 mL) insulin pen See Rx Instructions .ROUTE .COMPLEX Rx Instructions: Doctor's Order Jardiance 25 mg tablet 25 mg PO DAILY Trulicity 1.5 mg/0.5 mL pen injector 1.5 mg SQ WEEKLY Vraylar 4.5 mg capsule 4.5 mg PO DAILY Referrals Follow up/Referrals: Lavinia Juarez [Primary Care Provider] - See instructions Clinical Impressions Clinical Impression: Abdominal pain, Vomiting Instructions Patient Instructions: DI for Diarrhea and Traveler's Diarrhea -- Child, DI for Nausea -- Adult Print Language Print Language: Macedonian Discharge ED Provider: Hu Granados General Adult [facility] General Chief complaint: Nausea/Vomiting/Diarrhea Stated complaint: N/V, Abdominal pain Time Seen by Provider: 01/31/23 18:56 Mode of Arrival: Wheelchair Source of Information: Patient Limitations: No Limitations Description of Symptoms (Recalled from ER Triage Doc. by RN): 62 F presents from home for 1 week of abdominal cramping with nausea/vomiting. Patient reports this as started some time ago, but flared back up on . Patient is scheduled for an EGD tomorrow with GI History of Present Illness HPI narrative: Patient presents to the emergency department with a 1 week history of abdominal cramping, nausea and vomiting. The patient has a long history of this and initially had a week where she did not have any symptoms and restarted a week ago. The patient states that she is scheduled for an EGD tomorrow with GI. Denies any fever, chills, cough, congestion. Does describe some nausea and vomiting. Denies any dysuria, hematuria or frequency. Does describe some diarrhea Related Data Home Medications Medication Instructions Recorded Confirmed albuterol sulfate 90 mcg/actuation 2 inh inhalation Q4-6H PRN 01/31/23 01/31/23 aerosol inhaler (Ventolin HFA) Breathing Problems budesonide-formoterol HFA 160 1 inh inhalation DAILY Breathing 01/31/23 01/31/23 mcg-4.5 mcg/actuation aerosol problems inhaler (Symbicort) bupropion HCl 150 mg tablet,12 hr 150 mg PO BID Mood 01/31/23 01/31/23 sustained-release buspirone 10 mg tablet 10 mg PO DAILY Mood 01/31/23 01/31/23 cariprazine 4.5 mg capsule 4.5 mg PO DAILY Mood 01/31/23 01/31/23 (Vraylar) clonazepam 1 mg tablet 1 mg PO HS Anxiety 01/31/23 01/31/23 dulaglutide 1.5 mg/0.5 mL 1.5 mg SQ WEEKLY Diabetes 01/31/23 01/31/23 subcutaneous pen injector (Trulicity) duloxetine 60 mg capsule,delayed 60 mg PO DAILY Mood 01/31/23 01/31/23 release empagliflozin 25 mg tablet 25 mg PO DAILY Diabetes 01/31/23 01/31/23 (Jardiance) esomeprazole magnesium 20 mg 20 mg PO DAILY Acid reflux 01/31/23 01/31/23 capsule,delayed release fluoxetine 10 mg capsule 10 mg PO DAILY Moo
== END 2023-01-31 19:08 | disposition home or self-care (01) ==
PROVIDERS: Emergency Provider Emergency Medicine; PCP Nurse Practitioner Family
DX: R10.9 Unspecified abdominal pain (principal); R11.2 Nausea with vomiting, unspecified; R19.7 Diarrhea, unspecified
CPT/HCPCS: 74177; 80053; 81001; 83690; 85025; 96361; 96374; 99284; 99285; J2405; Q9967

== ENCOUNTER 2023-02-01 12:39 | Day surgery (SDC) | payer MEDICARE, MEDICAID, SELFPAY ==
[2023-01-26 08:26] VITALS: BMI 31.9
[2023-02-01] VITALS (8 sets, daily range): BP systolic 91–125; BP diastolic 49–87; PULSE 83–87; RESP 16–18; TEMP 36.3–36.6; O2SAT 91–100
[2023-02-01 13:03] LABS: POC Glucose,Bedside 114 (70-110)
--- NOTE | 2023-02-01 13:42 | EXP.ANES.CKL ---
[facility] Disclaimer: The information contained in this section may have been updated after the patient was seen, as this information can be updated by other users. Medical History Anxiety Asthma Bipolar depression Chest pain Depression Eczema GERD (gastroesophageal reflux disease) High cholesterol Hypertension Insulin dependent diabetes mellitus Thyroid disease Type 2 diabetes mellitus Vomiting Surgical History History of cholecystectomy Family History Mother Cancer, Onset Age: 91 Father Cancer, Onset Age: 60 Other Diabetes Heart attack High cholesterol Hypertension Stroke Social History Smoking Status: Never smoker second hand exposure: No alcohol intake: never substance use type: denies use current occupational status: disabled Travel in the last 8 weeks: None household members: none housing: house lives independently: Yes marital status: single education level: college service: No current occupational exposures/hazards: No caffeine: Yes do you feel safe at home: Yes victim of physical abuse: No victim of emotional abuse: No victim of sexual abuse: No would you like helpful sources: No [facility] Anesthesia Checklist Patient Identification Patient Identification: Arm Band and Verbal (Name & ) Structural Data Admitted From: Home Planned Operative Procedure/s: EGD Consent for Planned Operative Procedure(s) Verified: Yes NPO Status Verified Time NPO: 00:00 Additional verifications Anesthesia Reactions: No Airway Assessment C-Spine Mobility Assessed: Yes TMJ Mobility Assessed: Yes Dentition: Edentulous Neurological Assessment Level of Consciousness: Awake Hx Seizures: No Numbness or tingling in extremities: No Anesthesia Plan Anesthesia Risk discussed: Yes Anesthesia Plan: Verified ASA Class: III Anesthesia Type: MAC
--- NOTE | 2023-02-01 13:55 | HMH.SCOPE ---
Procedure: Date: 02/01/23 Patient Date of :: 1960 Procedure Performed:: Diagnostic EGD Indications:: Nausea/Vomiting Performing Provider:: Jefferson Gipson MD Referring Provider:: Martine Gipson APRN Sedation:: Propofol Procedure:: The gastroscope was gently passed through the incisoral orifice into the oral cavity and under direct visualization the esophagus was intubated. The endoscope was passed down the esophagus, through the stomach, and into the duodenum. Color, texture, mucosa, and anatomy of the esophagus, stomach, and duodenum were carefully examined with the scope. Findings:: Oropharynx: normal Esophagus: normal EG Junction: intact at 40 cm Cardia: normal Fundus: normal Body: normal Antrum: normal Duodenal bulb: normal Duodenum (second and third portion): normal Impression: Normal EGD, no evidence of outlet obstruction . Recommendations:: Stop Trulicity. Symptomatic therapy as indicated. F/U with GI Clinic Complications:: None Estimated blood obtained (mL): 0
== END 2023-02-01 14:50 | disposition home or self-care (01) ==
PROVIDERS: PCP Nurse Practitioner Family; Visit Provider Internal Medicine Gastroenterology
PROC: 0DJ08ZZ Inspection of Upper Intestinal Tract, Via Natural or Artificial Opening Endoscopic (ICD-10-PCS; CPT 43235; principal; 2023-02-01 14:00)
DX: R11.2 Nausea with vomiting, unspecified (principal); E11.9 Type 2 diabetes mellitus without complications
CPT/HCPCS: 43235; 82962

== ENCOUNTER 2023-02-13 09:26 | Outpatient (CLI) | payer MEDICARE, MEDICAID, SELFPAY ==
[2023-02-13 09:26] VITALS: BP 135/74; PULSE 79; RESP 18; O2SAT 96
== END 2023-02-13 10:00 | disposition home or self-care (01) ==
LOC: INF 09:28
PROVIDERS: PCP Nurse Practitioner Family; Visit Provider Allergy & Immunology
DX: J45.50 Severe persistent asthma, uncomplicated (principal)
CPT/HCPCS: 96372; J2357

== ENCOUNTER 2023-03-14 10:32 | Outpatient (CLI) | payer MEDICARE, MEDICAID, SELFPAY ==
[2023-03-14 11:04] VITALS: BP 113/60; PULSE 89; RESP 18; TEMP 36.3; O2SAT 98
== END 2023-03-14 11:16 | disposition home or self-care (01) ==
LOC: INF 10:33
PROVIDERS: PCP Nurse Practitioner Family; Visit Provider Allergy & Immunology
DX: J45.50 Severe persistent asthma, uncomplicated (principal)
CPT/HCPCS: 96372; J2357

== ENCOUNTER 2023-03-26 19:30 | Emergency (ER) | payer MEDICARE, MEDICAID, SELFPAY ==
[2023-03-26] VITALS (10 sets, daily range): BP systolic 118–150; BP diastolic 60–79; PULSE 79–92; RESP 18; TEMP 36.6–36.8; O2SAT 96–100; BMI 31.1
--- NOTE | 2023-03-26 19:43 | CT_ITS ---
PROCEDURE INFORMATION: Exam: CT Abdomen And Pelvis With Contrast Exam date and time: 03/26/2023 8:45 PM Age: 63 years old Clinical indication: Abdominal pain; Right; Prior surgery; Surgery date: 6+ months; Surgery type: Cholecystectomy; Patient HX: RT flank pain w nausea x days TECHNIQUE: Imaging protocol: Computed tomography of the abdomen and pelvis with contrast. Radiation optimization: All CT scans at this facility use at least one of these dose optimization techniques: automated exposure control; mA and/or kV adjustment per patient size (includes targeted exams where dose is matched to clinical indication); or iterative reconstruction. Contrast material: ISOVUE; Contrast volume: 75 ml; Contrast route: IV; REPORTING DATA: Count of CT and Cardiac NM exams in prior 12 months: This patient has received 3 known CTs and 0 known cardiac nuclear medicine studies in the 12 months prior to the current study. COMPARISON: CT ABDOMEN PELVIS W CON 01/31/2023 5:56 PM FINDINGS: Lungs: Mild atelectasis in the lung bases. Heart: Heart size normal. Mediastinal space: The visualized distal esophagus is largely contracted without gross abnormality. Liver: Question mild generalized fatty infiltration of the liver. Normal contour. No mass lesions. No intrahepatic biliary ductal dilatation. Gallbladder and bile ducts: Prior cholecystectomy with expected mild postoperative dilatation of the common bile duct. This is unchanged. Small periampullary duodenal diverticulum noted. Pancreas: Normal. No inflammatory changes or ductal dilation. Spleen: Normal. No splenomegaly. Adrenal glands: Normal. No adrenal mass. Kidneys and ureters: No acute abnormalities. No hydronephrosis or hydroureter. No urinary tract stones are identified. There is a low-density circumscribed right renal cortical lesion suggesting renal cyst for which no further imaging evaluation is required. Stomach and bowel: The stomach is largely contracted. Mildly excessive fluid content in the distal small bowel and proximal colonwith mildly increased mucosal enhancement, suggesting developing diarrheal state and mild enterocolitis. No small bowel dilatation or transition point suggestive of bowel obstruction was identified. No evidence of perforation or abscess. Appendix: The appendix is normal in caliber and demonstrates no evidence of appendicitis. Intraperitoneal space: No free fluid or air. Vasculature: No acute process. No abdominal aortic aneurysm. Mild-moderate calcific atherosclerosis. Lymph nodes: No adenopathy. Urinary bladder: The urinary bladder is moderately distended but otherwise unremarkable. Reproductive: Unremarkable as visualized. Bones/joints: No acute osseous abnormalities. Moderate canal stenosis L3-L4. Soft tissues: Unremarkable. IMPRESSION: 1. Findings suspicious for mild enterocolitis and developing diarrheal state. No evidence of bowel obstruction, perforation, or abscess. 2. Question mild fatty infiltration of the liver. 3. Additional nonemergent findings detailed above. COMMENTS: Consistent with the [employer]'s Incidental Findings Committee white paper (J Am Cb Radiol 2018): Any incidental renal lesion less than 1 cm or classified as too small to characterize, or any incidental cystic renal lesion characterized as simple-appearing, is likely benign. No follow-up imaging is recommended for these lesions per consensus recommendations based on imaging criteria.
--- NOTE | 2023-03-26 19:51 | HMH.EDGENADL ---
Discharge Plan Disposition Patient Disposition: Still a Patient Prescriptions Prescriptions: No Action fluoxetine 40 mg capsule 40 mg PO DAILY bupropion HCl 150 mg tablet sustained-release 12 hr 150 mg PO BID lisinopril-hydrochlorothiazide 20-12.5 mg tablet 1 tab PO DAILY clonazepam 1 mg tablet 1 mg PO HS levothyroxine 50 mcg tablet 50 mcg PO AM buspirone 10 mg tablet 10 mg PO DAILY fluoxetine 10 mg capsule 10 mg PO DAILY montelukast 10 mg tablet 10 mg PO DAILY scopolamine base 1 mg over 3 days patch 3 day 1 patch transdermal Q3D albuterol sulfate [Ventolin HFA] 90 mcg/actuation HFA aerosol inhaler 2 inh INHALATION Q4-6H PRN (Reason: Breathing Problems) fluticasone propionate 50 mcg/actuation spray,suspension 2 spray INTRANASAL DAILY esomeprazole magnesium 20 mg capsule,delayed release(DR/EC) 20 mg PO DAILY duloxetine 60 mg capsule,delayed release(DR/EC) 60 mg PO DAILY budesonide-formoterol [Symbicort] 160-4.5 mcg/actuation HFA aerosol inhaler 1 inh INHALATION DAILY insulin glargine [Lantus Solostar U-100 Insulin] 100 unit/mL (3 mL) insulin pen See Rx Instructions .ROUTE .COMPLEX Rx Instructions: Doctor's Order Jardiance 25 mg tablet 25 mg PO DAILY Vraylar 4.5 mg capsule 4.5 mg PO DAILY Kerendia 10 mg Tablet 10 mg PO DAILY amitriptyline 10 mg tablet 10 mg PO HS Referrals Follow up/Referrals: Lavinia Juarez [Primary Care Provider] - See instructions Clinical Impressions Clinical Impression: Abdominal pain Instructions Patient Instructions: DI for Acute Abdominal Pain Discharge ED Provider: Vick Rose General Adult HPI General Chief complaint: Abdominal Pain Stated complaint: right side abd pain Time Seen by Provider: 03/26/23 19:30 Mode of Arrival: Ambulatory Source of Information: Patient Limitations: No Limitations Description of Symptoms (Recalled from ER Triage Doc. by RN): pt reports that she is having RLQ pain. the pt states that its a sickening pain and that this is the first episode of this pain. the pt states that she had a normal BM this am. History of Present Illness HPI narrative: 63-year-old female presents with right-sided abdominal pain. She says the pain has been ongoing for the last 6 hours is constant dull nonradiating. She says she has not had constipation diarrhea or vomiting. No history of abdominal surgeries. Pain is not worse with eating. No bleeding per rectum. No dysuria or hematuria. No vaginal discharge or bleeding Related Data Home Medications Medication Instructions Recorded Confirmed albuterol sulfate 90 mcg/actuation 2 inh inhalation Q4-6H PRN 01/31/23 03/14/23 aerosol inhaler (Ventolin HFA) Breathing Problems budesonide-formoterol HFA 160 1 inh inhalation DAILY Breathing 01/31/23 03/14/23 mcg-4.5 mcg/actuation aerosol problems inhaler (Symbicort) bupropion HCl 150 mg tablet,12 hr 150 mg PO BID Mood 01/31/23 03/14/23 sustained-release buspirone 10 mg tablet 10 mg PO DAILY Mood 01/31/23 03/14/23 cariprazine 4.5 mg capsule 4.5 mg PO DAILY Mood 01/31/23 03/14/23 (Vraylar) clonazepam 1 mg tablet 1 mg PO HS Anxiety 01/31/23 03/14/23 duloxetine 60 mg capsule,delayed 60 mg PO DAILY Mood 01/31/23 03/14/23 release empagliflozin 25 mg tablet 25 mg PO DAILY Diabetes 01/31/23 03/14/23 (Jardiance) esomeprazole magnesium 20 mg 20 mg PO DAILY Acid reflux 01/31/23 03/14/23 capsule,delayed release fluoxetine 10 mg capsule 10 mg PO DAILY Mood 01/31/23 03/14/23 fluoxetine 40 mg capsule 40 mg PO DAILY Mood 01/31/23 03/14/23 fluticasone propionate 50 2 spray intranasal DAILY Allergy 01/31/23 03/14/23 mcg/actuation nasal symptoms spray,suspension insulin glargine 100 unit/mL (3 See Rx Instructions .Route 01/31/23 03/14/23 mL) subcutaneous pen (Lantus .COMPLEX Diabetes Solostar U-100 Insulin) levothyroxine 50 mcg tablet 50
[2023-03-26 19:56] LABS: Microscopic, Urine URINE MICROSCOPIC (MICROSCOPIC)
[2023-03-26 20:04] LABS: Appearance,Urine CLEAR (Clear); Bilirubin,Urine Negative (Negative); Blood, Urine Negative (Negative); Color,Urine YELLOW (Yellow); Glucose,Urine (UA) 3+ (Negative); Ketones,Urine Negative (Negative); Leukocyte Esterase,Urine TRACE (Negative); Nitrate,Urine Negative (Negative); Protein,Urine Negative (Negative); Specific Gravity, Urine <= 1.005 (1.005-1.030); Urobilinogen,Urine 0.2 EU/dl (0.2)
[2023-03-26 20:11] LABS: Basophils # 0.1 K/mm3 (0-0.2); Eosinophils # 0.2 K/mm3 (0.0-0.4); Eosinophils % 2.8 % (0.1-12.0); Hematocrit 47.9 % (37.0-47.0); Lymphocytes # 2.5 K/mm3 (0.7-4.5); Lymphocytes % 38.8 % (10-50); Mean Corpuscular HGB Conc 31.3 g/dL (31.8-35.4); Mean Corpuscular Hemoglobin 28.4 pg (27.0-31.2); Mean Corpuscular Volume 90.9 fl (81-99); Mean Platelet Volume 7.3 fl (7.4-10.4); Monocytes # 0.3 K/mm3 (0.1-1.0); Monocytes % 4.8 % (1.7-9.3); Neutrophils # 3.4 K/mm3 (1.8-7.8); Neutrophils % 52.7 % (37.0-80.0); Platelet Count 264 K/mm3 (142-424); Red Blood Count 5.27 M/mm3 (4.20-5.40); Red Cell Distribution Width 13.1 % (11.5-17.5); White Blood Count 6.4 K/mm3 (4.8-10.8)
[2023-03-26 20:12] LABS: Chloride 102 mmol/L (98-107)
[2023-03-26 20:13] LABS: Potassium 4.2 mmoL/L (3.5-5.1); Sodium 138 mmol/L (136-145)
[2023-03-26 20:15] LABS: Alanine Aminotransferase 32 U/L (12-78); Albumin Level 4.6 g/dl (3.5-5.0); Albumin/Globulin Ratio 1.2 (1.1-1.8); Alkaline Phosphatase 133 U/L (38-126); Anion Gap 13.2 mEq/L (5-15); Aspartate Amino Transferase 34 U/L (14-36); Bilirubin,Total 0.3 mg/dl (0.2-1.3); Blood Urea Nitrogen 26 mg/dl (7-17); Calcium 9.5 mg/dl (8.4-10.2); Carbon Dioxide 27 mmol/L (22.0-30.0); Creatinine Clearance Estimated 53 mL/min (50-200); Estimated Glomerular Filt Rate 35 ml/min (>60); GFR (African American) 43 ML/MIN (>60); Globulin 3.9 g/dL (1.3-3.2); Glucose 148 mg/dl (74-100); Lipase 159 U/L (23-300); Total Protein,Serum 8.5 g/dl (6.3-8.2)
[2023-03-26 20:27] LABS: WBC,Urine Occasional #/hpf (0-3)
--- NOTE | 2023-03-26 20:38 | PC.NURSE ---
notified rad staff pt IVF are complete states will be over to get pt for CT
--- NOTE | 2023-03-26 20:46 | PC.NURSE ---
pt over to CT
== END 2023-03-26 22:47 | disposition home or self-care (01) ==
PROVIDERS: Emergency Medicine; Emergency Provider Emergency Medicine; PCP Nurse Practitioner Family
DX: R10.31 Right lower quadrant pain (principal); F41.9 Anxiety disorder, unspecified; J45.909 Unspecified asthma, uncomplicated; F31.9 Bipolar disorder, unspecified; K21.9 Gastro-esophageal reflux disease without esophagitis; E78.00 Pure hypercholesterolemia, unspecified; I10 Essential (primary) hypertension; E11.9 Type 2 diabetes mellitus without complications; E07.9 Disorder of thyroid, unspecified; F17.200 Nicotine dependence, unspecified, uncomplicated
CPT/HCPCS: 74177; 80053; 81001; 83690; 85025; 96361; 96374; 99284; 99285; J2405; Q9967

== ENCOUNTER 2023-04-09 12:29 | Outpatient (CLI) | payer MEDICARE, MEDICAID, SELFPAY ==
[2023-04-09 12:55] VITALS: BP 102/61; PULSE 62; RESP 18; TEMP 36.8; O2SAT 98
== END 2023-04-09 13:15 | disposition home or self-care (01) ==
LOC: INF 12:30
PROVIDERS: PCP Nurse Practitioner Family; Visit Provider Allergy & Immunology
DX: J45.50 Severe persistent asthma, uncomplicated (principal)
CPT/HCPCS: 96372; J2357

== ENCOUNTER 2023-04-20 11:23 | Emergency (ER) | payer MEDICARE, MEDICAID, SELFPAY ==
[2023-04-20 11:32] VITALS: BP 152/85; PULSE 80; RESP 16; TEMP 36.6; O2SAT 97; BMI 30.7
--- NOTE | 2023-04-20 11:38 | CT_ITS ---
FINAL REPORT TECHNIQUE: Axial CT images of the face were obtained without contrast. Coronal reformatted images were also obtained. This study was performed with techniques to keep radiation doses as low as reasonably achievable, (ALARA). Individualized dose reduction techniques using automated exposure control or adjustment of mA and/or kV according to the patient''s size were employed. CLINICAL HISTORY: fall head/face injury COMPARISON: None FINDINGS: There are fractures of the right anterior and posterior lateral right maxillary sinus lynn and right orbit floor. There is no evidence of extraocular muscle entrapment. There is deformity of the nasal septum. Fracture is not excluded. Right face soft tissue air is noted. There is a fluid level in the right maxillary sinus, likely hemorrhage. The globes are intact. There is right periorbital soft tissue swelling. IMPRESSION: Fractures right anterior and posterior lateral right maxillary sinus lynn and right orbital floor. Nasal septum deformity with possible fracture. Likely hemorrhage right maxillary sinus. Right face soft tissue air. Right periorbital soft tissue swelling. Reviewed, Interpreted and Dictated by Miguel Jeong III, MD Transcribed by Marleny Briceño Authenticated and [facility]
--- NOTE | 2023-04-20 11:38 | CT_ITS ---
FINAL REPORT CLINICAL HISTORY: fall head/face injury COMPARISON: 11/15/2022 FINDINGS: Axial images of the head were obtained without contrast. Coronal reformatted images were also obtained.This study was performed with techniques to keep radiation doses as low as reasonably achievable (ALARA). Individualized dose reduction techniques using automated exposure control or adjustment of mA and/or kV according to the patient''s size were employed. There is no evidence of intracranial hemorrhage or mass. The ventricular size is within normal limits. There is no evidence of shift of the midline structures. No abnormal extra axial fluid collection is identified. No skull abnormality is seen on the bone window images. IMPRESSION: No acute intracranial abnormality. Reviewed, Interpreted and Dictated by Miguel Jeong III, MD Transcribed by Marleny Briceño Authenticated and [facility]
--- NOTE | 2023-04-20 11:39 | HMH.EDGENADL ---
Discharge Plan Disposition Patient Disposition: Home, Self-Care Prescriptions Prescriptions: New hydrocodone-acetaminophen 5-325 mg tablet 1 tab PO Q6H PRN (Reason: pain) 3 Days Qty: 12 0RF pseudoephedrine HCl 120 mg tablet extended release 120 mg PO BID PRN (Reason: nasal congestion) 7 Days Qty: 14 0RF No Action fluoxetine 40 mg capsule 40 mg PO DAILY bupropion HCl 150 mg tablet sustained-release 12 hr 150 mg PO BID lisinopril-hydrochlorothiazide 20-12.5 mg tablet 1 tab PO DAILY clonazepam 1 mg tablet 1 mg PO HS levothyroxine 50 mcg tablet 50 mcg PO AM buspirone 10 mg tablet 10 mg PO DAILY fluoxetine 10 mg capsule 10 mg PO DAILY montelukast 10 mg tablet 10 mg PO DAILY scopolamine base 1 mg over 3 days patch 3 day 1 patch transdermal Q3D albuterol sulfate [Ventolin HFA] 90 mcg/actuation HFA aerosol inhaler 2 inh INHALATION Q4-6H PRN (Reason: Breathing Problems) fluticasone propionate 50 mcg/actuation spray,suspension 2 spray INTRANASAL DAILY esomeprazole magnesium 20 mg capsule,delayed release(DR/EC) 20 mg PO DAILY duloxetine 60 mg capsule,delayed release(DR/EC) 60 mg PO DAILY budesonide-formoterol [Symbicort] 160-4.5 mcg/actuation HFA aerosol inhaler 1 inh INHALATION DAILY insulin glargine [Lantus Solostar U-100 Insulin] 100 unit/mL (3 mL) insulin pen See Rx Instructions .ROUTE .COMPLEX Rx Instructions: Doctor's Order Jardiance 25 mg tablet 25 mg PO DAILY Vraylar 4.5 mg capsule 4.5 mg PO DAILY Kerendia 10 mg Tablet 10 mg PO DAILY amitriptyline 10 mg tablet 10 mg PO HS Referrals Follow up/Referrals: Farhan Khan III, MD [Staff Physician] - See instructions (follow up for maxillary sinus fracture and inferior orbital wall ) Clinical Impressions Clinical Impression: Minor head injury, Fracture of maxillary sinus, Fracture of inferior orbital wall Concussion Qualifiers: Encounter type: initial encounter Loss of consciousness presence/duration: without LOC Qualified Code(s): S06.0X0A - Concussion without loss of consciousness, initial encounter Contusion of face Qualifiers: Encounter type: initial encounter Qualified Code(s): S00.83XA - Contusion of other part of head, initial encounter Discharge ED Provider: Hardy Saba General Adult HPI General Chief complaint: Fall Stated complaint: fall Time Seen by Provider: 04/20/23 11:25 History of Present Illness HPI narrative: 63-year-old female with a history of CKD and diabetes at her normal state of health earlier today 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 She does states that she is low bit more out of it than normal. No focal neurologic deficits from historical standpoint. No persistent nausea and vomiting. She was brought in by EMS. She denies any neck pain. She denies injuries elsewhere. She denies syncope lightheadedness or any other symptoms preceding her event today. Related Data Home Medications Medication Instructions Recorded Confirmed albuterol sulfate 90 mcg/actuation 2 inh inhalation Q4-6H PRN 01/31/23 04/09/23 aerosol inhaler (Ventolin HFA) Breathing Problems budesonide-formoterol HFA 160 1 inh inhalation DAILY Breathing 01/31/23 04/09/23 mcg-4.5 mcg/actuation aerosol problems inhaler (Symbicort) bupropion HCl 150 mg tablet,12 hr 150 mg PO BID Mood 01/31/23 04/09/23 sustained-release buspirone 10 mg tablet 10 mg PO DAILY Mood 01/31/23 04/09/23 cariprazine 4.5 mg capsule 4.5 mg PO DAILY Mood 01/31/23 04/09/23 (Vraylar) clonazepam 1 mg tablet 1 mg PO HS Anxiety 01/31/23 04/09/23 duloxetine 60 mg capsule,delayed 60 mg PO DAILY Mood 01/31/23 04/09/23 release empagliflozin 25 mg tablet 25 mg PO DAILY Diabetes 01/31/23 04/09/23 (Jardiance) esomeprazole magnesium 20 mg 20
[2023-04-20 12:30] VITALS: BP 139/78; PULSE 76; O2SAT 98
[2023-04-20 13:00] VITALS: BP 135/83; PULSE 74; O2SAT 96
[2023-04-20 14:02] VITALS: BP 135/83; PULSE 74; RESP 16; TEMP 36.7
== END 2023-04-20 14:02 | disposition home or self-care (01) ==
PROVIDERS: Emergency Provider Student in an Organized Health Care Education/Training Program; PCP Nurse Practitioner Family
DX: I12.9 Hypertensive chronic kidney disease with stage 1 through stage 4 chronic kidney disease, or unspecified chronic kidney disease (principal); S02.31XA Fracture of orbital floor, right side, initial encounter for closed fracture; S02.40CA Maxillary fracture, right side, initial encounter for closed fracture; E11.22 Type 2 diabetes mellitus with diabetic chronic kidney disease; N18.9 Chronic kidney disease, unspecified; F41.9 Anxiety disorder, unspecified; F31.9 Bipolar disorder, unspecified; J45.909 Unspecified asthma, uncomplicated; K21.9 Gastro-esophageal reflux disease without esophagitis; E78.00 Pure hypercholesterolemia, unspecified; E07.9 Disorder of thyroid, unspecified; F17.200 Nicotine dependence, unspecified, uncomplicated; W10.9XXA Fall (on) (from) unspecified stairs and steps, initial encounter
CPT/HCPCS: 70450; 70486; 96374; 96375; 99285; J2405

== ENCOUNTER 2023-05-09 10:22 | Outpatient (CLI) | payer MEDICARE, MEDICAID, SELFPAY ==
[2023-05-09 10:44] VITALS: BP 136/72; PULSE 83; RESP 18; O2SAT 97
--- NOTE | 2023-05-09 10:53 | CT_ITS ---
FINAL REPORT TECHNIQUE: Multiple axial CT sections were performed through the face without IV contrast. Coronal reconstruction images were performed. This study was performed with techniques to keep radiation doses as low as reasonably achievable (ALARA). Individualized dose reduction techniques using automated exposure control or adjustment of mA and/or kV according to the patient's size were employed. CLINICAL HISTORY: FX OF MULTIPLE BONES OF FACE F/U COMPARISON: 04/20/2023 FINDINGS: Facial Bones: The blowout fracture of the right orbital floor is once again identified, along with a fracture of the lateral wall of the maxillary sinus on the right side. The subcutaneous emphysema has resolved. The fluid in the right maxillary sinus is markedly decreased, with lobular soft tissue thickening of the lateral wall of the maxillary sinus. These findings are all consistent with subacute fractures. Nasal passages and mastoid air cells: The mastoid air cells are clear. Optic globes: The optic globes are unremarkable and symmetric. Soft tissues: No significant soft tissue swelling. IMPRESSION: Subacute fractures of the right orbital floor and lateral wall of the right maxillary sinus as described, with decreased fluid in the right maxillary sinus and lobular soft tissue thickening along the right lateral sinus wall. Reviewed, Interpreted and Dictated by Jesse Romero MD Transcribed by Kadie Dewey Authenticated and [facility]
== END 2023-05-09 10:50 | disposition home or self-care (01) ==
PROVIDERS: PCP Nurse Practitioner Family; Visit Provider Nurse Practitioner Family
DX: S02.92XD Unspecified fracture of facial bones, subsequent encounter for fracture with routine healing (principal); J45.50 Severe persistent asthma, uncomplicated
CPT/HCPCS: 70486; 96372; J2357

== ENCOUNTER 2023-06-06 12:16 | Outpatient (CLI) | payer MEDICARE, MEDICAID, SELFPAY ==
[2023-06-06 12:45] VITALS: BP 128/75; PULSE 103; RESP 18; O2SAT 99
== END 2023-06-06 12:55 | disposition home or self-care (01) ==
LOC: INF 12:18
PROVIDERS: PCP Nurse Practitioner Family; Visit Provider Nurse Practitioner
DX: J45.50 Severe persistent asthma, uncomplicated (principal)
CPT/HCPCS: 96372; J2357

== ENCOUNTER → 2023-06-27 09:54 | Outpatient (CLI) | payer MEDICARE, MEDICAID, SELFPAY ==
--- NOTE | 2023-06-27 09:59 | MM_ITS ---
PROCEDURE INFORMATION: Exam: MG Bilateral Screening 3D Mammography Exam date and time: 06/27/2023 9:59 AM Age: 63 years old Clinical indication: Screening examination TECHNIQUE: Imaging protocol: Bilateral Screening tomosynthesis and 2D mammography including computer-aided detection (CAD) when performed. COMPARISON: 1. MG MM DIG SCREENING MAMM BI W/CAD 04/25/2022 12:59 PM 2. MG MM DIG SCREENING MAMM BI W/CAD 03/17/2020 3:56 PM FINDINGS: MAMMOGRAPHY: Breast composition: The breasts are heterogeneously dense, which may obscure small masses. Mass: None. Architectural distortion: None. Calcifications: No suspicious calcifications. Asymmetric density: None. Skin thickening: None. Axillary adenopathy: None. IMPRESSION: No mammographic evidence of malignancy. Annual screening is recommended unless otherwise clinically indicated. ASSESSMENT: BI-RADS Category 1: Negative
== END ==
PROVIDERS: PCP Nurse Practitioner Family; Visit Provider Nurse Practitioner Family
DX: Z12.31 Encounter for screening mammogram for malignant neoplasm of breast (principal)
CPT/HCPCS: 77063; 77067

== ENCOUNTER 2023-07-04 11:11 | Outpatient (CLI) | payer MEDICARE, MEDICAID, SELFPAY ==
[2023-07-04 12:00] VITALS: BP 122/90; PULSE 79; RESP 20; TEMP 36.2; O2SAT 99
== END 2023-07-04 12:15 | disposition home or self-care (01) ==
LOC: INF 11:12
PROVIDERS: PCP Nurse Practitioner Family; Visit Provider Allergy & Immunology
DX: J45.50 Severe persistent asthma, uncomplicated (principal)
CPT/HCPCS: 96372; J2357

== ENCOUNTER 2023-08-01 10:12 | Outpatient (CLI) | payer MEDICARE, MEDICAID, SELFPAY ==
[2023-08-01 10:45] VITALS: BP 128/71; PULSE 87; RESP 20; TEMP 36.3; O2SAT 98
== END 2023-08-01 11:00 | disposition home or self-care (01) ==
LOC: INF 10:13
PROVIDERS: PCP Nurse Practitioner Family; Visit Provider Allergy & Immunology
DX: J45.50 Severe persistent asthma, uncomplicated (principal)
CPT/HCPCS: 96372; J2357

== ENCOUNTER 2023-08-29 12:03 | Outpatient (CLI) | payer MEDICARE, MEDICAID, SELFPAY ==
[2023-08-29 12:30] VITALS: BP 137/63; PULSE 90; RESP 18; TEMP 36.6; O2SAT 98
== END 2023-08-29 12:55 | disposition home or self-care (01) ==
PROVIDERS: PCP Nurse Practitioner Family; Visit Provider Nurse Practitioner
DX: J45.50 Severe persistent asthma, uncomplicated (principal)
CPT/HCPCS: 96372; J2357

== ENCOUNTER 2023-09-05 17:05 | Emergency (ER) | payer MEDICARE, MEDICAID, SELFPAY ==
[2023-09-05 17:06] VITALS: BP 148/75; PULSE 75; RESP 16; TEMP 36.6; O2SAT 100; BMI 29.8
--- NOTE | 2023-09-05 17:27 | CT_ITS ---
PROCEDURE INFORMATION: Exam: CT Head Without Contrast Exam date and time: 09/05/2023 5:46 PM Age: 63 years old Clinical indication: Injury or trauma; Fall; Blunt trauma (contusions or hematomas); Additional info: Head injury TECHNIQUE: Imaging protocol: Computed tomography of the head without contrast. Radiation optimization: All CT scans at this facility use at least one of these dose optimization techniques: automated exposure control; mA and/or kV adjustment per patient size (includes targeted exams where dose is matched to clinical indication); or iterative reconstruction. REPORTING DATA: Count of CT and Cardiac NM exams in prior 12 months: This patient has received 7 known CTs and 0 known cardiac nuclear medicine studies in the 12 months prior to the current study. COMPARISON: CT HEAD/BRAIN WO CON 04/20/2023 12:03 PM FINDINGS: Brain: Age-related involutional changes and chronic microvascular ischemic disease. No evidence for acute transcortical infarct. No mass effect or midline shift. No extra-axial collection. No acute intracranial hemorrhage. Basal cisterns are patent. Cerebral ventricles: No ventriculomegaly. Paranasal sinuses: Visualized sinuses are unremarkable. No fluid levels. Mastoid air cells: Visualized mastoid air cells are well aerated. Bones/joints: Unremarkable. No acute fracture. Soft tissues: Unremarkable. IMPRESSION: No evidence for acute transcortical infarct, acute intracranial hemorrhage, or mass effect.
--- NOTE | 2023-09-05 17:27 | HMH.EDGENADL ---
Discharge Plan Disposition Patient Disposition: Home, Self-Care Condition: Good Prescriptions Prescriptions: No Action fluoxetine 40 mg capsule 40 mg PO DAILY bupropion HCl 150 mg tablet sustained-release 12 hr 150 mg PO BID lisinopril-hydrochlorothiazide 20-12.5 mg tablet 1 tab PO DAILY clonazepam 1 mg tablet 1 mg PO HS levothyroxine 50 mcg tablet 50 mcg PO AM buspirone 10 mg tablet 10 mg PO DAILY fluoxetine 10 mg capsule 10 mg PO DAILY montelukast 10 mg tablet 10 mg PO DAILY scopolamine base 1 mg over 3 days patch 3 day 1 patch transdermal Q3D albuterol sulfate [Ventolin HFA] 90 mcg/actuation HFA aerosol inhaler 2 inh INHALATION Q4-6H PRN (Reason: Breathing Problems) fluticasone propionate 50 mcg/actuation spray,suspension 2 spray INTRANASAL DAILY esomeprazole magnesium 20 mg capsule,delayed release(DR/EC) 20 mg PO DAILY duloxetine 60 mg capsule,delayed release(DR/EC) 60 mg PO DAILY budesonide-formoterol [Symbicort] 160-4.5 mcg/actuation HFA aerosol inhaler 1 inh INHALATION DAILY insulin glargine [Lantus Solostar U-100 Insulin] 100 unit/mL (3 mL) insulin pen See Rx Instructions .ROUTE .COMPLEX Rx Instructions: Doctor's Order Jardiance 25 mg tablet 25 mg PO DAILY Vraylar 4.5 mg capsule 4.5 mg PO DAILY hydrocodone-acetaminophen 5-325 mg tablet 1 tab PO Q6H PRN (Reason: pain) 3 Days Qty: 12 0RF pseudoephedrine HCl 120 mg tablet extended release 120 mg PO BID PRN (Reason: nasal congestion) 7 Days Qty: 14 0RF Kerendia 10 mg Tablet 10 mg PO DAILY amitriptyline 10 mg tablet 10 mg PO HS Referrals Follow up/Referrals: Lavinia Juarez [Primary Care Provider] - See instructions Activity Restrictions/Add. Instructions Additional Instructions/Restrictions: You were evaluated in the emergency department today. Take Tylenol and ibuprofen at home as needed for pain. Follow-up with your primary care provider over the next 3 days for reassessment. Return to the emergency department for new or worsening symptoms. Clinical Impressions Clinical Impression: Minor closed head injury Instructions Patient Instructions: DI for Closed Head Injury Discharge ED Provider: Daina Grey General Adult HPI General Chief complaint: Head Injury Stated complaint: AO 09/05, head pain Time Seen by Provider: 09/05/23 17:08 History of Present Illness HPI narrative: This patient is a 63-year-old female with a history of hypertension, hyperlipidemia, diabetes, bipolar disorder, and asthma presented to the emergency department for evaluation with concern for closed head injury. Patient reports that she raised up and hit the back of her head on a metal cabinet handle. This happened approximate 1 hour prior to arrival. She states that she hit it so hard it threw her into the wall. She is unsure if she lost consciousness or not. No other injuries noted. She was well prior to this. She does not take any blood thinners. Related Data Home Medications Medication Instructions Recorded Confirmed albuterol sulfate 90 mcg/actuation 2 inh inhalation Q4-6H PRN 01/31/23 08/29/23 aerosol inhaler (Ventolin HFA) Breathing Problems budesonide-formoterol HFA 160 1 inh inhalation DAILY Breathing 01/31/23 08/29/23 mcg-4.5 mcg/actuation aerosol problems inhaler (Symbicort) bupropion HCl 150 mg tablet,12 hr 150 mg PO BID Mood 01/31/23 08/29/23 sustained-release buspirone 10 mg tablet 10 mg PO DAILY Mood 01/31/23 08/29/23 cariprazine 4.5 mg capsule 4.5 mg PO DAILY Mood 01/31/23 08/29/23 (Vraylar) clonazepam 1 mg tablet 1 mg PO HS Anxiety 01/31/23 08/29/23 duloxetine 60 mg capsule,delayed 60 mg PO DAILY Mood 01/31/23 08/29/23 release empagliflozin 25 mg tablet 25 mg PO DAILY Diabetes 01/31/23 08/29/23 (Jardiance) esomeprazole magnesium 20 mg 20 mg PO DAILY Acid reflux 01/31/23 08/29/23 capsu
[2023-09-05 17:31] VITALS: BP 112/68; PULSE 94; O2SAT 100
[2023-09-05 17:46] LABS: POC Glucose,Bedside 248 (70-110)
[2023-09-05 18:00] VITALS: BP 136/69; PULSE 90; O2SAT 98
[2023-09-05 18:57] VITALS: BP 120/66; PULSE 87; RESP 18; TEMP 36.6; O2SAT 100
== END 2023-09-05 18:58 | disposition home or self-care (01) ==
PROVIDERS: Emergency Provider Emergency Medicine; PCP Nurse Practitioner Family
DX: S09.90XA Unspecified injury of head, initial encounter (principal); I10 Essential (primary) hypertension; E78.5 Hyperlipidemia, unspecified; E11.9 Type 2 diabetes mellitus without complications; J45.909 Unspecified asthma, uncomplicated; K21.9 Gastro-esophageal reflux disease without esophagitis; E03.9 Hypothyroidism, unspecified; Z79.4 Long term (current) use of insulin; Z79.84 Long term (current) use of oral hypoglycemic drugs; W22.8XXA Striking against or struck by other objects, initial encounter
CPT/HCPCS: 70450; 82962; 96372; 99284

== ENCOUNTER 2023-09-26 11:40 | Outpatient (CLI) | payer MEDICARE, MEDICAID, SELFPAY ==
[2023-09-26 12:01] VITALS: BP 128/75; PULSE 88; RESP 16; TEMP 36.4; O2SAT 96
[2023-09-26] MEDS: OMALIZUMAB 150MG VIAL 300 MG SQ (12:01)
== END 2023-09-26 12:10 | disposition home or self-care (01) ==
LOC: INF 11:41
PROVIDERS: PCP Nurse Practitioner; Visit Provider Nurse Practitioner
DX: J45.50 Severe persistent asthma, uncomplicated (principal)
CPT/HCPCS: 96372; J2357

== ENCOUNTER 2023-09-27 18:33 | Emergency (ER) | payer MEDICARE, MEDICAID, SELFPAY ==
[2023-09-27 18:33] VITALS: BP 128/86; PULSE 92; RESP 18; TEMP 36.7; O2SAT 99; BMI 31.1
--- NOTE | 2023-09-27 18:47 | PC.NURSE ---
DR PENG AT BEDSIDE
[2023-09-27] MEDS: FAMOTIDINE 20MG/2ML VIAL 20 MG IV (18:53)
[2023-09-27 18:54] LABS: Basophils # 0.1 K/mm3 (0-0.2); Eosinophils # 0.2 K/mm3 (0.0-0.4); Eosinophils % 3.2 % (0.1-12.0); Hemoglobin 14.6 g/dL (12.2-16.2); Lymphocytes # 2.5 K/mm3 (0.7-4.5); Lymphocytes % 35.4 % (10-50); Mean Corpuscular HGB Conc 33.9 g/dL (31.8-35.4); Mean Corpuscular Hemoglobin 30.5 pg (27.0-31.2); Mean Corpuscular Volume 89.9 fl (81-99); Mean Platelet Volume 7.5 fl (7.4-10.4); Monocytes # 0.3 K/mm3 (0.1-1.0); Monocytes % 3.7 % (1.7-9.3); Neutrophils # 3.9 K/mm3 (1.8-7.8); Neutrophils % 56.8 % (37.0-80.0); Platelet Count 264 K/mm3 (142-424); Red Blood Count 4.78 M/mm3 (4.20-5.40); Red Cell Distribution Width 12.9 % (11.5-17.5); White Blood Count 6.9 K/mm3 (4.8-10.8)
[2023-09-27 19:00] LABS: Alanine Aminotransferase 34 U/L (12-78); Alkaline Phosphatase 135 U/L (38-126); Aspartate Amino Transferase 39 U/L (14-36); Bilirubin,Total 0.5 mg/dl (0.2-1.3); Blood Urea Nitrogen 14 mg/dl (7-17); Calcium 8.9 mg/dl (8.4-10.2); Carbon Dioxide 21 mmol/L (22.0-30.0); Chloride 103 mmol/L (98-107); Creatinine Clearance Estimated 72 mL/min (50-200); Estimated Glomerular Filt Rate 50 ml/min (>60); GFR (African American) 61 ML/MIN (>60); Glucose 238 mg/dl (74-100)
[2023-09-27 19:01] LABS: Albumin Level 4.4 g/dl (3.5-5.0); Albumin/Globulin Ratio 1.3 (1.1-1.8); Globulin 3.4 g/dL (1.3-3.2); Lipase 147 U/L (23-300); Potassium 4.9 mmoL/L (3.5-5.1); Total Protein,Serum 7.8 g/dl (6.3-8.2)
[2023-09-27 19:22] LABS: Anion Gap 13.9 mEq/L (5-15); Sodium 133 mmol/L (136-145)
--- NOTE | 2023-09-27 19:30 | HMH.EDGENADL ---
Discharge Plan Disposition Patient Disposition: Home, Self-Care Prescriptions Prescriptions: New ondansetron 4 mg tablet,disintegrating 4 mg PO Q6H PRN (Reason: nausea and vomiting) Qty: 10 0RF No Action fluoxetine 40 mg capsule 40 mg PO DAILY bupropion HCl 150 mg tablet sustained-release 12 hr 150 mg PO BID lisinopril-hydrochlorothiazide 20-12.5 mg tablet 1 tab PO DAILY clonazepam 1 mg tablet 1 mg PO HS levothyroxine 50 mcg tablet 50 mcg PO AM buspirone 10 mg tablet 10 mg PO DAILY fluoxetine 10 mg capsule 10 mg PO DAILY montelukast 10 mg tablet 10 mg PO DAILY scopolamine base 1 mg over 3 days patch 3 day 1 patch transdermal Q3D albuterol sulfate [Ventolin HFA] 90 mcg/actuation HFA aerosol inhaler 2 inh INHALATION Q4-6H PRN (Reason: Breathing Problems) fluticasone propionate 50 mcg/actuation spray,suspension 2 spray INTRANASAL DAILY esomeprazole magnesium 20 mg capsule,delayed release(DR/EC) 20 mg PO DAILY duloxetine 60 mg capsule,delayed release(DR/EC) 60 mg PO DAILY budesonide-formoterol [Symbicort] 160-4.5 mcg/actuation HFA aerosol inhaler 1 inh INHALATION DAILY insulin glargine [Lantus Solostar U-100 Insulin] 100 unit/mL (3 mL) insulin pen See Rx Instructions .ROUTE .COMPLEX Rx Instructions: Doctor's Order Jardiance 25 mg tablet 25 mg PO DAILY Vraylar 4.5 mg capsule 4.5 mg PO DAILY hydrocodone-acetaminophen 5-325 mg tablet 1 tab PO Q6H PRN (Reason: pain) 3 Days Qty: 12 0RF pseudoephedrine HCl 120 mg tablet extended release 120 mg PO BID PRN (Reason: nasal congestion) 7 Days Qty: 14 0RF Kerendia 10 mg Tablet 10 mg PO DAILY amitriptyline 10 mg tablet 10 mg PO HS Referrals Follow up/Referrals: Provider,Referral, MD [Primary Care Provider] - See instructions Activity Restrictions/Add. Instructions Additional Instructions/Restrictions: Call your family doctor to establish care for this visit to the emergency department and schedule follow-up within 48 hours to ensure improvement. If you have any worsening of your condition or any other concerning signs or symptoms, return to the emergency department or your primary care doctor for further evaluation. Abdiaziz sent to the pharmacy Clinical Impressions Clinical Impression: Nausea vomiting and diarrhea Instructions Patient Instructions: DI for Diarrhea and Traveler's Diarrhea -- Adult, DI for Diarrhea and Traveler's Diarrhea -- Child, DI for Nausea -- Adult, DI for Nausea -- Child Discharge ED Provider: Misha Cottrell General Adult HPI General Chief complaint: Nausea/Vomiting/Diarrhea Stated complaint: HYPERGLYCEMIA Time Seen by Provider: 09/27/23 18:37 Mode of Arrival: EMS Source of Information: Patient Limitations: No Limitations Description of Symptoms (Recalled from ER Triage Doc. by RN): Patient reports she has been sick for 1 week with nausea, vomiting, and diarrhea. Unable to hold anything down. Called EMS reporting she felt worse today. Denies fever. History of Present Illness HPI narrative: 63-year-old female history of hypertension, hyperlipidemia, hypothyroidism, type 2 diabetes, CKD and gastroparesis, psychiatric disturbance presenting with vomiting. Patient states she has been vomiting and having diarrhea since yesterday. Nonbloody, nonbilious. No fevers or chills, chest pain or shortness of breath. She states she thinks it may be related to her gastroparesis, but does not usually have diarrhea. Has largely not been able to hold anything down. Related Data Home Medications Medication Instructions Recorded Confirmed albuterol sulfate 90 mcg/actuation 2 inh inhalation Q4-6H PRN 01/31/23 09/26/23 aerosol inhaler (Ventolin HFA) Breathing Problems budesonide-formoterol HFA 160 1 inh inhalation DAILY Breathing 01/31/23 09/26/23 mcg-4.5 mcg/actuation aerosol problems inhaler (Symbicort) bupropion HCl 150 mg tablet,12 hr 150 mg PO BID Mood 01/31/23 09/26/23 sustained-release buspirone 10 mg tablet 10 mg PO DAILY Mood 01/31/23 09/26/23 cariprazine 4.5 mg capsule 4.5 mg PO DAILY Mood 01/31/23 09/26/23 (Vraylar) clonazepam 1 mg tablet 1 mg PO HS Anxiety 01/31/23 09/26/23 duloxetine 60 mg capsule,delayed 60 mg PO DAILY Mood 01/31/23 09/26/23 release empagliflozin 25 mg tablet 25 mg PO DAILY Diabetes 01/31/23 09/26/23 (Jardiance) esomeprazole magnesium 20 mg 20 mg PO DAILY Acid reflux 01/31/23 09/26/23 capsule,delayed release fluoxetine 10 mg capsule 10 mg PO DAILY Mood 01/31/23 09/26/23 fluoxetine 40 mg capsule 40 mg PO DAILY Mood 01/31/23 09/26/23 fluticasone propionate 50 2 spray intranasal DAILY Allergy 01/31/23 09/26/23 mcg/actuation nasal symptoms spray,suspension insulin glargine 100 unit/mL (3 See Rx Instructions .Route 01/31/23 09/26/23 mL) subcutaneous pen (Lantus .COMPLEX Diabetes Solostar U-100 Insulin) levothyroxine 50 mcg tablet 50 mcg PO AM Thyroid 01/31/23 09/26/23 lisinopril 20 1 tab PO DAILY High blood pressure 01/31/23 09/26/23 mg-hydrochlorothiazide 12.5 mg tablet montelukast 10 mg tablet 10 mg PO DAILY Allergy symptoms 01/31/23 09/26/23 scopolamine base 1 mg over 3 days 1 patch transdermal Q3D Nausea & 01/31/23 09/26/23 transdermal patch vomiting amitriptyline 10 mg tablet 10 mg PO HS sleep 03/14/23 09/26/23 finerenone 10 mg tablet (Kerendia) 10 mg PO DAILY kidney disease 03/14/23 09/26/23 Previous Rx's Medication Instructions Recorded hydrocodone 5 mg-acetaminophen 325 1 tab PO Q6H PRN pain 3 days #12 04/20/23 mg tablet tabs pseudoephedrine HCl 120 mg 120 mg PO BID PRN nasal congestion 04/20/23 tablet,extended release 7 days #14 tabs ondansetron 4 mg disintegrating 4 mg PO Q6H PRN nausea and 09/27/23 tablet vomiting #10 tabs Allergies Allergy/AdvReac Type Severity Reaction Status Date / Time No Known Allergies Allergy Verified 09/26/23 12:30 [facility] Disclaimer: The information contained in this section may have been updated after the patient was seen, as this information can be updated by other users. Medical History Anxiety Asthma Bipolar depression Chest pain Depression Eczema GERD (gastroesophageal reflux disease) High cholesterol Hypertension Insulin dependent diabetes mellitus Thyroid disease Type 2 diabetes mellitus Vomiting Surgical History History of cholecystectomy Family History Mother Cancer, Onset Age: 91 Father Cancer, Onset Age: 60 Other Diabetes Heart attack High cholesterol Hypertension Stroke Social History (Updated 09/26/23 @ 12:18 by Ellen Lin RN) Smoking Status: Never smoker second hand exposure: No alcohol intake: never substance use type: denies use current occupational status: disabled Travel in the last 8 weeks: None household members: none housing: house lives independently: Yes marital status: single education level: college service: No current occupational exposures/hazards: No caffeine: Yes do you feel safe at home: Yes victim of physical abuse: No victim of emotional abuse: No victim of sexual abuse: No would you like helpful sources: No ROS Obtained: Yes All systems reviewed & no additional complaints except as documented Physical Exam General General appearance: alert and in no apparent distress Head Head exam: atraumatic and normocephalic Eye Eye exam: Present normal appearance, PERRL and EOMI ENT ENT exam: Present mucous membranes moist Neck Neck exam: Present normal inspection, full ROM and trachea midline Respiratory Respiratory exam: Absent respiratory distress, wheezes, stridor, accessory muscle use or prolonged expiratory phase Cardiovascular Cardiovascular exam: Present normal rhythm Abdominal Exam Abdominal exam: Present soft; Absent distention, tenderness, guarding, rebound or rigidity Extremities Exam Extremities exam: Absent edema Neurological Exam Neurological exam: Present alert, oriented X3, CN II-XII intact and normal gait; Absent motor sensory deficit Skin Skin exam: Present warm and dry; Absent diaphoresis or erythema Medical Decision Making Medical Records Medical records reviewed: Yes I reviewed the patient's medical records. Emile Inquiry Pt receiving controlled substance: No Emile was queried for this patient: No Vital Signs: 09/27/23 18:33 09/27/23 22:36 Temperature 98.1 F 98.2 F Temperature Source Oral Oral Pulse Rate 94 H Pulse Rate [Right] 92 H Respiratory Rate 18 18 Blood Pressure 147/62 H Blood Pressure [Right Arm] 128/86 Blood Pressure Mean [Right Arm] 100 Blood Pressure Source Automatic Cuff Blood Pressure Source [Right Arm] Automatic Cuff Blood Pressure Position Sitting 02 Sat by Pulse Oximetry 99 Oxygen Delivery Method Room Air Room Air Lab Data Lab Results 09/27/23 18:43: WBC 6.9, RBC 4.78, Hgb 14.6, Hct 43.0, MCV 89.9, MCH 30.5, MCHC 33.9, RDW 12.9, Plt Count 264, MPV 7.5, Neut % (Auto) 56.8, Lymph % (Auto) 35.4, [place] % (Auto) 3.7, Eos % (Auto) 3.2, Baso % (Auto) 1.0, Neut # (Auto) 3.9, Lymph # (Auto) 2.5, [place] # (Auto) 0.3, Eos # (Auto) 0.2, Baso # (Auto) 0.1, Sodium 133 L, Potassium 4.9, Chloride 103, Carbon Dioxide 21 L, Anion Gap 13.9, BUN 14, Creatinine 1.10 H, Estimated Creat Clear 72, Estimated GFR 50 L, Est GFR ( Amer) 61, Glucose 238 H, Calcium 8.9, Total Bilirubin 0.5, AST 39 H, ALT 34, Alkaline Phosphatase 135 H, Total Protein 7.8, Albumin 4.4, Globulin 3.4 H, Albumin/Globulin Ratio 1.3, Lipase 147 09/27/23 21:27: Urine Color Yellow, Urine Appearance Clear, Urine pH 6.0, Ur Specific [place] <= 1.005, Urine Protein Negative, Urine Glucose (UA) Trace, Urine Ketones Negative, Urine Blood Negative, Urine Nitrate Negative, Urine Bilirubin Negative, Urine Urobilinogen 0.2, Ur Leukocyte Esterase Negative, Urine RBC None, Urine WBC Occasional, Ur Squamous Epith Cells 3-5, Urine Bacteria None 09/27/23 18:43 09/27/23 18:43 Orders (Tests/Meds): ED MEDICATIONS Discontinued Medications Generic Name Dose Route Start Last Admin Trade Name Freq PRN Reason Stop Dose Admin Famotidine 20 mg 09/27/23 18:48 09/27/23 18:53 Famotidine 20mg/2ml Vial IV 09/27/23 18:49 20 mg ONCE ONE Administration Lactated Ringer's 1,000 mls @ 999 mls/hr 09/27/23 19:29 Lactated Ringer's 1000 Ml Bag IV 09/27/23 20:29 .Q1H1M ONE Lactated Ringer's 1,000 mls @ 999 mls/hr 09/27/23 19:40 09/27/23 19:44 Lactated Ringer's 1000 Ml Bag IV 09/27/23 20:40 999 mls/hr .Q1H1M ONE Administration Ondansetron HCl 4 mg 09/27/23 19:39 09/27/23 19:44 Ondansetron 4mg/2ml Vial IV 09/27/23 19:40 4 mg ONCE ONE Administration Sodium Chloride 8 ml 09/27/23 18:48 Sodium Chloride 0.9% 10ml Vial IV 10/27/23 18:47 NEEDED PRN dilute pepcid ORDERS Category Date Time Status CBC w/Auto Diff [Complete Blood Count Auto Diff] Stat Lab 09/27/23 18:43 Completed CMP [Comprehensive Metabolic Panel] Stat Lab 09/27/23 18:43 Completed Lipase Stat Lab 09/27/23 18:43 Completed UA [Urinalysis and Microscopic] Stat Lab 09/27/23 21:27 Completed Medical Decision Narrative: 63-year-old female history of hypertension, hyperlipidemia, hypothyroidism, type 2 diabetes, CKD and gastroparesis, psychiatric disturbance presenting with vomiting. Patient states she has been vomiting and having diarrhea since yesterday. Nonbloody, nonbilious. No fevers or chills, chest pain or shortness of breath. She states she thinks it may be related to her gastroparesis, but does not usually have diarrhea. Has largely not been able to hold anything down. It should be noted that patient does struggle from psychiatric diagnoses making medication management difficult, including Reglan for gastroparesis and vomiting. History was obtained via conversation with patient. On arrival, patient hemodynamically stable, alert, oriented x4, appropriate, GCS 15, moving all extremities spontaneously, pupils equal and reactive to light. Full physical exam performed and significant for tired, but well-appearing overall. Abdomen soft, nontender. No flank tenderness. Nontachycardic, normotensive, overall well-appearing. Differential includes 2gastroparesis, gastroenteritis, pancreatitis, DKA, UTI, among others. Patient was given 1 L fluid bolus for symptomatic management and correction of underlying abnormalities. Workup independently interpreted and significant for nonactionable CBC or chemistry. Kidney function stable. Glucose 238. Patient with normal anion gap. Urinalysis negative. Patient was p.o. challenge successfully after IV Zofran and fluids. Because patient at baseline without signs or symptoms of clinical decompensation, deemed appropriate for discharge. Results were relayed to patient who voiced understanding and were agreeable to outpatient management and follow up. At the time of discharge the patient was hemodynamically stable, tolerating PO, and mobilizing appropriately. Critical Care Critical Care Time Critical Care Time: No
[2023-09-27] MEDS: ONDANSETRON 4MG/2ML VIAL 4 MG IV (19:44)
[2023-09-27] MEDS: LACTATED RINGERS 1000ML 1,000 ML 999 ML IV (19:44)
--- NOTE | 2023-09-27 20:22 | PC.NURSE ---
pt given water per her request, tolerating, no vomiting noted
--- NOTE | 2023-09-27 20:28 | PC.NURSE ---
pt up, ambulating with steady gait to bathroom for UA sample,
[2023-09-27 21:34] LABS: Microscopic, Urine URINE MICROSCOPIC (MICROSCOPIC)
[2023-09-27 21:36] LABS: Appearance,Urine CLEAR (Clear); Bilirubin,Urine Negative (Negative); Blood, Urine Negative (Negative); Color,Urine YELLOW (Yellow); Glucose,Urine (UA) TRACE (Negative); Ketones,Urine Negative (Negative); Leukocyte Esterase,Urine Negative (Negative); Nitrate,Urine Negative (Negative); Protein,Urine Negative (Negative); Specific Gravity, Urine <= 1.005 (1.005-1.030); Urobilinogen,Urine 0.2 EU/dl (0.2)
[2023-09-27 21:45] LABS: WBC,Urine Occasional #/hpf (0-3)
[2023-09-27 22:36] VITALS: BP 147/62; PULSE 94; RESP 18; TEMP 36.8; O2SAT 97
== END 2023-09-27 22:36 | disposition home or self-care (01) ==
PROVIDERS: Emergency Provider Emergency Medicine
DX: R11.2 Nausea with vomiting, unspecified (principal); R19.7 Diarrhea, unspecified; I12.9 Hypertensive chronic kidney disease with stage 1 through stage 4 chronic kidney disease, or unspecified chronic kidney disease; E78.5 Hyperlipidemia, unspecified; E03.9 Hypothyroidism, unspecified; E11.22 Type 2 diabetes mellitus with diabetic chronic kidney disease; E11.43 Type 2 diabetes mellitus with diabetic autonomic (poly)neuropathy; N18.9 Chronic kidney disease, unspecified; K31.84 Gastroparesis
CPT/HCPCS: 80053; 81001; 83690; 85025; 96361; 96374; 96375; 99285; J2405

== ENCOUNTER 2023-09-28 16:06 | Emergency (ER) | payer MEDICARE, MEDICAID, SELFPAY ==
--- NOTE | 2023-09-28 16:19 | ED_ITS ---
Discharge Plan Disposition Patient Disposition: Still a Patient Condition: Fair Prescriptions Prescriptions: No Action fluoxetine 40 mg capsule 40 mg PO DAILY bupropion HCl 150 mg tablet sustained-release 12 hr 150 mg PO BID lisinopril-hydrochlorothiazide 20-12.5 mg tablet 1 tab PO DAILY clonazepam 1 mg tablet 1 mg PO HS levothyroxine 50 mcg tablet 50 mcg PO AM buspirone 10 mg tablet 10 mg PO DAILY fluoxetine 10 mg capsule 10 mg PO DAILY montelukast 10 mg tablet 10 mg PO DAILY scopolamine base 1 mg over 3 days patch 3 day 1 patch transdermal Q3D albuterol sulfate [Ventolin HFA] 90 mcg/actuation HFA aerosol inhaler 2 inh INHALATION Q4-6H PRN (Reason: Breathing Problems) fluticasone propionate 50 mcg/actuation spray,suspension 2 spray INTRANASAL DAILY esomeprazole magnesium 20 mg capsule,delayed release(DR/EC) 20 mg PO DAILY duloxetine 60 mg capsule,delayed release(DR/EC) 60 mg PO DAILY budesonide-formoterol [Symbicort] 160-4.5 mcg/actuation HFA aerosol inhaler 1 inh INHALATION DAILY insulin glargine [Lantus Solostar U-100 Insulin] 100 unit/mL (3 mL) insulin pen See Rx Instructions .ROUTE .COMPLEX Rx Instructions: Doctor's Order Jardiance 25 mg tablet 25 mg PO DAILY Vraylar 4.5 mg capsule 4.5 mg PO DAILY hydrocodone-acetaminophen 5-325 mg tablet 1 tab PO Q6H PRN (Reason: pain) 3 Days Qty: 12 0RF pseudoephedrine HCl 120 mg tablet extended release 120 mg PO BID PRN (Reason: nasal congestion) 7 Days Qty: 14 0RF Kerendia 10 mg Tablet 10 mg PO DAILY amitriptyline 10 mg tablet 10 mg PO HS ondansetron 4 mg tablet,disintegrating 4 mg PO Q6H PRN (Reason: nausea and vomiting) Qty: 10 0RF Referrals Follow up/Referrals: Lavinia Juarez [Primary Care Provider] - See instructions Clinical Impressions Clinical Impression: Left flank pain Discharge ED Provider: Flo Son [facility] [place] HPI General Stated complaint: LT side pain Time Seen by Provider: 09/28/23 16:19 History of Present Illness Provider Complaint: She states that she has had severe left flank pain since early this morning. She states that she was in the ER last night with nausea/vomiting/diarrhea. She states those symptoms have essentially resolved, then her current pain started this morning. She denies any urinary complaints. She denies that the pain radiates down her leg. Related Data Home Medications Medication Instructions Recorded Confirmed albuterol sulfate 90 mcg/actuation 2 inh inhalation Q4-6H PRN 01/31/23 09/26/23 aerosol inhaler (Ventolin HFA) Breathing Problems budesonide-formoterol HFA 160 1 inh inhalation DAILY Breathing 01/31/23 09/26/23 mcg-4.5 mcg/actuation aerosol problems inhaler (Symbicort) bupropion HCl 150 mg tablet,12 hr 150 mg PO BID Mood 01/31/23 09/26/23 sustained-release buspirone 10 mg tablet 10 mg PO DAILY Mood 01/31/23 09/26/23 cariprazine 4.5 mg capsule 4.5 mg PO DAILY Mood 01/31/23 09/26/23 (Vraylar) clonazepam 1 mg tablet 1 mg PO HS Anxiety 01/31/23 09/26/23 duloxetine 60 mg capsule,delayed 60 mg PO DAILY Mood 01/31/23 09/26/23 release empagliflozin 25 mg tablet 25 mg PO DAILY Diabetes 01/31/23 09/26/23 (Jardiance) esomeprazole magnesium 20 mg 20 mg PO DAILY Acid reflux 01/31/23 09/26/23 capsule,delayed release fluoxetine 10 mg capsule 10 mg PO DAILY Mood 01/31/23 09/26/23 fluoxetine 40 mg capsule 40 mg PO DAILY Mood 01/31/23 09/26/23 fluticasone propionate 50 2 spray intranasal DAILY Allergy 01/31/23 09/26/23 mcg/actuation nasal symptoms spray,suspension insulin glargine 100 unit/mL (3 See Rx Instructions .Route 01/31/23 09/26/23 mL) subcutaneous pen (Lantus .COMPLEX Diabetes Solostar U-100 Insulin) levothyroxine 50 mcg tablet 50 mcg PO AM Thyroid 01/31/23 09/26/23 lisinopril 20 1 tab PO DAILY High blood pressure 01/31/23 09/26/23 mg-hydrochlorothiazide 12.5 mg tablet montelukast 10 mg tablet 10 mg PO DAILY Allergy symptoms 01/31/23 09/26/23 scopolamine base 1 mg over 3 days 1 patch transdermal Q3D Nausea & 01/31/23 09/26/23 transdermal patch vomiting amitriptyline 10 mg tablet 10 mg PO HS sleep 03/14/23 09/26/23 finerenone 10 mg tablet (Kerendia) 10 mg PO DAILY kidney disease 03/14/23 09/26/23 Previous Rx's Medication Instructions Recorded hydrocodone 5 mg-acetaminophen 325 1 tab PO Q6H PRN pain 3 days #12 04/20/23 mg tablet tabs pseudoephedrine HCl 120 mg 120 mg PO BID PRN nasal congestion 04/20/23 tablet,extended release 7 days #14 tabs ondansetron 4 mg disintegrating 4 mg PO Q6H PRN nausea and 09/27/23 tablet vomiting #10 tabs Allergies Allergy/AdvReac Type Severity Reaction Status Date / Time No Known Allergies Allergy Verified 09/26/23 12:30 [facility] Disclaimer: The information contained in this section may have been updated after the patient was seen, as this information can be updated by other users. Medical History Anxiety Asthma Bipolar depression Chest pain Depression Eczema GERD (gastroesophageal reflux disease) High cholesterol Hypertension Insulin dependent diabetes mellitus Thyroid disease Type 2 diabetes mellitus Vomiting Surgical History History of cholecystectomy Family History Mother Cancer, Onset Age: 91 Father Cancer, Onset Age: 60 Other Diabetes Heart attack High cholesterol Hypertension Stroke Social History (Updated 09/26/23 @ 12:18 by Ellen Lin RN) Smoking Status: Never smoker second hand exposure: No alcohol intake: never substance use type: denies use current occupational status: disabled Travel in the last 8 weeks: None household members: none housing: house lives independently: Yes marital status: single education level: college service: No current occupational exposures/hazards: No caffeine: Yes do you feel safe at home: Yes victim of physical abuse: No victim of emotional abuse: No victim of sexual abuse: No would you like helpful sources: No ROS Obtained: Yes All systems reviewed & no additional complaints except as documented Constitutional Constitutional: Denies chills, Denies fever(s) and Reports poor appetite ENT Ears, Nose, Mouth, and Throat: Denies dizziness and Denies sore throat Cardiovascular Cardiovascular: Denies dyspnea Respiratory Respiratory: Denies chest congestion, Denies cough and Denies dyspnea Gastrointestinal Gastrointestingal: Reports as per HPI Genitourinary Female Genitourinary: Denies difficulty voiding, Denies dysuria, Denies hematuria, Denies urinary frequency, Denies urinary incontinence, Denies urinary hesitancy and Denies urinary urgency Musculoskeletal Musculoskeletal: Denies arthralgias and Denies back pain Integumentary/Breasts Skin/Breast: Denies rash Neurologic Neurologic: Denies dizziness Physical Exam General General appearance: alert and in no apparent distress Head Head exam: atraumatic and normocephalic Eye Eye exam: Present normal appearance, PERRL and EOMI ENT ENT exam: Present normal exam, normal oropharynx, mucous membranes moist, TM's normal bilaterally and normal external ear exam Neck Neck exam: Present normal inspection, full ROM and trachea midline; Absent tenderness, meningismus or lymphadenopathy Chest Chest inspection: Present normal inspection and symmetric chest wall rise; Absent tenderness, rash or abscess Respiratory Respiratory exam: Present normal lung sounds bilaterally; Absent respiratory distress, wheezes or stridor Cardiovascular Cardiovascular exam: Present regular rate and normal rhythm; Absent irregular rhythm, systolic murmur, diastolic murmur or JVD Abdominal Exam Abdominal exam: Present soft and normal bowel sounds; Absent distention, tenderness, guarding, rebound, rigidity, psoas sign, obturator sign, heel tap sign, Keenan's sign, Rovsing's sign or tenderness at McBurney's Point Extremities Exam Extremities exam: Present normal inspection and full ROM; Absent tenderness Back Exam Back exam: Present normal inspection and full ROM; Absent tenderness, CVA t enderness (R) or CVA tenderness (L) Neurological Exam Neurological exam: Present alert, oriented X3 and CN II-XII intact Psychiatric Psychiatric exam: Present normal affect and normal mood Skin Skin exam: Present warm, dry, intact and normal color Lymphatic Lymphatic Findings: no adenopathy Medical Decision Making Medical Records Medical records reviewed: No I reviewed the patient's medical records. Emile Inquiry Pt receiving controlled substance: No Lab Data Lab results reviewed: Yes I reviewed the patient's lab results. Medical Decision Narrative: She was transferred to the ER due to the severity of her pain with no clear etiology.
[2023-09-28 16:25] VITALS: BP 157/72; PULSE 80; RESP 20; TEMP 36.8; O2SAT 97; BMI 31.1
[2023-09-28 16:39] LABS: Apearance,Urine Clear (Clear); Color,Urine Yellow (Yellow)
[2023-09-28 16:40] LABS: Bilirubin,Urine Negative (Negative); Blood, Urine Negative (Negative); Glucose,Urine (UA) Negative (Negative); Ketones,Urine Negative (Negative); Protein,Urine Negative (Negative); UTC Leukocyte Esterase,Urine Trace (Negative); UTC Nitrate,Urine Negative (Negative); Urobilinogen,Urine 0.2 EU/dl (0.2)
--- NOTE | 2023-09-28 16:57 | PC.NURSE ---
PATIENT SENT TO ER PER Livan BLACKWELL APRN FOR FURTHER EVALUATION. REPORT GIVEN TO DR. PENG BY Livan BLACKWELL APRN. PATIENT TRANSPORTED TO ER VIA WHEELCHAIR WITH [facility] STAFF ASSIST AT THIS TIME.
[2023-09-28 17:04] VITALS: BP 102/45; PULSE 89; RESP 18; TEMP 36.4; O2SAT 99; BMI 31.1
--- NOTE | 2023-09-28 17:07 | CT_ITS ---
PROCEDURE INFORMATION: Exam: CT Abdomen And Pelvis With Contrast Exam date and time: 09/28/2023 5:43 PM Age: 63 years old Clinical indication: Abdominal pain; Other: Left; Additional info: Severe flank pain TECHNIQUE: Imaging protocol: Computed tomography of the abdomen and pelvis with contrast. Radiation optimization: All CT scans at this facility use at least one of these dose optimization techniques: automated exposure control; mA and/or kV adjustment per patient size (includes targeted exams where dose is matched to clinical indication); or iterative reconstruction. Contrast material: ISOVUE; Contrast volume: 75 ml; Contrast route: IV; COMPARISON: 1. CT ABDOMEN PELVIS W CON 03/26/2023 8:[address] ABDOMEN PELVIS W CON 01/31/2023 5:[address] ABDOMEN PELVIS W CON 12/22/2022 6:37 PM FINDINGS: Liver: There is possible hepatic steatosis, evaluation is limited secondary to contrast enhancement. Gallbladder and bile ducts: The patient is status post cholecystectomy. Pancreas: The pancreas is of normal size and morphology, without evidence of masses, cysts, or calcifications. The pancreatic duct is not dilated. Spleen: The spleen is normal in size and attenuation. No splenic masses or cysts are observed. Adrenal glands: The adrenal glands appear normal. Kidneys and ureters: Both kidneys are of normal size and show uniform attenuation. There are no renal masses, cysts, or calculi. The adrenal glands appear normal. Stomach and bowel: There is large volume stool throughout the colon. Appendix: No evidence of appendicitis. Intraperitoneal space: Unremarkable. No free air. No significant fluid collection. Vasculature: The abdominal aorta and its major branches appear normal without evidence of aneurysm or stenosis. There are pelvic phleboliths. Lymph nodes: There are mildly prominent but nonenlarged and nonspecific retroperitoneal nodes. Urinary bladder: There is moderate distention of the urinary bladder. Reproductive: No significant pathology. Bones/joints: The visualized osseous structures of the abdomen and pelvis appear intact and normal for patient age with no evidence of fractures or lytic or sclerotic lesions. Soft tissues: Unremarkable. IMPRESSION: No definite signs of inflammatory conditions, masses, adenopathy, or collections were observed in the abdomen or pelvis at the time of imaging. Additionally, the urinary tract and gastrointestinal system did not show any evidence of obstruction on the images acquired.
[2023-09-28 17:25] LABS: Basophils # 0.1 K/mm3 (0-0.2); Basophils % 0.8 % (0.1-2.0); Eosinophils # 0.2 K/mm3 (0.0-0.4); Eosinophils % 2.7 % (0.1-12.0); Hematocrit 41.7 % (37.0-47.0); Lymphocytes # 2.4 K/mm3 (0.7-4.5); Lymphocytes % 33.2 % (10-50); Mean Corpuscular HGB Conc 33.5 g/dL (31.8-35.4); Mean Corpuscular Hemoglobin 30.2 pg (27.0-31.2); Mean Corpuscular Volume 90.3 fl (81-99); Mean Platelet Volume 7.7 fl (7.4-10.4); Monocytes # 0.3 K/mm3 (0.1-1.0); Neutrophils # 4.2 K/mm3 (1.8-7.8); Neutrophils % 59.3 % (37.0-80.0); Platelet Count 248 K/mm3 (142-424); Red Blood Count 4.62 M/mm3 (4.20-5.40); White Blood Count 7.1 K/mm3 (4.8-10.8)
[2023-09-28 17:30] VITALS: BP 146/77; PULSE 85; O2SAT 100
[2023-09-28 17:30] LABS: Chloride 102 mmol/L (98-107); Potassium 4.5 mmoL/L (3.5-5.1); Sodium 138 mmol/L (136-145)
[2023-09-28 17:32] LABS: Alanine Aminotransferase 29 U/L (12-78); Alkaline Phosphatase 124 U/L (38-126); Anion Gap 13.5 mEq/L (5-15); Aspartate Amino Transferase 31 U/L (14-36); Bilirubin,Total 0.3 mg/dl (0.2-1.3); Blood Urea Nitrogen 16 mg/dl (7-17); Carbon Dioxide 27 mmol/L (22.0-30.0); Creatinine Clearance Estimated 72 mL/min (50-200); Estimated Glomerular Filt Rate 50 ml/min (>60); GFR (African American) 61 ML/MIN (>60); Lipase 126 U/L (23-300)
[2023-09-28 17:33] LABS: Albumin Level 4.1 g/dl (3.5-5.0); Albumin/Globulin Ratio 1.3 (1.1-1.8); Calcium 8.8 mg/dl (8.4-10.2); Globulin 3.2 g/dL (1.3-3.2); Glucose 198 mg/dl (74-100); Total Protein,Serum 7.3 g/dl (6.3-8.2)
--- NOTE | 2023-09-28 17:47 | HMH.EDGENADL ---
Discharge Plan Disposition Patient Disposition: Home, Self-Care Condition: Fair Prescriptions Prescriptions: No Action fluoxetine 40 mg capsule 40 mg PO DAILY bupropion HCl 150 mg tablet sustained-release 12 hr 150 mg PO BID lisinopril-hydrochlorothiazide 20-12.5 mg tablet 1 tab PO DAILY clonazepam 1 mg tablet 1 mg PO HS levothyroxine 50 mcg tablet 50 mcg PO AM buspirone 10 mg tablet 10 mg PO DAILY fluoxetine 10 mg capsule 10 mg PO DAILY montelukast 10 mg tablet 10 mg PO DAILY scopolamine base 1 mg over 3 days patch 3 day 1 patch transdermal Q3D albuterol sulfate [Ventolin HFA] 90 mcg/actuation HFA aerosol inhaler 2 inh INHALATION Q4-6H PRN (Reason: Breathing Problems) fluticasone propionate 50 mcg/actuation spray,suspension 2 spray INTRANASAL DAILY esomeprazole magnesium 20 mg capsule,delayed release(DR/EC) 20 mg PO DAILY duloxetine 60 mg capsule,delayed release(DR/EC) 60 mg PO DAILY budesonide-formoterol [Symbicort] 160-4.5 mcg/actuation HFA aerosol inhaler 1 inh INHALATION DAILY insulin glargine [Lantus Solostar U-100 Insulin] 100 unit/mL (3 mL) insulin pen See Rx Instructions .ROUTE .COMPLEX Rx Instructions: Doctor's Order Jardiance 25 mg tablet 25 mg PO DAILY Vraylar 4.5 mg capsule 4.5 mg PO DAILY hydrocodone-acetaminophen 5-325 mg tablet 1 tab PO Q6H PRN (Reason: pain) 3 Days Qty: 12 0RF pseudoephedrine HCl 120 mg tablet extended release 120 mg PO BID PRN (Reason: nasal congestion) 7 Days Qty: 14 0RF Kerendia 10 mg Tablet 10 mg PO DAILY amitriptyline 10 mg tablet 10 mg PO HS ondansetron 4 mg tablet,disintegrating 4 mg PO Q6H PRN (Reason: nausea and vomiting) Qty: 10 0RF Referrals Follow up/Referrals: Lavinia Juarez [Primary Care Provider] - See instructions Activity Restrictions/Add. Instructions Additional Instructions/Restrictions: Call your family doctor to establish care for this visit to the emergency department and schedule follow-up within 48 hours to ensure improvement. If you have any worsening of your condition or any other concerning signs or symptoms, return to the emergency department or your primary care doctor for further evaluation. Take Tylenol 1000 mg every 6 hours (4 times daily) and ibuprofen 400 mg every 6 hours (4 times daily) as needed with food and water to prevent GI upset and kidney damage. Clinical Impressions Clinical Impression: Abdominal pain Qualifiers: Abdominal location: left lower quadrant Qualified Code(s): R10.32 - Left lower quadrant pain Instructions Patient Instructions: DI for Acute Abdominal Pain Discharge ED Provider: Misha Cottrell General Adult HPI General Chief complaint: Abdominal Pain Stated complaint: LT side pain Time Seen by Provider: 09/28/23 16:19 Mode of Arrival: Ambulatory Source of Information: Patient Limitations: No Limitations Description of Symptoms (Recalled from ER Triage Doc. 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 63-year-old female history of psychiatric disorders, lithium renal toxicity, hypertension, hyperlipidemia, diabetes complicated by CKD, gastroparesis presenting with left flank pain. Patient states that after she got home yesterday on 09/27, started having severe left flank pain. Tried to take Tylenol today, did not seem to help. Getting progressively worse. Is now on her left lower quadrant of her abdomen. Moderate to severe in intensity, waxes and wanes. No urinary or bowel symptoms. Related Data Home Medications Medication Instructions Recorded Confirmed albuterol sulfate 90 mcg/actuation 2 inh inhalation Q4-6H PRN 01/31/23 09/26/23 aerosol inhaler (Ventolin HFA) Breathing Problems budesonide-formoterol HFA 160 1 inh inhalation DAILY Breathing 01/31/23 09/26/23 mcg-4.5 mcg/actuation aerosol problems inhaler (Symbicort) bupropion HCl 150 mg tablet,12 hr 150 mg PO BID Mood 01/31/23 09/26/23 sustained-release buspirone 10 mg tablet 10 mg PO DAILY Mood 01/31/23 09/26/23 cariprazine 4.5 mg capsule 4.5 mg PO DAILY Mood 01/31/23 09/26/23 (Vraylar) clonazepam 1 mg tablet 1 mg PO HS Anxiety 01/31/23 09/26/23 duloxetine 60 mg capsule,delayed 60 mg PO DAILY Mood 01/31/23 09/26/23 release empagliflozin 25 mg tablet 25 mg PO DAILY Diabetes 01/31/23 09/26/23 (Jardiance) esomeprazole magnesium 20 mg 20 mg PO DAILY Acid reflux 01/31/23 09/26/23 capsule,delayed release fluoxetine 10 mg capsule 10 mg PO DAILY Mood 01/31/23 09/26/23 fluoxetine 40 mg capsule 40 mg PO DAILY Mood 01/31/23 09/26/23 fluticasone propionate 50 2 spray intranasal DAILY Allergy 01/31/23 09/26/23 mcg/actuation nasal symptoms spray,suspension insulin glargine 100 unit/mL (3 See Rx Instructions .Route 01/31/23 09/26/23 mL) subcutaneous pen (Lantus .COMPLEX Diabetes Solostar U-100 Insulin) levothyroxine 50 mcg tablet 50 mcg PO AM Thyroid 01/31/23 09/26/23 lisinopril 20 1 tab PO DAILY High blood pressure 01/31/23 09/26/23 mg-hydrochlorothiazide 12.5 mg tablet montelukast 10 mg tablet 10 mg PO DAILY Allergy symptoms 01/31/23 09/26/23 scopolamine base 1 mg over 3 days 1 patch transdermal Q3D Nausea & 01/31/23 09/26/23 transdermal patch vomiting amitriptyline 10 mg tablet 10 mg PO HS sleep 03/14/23 09/26/23 finerenone 10 mg tablet (Kerendia) 10 mg PO DAILY kidney disease 03/14/23 09/26/23 Previous Rx's Medication Instructions Recorded hydrocodone 5 mg-acetaminophen 325 1 tab PO Q6H PRN pain 3 days #12 04/20/23 mg tablet tabs pseudoephedrine HCl 120 mg 120 mg PO BID PRN nasal congestion 04/20/23 tablet,extended release 7 days #14 tabs ondansetron 4 mg disintegrating 4 mg PO Q6H PRN nausea and 09/27/23 tablet vomiting #10 tabs Allergies Allergy/AdvReac Type Severity Reaction Status Date / Time No Known Allergies Allergy Verified 09/28/23 17:11 [facility] [place] Disclaimer: The information contained in this section may have been updated after the patient was seen, as this information can be updated by other users. Medical History Anxiety Asthma Bipolar depression Chest pain Depression Eczema GERD (gastroesophageal reflux disease) High cholesterol Hypertension Insulin dependent diabetes mellitus Thyroid disease Type 2 diabetes mellitus Vomiting Surgical History History of cholecystectomy Family History Mother Cancer, Onset Age: 91 Father Cancer, Onset Age: 60 Other Diabetes Heart attack High cholesterol Hypertension Stroke Social History (Updated 09/26/23 @ 12:18 by Ellen Lin RN) Smoking Status: Never smoker second hand exposure: No alcohol intake: never substance use type: denies use current occupational status: disabled Travel in the last 8 weeks: None household members: none housing: house lives independently: Yes marital status: single education level: college service: No current occupational exposures/hazards: No caffeine: Yes do you feel safe at home: Yes victim of physical abuse: No victim of emotional abuse: No victim of sexual abuse: No would you like helpful sources: No ROS Obtained: Yes All systems reviewed & no additional complaints except as documented Physical Exam General General appearance: alert and in no apparent distress Head Head exam: atraumatic and normocephalic Eye Eye exam: Present normal appearance, PERRL and EOMI ENT ENT exam: Present mucous membranes moist Neck Neck exam: Present normal inspection, full ROM and trachea midline Respiratory Respiratory exam: Absent respiratory distress, wheezes, stridor, accessory muscle use or prolonged expiratory phase Cardiovascular Cardiovascular exam: Present normal rhythm Abdominal Exam Abdominal exam: Present soft; Absent distention, tenderness, guarding, rebound or rigidity Extremities Exam Extremities exam: Absent edema Neurological Exam Neurological exam: Present alert, oriented X3, CN II-XII intact and normal gait; Absent motor sensory deficit Skin Skin exam: Present warm and dry; Absent diaphoresis or erythema Medical Decision Making Medical Records Medical records reviewed: Yes I reviewed the patient's medical records. Emile Inquiry Pt receiving controlled substance: No Emile was queried for this patient: No Vital Signs: 09/28/23 16:25 09/28/23 17:04 09/28/23 17:30 Temperature 98.2 F 97.6 F Temperature Source Oral Oral Pulse Rate 85 Pulse Rate [Left Brachial] 80 89 Respiratory Rate 20 18 Blood Pressure 146/77 H Blood Pressure [Left Arm] 157/72 H 102/45 L Blood Pressure Mean [Left Arm] 100 64 Blood Pressure Source [Left Arm] Automatic Cuff Automatic Cuff Blood Pressure Position [Left Arm] Sitting Sitting 02 Sat by Pulse Oximetry 97 99 100 Oxygen Delivery Method Room Air Room Air Room Air 09/28/23 18:00 Temperature Temperature Source Pulse Rate 73 Pulse Rate [Left Brachial] Respiratory Rate Blood Pressure 162/90 H Blood Pressure [Left Arm] Blood Pressure Mean [Left Arm] Blood Pressure Source [Left Arm] Blood Pressure Position [Left Arm] 02 Sat by Pulse Oximetry 99 Oxygen Delivery Method Room Air Lab Data Lab Results 09/28/23 16:38: Urine Color Yellow, Urine Appearance Clear, Urine pH 6.0, Ur Specific [place] 1.010, Urine Protein Negative, Urine Glucose (UA) Negative, Urine Ketones Negative, Urine Blood Negative, Urine Nitrate Negative, Urine Bilirubin Negative, Urine Urobilinogen 0.2, Ur Leukocyte Esterase Trace 09/28/23 17:16: WBC 7.1, RBC 4.62, Hgb 14.0, Hct 41.7, MCV 90.3, MCH 30.2, MCHC 33.5, RDW 13.0, Plt Count 248, MPV 7.7, Neut % (Auto) 59.3, Lymph % (Auto) 33.2, [place] % (Auto) 4.0, Eos % (Auto) 2.7, Baso % (Auto) 0.8, Neut # (Auto) 4.2, Lymph # (Auto) 2.4, [place] # (Auto) 0.3, Eos # (Auto) 0.2, Baso # (Auto) 0.1, Sodium 138, Potassium 4.5, Chloride 102, Carbon Dioxide 27, Anion Gap 13.5, BUN 16, Creatinine 1.10 H, Estimated Creat Clear 72, Estimated GFR 50 L, Est GFR ( Amer) 61, Glucose 198 H, Calcium 8.8, Total Bilirubin 0.3, AST 31, ALT 29, Alkaline Phosphatase 124, Total Protein 7.3, Albumin 4.1, Globulin 3.2, Albumin/Globulin Ratio 1.3, Lipase 126 09/28/23 17:16 09/28/23 17:16 Orders (Tests/Meds): ED MEDICATIONS Discontinued Medications Generic Name Dose Route Start Last Admin Trade Name Peri PRN Reason Stop Dose Admin Acetaminophen 1,000 mg 09/28/23 17:47 09/28/23 17:58 Acetaminophen 1,000mg/100ml Vial IV 09/28/23 17:48 1,000 mg ONCE ONE Administration Lactated Ringer's 1,000 mls @ 999 mls/hr 09/28/23 17:47 09/28/23 18:05 Lactated Ringer's 1000 Ml Bag IV 09/28/23 18:47 999 mls/hr .Q1H1M ONE Administration Iopamidol 75 ml 09/28/23 17:53 09/28/23 17:54 Iopamidol-370 (76%);100ml Bottle IV 09/28/23 17:54 75 ml ONCE ONE Administration Ketorolac Tromethamine 15 mg 09/28/23 17:47 09/28/23 17:59 Ketorolac 30mg/Ml Vial IV 09/28/23 17:48 15 mg ONCE ONE Administration Sodium Chloride 10 ml 09/28/23 17:53 09/28/23 17:54 Sodium Chloride 0.9% 10ml Syr (Rad Only) IV 09/28/23 17:54 10 ml ONCE ONE Administration ORDERS Category Date Time Status CT abdomen pelvis w con Stat Cat Scan 09/28/23 17:07 Completed Complete Blood Count Auto Diff Stat Lab 09/28/23 17:16 Completed Comprehensive Metabolic Panel Stat Lab 09/28/23 17:16 Completed Lipase Stat Lab 09/28/23 17:16 Completed Urine Culture Stat Micro 09/28/23 16:30 Received Medical Decision Narrative: Patient seen by me yesterday. 63-year-old female history of psychiatric disorders, lithium renal toxicity, hypertension, hyperlipidemia, diabetes complicated by CKD, gastroparesis presenting with left flank pain. Patient states that after she got home yesterday on 09/27, started having severe left flank pain. Tried to take Tylenol today, did not seem to help. Getting progressively worse. Is now on her left lower quadrant of her abdomen. Moderate to severe in intensity, waxes and wanes. No urinary or bowel symptoms. History was obtained via conversation with patient. On arrival, patient hemodynamically stable, alert, oriented x4, appropriate, GCS 15, moving all extremities spontaneously, pupils equal and reactive to light. Full physical exam performed and significant for well-appearing woman in no acute distress. Left lower quadrant abdominal pain with voluntary guarding. No flank tenderness. No overlying skin changes. Hemodynamically stable, nontachycardic, normotensive. Afebrile. Differential includes diverticulitis, UTI, stone, PUD, gastritis, enteritis, gastroenteritis, pancreatitis, SBO, colitis, aortic pathology, mesenteric ischemia, cholecystitis, appendicitis, hepatitis, among others. Patient was given Toradol, [place] of, fluids for symptomatic management and correction of underlying abnormalities. Workup independently interpreted and significant for CBC or chemistry. Kidney function stable. Urinalysis nonactionable. CT scan without any acute intra-abdominal or intrapelvic pathology. See radiology read for full review of final results. On reevaluation, patient resting more comfortably.Given patient presentation, workup, history, this most likely represents abdominal pain, possibly muscle strain. Because patient at baseline without signs or symptoms of clinical decompensation, deemed appropriate for discharge. Results were relayed to patient who voiced understanding and were agreeable to outpatient management and follow up. At the time of discharge the patient was hemodynamically stable, tolerating PO, and mobilizing appropriately. Critical Care Critical Care Time Critical Care Time: No
[2023-09-28] MEDS: IOPAMIDOL-370 (76%);100ML BOTTLE 75 ML IV (17:54)
[2023-09-28] MEDS: SODIUM CHLORIDE 0.9% 10ML SYR (RAD ONLY) 10 ML IV (17:54)
[2023-09-28] MEDS: ACETAMINOPHEN 1,000MG/100ML VIAL 1000 MG IV (17:58)
[2023-09-28] MEDS: KETOROLAC 30MG/ML VIAL 15 MG IV (17:59)
[2023-09-28 18:00] VITALS: BP 162/90; PULSE 73; O2SAT 99
[2023-09-28] MEDS: LACTATED RINGERS 1000ML 1,000 ML 999 ML IV (18:05)
[2023-09-28 18:30] VITALS: BP 150/86; PULSE 80; RESP 20; O2SAT 100
[2023-09-28 19:04] VITALS: BP 137/77; PULSE 74; RESP 16; TEMP 36.8; O2SAT 100
== END 2023-09-28 19:05 | disposition home or self-care (01) ==
LOC: UTC 16:12 → ER 16:58
PROVIDERS: Nurse Practitioner Family; Emergency Provider Emergency Medicine; PCP Nurse Practitioner Family
DX: R10.32 Left lower quadrant pain (principal); I12.9 Hypertensive chronic kidney disease with stage 1 through stage 4 chronic kidney disease, or unspecified chronic kidney disease; E78.5 Hyperlipidemia, unspecified; E11.22 Type 2 diabetes mellitus with diabetic chronic kidney disease; N18.9 Chronic kidney disease, unspecified; J45.909 Unspecified asthma, uncomplicated; E07.9 Disorder of thyroid, unspecified
CPT/HCPCS: 74177; 80053; 81003; 83690; 85025; 87086; 96361; 96374; 96375; 99285; J0131; Q9967

== ENCOUNTER 2023-10-14 16:29 | Emergency (ER) | payer MEDICARE, MEDICAID, SELFPAY ==
[2023-10-14 16:30] VITALS: BP 150/82; PULSE 90; RESP 20; TEMP 36.8; O2SAT 99; BMI 29.6
[2023-10-14 17:00] VITALS: BP 158/87; PULSE 94; RESP 18; O2SAT 99
--- NOTE | 2023-10-14 17:46 | PC.NURSE ---
DR LAL AT BEDSIDE
--- NOTE | 2023-10-14 17:53 | ECG_ITS ---
APPROVED REPORT Exam: Resting ECG HR:82 bpm ECG Measurements Heart Rate 82 AXES FL 165 P 61 QRSd 89 QRS 68 QT 393 T 58 QTc 432 Conclusion SINUS RHYTHM LOW QRS VOLTAGE IN PRECORDIAL LEADS [QRS DEFLECTION < 1.0 mV IN CHEST LEADS] POSSIBLE ANTERIOR MYOCARDIAL INFARCTION , PROBABLY OLD [30 ms Q WAVE IN V3/V4, OR R < 0.2 mV IN V4] BORDERLINE ECG UNCONFIRMED REPORT Electronically signed by : Sanjay Mendosa MD 10/16/2023 16:43:51
--- NOTE | 2023-10-14 17:53 | XR_ITS ---
PROCEDURE INFORMATION: Exam: XR Chest Exam date and time: 10/14/2023 5:53 PM Age: 63 years old Clinical indication: Dyspnea TECHNIQUE: Imaging protocol: Radiologic exam of the chest. Views: 1 view. COMPARISON: CR XR CHEST PORTABLE 09/17/2022 3:54 AM FINDINGS: Lungs: Low lung volumes. The lungs appear clear. Pleural spaces: Normal No pleural effusion. No pneumothorax. Heart/Mediastinum: Normal. No cardiomegaly. Bones/joints: Unremarkable. IMPRESSION: No acute findings.
--- NOTE | 2023-10-14 17:54 | HMH.EDGENADL ---
Discharge Plan Disposition Patient Disposition: Home, Self-Care Prescriptions Prescriptions: No Action fluoxetine 40 mg capsule 40 mg PO DAILY bupropion HCl 150 mg tablet sustained-release 12 hr 150 mg PO BID lisinopril-hydrochlorothiazide 20-12.5 mg tablet 1 tab PO DAILY clonazepam 1 mg tablet 1 mg PO HS levothyroxine 50 mcg tablet 50 mcg PO AM buspirone 10 mg tablet 10 mg PO DAILY fluoxetine 10 mg capsule 10 mg PO DAILY montelukast 10 mg tablet 10 mg PO DAILY scopolamine base 1 mg over 3 days patch 3 day 1 patch transdermal Q3D albuterol sulfate [Ventolin HFA] 90 mcg/actuation HFA aerosol inhaler 2 inh INHALATION Q4-6H PRN (Reason: Breathing Problems) fluticasone propionate 50 mcg/actuation spray,suspension 2 spray INTRANASAL DAILY esomeprazole magnesium 20 mg capsule,delayed release(DR/EC) 20 mg PO DAILY duloxetine 60 mg capsule,delayed release(DR/EC) 60 mg PO DAILY budesonide-formoterol [Symbicort] 160-4.5 mcg/actuation HFA aerosol inhaler 1 inh INHALATION DAILY insulin glargine [Lantus Solostar U-100 Insulin] 100 unit/mL (3 mL) insulin pen See Rx Instructions .ROUTE .COMPLEX Rx Instructions: Doctor's Order Jardiance 25 mg tablet 25 mg PO DAILY Vraylar 4.5 mg capsule 4.5 mg PO DAILY hydrocodone-acetaminophen 5-325 mg tablet 1 tab PO Q6H PRN (Reason: pain) 3 Days Qty: 12 0RF pseudoephedrine HCl 120 mg tablet extended release 120 mg PO BID PRN (Reason: nasal congestion) 7 Days Qty: 14 0RF Kerendia 10 mg Tablet 10 mg PO DAILY amitriptyline 10 mg tablet 10 mg PO HS ondansetron 4 mg tablet,disintegrating 4 mg PO Q6H PRN (Reason: nausea and vomiting) Qty: 10 0RF Referrals Follow up/Referrals: Lavinia Juarez [Primary Care Provider] - See instructions Activity Restrictions/Add. Instructions Additional Instructions/Restrictions: No definitive diagnosis was made today to explain the cause of your generalized weakness and fatigue. He did have a low TSH this needs to be followed up with your primary care doctor but is likely not the cause of your symptoms today. They will need to do some subsequent testing as this is just a screening test. Additionally I would recommend that you get an outpatient sleep study and this should be able to be facilitated by your primary care doctor. Return the emergency room with any significant worsening or different symptoms as discussed. Clinical Impressions Clinical Impression: Generalized weakness, Low TSH level Discharge ED Provider: Hardy Saba General Adult HPI General Chief complaint: Weakness Stated complaint: weakness, can't eat or drink Time Seen by Provider: 10/14/23 17:46 Mode of Arrival: Ambulatory Source of Information: Patient Limitations: No Limitations Description of Symptoms (Recalled from ER Triage Doc. by RN): Pt complains of generalized weakness for the last two weeks, pt has a hx of gastropersis, denies any pain at this time but has constant n/v History of Present Illness HPI narrative: Patient is a 63-year-old female presenting today with generalized weakness and fatigue over the last 2 weeks. She states she has a history of diabetes and gastroparesis but has not had significant nausea vomiting just significant decreased p.o. intake has not had any food intolerance or desire to eat. Denies any diarrhea denies any chest pain shortness of breath fevers chills abdominal pain changes in bowel movements urination etc. She states its profound weakness to the point where she is having a hard time even feeding himself at home. Claims that she is lost 20 to 25 pounds in the last year. Related Data Home Medications Medication Instructions Recorded Confirmed albuterol sulfate 90 mcg/actuation 2 inh inhalation Q4-6H PRN 01/31/23 09/26/23 aerosol inhaler (Ventolin HFA) Breathing Problems budesonide-formoterol HFA 160 1 inh inhalation DAILY Breathing 01/31/23 09/26/23 mcg-4.5 mcg/actuation aerosol problems inhaler (Symbicort) bupropion HCl 150 mg tablet,12 hr 150 mg PO BID Mood 01/31/23 09/26/23 sustained-release buspirone 10 mg tablet 10 mg PO DAILY Mood 01/31/23 09/26/23 cariprazine 4.5 mg capsule 4.5 mg PO DAILY Mood 01/31/23 09/26/23 (Vraylar) clonazepam 1 mg tablet 1 mg PO HS Anxiety 01/31/23 09/26/23 duloxetine 60 mg capsule,delayed 60 mg PO DAILY Mood 01/31/23 09/26/23 release empagliflozin 25 mg tablet 25 mg PO DAILY Diabetes 01/31/23 09/26/23 (Jardiance) esomeprazole magnesium 20 mg 20 mg PO DAILY Acid reflux 01/31/23 09/26/23 capsule,delayed release fluoxetine 10 mg capsule 10 mg PO DAILY Mood 01/31/23 09/26/23 fluoxetine 40 mg capsule 40 mg PO DAILY Mood 01/31/23 09/26/23 fluticasone propionate 50 2 spray intranasal DAILY Allergy 01/31/23 09/26/23 mcg/actuation nasal symptoms spray,suspension insulin glargine 100 unit/mL (3 See Rx Instructions .Route 01/31/23 09/26/23 mL) subcutaneous pen (Lantus .COMPLEX Diabetes Solostar U-100 Insulin) levothyroxine 50 mcg tablet 50 mcg PO AM Thyroid 01/31/23 09/26/23 lisinopril 20 1 tab PO DAILY High blood pressure 01/31/23 09/26/23 mg-hydrochlorothiazide 12.5 mg tablet montelukast 10 mg tablet 10 mg PO DAILY Allergy symptoms 01/31/23 09/26/23 scopolamine base 1 mg over 3 days 1 patch transdermal Q3D Nausea & 01/31/23 09/26/23 transdermal patch vomiting amitriptyline 10 mg tablet 10 mg PO HS sleep 03/14/23 09/26/23 finerenone 10 mg tablet (Kerendia) 10 mg PO DAILY kidney disease 03/14/23 09/26/23 Previous Rx's Medication Instructions Recorded hydrocodone 5 mg-acetaminophen 325 1 tab PO Q6H PRN pain 3 days #12 04/20/23 mg tablet tabs pseudoephedrine HCl 120 mg 120 mg PO BID PRN nasal congestion 04/20/23 tablet,extended release 7 days #14 tabs ondansetron 4 mg disintegrating 4 mg PO Q6H PRN nausea and 09/27/23 tablet vomiting #10 tabs Allergies Allergy/AdvReac Type Severity Reaction Status Date / Time No Known Allergies Allergy Verified 09/28/23 17:11 [facility] Disclaimer: The information contained in this section may have been updated after the patient was seen, as this information can be updated by other users. Medical History Anxiety Asthma Bipolar depression Chest pain Depression Eczema GERD (gastroesophageal reflux disease) High cholesterol Hypertension Insulin dependent diabetes mellitus Thyroid disease Type 2 diabetes mellitus Vomiting Surgical History History of cholecystectomy Family History Mother Cancer, Onset Age: 91 Father Cancer, Onset Age: 60 Other Diabetes Heart attack High cholesterol Hypertension Stroke Social History (Updated 09/26/23 @ 12:18 by Ellen Lin RN) Smoking Status: Never smoker second hand exposure: No alcohol intake: never substance use type: denies use current occupational status: disabled Travel in the last 8 weeks: None household members: none housing: house lives independently: Yes marital status: single education level: college service: No current occupational exposures/hazards: No caffeine: Yes do you feel safe at home: Yes victim of physical abuse: No victim of emotional abuse: No victim of sexual abuse: No would you like helpful sources: No ROS Obtained: Yes All systems reviewed & no additional complaints except as documented Physical Exam General General appearance: alert and in no apparent distress Chest Chest inspection: Present normal inspection and symmetric chest wall rise Respiratory Respiratory exam: Present normal lung sounds bilaterally; Absent respiratory distress Cardiovascular Cardiovascular exam: Present regular rate; Absent tachycardia Abdominal Exam Abdominal exam: Present soft; Absent distention or tenderness Neurological Exam Neurological exam: Present alert, oriented X3 and CN II-XII intact; Absent motor sensory deficit Medical Decision Making Emile Inquiry Pt receiving controlled substance: No Vital Signs: 10/14/23 16:30 10/14/23 17:00 Temperature 98.2 F Temperature Source Oral Pulse Rate 94 H Pulse Rate [Right Radial] 90 Respiratory Rate 20 18 Blood Pressure 158/87 H Blood Pressure [Right Arm] 150/82 H Blood Pressure Mean 112 Blood Pressure Mean [Right Arm] 104 02 Sat by Pulse Oximetry 99 99 Oxygen Delivery Method Room Air Lab Data Lab results reviewed: Yes I reviewed the patient's lab results. Lab Results 10/14/23 16:40: WBC 8.5, RBC 4.89, Hgb 14.8, Hct 42.8, MCV 87.5, MCH 30.3, MCHC 34.6, RDW 13.1, Plt Count 283, MPV 7.4, Neut % (Auto) 61.1, Lymph % (Auto) 31.5, [place] % (Auto) 4.4, Eos % (Auto) 2.0, Baso % (Auto) 1.0, Neut # (Auto) 5.2, Lymph # (Auto) 2.7, [place] # (Auto) 0.4, Eos # (Auto) 0.2, Baso # (Auto) 0.1, Sodium 135 L, Potassium 4.5, Chloride 102, Carbon Dioxide 25, Anion Gap 12.5, BUN 19 H, Creatinine 1.10 H, Estimated Creat Clear 68, Estimated GFR 50 L, Est GFR ( Amer) 61, Glucose 169 H, Calcium 9.6, Phosphorus 3.9, Magnesium 2.0, Total Bilirubin 0.4, AST 34, ALT 31, Alkaline Phosphatase 133 H, NT-Pro-B Natriuret Pep < 20.0, Total Protein 8.1, Albumin 4.6, Globulin 3.5 H, Albumin/Globulin Ratio 1.3, TSH 0.35 L 10/14/23 18:11: SARS-CoV-2 (PCR) Not detected, Influenza A Untype (PCR) Not detected, Influenza Type B (PCR) Not detected 10/14/23 16:40 10/14/23 16:40 Orders (Tests/Meds): ED MEDICATIONS Discontinued Medications Generic Name Dose Route Start Last Admin Trade Name Freq PRN Reason Stop Dose Admin Lactated Ringer's 1,000 mls @ 999 mls/hr 10/14/23 18:00 10/14/23 18:05 Lactated Ringer's 1000 Ml Bag IV 10/14/23 19:00 999 mls/hr .Q1H1M DAYA Administration ORDERS Category Date Time Status CXR --portable [XR chest portable] Stat Exams 10/14/23 17:53 Completed BNP [Brain Natriuretic Peptide] Stat Lab 10/14/23 16:40 Completed CBC w/Auto Diff [Complete Blood Count Auto Diff] Stat Lab 10/14/23 16:40 Completed CMP [Comprehensive Metabolic Panel] Stat Lab 10/14/23 16:40 Completed Magnesium Stat Lab 10/14/23 16:40 Completed Phosphorous Stat Lab 10/14/23 16:40 Completed Rapid PCR Covid and Flu A/B Stat Lab 10/14/23 18:11 Completed TSH [Thyroid Stimulating Hormone] Stat Lab 10/14/23 16:40 Completed UA [Urinalysis and Microscopic] Stat Lab 10/14/23 17:53 Ordered Medical Decision Narrative: 63-year-old female with a nonfocal history and physical but generalized and profound weakness this been ongoing for the last 2 weeks. Differential includes kidney failure with electrolyte abnormalities, dehydration, malnourishment, heart failure, other metabolic abnormality such as myxedema, DKA, infectious abnormality such as pneumonia UTI COVID flu etc. Broad workup IV fluids initiated will reassess. Reassessment 7:19 PM patient remained stable serial exams from neurologic standpoint and a cardiovascular standpoint are benign. Workup is largely unremarkable chest x-ray performed on first interpreted shows no acute cardiopulmonary emergency. Labs unremarkable nothing to explain generalized weakness or fatigue she does have a mildly depressed TSH but this is unlikely to be the cause of her symptoms and she will need subsequent testing with her primary care doctor to look into this further she is aware of this. Lastly she talk to me about the sleep schedule that she has been having and being tired during the day etc. and I recommend that she get an outpatient sleep study overall she will follow-up with her primary care doctor in a stable not requiring hospitalization at the moment she will return with any worsening or different symptoms. Critical Care Critical Care Time Critical Care Time: No
[2023-10-14 18:00] LABS: Basophils # 0.1 K/mm3 (0-0.2); Eosinophils # 0.2 K/mm3 (0.0-0.4); Hematocrit 42.8 % (37.0-47.0); Hemoglobin 14.8 g/dL (12.2-16.2); Lymphocytes # 2.7 K/mm3 (0.7-4.5); Lymphocytes % 31.5 % (10-50); Mean Corpuscular HGB Conc 34.6 g/dL (31.8-35.4); Mean Corpuscular Hemoglobin 30.3 pg (27.0-31.2); Mean Corpuscular Volume 87.5 fl (81-99); Mean Platelet Volume 7.4 fl (7.4-10.4); Monocytes # 0.4 K/mm3 (0.1-1.0); Monocytes % 4.4 % (1.7-9.3); Neutrophils # 5.2 K/mm3 (1.8-7.8); Neutrophils % 61.1 % (37.0-80.0); Platelet Count 283 K/mm3 (142-424); Red Blood Count 4.89 M/mm3 (4.20-5.40); Red Cell Distribution Width 13.1 % (11.5-17.5); White Blood Count 8.5 K/mm3 (4.8-10.8)
[2023-10-14 18:05] LABS: Alanine Aminotransferase 31 U/L (12-78); Albumin Level 4.6 g/dl (3.5-5.0); Albumin/Globulin Ratio 1.3 (1.1-1.8); Alkaline Phosphatase 133 U/L (38-126); Anion Gap 12.5 mEq/L (5-15); Aspartate Amino Transferase 34 U/L (14-36); Bilirubin,Total 0.4 mg/dl (0.2-1.3); Blood Urea Nitrogen 19 mg/dl (7-17); Calcium 9.6 mg/dl (8.4-10.2); Carbon Dioxide 25 mmol/L (22.0-30.0); Chloride 102 mmol/L (98-107); Creatinine Clearance Estimated 68 mL/min (50-200); Estimated Glomerular Filt Rate 50 ml/min (>60); GFR (African American) 61 ML/MIN (>60); Globulin 3.5 g/dL (1.3-3.2); Glucose 169 mg/dl (74-100); Phosphorous 3.9 mg/dl (2.5-4.5); Potassium 4.5 mmoL/L (3.5-5.1); Sodium 135 mmol/L (136-145); Total Protein,Serum 8.1 g/dl (6.3-8.2)
[2023-10-14] MEDS: LACTATED RINGERS 1000ML 1,000 ML 999 ML IV (18:05)
[2023-10-14 18:13] LABS: NT Pro Brain Natriuretic Pep. < 20.0 pg/mL (0-125)
[2023-10-14 18:14] LABS: Coronavirus 19, PCR Not Detected (NotDetected); Influenza A, PCR Not Detected (NotDetected); Influenza B, PCR Not Detected (NotDetected)
[2023-10-14 18:35] LABS: Thyroid Stimulating Hormone 0.35 uIU/mL (0.465-4.68)
[2023-10-14 19:34] VITALS: BP 158/87; PULSE 90; RESP 23; TEMP 36.9; O2SAT 97
== END 2023-10-14 19:35 | disposition home or self-care (01) ==
PROVIDERS: Emergency Provider Student in an Organized Health Care Education/Training Program; PCP Nurse Practitioner Family
DX: R53.1 Weakness (principal); R53.83 Other fatigue; R94.6 Abnormal results of thyroid function studies; E11.43 Type 2 diabetes mellitus with diabetic autonomic (poly)neuropathy; K31.84 Gastroparesis; J45.909 Unspecified asthma, uncomplicated; K21.9 Gastro-esophageal reflux disease without esophagitis; E78.00 Pure hypercholesterolemia, unspecified; I10 Essential (primary) hypertension
CPT/HCPCS: 71045; 80053; 83735; 83880; 84100; 84443; 85025; 87636; 93005; 96360; 99285

== ENCOUNTER 2023-10-24 10:25 | Outpatient (CLI) | payer MEDICARE, MEDICAID, SELFPAY ==
[2023-10-24] MEDS: OMALIZUMAB 150MG VIAL 300 MG SQ (10:55)
[2023-10-24 10:57] VITALS: BP 105/61; PULSE 90; RESP 19; O2SAT 98
== END 2023-10-24 10:57 | disposition home or self-care (01) ==
LOC: INF 10:27
PROVIDERS: PCP Nurse Practitioner Family; Visit Provider Nurse Practitioner
DX: J45.50 Severe persistent asthma, uncomplicated (principal)
CPT/HCPCS: 96372; J2357

== ENCOUNTER 2023-11-21 12:28 | Outpatient (CLI) | payer MEDICARE, MEDICAID, SELFPAY ==
[2023-11-21 13:01] VITALS: BP 116/81; PULSE 88; RESP 20; TEMP 36.3; O2SAT 99
[2023-11-21] MEDS: OMALIZUMAB 150MG VIAL 300 MG SQ (13:01)
== END 2023-11-21 13:20 | disposition home or self-care (01) ==
LOC: INF 12:29
PROVIDERS: PCP Nurse Practitioner Family; Visit Provider Nurse Practitioner
DX: J45.50 Severe persistent asthma, uncomplicated (principal)
CPT/HCPCS: 96372; J2357

== ENCOUNTER 2023-11-28 11:37 | Outpatient (CLI) | payer MEDICARE, MEDICAID, SELFPAY ==
--- NOTE | 2023-11-28 11:52 | XR_ITS ---
FINAL REPORT CLINICAL HISTORY: Right Foot pain COMPARISON: None FINDINGS: RIGHT FOOT: Three views of the right foot were obtained. There is no acute fracture or dislocation. Calcaneal spurs are noted. There is mild degenerative change of the midfoot. There is no soft tissue abnormality. IMPRESSION: Mild degenerative change without acute bony abnormality. Calcaneal spurs. Reviewed, Interpreted and Dictated by Miguel Jeong III, MD Transcribed by Marleny Briceño Authenticated and . [facility]
--- NOTE | 2023-11-28 11:52 | XR_ITS ---
FINAL REPORT CLINICAL HISTORY: Left Foot pain COMPARISON: None FINDINGS: LEFT FOOT: Three views of the left foot were obtained. There is no acute fracture or dislocation. Calcaneal spurs are noted. There is mild degenerative change of the midfoot. There is no soft tissue abnormality. IMPRESSION: Mild degenerative change without acute bony abnormality. Calcaneal spurs. Reviewed, Interpreted and Dictated by Miguel Jeong III, MD Transcribed by Marleny Briceño Authenticated and [facility]
== END 2023-11-28 23:59 ==
PROVIDERS: PCP Nurse Practitioner Family; Visit Provider Podiatrist
DX: M79.671 Pain in right foot (principal); M79.672 Pain in left foot
CPT/HCPCS: 73630

== ENCOUNTER 2023-12-17 17:19 | Emergency (ER) | payer MEDICARE, MEDICAID, SELFPAY ==
[2023-12-17 17:20] VITALS: BP 154/88; PULSE 94; RESP 18; TEMP 36.6; O2SAT 98; BMI 31.6
--- NOTE | 2023-12-17 17:40 | ED_ITS ---
Discharge Plan Disposition Patient Disposition: Home, Self-Care Condition: Good Prescriptions Prescriptions: New naproxen 500 mg tablet 500 mg PO BID Qty: 10 0RF methocarbamol 750 mg tablet 750 mg PO Q8H PRN (Reason: pain) Qty: 20 0RF No Action methylprednisolone [Medrol (Denys)] 4 mg tablets,dose pack 4 mg PO PER PKG DIR Qty: 21 0RF lidocaine 5 % adhesive patch,medicated 2 patch topical DAILY PRN (Reason: pain) 7 Days Qty: 15 0RF Rx Instructions: leave on most painful area for up to 12 hrs fluoxetine 40 mg capsule 40 mg PO DAILY bupropion HCl 150 mg tablet sustained-release 12 hr 150 mg PO BID lisinopril-hydrochlorothiazide 20-12.5 mg tablet 1 tab PO DAILY clonazepam 1 mg tablet 1 mg PO HS levothyroxine 50 mcg tablet 50 mcg PO AM buspirone 10 mg tablet 10 mg PO DAILY montelukast 10 mg tablet 10 mg PO DAILY albuterol sulfate [Ventolin HFA] 90 mcg/actuation HFA aerosol inhaler 2 inh INHALATION Q4-6H PRN (Reason: Breathing Problems) duloxetine 60 mg capsule,delayed release(DR/EC) 60 mg PO DAILY Jardiance 25 mg tablet 25 mg PO DAILY Vraylar 4.5 mg capsule 4.5 mg PO DAILY Kerendia 10 mg Tablet 10 mg PO DAILY amitriptyline 10 mg tablet 10 mg PO HS ondansetron 4 mg tablet,disintegrating 4 mg PO Q6H PRN (Reason: nausea and vomiting) Qty: 10 0RF Referrals Follow up/Referrals: Lavinia Juarez [Primary Care Provider] - See instructions Activity Restrictions/Add. Instructions Additional Instructions/Restrictions: You were evaluated in the emergency department today. 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 You may also take Tylenol. Follow-up closely with your primary care provider. Return to the emergency department for new or worsening symptoms. Clinical Impressions Clinical Impression: Musculoskeletal back pain Instructions Patient Instructions: DI for Low Back Pain Discharge ED Provider: Daina Grey General Adult HPI General Chief complaint: Back Pain/Injury Stated complaint: Back pain, soa Time Seen by Provider: 12/17/23 17:22 Mode of Arrival: Ambulatory Source of Information: Patient Limitations: No Limitations Description of Symptoms (Recalled from ER Triage Doc. by RN): Patient complaint of back pain that extends from her neck to her butt that has been going on for a few days. History of Present Illness HPI narrative: This patient is a 63-year-old female with history of hypertension, hyperlipidemia, diabetes, bipolar disorder, and gastroparesis presenting to the emergency department for evaluation with concern for back pain. She reports that she has had muscular back pain since picking up a case of soda a few days ago. She states that her muscles hurt all the way from her neck to her butt she has that the pain is positional and is worse with twisting and movements.. She denies any fevers, chills, neck stiffness, headaches, vision changes, chest pain, shortness of breath, cough, congestion, abdominal pain, nausea, vomiting, changes bowel movements, urinary symptoms, rashes, or swelling. No saddle anesthesia, numbness, tingling, or incontinence. Related Data Home Medications Medication Instructions Recorded Confirmed albuterol sulfate 90 mcg/actuation 2 inh inhalation Q4-6H PRN 01/31/23 11/29/23 aerosol inhaler (Ventolin HFA) Breathing Problems bupropion HCl 150 mg tablet,12 hr 150 mg PO BID Mood 01/31/23 11/29/23 sustained-release buspirone 10 mg tablet 10 mg PO DAILY Mood 01/31/23 11/29/23 cariprazine 4.5 mg capsule 4.5 mg PO DAILY Mood 01/31/23 11/29/23 (Vraylar) clonazepam 1 mg tablet 1 mg PO HS Anxiety 01/31/23 11/29/23 duloxetine 60 mg capsule,delayed 60 mg PO DAILY Mood 01/31/23 11/29/23 release empagliflozin 25 mg tablet 25 mg PO DAILY Diabetes 01/31/23 11/29/23 (Jardiance) fluoxetine 40 mg capsule 40 mg PO DAILY Mood 01/31/23 11/29/23 levothyroxine 50 mcg tablet 50 mcg PO AM Thyroid 01/31/23 11/29/23 lisinopril 20 1 tab PO DAILY High blood pressure 01/31/23 11/29/23 mg-hydrochlorothiazide 12.5 mg tablet montelukast 10 mg tablet 10 mg PO DAILY Allergy symptoms 01/31/23 11/29/23 amitriptyline 10 mg tablet 10 mg PO HS sleep 03/14/23 11/29/23 finerenone 10 mg tablet (Kerendia) 10 mg PO DAILY kidney disease 03/14/23 11/29/23 Previous Rx's Medication Instructions Recorded ondansetron 4 mg disintegrating 4 mg PO Q6H PRN nausea and 09/27/23 tablet vomiting #10 tabs lidocaine 5 % topical patch 2 patch topical DAILY PRN pain 7 11/29/23 days #15 ea methylprednisolone 4 mg tablets in 4 mg PO PER PKG DIR #21 tabs 11/29/23 a dose pack (Medrol (Denys)) methocarbamol 750 mg tablet 750 mg PO Q8H PRN pain #20 tabs 12/17/23 naproxen 500 mg tablet 500 mg PO BID #10 tabs 12/17/23 Allergies Allergy/AdvReac Type Severity Reaction Status Date / Time No Known Allergies Allergy Verified 11/29/23 10:03 [facility] Disclaimer: The information contained in this section may have been updated after the patient was seen, as this information can be updated by other users. Medical History Vomiting Eczema GERD (gastroesophageal reflux disease) Insulin dependent diabetes mellitus Type 2 diabetes mellitus Depression Anxiety Bipolar depression Thyroid disease Asthma Chest pain High cholesterol Hypertension Surgical History History of cholecystectomy Family History Mother Cancer, Onset Age: 91 Father Cancer, Onset Age: 60 Other Diabetes Heart attack High cholesterol Hypertension Stroke Social History Smoking Status: Never smoker second hand exposure: No alcohol intake: never substance use type: denies use current occupational status: disabled Travel in the last 8 weeks: None household members: none housing: house lives independently: Yes marital status: single education level: college service: No current occupational exposures/hazards: No caffeine: Yes do you feel safe at home: Yes victim of physical abuse: No victim of emotional abuse: No victim of sexual abuse: No would you like helpful sources: No ROS Obtained: Yes All systems reviewed & no additional complaints except as documented Physical Exam General General appearance: alert and in no apparent distress Comment: Well-appearing, ambulated throughout the emergency department though difficulty Head Head exam: atraumatic and normocephalic Eye Eye exam: Present normal appearance, PERRL and EOMI ENT ENT exam: Present normal exam, normal oropharynx, mucous membranes moist and normal external ear exam Neck Neck exam: Present normal inspection, full ROM and trachea midline; Absent tenderness Chest Chest inspection: Present normal inspection and symmetric chest wall rise; Absent tenderness Respiratory Respiratory exam: Present normal lung sounds bilaterally; Absent respiratory distress, wheezes, stridor or accessory muscle use Cardiovascular Cardiovascular exam: Present regular rate and normal rhythm Abdominal Exam Abdominal exam: Present soft; Absent distention, tenderness or guarding Extremities Exam Extremities exam: Present normal inspection, full ROM and normal capillary refill; Absent tenderness or edema Back Exam Back exam: Present full ROM, tenderness and paraspinal tenderness (Paraspinal tenderness about the thoracolumbar spine without midline bony tenderness.) Neurological Exam Neurological exam: Present alert, oriented X3, CN II-XII intact and normal gait; Absent motor sensory deficit Psychiatric Psychiatric exam: Present normal affect and normal mood Skin Skin exam: Present warm and dry Medical Decision Making Medical Records Medical records reviewed: Yes I reviewed the patient's medical records. Emile Inquiry Pt receiving controlled substance: No Vital Signs: 12/17/23 17:20 12/17/23 18:35 Temperature 97.9 F 97.9 F Temperature Source Oral Oral Pulse Rate 82 Pulse Rate [Radial] 94 H Respiratory Rate 18 18 Blood Pressure 129/75 Blood Pressure [Right Arm] 154/88 H Blood Pressure Mean [Right Arm] 110 Blood Pressure Source Automatic Cuff Blood Pressure Source [Right Arm] Automatic Cuff Blood Pressure Position Sitting Blood Pressure Position [Right Arm] Sitting 02 Sat by Pulse Oximetry 98 Oxygen Delivery Method Room Air Room Air Lab Data Lab results reviewed: Yes I reviewed the patient's lab results. Orders (Tests/Meds): ED MEDICATIONS Discontinued Medications Generic Name Dose Route Start Last Admin Trade Name Freq PRN Reason Stop Dose Admin Acetaminophen 1,000 mg 12/17/23 17:38 12/17/23 17:48 Acetaminophen 500mg Tab PO 12/17/23 17:39 1,000 mg ONCE ONE Administration Ketorolac Tromethamine 30 mg 12/17/23 17:38 12/17/23 17:48 Ketorolac 30mg/Ml Vial IM 12/17/23 17:39 30 mg ONCE ONE Administration Lidocaine 1 each 12/17/23 17:38 12/17/23 17:48 Lidocaine 5% Transdermal Patch TP 12/17/23 17:39 1 each ONCE ONE Administration Methocarbamol 500 mg 12/17/23 17:38 12/17/23 17:48 Methocarbamol 500mg Tablet PO 12/17/23 17:39 500 mg ONCE ONE Administration Medical Decision Narrative: In summary, this patient is a 63-year-old female presenting to the Emergency Department for evaluation of back pain. Differential diagnoses considered include but are not limited to musculoskeletal strain/sprain, disc herniation, spinal compression fracture, pyelonephritis, pleuritis. Ruling out the most morbid conditions drove assessment. On exam, the patient is well-appearing. She describes her pain as muscular pain, and it seems to be worse with any positions and movement. She also has paraspinal muscle tenderness to palpation with no midline tenderness. No notable traumatic injury, and no physical exam findings or symptoms to suggest spinal cord compression or other significant neurologic injury. She has had no other symptoms to suggest urinary or intra-abdominal pathology. Overall, I feel her pain is likely musculoskeletal in nature. I considered CT scan, however I do not feel that this would exchange trouble shooter as the patient is unlikely a fracture in the setting. Decision was made to order medications for symptomatic management and reassess. Patient was given a Lidoderm patch, Tylenol, Robaxin, and IM Toradol. On reassessment, patient is resting currently and states she is feeling much better. She states she is ready to go home. Given this, patient need to be appropriate for discharge with prescriptions for naproxen and Robaxin. Strict return precautions were given, and she was discharged in stable condition after all questions were answered. Critical Care Critical Care Time Critical Care Time: No
[2023-12-17] MEDS: ACETAMINOPHEN 500MG TAB 1000 MG PO (17:48)
[2023-12-17] MEDS: KETOROLAC 30MG/ML VIAL 30 MG IM (17:48)
[2023-12-17] MEDS: METHOCARBAMOL 500MG TABLET 500 MG PO (17:48)
[2023-12-17] MEDS: LIDOCAINE 5% TRANSDERMAL PATCH 1 EACH TP (17:48)
[2023-12-17 18:35] VITALS: BP 129/75; PULSE 82; RESP 18; TEMP 36.6; O2SAT 98
== END 2023-12-17 18:35 | disposition home or self-care (01) ==
PROVIDERS: Emergency Provider Emergency Medicine; PCP Nurse Practitioner Family
DX: M54.9 Dorsalgia, unspecified (principal); E11.9 Type 2 diabetes mellitus without complications; K21.9 Gastro-esophageal reflux disease without esophagitis; I10 Essential (primary) hypertension; E78.5 Hyperlipidemia, unspecified; E03.9 Hypothyroidism, unspecified; F31.9 Bipolar disorder, unspecified; Z79.84 Long term (current) use of oral hypoglycemic drugs
CPT/HCPCS: 96372; 99283

== ENCOUNTER 2023-12-26 12:32 | Outpatient (CLI) | payer MEDICARE, MEDICAID, SELFPAY ==
[2023-12-26] MEDS: OMALIZUMAB 150MG VIAL 300 MG SQ (13:05)
[2023-12-26 13:07] VITALS: BP 133/79; PULSE 80; RESP 18; TEMP 36.6; O2SAT 97
== END 2023-12-26 13:25 | disposition home or self-care (01) ==
LOC: INF 12:33
PROVIDERS: PCP Nurse Practitioner Family; Visit Provider Allergy & Immunology
DX: J45.50 Severe persistent asthma, uncomplicated (principal)
CPT/HCPCS: 96372; J2357

== ENCOUNTER 2024-01-28 10:39 | Outpatient (CLI) | payer MEDICARE, MEDICAID, SELFPAY ==
[2024-01-28 11:08] VITALS: BP 146/76; PULSE 83; RESP 18; TEMP 36.7; O2SAT 96
[2024-01-28] MEDS: OMALIZUMAB 150MG VIAL 300 MG SQ (11:08)
== END 2024-01-28 11:18 | disposition home or self-care (01) ==
LOC: INF 10:40
PROVIDERS: PCP Nurse Practitioner Family; Visit Provider Allergy & Immunology
DX: J45.50 Severe persistent asthma, uncomplicated (principal)
CPT/HCPCS: 96372; J2357

== ENCOUNTER 2024-02-26 10:26 | Outpatient (CLI) | payer MEDICARE, MEDICAID, SELFPAY ==
[2024-02-26 10:50] VITALS: BP 166/70; PULSE 85; RESP 18; TEMP 36.6; O2SAT 100
[2024-02-26] MEDS: OMALIZUMAB 150MG VIAL 300 MG SQ (10:50)
== END 2024-02-26 11:04 | disposition home or self-care (01) ==
LOC: INF 10:27
PROVIDERS: PCP Nurse Practitioner Family; Visit Provider Allergy & Immunology
DX: J45.50 Severe persistent asthma, uncomplicated (principal)
CPT/HCPCS: 96372; J2357

== ENCOUNTER 2024-03-03 21:17 | Emergency (ER) | payer MEDICARE, MEDICAID, SELFPAY ==
[2024-03-03 21:17] VITALS: BP 143/84; PULSE 79; RESP 19; TEMP 36.4; O2SAT 99; BMI 32.9
[2024-03-03 21:30] VITALS: BP 143/84; PULSE 81; RESP 18; O2SAT 100
--- NOTE | 2024-03-03 21:38 | ED_ITS ---
Discharge Plan Disposition Patient Disposition: Home, Self-Care Prescriptions Prescriptions: No Action methylprednisolone [Medrol (Denys)] 4 mg tablets,dose pack 4 mg PO PER PKG DIR Qty: 21 0RF lidocaine 5 % adhesive patch,medicated 2 patch topical DAILY PRN (Reason: pain) 7 Days Qty: 15 0RF Rx Instructions: leave on most painful area for up to 12 hrs fluoxetine 40 mg capsule 40 mg PO DAILY bupropion HCl 150 mg tablet sustained-release 12 hr 150 mg PO BID lisinopril-hydrochlorothiazide 20-12.5 mg tablet 1 tab PO DAILY clonazepam 1 mg tablet 1 mg PO HS levothyroxine 50 mcg tablet 50 mcg PO AM buspirone 10 mg tablet 10 mg PO DAILY montelukast 10 mg tablet 10 mg PO DAILY albuterol sulfate [Ventolin HFA] 90 mcg/actuation HFA aerosol inhaler 2 inh INHALATION Q4-6H PRN (Reason: Breathing Problems) duloxetine 60 mg capsule,delayed release(DR/EC) 60 mg PO DAILY Jardiance 25 mg tablet 25 mg PO DAILY Vraylar 4.5 mg capsule 4.5 mg PO DAILY naproxen 500 mg tablet 500 mg PO BID Qty: 10 0RF methocarbamol 750 mg tablet 750 mg PO Q8H PRN (Reason: pain) Qty: 20 0RF Kerendia 10 mg Tablet 10 mg PO DAILY amitriptyline 10 mg tablet 10 mg PO HS ondansetron 4 mg tablet,disintegrating 4 mg PO Q6H PRN (Reason: nausea and vomiting) Qty: 10 0RF Referrals Follow up/Referrals: Lavinia Juarez [Primary Care Provider] - See instructions Activity Restrictions/Add. Instructions Additional Instructions/Restrictions: Please follow-up with your primary care provider. It is recommended that you have further assessment of the thyroid nodules noted on your CT scan. Please return to the emergency department if you develop any new or worsening symptoms or become concerned for your health. Clinical Impressions Clinical Impression: Multiple thyroid nodules, Left sided abdominal pain Discharge ED Provider: Nigel Arreola General Adult HPI <VIBHA Munoz - Last Filed: 03/03/24 22:47> General Chief complaint: Fall Stated complaint: fall Time Seen by Provider: 03/03/24 21:38 Mode of Arrival: EMS Source of Information: Patient and EMS Limitations: No Limitations Description of Symptoms (Recalled from ER Triage Doc. by RN): Patient arrived via EMS for a fall that happened at home at approximately 2000. Patient reports hit left side on round table and has 10/10 left rib pain with movement or breathing. Patient denies arm pain or any further injury. Patient was ambulatory at home. Denies head injury, denies loss of conciousness, denies nausea/vomiting/fever. Patient reports she tripped on a adair bag chair at home. History of Present Illness HPI narrative: Patient presents for evaluation after a fall at home. Patient states that she tripped over a beanbag launching her left side chest and abdomen into a kitchen table. Patient had to call EMS for assistance. Patient denies shortness of breath although it hurts to take a deep breath, fever chills hemoptysis hematochezia melena nausea vomiting diarrhea. Moving or bending her torso makes it worse lying still makes it better. Patient did not lose consciousness has no head injury and no other complaints other than the local trauma. Haily Coma Score 15. Related Data Home Medications Medication Instructions Recorded Confirmed albuterol sulfate 90 mcg/actuation 2 inh inhalation Q4-6H PRN 01/31/23 02/26/24 aerosol inhaler (Ventolin HFA) Breathing Problems bupropion HCl 150 mg tablet,12 hr 150 mg PO BID Mood 01/31/23 02/26/24 sustained-release buspirone 10 mg tablet 10 mg PO DAILY Mood 01/31/23 02/26/24 cariprazine 4.5 mg capsule 4.5 mg PO DAILY Mood 01/31/23 02/26/24 (Vraylar) clonazepam 1 mg tablet 1 mg PO HS Anxiety 01/31/23 02/26/24 duloxetine 60 mg capsule,delayed 60 mg PO DAILY Mood 01/31/23 02/26/24 release empagliflozin 25 mg tablet 25 mg PO DAILY Diabetes 01/31/23 02/26/24 (Jardiance) fluoxetine 40 mg capsule 40 mg PO DAILY Mood 01/31/23 02/26/24 levothyroxine 50 mcg tablet 50 mcg PO AM Thyroid 01/31/23 02/26/24 lisinopril 20 1 tab PO DAILY High blood pressure 01/31/23 02/26/24 mg-hydrochlorothiazide 12.5 mg tablet montelukast 10 mg tablet 10 mg PO DAILY Allergy symptoms 01/31/23 02/26/24 amitriptyline 10 mg tablet 10 mg PO HS sleep 03/14/23 02/26/24 finerenone 10 mg tablet (Kerendia) 10 mg PO DAILY kidney disease 03/14/23 02/26/24 Previous Rx's Medication Instructions Recorded ondansetron 4 mg disintegrating 4 mg PO Q6H PRN nausea and 09/27/23 tablet vomiting #10 tabs lidocaine 5 % topical patch 2 patch topical DAILY PRN pain 7 11/29/23 days #15 ea methylprednisolone 4 mg tablets in 4 mg PO PER PKG DIR #21 tabs 11/29/23 a dose pack (Medrol (Denys)) methocarbamol 750 mg tablet 750 mg PO Q8H PRN pain #20 tabs 12/17/23 naproxen 500 mg tablet 500 mg PO BID #10 tabs 12/17/23 Allergies Allergy/AdvReac Type Severity Reaction Status Date / Time No Known Allergies Allergy Verified 02/26/24 10:40 [facility] <VIBHA Munoz - Last Filed: 03/03/24 22:47> [facility] Disclaimer: The information contained in this section may have been updated after the patient was seen, as this information can be updated by other users. Medical History Vomiting Eczema GERD (gastroesophageal reflux disease) Insulin dependent diabetes mellitus Type 2 diabetes mellitus Depression Anxiety Bipolar depression Thyroid disease Asthma Chest pain High cholesterol Hypertension Surgical History History of cholecystectomy Family History Mother Cancer, Onset Age: 91 Father Cancer, Onset Age: 60 Other Diabetes Heart attack High cholesterol Hypertension Stroke Social History (Updated 02/26/24 @ 10:39 by Mark Guzman RN) Smoking Status: Never smoker second hand exposure: No alcohol intake: never substance use type: denies use current occupational status: disabled Travel in the last 8 weeks: None household members: none housing: house lives independently: Yes marital status: single education level: college service: No current occupational exposures/hazards: No caffeine: Yes do you feel safe at home: Yes victim of physical abuse: No victim of emotional abuse: No victim of sexual abuse: No would you like helpful sources: No <VIBHA Munoz - Last Filed: 03/03/24 22:47> ROS Obtained: Yes Systems reviewed as appropriate & no additional complaints except as documented Physical Exam <VIBHA Munoz - Last Filed: 03/03/24 22:47> General General appearance: alert and in no apparent distress Head Head exam: atraumatic and normal inspection Eye Eye exam: Present normal appearance, PERRL and EOMI ENT ENT exam: Present normal exam, normal oropharynx and mucous membranes moist Neck Neck exam: Present normal inspection, full ROM and trachea midline Chest Chest inspection: Present normal inspection, symmetric chest wall rise and tenderness (Patient is tender to palpation along the left side anterior chest wall down into the abdomen. I see no obvious evidence of trauma or palpable deformities of the she is exquisitely tender to even trying to move or take a deep breath.) Respiratory Respiratory exam: Present normal lung sounds bilaterally; Absent respiratory distress, wheezes, stridor or accessory muscle use Cardiovascular Cardiovascular exam: Present regular rate, normal rhythm and normal heart sounds Abdominal Exam Abdominal exam: Present soft, tenderness (Tender to palpation in the left upper quadrant at the thoracoabdominal junction) and normal bowel sounds; Absent guarding or rebound Extremities Exam Extremities exam: Present normal inspection and full ROM Back Exam Back exam: Present normal inspection and full ROM; Absent tenderness Neurological Exam Neurological exam: Present alert, oriented X3 and CN II-XII intact Psychiatric Psychiatric exam: Present normal affect and normal mood Skin Skin exam: Present warm, dry and normal color Lymphatic Lymphatic Findings: no adenopathy Medical Decision Making <VIBHA Munoz - Last Filed: 03/03/24 22:47> Medical Records Medical records reviewed: Yes I reviewed the patient's medical records. Emile Inquiry Pt receiving controlled substance: No Vital Signs: 03/03/24 21:17 03/03/24 21:30 03/03/24 22:00 Temperature 97.6 F Temperature Source Oral Pulse Rate 81 84 Pulse Rate [Left Radial] 79 Respiratory Rate 19 18 18 Blood Pressure 143/84 H 131/78 Blood Pressure [Right Arm] 143/84 H Blood Pressure Mean 101 Blood Pressure Mean [Right Arm] 103 Blood Pressure Source [Right Arm] Automatic Cuff Blood Pressure Position [Right Arm] Sitting 02 Sat by Pulse Oximetry 99 100 99 Oxygen Delivery Method Room Air Room Air Room Air 03/03/24 22:30 03/03/24 23:00 03/04/24 00:40 Temperature 97.6 F Temperature Source Pulse Rate 79 86 81 Pulse Rate [Left Radial] Respiratory Rate 18 16 18 Blood Pressure 144/78 H 128/70 124/70 Blood Pressure [Right Arm] Blood Pressure Mean Blood Pressure Mean [Right Arm] Blood Pressure Source [Right Arm] Blood Pressure Position [Right Arm] 02 Sat by Pulse Oximetry 98 95 Oxygen Delivery Method Room Air Room Air Lab Data Lab results reviewed: Yes I reviewed the patient's lab results. Lab Results 03/03/24 21:32: WBC 8.5, RBC 4.94, Hgb 14.6, Hct 45.8, MCV 92.7, MCH 29.5, MCHC 31.9, RDW 13.5, Plt Count 272, MPV 7.2 L, Neut % (Auto) 57.1, Lymph % (Auto) 35.1, Worth % (Auto) 3.9, Eos % (Auto) 2.3, Baso % (Auto) 1.5, Neut # (Auto) 4.9, Lymph # (Auto) 3.0, Worth # (Auto) 0.3, Eos # (Auto) 0.2, Baso # (Auto) 0.1, PT 11.6, INR 1.08, Sodium 135 L, Potassium 4.2, Chloride 99, Carbon Dioxide 23, A nion Gap 17.2 H, BUN 21 H, Creatinine 1.10 H, Estimated Creat Clear 75, E stimated GFR 50 L, Est GFR ( Amer) 61, Glucose 274 H, Calcium 10.1, Total Bilirubin 0.3, AST 38 H, ALT 40, Alkaline Phosphatase 139 H, Total Protein 8.0, Albumin 4.5, Globulin 3.5 H, Albumin/Globulin Ratio 1.3, Lipase 225 03/03/24 21:32 03/03/24 21:32 Orders (Tests/Meds): ED MEDICATIONS Discontinued Medications Generic Name Dose Route Start Last Admin Trade Name Freq PRN Reason Stop Dose Admin Acetaminophen 1,000 mg 03/03/24 21:49 03/03/24 22:05 Acetaminophen 1,000mg/100ml Vial IV 03/03/24 21:50 1,000 mg ONCE ONE Administration Lactated Ringer's 1,000 mls @ 999 mls/hr 03/03/24 21:49 03/03/24 22:06 Lactated Ringer's 1000 Ml Bag IV 03/03/24 22:49 999 mls/hr .Q1H1M ONE Administration Iopamidol 75 ml 03/03/24 22:32 03/03/24 22:32 Iopamidol-370 (76%);100ml Bottle IV 03/03/24 22:33 75 ml ONCE ONE Administration Ketorolac Tromethamine 15 mg 03/03/24 21:49 03/03/24 22:05 Ketorolac 30mg/Ml Vial IV 03/03/24 21:50 15 mg ONCE ONE Administration Oxycodone HCl 5 mg 03/03/24 21:49 03/03/24 22:05 Oxycodone 5mg Immediate Release Tablet PO 03/03/24 21:50 5 mg ONCE ONE Administration Sodium Chloride 50 ml 03/03/24 22:32 03/03/24 22:32 0.9 % Sodium Chloride 50 Ml Vial IV 03/03/24 22:33 50 ml ONCE ONE Administration Sodium Chloride 10 ml 03/03/24 22:32 03/03/24 22:32 Sodium Chloride 0.9% 10ml Syr (Rad Only) IV 04/02/24 22:31 10 ml NEEDED PRN Administration Maintain IV Site ORDERS Category Date Time Status CT abdomen pelvis w con Stat Cat Scan 03/03/24 21:[address] angio chest PE protocol Stat Cat Scan 03/03/24 21:50 Completed POCUS Point of Care (ER Only) Stat Exams 03/03/24 21:49 Taken CBC w/Auto Diff [Complete Blood Count Auto Diff] Stat Lab 03/03/24 21:32 Completed CMP [Comprehensive Metabolic Panel] Stat Lab 03/03/24 21:32 Completed INR [Prothrombin Time INR] Stat Lab 03/03/24 21:32 Completed Lipase Stat Lab 03/03/24 21:32 Completed Medical Decision Narrative: In summary patient is a 64-year-old female who presents to the emergency department for evaluation of chest and abdomen trauma. Patient is hemodynamically stable upon arrival, afebrile. Physical exam is remarkable for left lateral chest and abdomen tenderness to palpation. I do not see any visual ecchymosis or contusions currently. I do not feel any bony deformities. Patient has normal breath sounds in the left lung pizarro.. Differential diagnosis includes superficial skin contusion versus rib fracture versus splenic injury etc. Initial workup will be conducted with FAST exam, hematologic labs, CT scan of the chest abdomen pelvis. Initial interventions include crystalloid bolus Toradol Tylenol oxycodone. Initial workup initiated and pending at the time of handoff to Dr. Arreola at 2300 hrs. <Misha Cottrell MD - Last Filed: 03/04/24 23:53> Vital Signs: 03/03/24 21:17 03/03/24 21:30 03/03/24 22:00 Temperature 97.6 F Temperature Source Oral Pulse Rate 81 84 Pulse Rate [Left Radial] 79 Respiratory Rate 19 18 18 Blood Pressure 143/84 H 131/78 Blood Pressure [Right Arm] 143/84 H Blood Pressure Mean 101 Blood Pressure Mean [Right Arm] 103 Blood Pressure Source [Right Arm] Automatic Cuff Blood Pressure Position [Right Arm] Sitting 02 Sat by Pulse Oximetry 99 100 99 Oxygen Delivery Method Room Air Room Air Room Air 03/03/24 22:30 03/03/24 23:00 03/04/24 00:40 Temperature 97.6 F Temperature Source Pulse Rate 79 86 81 Pulse Rate [Left Radial] Respiratory Rate 18 16 18 Blood Pressure 144/78 H 128/70 124/70 Blood Pressure [Right Arm] Blood Pressure Mean Blood Pressure Mean [Right Arm] Blood Pressure Source [Right Arm] Blood Pressure Position [Right Arm] 02 Sat by Pulse Oximetry 98 95 Oxygen Delivery Method Room Air Room Air Lab Data Lab Results 03/03/24 21:32: WBC 8.5, RBC 4.94, Hgb 14.6, Hct 45.8, MCV 92.7, MCH 29.5, MCHC 31.9, RDW 13.5, Plt Count 272, MPV 7.2 L, Neut % (Auto) 57.1, Lymph % (Auto) 35.1, Worth % (Auto) 3.9, Eos % (Auto) 2.3, Baso % (Auto) 1.5, Neut # (Auto) 4.9, Lymph # (Auto) 3.0, Worth # (Auto) 0.3, Eos # (Auto) 0.2, Baso # (Auto) 0.1, PT 11.6, INR 1.08, Sodium 135 L, Potassium 4.2, Chloride 99, Carbon Dioxide 23, A nion Gap 17.2 H, BUN 21 H, Creatinine 1.10 H, Estimated Creat Clear 75, E stimated GFR 50 L, Est GFR ( Amer) 61, Glucose 274 H, Calcium 10.1, Total Bilirubin 0.3, AST 38 H, ALT 40, Alkaline Phosphatase 139 H, Total Protein 8.0, Albumin 4.5, Globulin 3.5 H, Albumin/Globulin Ratio 1.3, Lipase 225 Orders (Tests/Meds): ED MEDICATIONS Discontinued Medications Generic Name Dose Route Start Last Admin Trade Name Freq PRN Reason Stop Dose Admin Acetaminophen 1,000 mg 03/03/24 21:49 03/03/24 22:05 Acetaminophen 1,000mg/100ml Vial IV 03/03/24 21:50 1,000 mg ONCE ONE Administration Lactated Ringer's 1,000 mls @ 999 mls/hr 03/03/24 21:49 03/03/24 22:06 Lactated Ringer's 1000 Ml Bag IV 03/03/24 22:49 999 mls/hr .Q1H1M ONE Administration Iopamidol 75 ml 03/03/24 22:32 03/03/24 22:32 Iopamidol-370 (76%);100ml Bottle IV 03/03/24 22:33 75 ml ONCE ONE Administration Ketorolac Tromethamine 15 mg 03/03/24 21:49 03/03/24 22:05 Ketorolac 30mg/Ml Vial IV 03/03/24 21:50 15 mg ONCE ONE Administration Oxycodone HCl 5 mg 03/03/24 21:49 03/03/24 22:05 Oxycodone 5mg Immediate Release Tablet PO 03/03/24 21:50 5 mg ONCE ONE Administration Sodium Chloride 50 ml 03/03/24 22:32 03/03/24 22:32 0.9 % Sodium Chloride 50 Ml Vial IV 03/03/24 22:33 50 ml ONCE ONE Administration Sodium Chloride 10 ml 03/03/24 22:32 03/03/24 22:32 Sodium Chloride 0.9% 10ml Syr (Rad Only) IV 04/02/24 22:31 10 ml NEEDED PRN Administration Maintain IV Site ORDERS Category Date Time Status CT abdomen pelvis w con Stat Cat Scan 03/03/24 21:[address] angio chest PE protocol Stat Cat Scan 03/03/24 21:50 Completed POCUS Point of Care (ER Only) Stat Exams 03/03/24 21:49 Taken CBC w/Auto Diff [Complete Blood Count Auto Diff] Stat Lab 03/03/24 21:32 Completed CMP [Comprehensive Metabolic Panel] Stat Lab 03/03/24 21:32 Completed INR [Prothrombin Time INR] Stat Lab 03/03/24 21:32 Completed Lipase Stat Lab 03/03/24 21:32 Completed Medical Decision Narrative: In summary patient is a 64-year-old female who presents to the emergency department for evaluation of chest and abdomen trauma. Patient is hemodynamically stable upon arrival, afebrile. Physical exam is remarkable for left lateral chest and abdomen tenderness to palpation. I do not see any visual ecchymosis or contusions currently. I do not feel any bony deformities. Patient has normal breath sounds in the left lung pizarro.. Differential diagnosis includes superficial skin contusion versus rib fracture versus splenic injury etc. Initial workup will be conducted with FAST exam, hematologic labs, CT scan of the chest abdomen pelvis. Initial interventions include crystalloid bolus Toradol Tylenol oxycodone. Initial workup initiated and pending at the time of handoff to Dr. Arreola at 2300 hrs. I was consulted by the STANTON, and we discussed the complexity of the problems being addressed. I approved the treatment and management plan for this patient?s care in the Emergency Department, thus performing a substantive portion of the medical decision making. Misha Cottrell MD Prior to imaging results, care handed off to oncoming physician. <Nigel Arreola MD - Last Filed: 03/08/24 02:53> Vital Signs: 03/03/24 21:17 03/03/24 21:30 03/03/24 22:00 Temperature 97.6 F Temperature Source Oral Pulse Rate 81 84 Pulse Rate [Left Radial] 79 Respiratory Rate 19 18 18 Blood Pressure 143/84 H 131/78 Blood Pressure [Right Arm] 143/84 H Blood Pressure Mean 101 Blood Pressure Mean [Right Arm] 103 Blood Pressure Source [Right Arm] Automatic Cuff Blood Pressure Position [Right Arm] Sitting 02 Sat by Pulse Oximetry 99 100 99 Oxygen Delivery Method Room Air Room Air Room Air 03/03/24 22:30 03/03/24 23:00 03/04/24 00:40 Temperature 97.6 F Temperature Source Pulse Rate 79 86 81 Pulse Rate [Left Radial] Respiratory Rate 18 16 18 Blood Pressure 144/78 H 128/70 124/70 Blood Pressure [Right Arm] Blood Pressure Mean Blood Pressure Mean [Right Arm] Blood Pressure Source [Right Arm] Blood Pressure Position [Right Arm] 02 Sat by Pulse Oximetry 98 95 Oxygen Delivery Method Room Air Room Air Lab Data Lab Results 03/03/24 21:32: WBC 8.5, RBC 4.94, Hgb 14.6, Hct 45.8, MCV 92.7, MCH 29.5, MCHC 31.9, RDW 13.5, Plt Count 272, MPV 7.2 L, Neut % (Auto) 57.1, Lymph % (Auto) 35.1, Worth % (Auto) 3.9, Eos % (Auto) 2.3, Baso % (Auto) 1.5, Neut # (Auto) 4.9, Lymph # (Auto) 3.0, Worth # (Auto) 0.3, Eos # (Auto) 0.2, Baso # (Auto) 0.1, PT 11.6, INR 1.08, Sodium 135 L, Potassium 4.2, Chloride 99, Carbon Dioxide 23, A nion Gap 17.2 H, BUN 21 H, Creatinine 1.10 H, Estimated Creat Clear 75, E stimated GFR 50 L, Est GFR ( Amer) 61, Glucose 274 H, Calcium 10.1, Total Bilirubin 0.3, AST 38 H, ALT 40, Alkaline Phosphatase 139 H, Total Protein 8.0, Albumin 4.5, Globulin 3.5 H, Albumin/Globulin Ratio 1.3, Lipase 225 Orders (Tests/Meds): ED MEDICATIONS Discontinued Medications Generic Name Dose Route Start Last Admin Trade Name Freq PRN Reason Stop Dose Admin Acetaminophen 1,000 mg 03/03/24 21:49 03/03/24 22:05 Acetaminophen 1,000mg/100ml Vial IV 03/03/24 21:50 1,000 mg ONCE ONE Administration Lactated Ringer's 1,000 mls @ 999 mls/hr 03/03/24 21:49 03/03/24 22:06 Lactated Ringer's 1000 Ml Bag IV 03/03/24 22:49 999 mls/hr .Q1H1M ONE Administration Iopamidol 75 ml 03/03/24 22:32 03/03/24 22:32 Iopamidol-370 (76%);100ml Bottle IV 03/03/24 22:33 75 ml ONCE ONE Administration Ketorolac Tromethamine 15 mg 03/03/24 21:49 03/03/24 22:05 Ketorolac 30mg/Ml Vial IV 03/03/24 21:50 15 mg ONCE ONE Administration Oxycodone HCl 5 mg 03/03/24 21:49 03/03/24 22:05 Oxycodone 5mg Immediate Release Tablet PO 03/03/24 21:50 5 mg ONCE ONE Administration Sodium Chloride 50 ml 03/03/24 22:32 03/03/24 22:32 0.9 % Sodium Chloride 50 Ml Vial IV 03/03/24 22:33 50 ml ONCE ONE Administration Sodium Chloride 10 ml 03/03/24 22:32 03/03/24 22:32 Sodium Chloride 0.9% 10ml Syr (Rad Only) IV 04/02/24 22:31 10 ml NEEDED PRN Administration Maintain IV Site ORDERS Category Date Time Status CT abdomen pelvis w con Stat Cat Scan 03/03/24 21:[address] angio chest PE protocol Stat Cat Scan 03/03/24 21:50 Completed POCUS Point of Care (ER Only) Stat Exams 03/03/24 21:49 Taken CBC w/Auto Diff [Complete Blood Count Auto Diff] Stat Lab 03/03/24 21:32 Completed CMP [Comprehensive Metabolic Panel] Stat Lab 03/03/24 21:32 Completed INR [Prothrombin Time INR] Stat Lab 03/03/24 21:32 Completed Lipase Stat Lab 03/03/24 21:32 Completed Medical Decision Narrative: In summary patient is a 64-year-old female who presents to the emergency department for evaluation of chest and abdomen trauma. Patient is hemodynamically stable upon arrival, afebrile. Physical exam is remarkable for left lateral chest and abdomen tenderness to palpation. I do not see any visual ecchymosis or contusions currently. I do not feel any bony deformities. Patient has normal breath sounds in the left lung pizarro.. Differential diagnosis includes superficial skin contusion versus rib fracture versus splenic injury etc. Initial workup will be conducted with FAST exam, hematologic labs, CT scan of the chest abdomen pelvis. Initial interventions include crystalloid bolus Toradol Tylenol oxycodone. Initial workup initiated and pending at the time of handoff to Dr. Arreola at 2300 hrs. I was consulted by the STANTON, and we discussed the complexity of the problems being addressed. I approved the treatment and management plan for this patient?s care in the Emergency Department, thus performing a substantive portion of the medical decision making. Misha Cottrell MD Prior to imaging results, care handed off to oncoming physician. Maxwell MCINTYRE: I assumed care of the patient at the time of handoff from the prior provider. On reassessment patient reports some symptomatic improvement. CT imaging was independently interpreted by me and shows no evidence of acute traumatic injuries. It does show bilateral thyroid nodules. These findings were communicated to patient and she was instructed to follow-up with PCP on an outpatient basis. She was discharged in stable condition with return precautions. Critical Care <VIBHA Munoz - Last Filed: 03/03/24 22:47> Critical Care Time Critical Care Time: No
--- NOTE | 2024-03-03 21:50 | CT_ITS ---
PROCEDURE INFORMATION: Exam: CT Abdomen And Pelvis With Contrast Exam date and time: 03/03/2024 10:21 PM Age: 64 years old Clinical indication: Abdominal pain; Patient HX: Fell into a table left side abd/rib pain; Additional info: Chest and abdomen trauma TECHNIQUE: Imaging protocol: Computed tomography of the abdomen and pelvis with contrast. Radiation optimization: All CT scans at this facility use at least one of these dose optimization techniques: automated exposure control; mA and/or kV adjustment per patient size (includes targeted exams where dose is matched to clinical indication); or iterative reconstruction. Contrast material: ISOVUE; Contrast volume: 75 ml; Contrast route: IV; COMPARISON: CT ABDOMEN PELVIS W CON 09/28/2023 5:43 PM FINDINGS: Liver: Liver is moderately enlarged and appears diffusely fatty. No focal hepatic abnormality. Gallbladder and bile ducts: Gallbladder is surgically absent. No biliary ductal dilation. Pancreas: Normal. No ductal dilation. Spleen: Normal. No splenomegaly. Adrenal glands: Normal. No mass. Kidneys and ureters: Normal. No hydronephrosis. Stomach and bowel: Unremarkable. No obstruction. No mucosal thickening. Appendix: No evidence of appendicitis. Intraperitoneal space: Unremarkable. No free air. No significant fluid collection. Vasculature: Moderate atherosclerotic calcification throughout the aorta. No evidence of aneurysm or dissection. Lymph nodes: Unremarkable. No enlarged lymph nodes. Urinary bladder: Unremarkable as visualized. Reproductive: Unremarkable as visualized. Bones/joints: Unremarkable. No acute fracture. Soft tissues: Unremarkable. IMPRESSION: No acute abnormality. Chronic findings as noted.
--- NOTE | 2024-03-03 21:50 | CT_ITS ---
PROCEDURE INFORMATION: Exam: CTA Chest With Contrast Exam date and time: 03/03/2024 10:21 PM Age: 64 years old Clinical indication: Chest wall pain; Patient HX: Fell into a table left rib/chest pain; Additional info: Chest and abdomen trauma TECHNIQUE: Imaging protocol: Computed tomographic angiography of the chest with contrast. Exam focused on the arteries. 3D rendering (Not supervised by radiologist): MIP and/or 3D reconstructed images were created by the technologist. Radiation optimization: All CT scans at this facility use at least one of these dose optimization techniques: automated exposure control; mA and/or kV adjustment per patient size (includes targeted exams where dose is matched to clinical indication); or iterative reconstruction. Contrast material: ISOVUE; Contrast volume: 75 ml; Contrast route: INTRAVENOUS (IV); COMPARISON: CR XR CHEST PORTABLE 10/14/2023 5:53 PM FINDINGS: Pulmonary arteries: Normal. No pulmonary emboli. Aorta: Unremarkable. No aortic aneurysm. No aortic dissection. Thyroid: A few small partially calcified cysts or nodules noted both lobes of the thyroid gland. Thyroid appears normal in size. Lungs: Unremarkable. No consolidation. No masses. Pleural spaces: Unremarkable. No pneumothorax. No pleural effusion. Heart: Unremarkable. No cardiomegaly. No pericardial effusion. Lymph nodes: Unremarkable. No enlarged lymph nodes. Bones/joints: Mild degenerative changes throughout the spine. No vertebral body compression or acute fracture. Soft tissues: Unremarkable. IMPRESSION: No acute abnormality. Bilateral thyroid nodules and/or cysts. Correlation with thyroid ultrasound recommended when clinically feasible. COMMENTS: Consistent with the [employer]'s Incidental Findings Committee white paper (J Am Cb Radiol 2015): In patients aged 35 years and older with an incidental thyroid nodule equal to or greater than 1.[address], MRI or extrathyroidal US, further evaluation with dedicated thyroid US is recommended for patients with normal life expectancy and without comorbidities. For smaller nodules without suspicious features, no further evaluation or follow up is recommended.
[2024-03-03 21:56] LABS: Basophils # 0.1 K/mm3 (0-0.2); Basophils % 1.5 % (0.1-2.0); Eosinophils # 0.2 K/mm3 (0.0-0.4); Eosinophils % 2.3 % (0.1-12.0); Hematocrit 45.8 % (37.0-47.0); Hemoglobin 14.6 g/dL (12.2-16.2); Lymphocytes % 35.1 % (10-50); Mean Corpuscular HGB Conc 31.9 g/dL (31.8-35.4); Mean Corpuscular Hemoglobin 29.5 pg (27.0-31.2); Mean Corpuscular Volume 92.7 fl (81-99); Mean Platelet Volume 7.2 fl (7.4-10.4); Monocytes # 0.3 K/mm3 (0.1-1.0); Monocytes % 3.9 % (1.7-9.3); Neutrophils # 4.9 K/mm3 (1.8-7.8); Neutrophils % 57.1 % (37.0-80.0); Platelet Count 272 K/mm3 (142-424); Red Blood Count 4.94 M/mm3 (4.20-5.40); Red Cell Distribution Width 13.5 % (11.5-17.5); White Blood Count 8.5 K/mm3 (4.8-10.8)
[2024-03-03 21:59] LABS: Chloride 99 mmol/L (98-107); Potassium 4.2 mmoL/L (3.5-5.1); Sodium 135 mmol/L (136-145)
[2024-03-03 22:00] VITALS: BP 131/78; PULSE 84; RESP 18; O2SAT 99
[2024-03-03 22:01] LABS: Alanine Aminotransferase 40 U/L (12-78); Alkaline Phosphatase 139 U/L (38-126); Anion Gap 17.2 mEq/L (5-15); Aspartate Amino Transferase 38 U/L (14-36); Bilirubin,Total 0.3 mg/dl (0.2-1.3); Blood Urea Nitrogen 21 mg/dl (7-17); Carbon Dioxide 23 mmol/L (22.0-30.0); Creatinine Clearance Estimated 75 mL/min (50-200); Estimated Glomerular Filt Rate 50 ml/min (>60); GFR (African American) 61 ML/MIN (>60); Lipase 225 U/L (23-300)
[2024-03-03 22:02] LABS: Albumin Level 4.5 g/dl (3.5-5.0); Albumin/Globulin Ratio 1.3 (1.1-1.8); Calcium 10.1 mg/dl (8.4-10.2); Globulin 3.5 g/dL (1.3-3.2); Glucose 274 mg/dl (74-100)
[2024-03-03 22:03] LABS: INR 1.08 (0.9-1.1); Prothrombin Time 11.6 seconds (10.1-12.5)
[2024-03-03] MEDS: OXYCODONE 5MG IMMEDIATE RELEASE TABLET 5 MG PO (22:05)
[2024-03-03] MEDS: KETOROLAC 30MG/ML VIAL 15 MG IV (22:05)
[2024-03-03] MEDS: ACETAMINOPHEN 1,000MG/100ML VIAL 1000 MG IV (22:05)
[2024-03-03] MEDS: LACTATED RINGERS 1000ML 1,000 ML 999 ML IV (22:06)
[2024-03-03 22:30] VITALS: BP 144/78; PULSE 79; RESP 18; O2SAT 98
[2024-03-03] MEDS: 0.9 % SODIUM CHLORIDE 50 ML VIAL IV (22:32)
[2024-03-03] MEDS: SODIUM CHLORIDE 0.9% 10ML SYR (RAD ONLY) 10 ML IV (22:32)
[2024-03-03] MEDS: IOPAMIDOL-370 (76%);100ML BOTTLE 75 ML IV (22:32)
[2024-03-03 23:00] VITALS: BP 128/70; PULSE 86; RESP 16; O2SAT 95
--- NOTE | 2024-03-04 00:08 | PC.NURSE ---
Pt is sleeping at this time, still awaiting CT results
[2024-03-04 00:40] VITALS: BP 124/70; PULSE 81; RESP 18; TEMP 36.4
--- NOTE | 2024-03-04 00:44 | PC.NURSE ---
Vida JOYCE spoke with pts friend Dee Dee, whom states she will come pick the pt up to d/c her home.
== END 2024-03-04 01:19 | disposition home or self-care (01) ==
PROVIDERS: Physician Assistant; Emergency Provider Emergency Medicine; PCP Nurse Practitioner Family
DX: R10.12 Left upper quadrant pain (principal); R07.1 Chest pain on breathing; E04.2 Nontoxic multinodular goiter; E11.65 Type 2 diabetes mellitus with hyperglycemia; W01.198A Fall on same level from slipping, tripping and stumbling with subsequent striking against other object, initial encounter; Z79.84 Long term (current) use of oral hypoglycemic drugs; K21.9 Gastro-esophageal reflux disease without esophagitis; E03.9 Hypothyroidism, unspecified; I10 Essential (primary) hypertension; E78.5 Hyperlipidemia, unspecified
CPT/HCPCS: 71275; 74177; 80053; 83690; 85025; 85610; 96361; 96374; 96375; 99285; J0131; J1885; J7120; Q9967

== ENCOUNTER 2024-03-26 11:13 | Outpatient (CLI) | payer MEDICARE, MEDICAID, SELFPAY ==
[2024-03-26] MEDS: [UNRECOGNIZED DRUG - OTHER] SQ (11:41)
[2024-03-26] MEDS: OMALIZUMAB SQ (11:41)
[2024-03-26 11:45] VITALS: BP 157/78; PULSE 88; RESP 18; O2SAT 97
== END 2024-03-26 11:45 | disposition home or self-care (01) ==
LOC: INF 11:13
PROVIDERS: PCP Nurse Practitioner Family; Visit Provider Allergy & Immunology
DX: J45.50 Severe persistent asthma, uncomplicated (principal)
CPT/HCPCS: 96372; J2357

== ENCOUNTER 2024-04-23 11:46 | Outpatient (CLI) | payer MEDICARE, MEDICAID, SELFPAY ==
[2024-04-23 12:15] VITALS: BP 136/65; PULSE 79; RESP 18; TEMP 36.7; O2SAT 98
[2024-04-23] MEDS: OMALIZUMAB 150MG VIAL 300 MG SQ (12:15)
== END 2024-04-23 12:30 | disposition home or self-care (01) ==
LOC: INF 11:46
PROVIDERS: PCP Nurse Practitioner Family; Visit Provider Allergy & Immunology
DX: E78.00 Pure hypercholesterolemia, unspecified (principal)
CPT/HCPCS: 96372; J2357

== ENCOUNTER 2024-05-21 11:09 | Outpatient (CLI) | payer MEDICARE, MEDICAID, SELFPAY ==
[2024-05-21 11:31] VITALS: BP 107/71; PULSE 88; RESP 20; O2SAT 96
[2024-05-21] MEDS: OMALIZUMAB 150MG VIAL 300 MG SQ (11:31)
== END 2024-05-21 11:50 | disposition home or self-care (01) ==
LOC: INF 11:10
PROVIDERS: Visit Provider Allergy & Immunology
DX: E78.5 Hyperlipidemia, unspecified (principal)
CPT/HCPCS: 96372; J2357

== ENCOUNTER 2024-06-18 13:30 | Outpatient (CLI) | payer MEDICARE, MEDICAID, SELFPAY ==
[2024-06-18 13:56] VITALS: BP 147/82; PULSE 81; RESP 20; TEMP 36.4; O2SAT 98
[2024-06-18] MEDS: OMALIZUMAB 150MG VIAL 300 MG SQ (13:56)
== END 2024-06-18 14:18 | disposition home or self-care (01) ==
LOC: INF 13:31
PROVIDERS: PCP Nurse Practitioner Family; Visit Provider Nurse Practitioner
DX: J45.50 Severe persistent asthma, uncomplicated (principal)
CPT/HCPCS: 96372; J2357

== ENCOUNTER 2024-07-16 11:16 | Outpatient (CLI) | payer MEDICARE, MEDICAID, SELFPAY ==
--- NOTE | 2024-07-16 11:29 | MM_ITS ---
PROCEDURE INFORMATION: Exam: MG Bilateral Screening 3D Mammography Exam date and time: 07/16/2024 11:00 AM Age: 64 years old Clinical indication: Screening examination; No personal or family history of breast cancer TECHNIQUE: Imaging protocol: Bilateral Screening tomosynthesis and 2D mammography including computer-aided detection (CAD) when performed. COMPARISON: 1. MG MM DIG SCREENING MAMM BI W/CAD 06/27/2023 9:59 AM 2. MG MM DIG SCREENING MAMM BI W/CAD 04/25/2022 12:59 PM FINDINGS: MAMMOGRAPHY: Breast composition: The breasts are heterogeneously dense, which may obscure small masses. Mass: 0.5 cm questionable mass in the posterior right lateral breast Architectural distortion: None. Calcifications: No suspicious calcifications. Asymmetric density: None. Skin thickening: None. Axillary adenopathy: None. IMPRESSION: Patient to be recalled for a spot compression view of the right breast in the craniocaudal projection, a full 90 degree lateral view of the right breast, and right breast ultrasound for further evaluation of a questionable right breast mass. ASSESSMENT: BI-RADS Category 0: Incomplete- Need Additional Imaging Evaluation
[2024-07-16 11:53] VITALS: BP 140/87; PULSE 84; RESP 18; TEMP 36.7; O2SAT 99
[2024-07-16] MEDS: OMALIZUMAB 150MG VIAL 300 MG SUBCUT (11:53)
== END 2024-07-16 12:11 | disposition home or self-care (01) ==
PROVIDERS: PCP Nurse Practitioner Family; Visit Provider Nurse Practitioner Family
DX: Z12.31 Encounter for screening mammogram for malignant neoplasm of breast (principal)
CPT/HCPCS: 77063; 77067; 96372; J2357

== ENCOUNTER 2024-07-22 14:38 | Outpatient (CLI) | payer MEDICARE, MEDICAID, SELFPAY ==
--- NOTE | 2024-07-22 14:43 | US_ITS ---
PROCEDURE INFORMATION: Exam: US Right Breast, Complete Exam date and time: 07/22/2024 2:53 PM Age: 64 years old Clinical indication: Callback from screening mammogram for a right breast finding. TECHNIQUE: Imaging protocol: Complete ultrasound of all four quadrants of the right breast and the retroareolar regions, including ultrasound of the axilla when performed. COMPARISON: MG MM DIG SCREENING MAMM BI W/CAD 07/16/2024 11:00 AM FINDINGS: ULTRASOUND: Breast ultrasound findings: Complete ultrasound of the right breast is performed. No definite mass, focal shadowing, or suspicious distortion are seen. No axillary adenopathy is seen. There is duct ectasia in the upper outer quadrant region. IMPRESSION: No sonographic finding is seen to correlate to the mammogram finding from 07/16/2024. A diagnostic right breast mammogram with spot compression view in the craniocaudal projection and a true lateral view is still recommended. ASSESSMENT: BI-RADS Category 0: Incomplete- Need Additional Imaging Evaluation.
== END 2024-07-22 23:59 | disposition home or self-care (01) ==
LOC: RAD 14:39
PROVIDERS: PCP Nurse Practitioner Family; Visit Provider Nurse Practitioner Family
DX: R92.2 Inconclusive mammogram (principal)
CPT/HCPCS: 76641

== ENCOUNTER 2024-08-12 08:14 | Outpatient (CLI) | payer MEDICARE, MEDICAID, SELFPAY ==
[2024-08-12 08:28] VITALS: BP 137/82; PULSE 79; RESP 16; TEMP 36.6; O2SAT 98
[2024-08-12] MEDS: OMALIZUMAB 150MG VIAL 300 MG SUBCUT (08:28)
== END 2024-08-12 08:40 | disposition home or self-care (01) ==
LOC: INF 08:15
PROVIDERS: PCP Nurse Practitioner Family; Visit Provider Allergy & Immunology
DX: J45.909 Unspecified asthma, uncomplicated (principal)
CPT/HCPCS: 96372; J2357

== ENCOUNTER 2024-08-15 12:45 | Outpatient (CLI) | payer MEDICARE, MEDICAID, SELFPAY ==
--- NOTE | 2024-08-15 12:49 | MM_ITS ---
PROCEDURE INFORMATION: Exam: MG Right Diagnostic Breast Tomosynthesis Exam date and time: 08/15/2024 12:46 PM Age: 64 years old Clinical indication: Recalled following negative right sonography 07/22/2024 for mammographic evaluation of 0.5 cm questionable mass in the posterior right lateral breast from screening mammogram 07/16/2024. TECHNIQUE: Imaging protocol: Right Diagnostic tomosynthesis and 2D mammography including computer-aided detection (CAD) when performed. Unilateral or bilateral exam. COMPARISON: 1. MG MM DIG SCREENING MAMM BI W/CAD 07/16/2024 11:00 AM 2. MG MM DIG SCREENING MAMM BI W/CAD 06/27/2023 9:59 AM 3. MG MM DIG SCREENING MAMM BI W/CAD 04/25/2022 12:59 PM 4. MG MM DIG SCREENING MAMM BI W/CAD 03/17/2020 3:56 PM FINDINGS: MAMMOGRAPHY: Breast composition: The breast is heterogeneously dense, which may obscure small masses based on the most recent screening mammogram report. Breast mammogram findings: Spot compression, particularly XCCL, shows patchy tissue in the posterolateral right breast, similar on spot-compression 2 prior mammograms, with no suspicious mass or asymmetry. IMPRESSION: Probably benign patchy tissue in the posterolateral right breast, suggest six-month follow-up right diagnostic mammogram with XCCL, unless otherwise clinically indicated. ASSESSMENT: BI-RADS Category 3: Probably benign.
== END 2024-08-15 23:59 | disposition home or self-care (01) ==
LOC: RAD 12:46
PROVIDERS: PCP Nurse Practitioner Family; Visit Provider Nurse Practitioner Family
DX: R92.8 Other abnormal and inconclusive findings on diagnostic imaging of breast (principal)
CPT/HCPCS: 77061; 77065; G0279

== ENCOUNTER 2024-09-16 10:25 | Outpatient (CLI) | payer MEDICARE, MEDICAID, SELFPAY ==
[2024-09-16 11:13] VITALS: BP 121/77; PULSE 85; RESP 18; TEMP 36.7; O2SAT 98
[2024-09-16] MEDS: OMALIZUMAB 150MG VIAL 300 MG SUBCUT (11:13)
== END 2024-09-16 11:30 | disposition home or self-care (01) ==
LOC: INF 10:25
PROVIDERS: PCP Nurse Practitioner Family; Visit Provider Allergy & Immunology
DX: J45.909 Unspecified asthma, uncomplicated (principal)
CPT/HCPCS: 96372; J2357

== ENCOUNTER 2024-09-30 19:19 | Emergency (ER) | payer MEDICARE, MEDICAID, SELFPAY ==
[2024-09-30] VITALS (8 sets, daily range): BP systolic 126–175; BP diastolic 76–96; PULSE 75–80; RESP 16–20; TEMP 36.3–36.5; O2SAT 97–100; BMI 30.7
--- NOTE | 2024-09-30 19:45 | ED_ITS ---
Discharge Plan Disposition Patient Disposition: Home, Self-Care Condition: Good Prescriptions Prescriptions: No Action methylprednisolone [Medrol (Denys)] 4 mg tablets,dose pack 4 mg PO PER PKG DIR Qty: 21 0RF lidocaine 5 % adhesive patch,medicated 2 patch topical DAILY PRN (Reason: pain) 7 Days Qty: 15 0RF Rx Instructions: leave on most painful area for up to 12 hrs fluoxetine 40 mg capsule 40 mg PO DAILY bupropion HCl 150 mg tablet sustained-release 12 hr 150 mg PO BID lisinopril-hydrochlorothiazide 20-12.5 mg tablet 1 tab PO DAILY clonazepam 1 mg tablet 1 mg PO HS levothyroxine 50 mcg tablet 50 mcg PO AM buspirone 10 mg tablet 10 mg PO DAILY montelukast 10 mg tablet 10 mg PO DAILY albuterol sulfate [Ventolin HFA] 90 mcg/actuation HFA aerosol inhaler 2 inh INHALATION Q4-6H PRN (Reason: Breathing Problems) duloxetine 60 mg capsule,delayed release(DR/EC) 60 mg PO DAILY Jardiance 25 mg tablet 25 mg PO DAILY Vraylar 4.5 mg capsule 4.5 mg PO DAILY naproxen 500 mg tablet 500 mg PO BID Qty: 10 0RF methocarbamol 750 mg tablet 750 mg PO Q8H PRN (Reason: pain) Qty: 20 0RF Kerendia 10 mg Tablet 10 mg PO DAILY amitriptyline 10 mg tablet 10 mg PO HS ondansetron 4 mg tablet,disintegrating 4 mg PO Q6H PRN (Reason: nausea and vomiting) Qty: 10 0RF Referrals Follow up/Referrals: Lavinia Juarez [Primary Care Provider] - See instructions Activity Restrictions/Add. Instructions Additional Instructions/Restrictions: You were evaluated in the emergency department today. Please follow-up closely with your primary care provider over the next 48 to 72 hours for reassessment. Make sure you stay hydrated. Return to the emergency department for new or worsening symptoms. Clinical Impressions Clinical Impression: Viral URI with cough, Gastroparesis Stand Alone Forms Stand Alone Forms: Work/School Release Instructions Patient Instructions: DI for Viral Upper Respiratory Infection -- Adult, DI for Nausea -- Adult, DI for Gastroparesis Print Language Print Language: Moldovan Discharge ED Provider: Daina Grey General Adult HPI General Chief complaint: Nausea/Vomiting/Diarrhea Stated complaint: nausea Time Seen by Provider: 09/30/24 19:25 Mode of Arrival: Ambulatory Source of Information: Patient Limitations: No Limitations Description of Symptoms (Recalled from ER Triage Doc. 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 Patient states that she has a history of gastroparesis and gets flareups occasionally. She typically manages them at home. She has had no medications help her make her feel better, so she just throws up and waits for symptoms to resolve before she resumes eating and drinking. This is not significantly different from prior flares. She states has been vomiting liquid for the last 3 days. Its nonbloody nonbilious. She is still having normal bowel movements and passing gas. No significant abdominal pain noted. She notes she also has a cough and thought she might be coming down with an illness. She tested negative for COVID and flu with her primary care provider. Related Data Home Medications ?Medication ?Instructions ?Recorded ?Confirmed albuterol sulfate 90 mcg/actuation 2 inh inhalation Q4-6H PRN 01/31/23 09/16/24 aerosol inhaler (Ventolin HFA) Breathing Problems bupropion HCl 150 mg tablet,12 hr 150 mg PO BID Mood 01/31/23 09/16/24 sustained-release buspirone 10 mg tablet 10 mg PO DAILY Mood 01/31/23 09/16/24 cariprazine 4.5 mg capsule 4.5 mg PO DAILY Mood 01/31/23 09/16/24 (Vraylar) clonazepam 1 mg tablet 1 mg PO HS Anxiety 01/31/23 09/16/24 duloxetine 60 mg capsule,delayed 60 mg PO DAILY Mood 01/31/23 09/16/24 release empagliflozin 25 mg tablet 25 mg PO DAILY Diabetes 01/31/23 09/16/24 (Jardiance) fluoxetine 40 mg capsule 40 mg PO DAILY Mood 01/31/23 09/16/24 levothyroxine 50 mcg tablet 50 mcg PO AM Thyroid 01/31/23 09/16/24 lisinopril 20 1 tab PO DAILY High blood pressure 01/31/23 09/16/24 mg-hydrochlorothiazide 12.5 mg tablet montelukast 10 mg tablet 10 mg PO DAILY Allergy symptoms 01/31/23 09/16/24 amitriptyline 10 mg tablet 10 mg PO HS sleep 03/14/23 09/16/24 finerenone 10 mg tablet (Kerendia) 10 mg PO DAILY kidney disease 03/14/23 09/16/24 Previous Rx's ?Medication ?Instructions ?Recorded ondansetron 4 mg disintegrating 4 mg PO Q6H PRN nausea and 09/27/23 tablet vomiting #10 tabs lidocaine 5 % topical patch 2 patch topical DAILY PRN pain 7 11/29/23 days #15 ea methylprednisolone 4 mg tablets in 4 mg PO PER PKG DIR #21 tabs 11/29/23 a dose pack (Medrol (Denys)) methocarbamol 750 mg tablet 750 mg PO Q8H PRN pain #20 tabs 12/17/23 naproxen 500 mg tablet 500 mg PO BID #10 tabs 12/17/23 Allergies Allergy/AdvReac Type Severity Reaction Status Date / Time No Known Allergies Allergy Verified 09/16/24 13:03 [facility] Disclaimer: The information contained in this section may have been updated after the patient was seen, as this information can be updated by other users. Medical History Vomiting Eczema GERD (gastroesophageal reflux disease) Insulin dependent diabetes mellitus Type 2 diabetes mellitus Depression Anxiety Bipolar depression Thyroid disease Asthma Chest pain High cholesterol Hypertension Surgical History History of cholecystectomy Family History Mother Cancer, Onset Age: 91 Father Cancer, Onset Age: 60 Other Diabetes Heart attack High cholesterol Hypertension Stroke Social History Smoking Status: Never smoker second hand exposure: No alcohol intake: never substance use type: denies use current occupational status: disabled Travel in the last 8 weeks: None household members: none housing: house lives independently: Yes marital status: single education level: college service: No current occupational exposures/hazards: No caffeine: Yes do you feel safe at home: Yes victim of physical abuse: No victim of emotional abuse: No victim of sexual abuse: No would you like helpful sources: No Have you lived/traveled outside [place] in past 30 days?: No Contact w/someone who lives/traveled outside US past 30 days?: No Exposure to someone with infectious disease in past 14 days?: No Do you have a fever (greater than 100.4 F or 38 C)?: No Have you tested positive for COVID-19: No Exposed to someone with COVID-19 in past 14 days?: No Do you have a sore throat?: No Do you have a cough?: No Do you have any weakness?: No Do you have any diarrhea?: No Are you experiencing any unusual bleeding?: No Do you have any muscle aches/pain?: No Do you have any abdominal pain?: No Are you experiencing loss of taste or smell?: No Other Medical History Have you received the Flu Vaccine for this season: No Have you received the Pneumonia Vaccine: No ROS Obtained: Yes All systems reviewed & no additional complaints except as documented Physical Exam General General appearance: alert and in no apparent distress Head Head exam: atraumatic and normocephalic Eye Eye exam: Present normal appearance, PERRL and EOMI ENT ENT exam: Present normal exam, normal oropharynx, mucous membranes moist and normal external ear exam Neck Neck exam: Present normal inspection, full ROM and trachea midline; Absent tenderness Chest Chest inspection: Present normal inspection and symmetric chest wall rise; Absent tenderness Respiratory Respiratory exam: Present normal lung sounds bilaterally; Absent respiratory distress, wheezes, stridor or accessory muscle use Cardiovascular Cardiovascular exam: Present regular rate and normal rhythm Abdominal Exam Abdominal exam: Present soft; Absent distention, tenderness or guarding Extremities Exam Extremities exam: Present normal inspection, full ROM and normal capillary refill; Absent tenderness or edema Back Exam Back exam: Present normal inspection and full ROM; Absent tenderness Neurological Exam Neurological exam: Present alert, oriented X3, CN II-XII intact and normal gait; Absent motor sensory deficit Psychiatric Psychiatric exam: Present normal affect and normal mood Skin Skin exam: Present warm and dry Medical Decision Making Medical Records Medical records reviewed: Yes I reviewed the patient's medical records. Screening: Per USPSTF and CDC recommendations, given the prevalence of disease in our region, it is our hospital?s policy to screen for HIV and viral Hepatitis for all patients aged 18 and over and those with ongoing risk factors. Emile Inquiry Pt receiving controlled substance: No Vital Signs: 09/30/24 19:28 09/30/24 19:30 09/30/24 19:31 Temperature 97.7 F Temperature Source Oral Pulse Rate 80 80 Pulse Rate [Right Brachial] 80 Respiratory Rate 20 Blood Pressure 174/89 H 155/84 H Blood Pressure [Right Arm] 174/89 H Blood Pressure Mean 129 134 Blood Pressure Mean [Right Arm] 117 Blood Pressure Source [Right Arm] Automatic Cuff Blood Pressure Position [Right Arm] Sitting 02 Sat by Pulse Oximetry 99 99 100 Oxygen Delivery Method Room Air Room Air Room Air 09/30/24 20:00 09/30/24 20:30 09/30/24 21:00 Temperature Temperature Source Pulse Rate 79 75 Pulse Rate [Right Brachial] Respiratory Rate Blood Pressure 126/76 175/96 H 170/94 H Blood Pressure [Right Arm] Blood Pressure Mean 102 108 105 Blood Pressure Mean [Right Arm] Blood Pressure Source [Right Arm] Blood Pressure Position [Right Arm] 02 Sat by Pulse Oximetry 97 98 100 Oxygen Delivery Method Room Air Room Air Room Air 09/30/24 21:36 09/30/24 21:54 Temperature 97.3 F L Temperature Source Pulse Rate 75 75 Pulse Rate [Right Brachial] Respiratory Rate 16 Blood Pressure 148/84 H 148/84 H Blood Pressure [Right Arm] Blood Pressure Mean 105 Blood Pressure Mean [Right Arm] Blood Pressure Source [Right Arm] Blood Pressure Position [Right Arm] 02 Sat by Pulse Oximetry 98 Oxygen Delivery Method Room Air Room Air Lab Data Lab results reviewed: Yes I reviewed the patient's lab results. Lab Results 09/30/24 19:35: WBC 8.1, RBC 5.20, Hgb 14.9, Hct 45.7, MCV 87.9, MCH 28.7, MCHC 32.6, RDW 12.2, Plt Count 273, MPV 9.1, Neut % (Auto) 49.4, Lymph % (Auto) 39.8, [place] % (Auto) 6.3, Eos % (Auto) 3.2, Baso % (Auto) 1.1, Neut # (Auto) 4.0, Lymph # (Auto) 3.2, [place] # (Auto) 0.5, Eos # (Auto) 0.3, Baso # (Auto) 0.1, Sodium 139, Potassium 4.0, Chloride 97 L, Carbon Dioxide 31 H, Anion Gap 15.0, BUN 14, Creatinine 1.10 H, Estimated Creat Clear 70, Estimated GFR 50 L, Est GFR ( Amer) 61, Glucose 204 H, Calcium 9.7, Magnesium 2.0, Total Bilirubin 0.3, AST 32, ALT 30, Alkaline Phosphatase 127 H, Total Protein 8.2, Albumin 4.8, Globulin 3.4 H, Albumin/Globulin Ratio 1.4, Lipase 131, HCV Ab IVA w/Rflx PCR Qn Negative 09/30/24 19:35 09/30/24 19:35 Orders (Tests/Meds): ED MEDICATIONS Discontinued Medications Generic Name Dose Route Start Last Admin Trade Name Freq PRN Reason Stop Dose Admin Lactated Ringer's 1,000 mls @ 999 mls/hr 09/30/24 19:46 09/30/24 19:55 Lactated Ringer's 1000 Ml Bag IV 09/30/24 20:46 999 mls/hr .Q1H1M ONE Administration ORDERS Category Date Time Status CXR 2 view (NOT portable) [XR chest 2V] Stat Exams 09/30/24 19:46 Completed KUB (single view) [XR KUB] Stat Exams 09/30/24 19:46 Completed Complete Blood Count Auto Diff Stat Lab 09/30/24 19:35 Completed Comprehensive Metabolic Panel Stat Lab 09/30/24 19:35 Completed Hepatitis C Ab Qual. W/ RFX Routine Lab 09/30/24 19:35 Completed Lipase Stat Lab 09/30/24 19:35 Completed Magnesium Stat Lab 09/30/24 19:35 Completed Medical Decision Narrative: In summary, this patient is a 64-year-old female presenting to the Emergency Department for evaluation of vomiting and cough. Differential diagnoses considered include but are not limited to viral syndrome, pneumonia, gastritis, flareup of gastroparesis, ENMANUEL on CKD. Ruling out the most morbid conditions drove assessment. It should be noted patient's history includes gastroparesis, obesity which are not at goal therapy. This complicates all aspects of care by increasing patient's risk for morbidity. On exam, the patient is nontoxic-appearing with reassuring vital signs on cardiac telemetry. Abdominal exam is benign with no significant distention or tenderness. She is still having normal bowel function. Doubt obstructive etiology given this. I feel it is likely a flareup of her gastroparesis since it does not feel significantly different. Given her cough in addition to vomiting, I did send basic lab evaluation, chest x-ray, and KUB to rule out obstructive process. Patient was given a bolus of IV fluids. She states nausea medication does not generally help, so I did not order medications at this time. On reassessment, the patient is resting comfortably with no recurrence of vomiting. X-rays are reassuring with no large focal consolidation, no obstructive bowel/gas pattern. Labs reassuring and around her baseline. Ultimately, I feel the patient is appropriate for discharge home. Instructions for supportive management of upper respiratory infection were given. She was discharged after all questions were answered with strict return precautions Critical Care Critical Care Time Critical Care Time: No
--- NOTE | 2024-09-30 19:46 | XR_ITS ---
PROCEDURE INFORMATION: Exam: XR Chest Exam date and time: 09/30/2024 8:08 PM Age: 64 years old Clinical indication: Cough and other: Vomiting; Additional info: Cough, vomiting TECHNIQUE: Imaging protocol: Radiologic exam of the chest. Views: 2 views. COMPARISON: CT ANGIO CHEST PE PROTOCOL 03/03/2024 10:21 PM FINDINGS: Lungs: No consolidation, mass, or pulmonary edema. Pleural spaces: No pneumothorax or pleural effusion. Heart/Mediastinum: Cardiomediastinal silhouette is within normal limits. Bones/joints: No acute osseous abnormality. IMPRESSION: No acute findings.
--- NOTE | 2024-09-30 19:46 | XR_ITS ---
PROCEDURE INFORMATION: Exam: XR Abdomen Exam date and time: 09/30/2024 8:11 PM Age: 64 years old Clinical indication: Vomiting; Additional info: Vomiting, eval obstruction TECHNIQUE: Imaging protocol: Radiologic exam of the abdomen. Views: Frontal supine view of the abdomen. 1 View. COMPARISON: CT ABDOMEN PELVIS W CON 03/03/2024 10:21 PM FINDINGS: Gastrointestinal tract: Normal. No bowel dilation. Organs: Surgical clips in the right upper quadrant from prior cholecystectomy. Bones/joints: Normal bone IMPRESSION: No acute findings.
--- NOTE | 2024-09-30 19:50 | PC.NURSE ---
Pt awake alert and oriented Skin pink warm and dry Resp full and easy Speech clear and appropriate. Abd distended. Report to Kiya CUMMINGS
[2024-09-30] MEDS: LACTATED RINGERS 1000ML 1,000 ML 999 ML IV (19:55)
[2024-09-30 19:58] LABS: Basophils # 0.1 K/mm3 (0-0.2); Basophils % 1.1 % (0.1-2.0); Eosinophils # 0.3 K/mm3 (0.0-0.4); Eosinophils % 3.2 % (0.1-12.0); Hematocrit 45.7 % (37.0-47.0); Hemoglobin 14.9 g/dL (12.2-16.2); Lymphocytes # 3.2 K/mm3 (0.7-4.5); Lymphocytes % 39.8 % (10-50); Mean Corpuscular HGB Conc 32.6 g/dL (31.8-35.4); Mean Corpuscular Hemoglobin 28.7 pg (27.0-31.2); Mean Corpuscular Volume 87.9 fl (81-99); Mean Platelet Volume 9.1 fl (7.4-10.4); Monocytes # 0.5 K/mm3 (0.1-1.0); Monocytes % 6.3 % (1.7-9.3); Neutrophils % 49.4 % (37.0-80.0); Platelet Count 273 K/mm3 (142-424); Red Cell Distribution Width 12.2 % (11.5-17.5); White Blood Count 8.1 K/mm3 (4.8-10.8)
--- NOTE | 2024-09-30 19:59 | PC.NURSE ---
rounded on pt. fluids started per MAR. pt given extra blanket.
[2024-09-30 20:06] LABS: Alanine Aminotransferase 30 U/L (12-78); Albumin Level 4.8 g/dl (3.5-5.0); Albumin/Globulin Ratio 1.4 (1.1-1.8); Alkaline Phosphatase 127 U/L (38-126); Aspartate Amino Transferase 32 U/L (14-36); Bilirubin,Total 0.3 mg/dl (0.2-1.3); Blood Urea Nitrogen 14 mg/dl (7-17); Calcium 9.7 mg/dl (8.4-10.2); Carbon Dioxide 31 mmol/L (22.0-30.0); Chloride 97 mmol/L (98-107); Creatinine Clearance Estimated 70 mL/min (50-200); Estimated Glomerular Filt Rate 50 ml/min (>60); GFR (African American) 61 ML/MIN (>60); Globulin 3.4 g/dL (1.3-3.2); Glucose 204 mg/dl (74-100); Lipase 131 U/L (23-300); Sodium 139 mmol/L (136-145); Total Protein,Serum 8.2 g/dl (6.3-8.2)
[2024-09-30 21:27] LABS: Hepatitis C Ab Qual. W/ RFX NEGATIVE (Negative)
== END 2024-09-30 21:55 | disposition home or self-care (01) ==
PROVIDERS: Emergency Provider Emergency Medicine; PCP Nurse Practitioner Family
DX: J06.9 Acute upper respiratory infection, unspecified (principal); K31.84 Gastroparesis; R11.10 Vomiting, unspecified; R05.9 Cough, unspecified
CPT/HCPCS: 71046; 74018; 80053; 83690; 83735; 85025; 86803; 96360; 99283; J7120

== ENCOUNTER 2024-10-14 10:32 | Outpatient (CLI) | payer MEDICARE, MEDICAID, SELFPAY ==
[2024-10-14 11:03] VITALS: BP 144/87; PULSE 80; RESP 18; TEMP 36.4; O2SAT 98
[2024-10-14] MEDS: OMALIZUMAB 150MG VIAL 300 MG SUBCUT (11:03)
== END 2024-10-14 11:18 | disposition home or self-care (01) ==
LOC: INF 10:34
PROVIDERS: PCP Nurse Practitioner Family; Visit Provider Allergy & Immunology
DX: J45.901 Unspecified asthma with (acute) exacerbation (principal)
CPT/HCPCS: 96372; J2357

== ENCOUNTER 2024-11-12 14:49 | Outpatient (CLI) | payer MEDICARE, MEDICAID, SELFPAY ==
[2024-11-12] MEDS: OMALIZUMAB 150MG VIAL 300 MG SUBCUT (15:02)
[2024-11-12 15:05] VITALS: BP 122/71; PULSE 84; RESP 17; O2SAT 99
== END 2024-11-12 15:20 | disposition home or self-care (01) ==
LOC: INF 14:50
PROVIDERS: PCP Nurse Practitioner Family; Visit Provider Allergy & Immunology
DX: K31.84 Gastroparesis (principal)
CPT/HCPCS: 96372; J2357

== ENCOUNTER 2024-12-09 11:00 | Outpatient (CLI) | payer MEDICARE, MEDICAID, SELFPAY ==
[2024-12-09] MEDS: OMALIZUMAB 150MG VIAL 300 MG SUBCUT (11:29)
[2024-12-09 11:36] VITALS: BP 132/75; PULSE 72; RESP 18; TEMP 36.8; O2SAT 98
== END 2024-12-09 11:41 | disposition home or self-care (01) ==
LOC: INF 11:01
PROVIDERS: PCP Nurse Practitioner Family; Visit Provider Allergy & Immunology
DX: J45.50 Severe persistent asthma, uncomplicated (principal)
CPT/HCPCS: 96372; J2357

== ENCOUNTER 2024-12-10 09:12 | Outpatient (RCR) | payer MEDICARE, MEDICAID, SELFPAY | END 2024-12-10 23:59 | disposition home or self-care (01) | LOC: PT 09:12 | PROVIDERS: PCP Nurse Practitioner Family; Visit Provider Orthopaedic Surgery | DX: M75.121 Complete rotator cuff tear or rupture of right shoulder, not specified as traumatic (principal) | CPT/HCPCS: 97163 ==

== ENCOUNTER 2024-12-17 09:37 | Outpatient (RCR) | payer MEDICARE, MEDICAID, SELFPAY | END 2025-01-13 09:07 | disposition home or self-care (01) | LOC: PT 09:37 | PROVIDERS: PCP Nurse Practitioner Family; Visit Provider Orthopaedic Surgery | DX: M75.121 Complete rotator cuff tear or rupture of right shoulder, not specified as traumatic (principal) | CPT/HCPCS: 97014; 97110; 97140; G0283 ==

== ENCOUNTER 2025-04-11 19:42 | Emergency (ER) | payer MEDICARE, MEDICAID, SELFPAY ==
--- OUTSIDE RECORDS SUMMARY | 2025-02-05 08:55 | XMS_ITS | Encounter Summary ---
Author Organization [employer] ([place], [place], [place], [place]) Address [address] [place] [address] Care Team Providers Care Hand Zipper Trimmer Name Role Phone Lavinia Juarez APRN Primary Care Provider [phone] Encounter Details Date Type Department Care Team (Late st Contact Info) Description 02/05/2025 8:55 AM EDT Ancillary Procedure [facility] Orthopedics - [address] [phone] Radha Fontana PA-C [address] [place] [id number] Social History Tobacco Use Types Packs/Day Years Used Date Smoking Tobacco: Never Smokeless Tobacco: Never Alcohol Use Standard Drinks/Week Comments Never 0 (1 standard drink = 0.6 oz pur e alcohol) Utilities Answer Date Recorded In the past 12 months, has t he electric, gas, oil, or water company threatened to shut off services in your home? No 01/21/2025 Interpersonal Safety Answer Date Record ed How often does anyone, roberto ortiz family and friends, physically hurt you? Never 01/21/2025 How often does anyone, roberto ortiz family and friends, insult or talk down to you? Never 01/21/2025 How often does anyone, roberto ortiz family and friends, threaten you with harm? Never 01/21/2025 How often does anyone, roberto ortiz family and friends, scream or curse at you? Never 01/21/2025 Housing Stability Answer Date Recorded What is your living situation today? I have a [facility] [place] place to live 01/21/[address] you li ve. Do you have problems with any of the following? None of the above 01/21/2025 Food Insecurity Answer Date Recorded Within the past 12 months, y ou worried that your food would run out before you got money to buy more. Never true 01/21/2025 Within the past 12 months, t he food you bought just didn't last and you didn't have money to get more. Never true 01/21/2025 Transportation Needs Answer Date Record ed In the past 12 months, has l ack of reliable transportation kept you from medical appointments, meetings, work or from getting things needed for daily living? No 01/21/2025 Financial Resource Strain Answer Date R ecorded How hard is it for you to pa y for the very basics like food, housing, medical care, and heating? Would you say it is: Not hard at all 01/21/2025 Employment Answer Date Recorded Do you want help finding or keeping work or a job? I do not need or want help 01/21/2025 Family and Community Support Answer Jamal e Recorded If for any reason you need h elp with day-to-day activities such as bathing, preparing meals, shopping, managing finances, etc., do you get the help you need? I get all the help I need 01/21/2025 Feeling Lonely or Isolated 0 01/21 Educational Attainment Answer Date Jayden rded Do you speak a language other than [facility]? No 01/21/2025 Do you want help with school or training? For example, starting or completing job training or getting a high school diploma, GED or equivalent. No 01/21/2025 Physical Activity Answer Date Recorded Number of minutes of exercise per week 0 01/21/2025 Self Management Answer Date Recorded Because of a physical, menta l, or emotional condition, do you have serious difficulty concentrating, remembering, or making decisions? (5 years or older) No 01/21/2025 Because of a physical, menta l, or emotional condition, do you have difficulty doing errands alone such as visiting a doctor's office or shopping? (15 years or older) No 01/21/2025 Substance Use Answer Date Recorded How many times in the past y ear have you used prescription drugs for non-medical reasons? Never 01/21/2025 How many times in the past year have you used il legal drugs? Never 01/21/2025 Mental Health Answer Date Recorded Calculation of above two rows 0 Comments No Sex and Gender Information Value Date Recorded Sex Assigned at Not on file Legal Sex Female 6:30 PM CDT Gender Identity Not on file Sexual Orientation Not on file documented as of this encounter Plan of Treatment Upcoming Encounters Date Type Department Care Team (Late st Contact Info) Description 04/16/2025 9:15 AM EDT Office Visit [facility] Orthopedics - [address] [phone] Flo Dominguez MD [address] [place] [phone] documented as of this encounter Procedures Procedure Name Priority Date/Time Associated Diagnosis Comments XR SHOULDER COMPLETE 2 VIEWS MIN RIGHT Routine 02/05/2025 8:55 AM EDT S/P reverse total shoulder arthroplasty, right documented in this encounter Results * XR shoulder complete 2 views min right (02/05/2025 8:55 AM EDT) Anatomical Region Laterality Modality X-Ray Impressions 02/05/2025 8:51 AM EDT 2 view of the right shoulder demonstrates maintained prosthesis in good alignment. No acute fracture or dislocation appreciated. No loosening noted. Radha Fontana PAC 02/05/25 us Radha Fontana PA-C IMG DIAGNOSTIC IMAGING ORDERABL ES Final Result documented in this encounter Visit Diagnoses Not on filedocumented in this encounter Care Teams Hand Zipper Trimmer Relationship Specialty Start Date End Date Lavinia Juarez, ROOF TILE LAYER [address] [place] [address] PCP - General Family Medicine 10/20/24 documented as of this encounter
--- OUTSIDE RECORDS SUMMARY | 2025-03-05 09:15 | XMS_ITS | Encounter Summary ---
Author Organization [employer] ([place], [place], [place], [place]) Address [address] [place] [address] Care Team Providers Care Sales Support Specialist Name Role Phone Lavinia Juarez APRN Primary Care Provider [phone] Reason for Visit * Reason Comments Post-Op Follow-up s/p right reverse TS A, DOS: 01/21/25 Encounter Details Date Type Department Care Team (Late st Contact Info) Description 03/05/2025 9:15 AM EDT Office Visit [facility] Orthopedics - [address] [phone] Flo Dominguez MD [address] [place] [phone] S/P reverse total shoulder arthroplasty, right [...] Do you speak a language other than Welsh at [facility]? No 01/21/2025 Do you want help with [...] 9:15 AM EDT NAME: Margo Ramos CSN: [id number] : 1960 PCP: Lavinia Juarez APRN REASON [...] kidney disease) stage 3, GFR 30-59 ml/min ([facility]) Diabetes mellitus (HCC) type 2 Hypertension Past Surgical History: Procedure Laterality Date ARTHROPLASTY,SHOULDER REVERSE Right 01/21/2025 Procedure: ARTHROPLASTY, RIGHT SHOULDER, TOTAL, REVERSE; Surgeon: Flo Dominguez MD; Location: [facility]; Service: Orthopedic Surgery; Laterality: Right; CHOLECYSTECTOMY SOCIAL [...] and ER deferred Abduction 30 Strength: Deferred. [place] Fishing Boat Crewman 5/5 Neurovascular: NVI, -Homans Skin: Dressing intact [...] Description 04/16/2025 9:15 AM EDT Office Visit [facility] Orthopedics - [address] [phone] Flo Dominguez MD [address] [place] [phone] documented as of this encounter Visit Diagnoses Diagnosis S/P reverse total shoulder arthroplasty, right- Primary documented in this encounter Care Teams Sales Support Specialist Relationship Specialty Start Date End Date Lavinia Juarez, CARGO CHECKER [address] [place], [place] [id number] PCP - General Family Medicine 10/20/24 documented as of this encounter
[2025-04-11] VITALS (8 sets, daily range): BP systolic 122–153; BP diastolic 63–82; PULSE 80–90; RESP 15–20; TEMP 36.6–36.9; O2SAT 96–98; BMI 30.7
--- OUTSIDE RECORDS SUMMARY | 2025-04-11 20:18 | XMS_ITS | Clinical Summary ---
Author Organization [employer] ([place], [place], [place], [place]) Address [address] [place] [address] Care Team Providers Care Board Setter Name Role Phone Lavinia Juarez APRN Primary Care Provider [phone] Allergies No known active allergies Medications hydrOXYzine (ATARAX) 10 MG tablet Take 1 tablet (10 mg total) by mouth every 4 (four) hours as needed. Active levothyroxine (SYNTHROID) 50 MCG tablet Take 1 tablet (50 mcg total) by mouth in the morning. Active clonazePAM (KlonoPIN) 1 MG tablet Take 1 tablet (1 mg total) by mouth 3 (three) times daily as needed. Active DULoxetine (CYMBALTA) 60 MG capsule Take 1 capsule (60 mg total) by mouth daily. Active buPROPion SR (WELLBUTRIN SR) 200 MG 12 hr tablet Take 1 tablet (200 mg total) by mouth 2 (two) times daily. Active escitalopram (LEXAPRO) 20 MG tablet Take 1 tablet (20 mg total) by mouth daily. Active pantoprazole (PROTONIX) 40 MG tablet Take 1 tablet (40 mg total) by mouth daily. Active Vraylar 4.5 mg capsule Take 1 capsule (4.5 mg total) by mouth daily. Active Singulair 10 mg tablet Take 1 tablet (10 mg total) by mouth every evening. Active valsartan (DIOVAN) 80 MG tablet Take 1 tablet (80 mg total) by mouth daily. Active Jardiance 25 mg tablet Take 1 tablet (25 mg total) by mouth daily. Active Ventolin HFA 90 mcg/actuation inhaler Inhale 2 puffs by mouth Every 4 to 6 hours as needed for wheezing. Active busPIRone (BUSPAR) 10 MG tablet Take 1 tablet (10 mg total) by mouth 3 (three) times daily. Active oxyCODONE (OXY-IR) 5 mg capsule Take 1 capsule (5 mg total) by mouth every 6 (six) hours as needed for pain. Max Daily Amount: 20 mg Active Active Problems Problem Noted Date Diagnosed Date Acute respiratory failure 01/21/2025 Rotator cuff arthropathy of right shoulder 10/20 Right rotator cuff tear 10/15/2024 Asthma CKD (chronic kidney disease) stage 3, GFR 30-59 ml/min Diabetes mellitus Overview (01/21/2025): type 2 Hypertension Encounters Date Type Department Care Team Description 03/05/2025 9:15 AM EDT Office Visit [address] [address] Kian Dominguez MD S/P reverse total shoulder arthroplasty, right (Primary Dx) 02/06/[address] [address] Kian Dominguez MD 02/05/2025 9:15 AM EDT Office Visit [address] [address] Radha Fontana PA-C S/P reverse total shoulder arthroplasty, right (Primary Dx) 02/05/2025 8:55 AM EDT Ancillary Procedure [address] [address] Radha Fontana PA-C 01/28/2025 Telephone [facility] Medical Surgical Unit [address] [place] [phone] Aracelis Banerjee RN Post-Op Follow-up 01/21/2025 10:30 AM EDT - 01/21/2025 12:23 PM EDT Surgery [facility] Operating Room [address] [place] [address] Kian Dominguez MD ARTHROPLASTY, RIGHT SHOULDER, TOTAL, REVERSE 01/21/2025 10:01 AM EDT Anesthesia Event [facility] Operating Room [address] [place] [address] Daniel Jules, Evens Levy CRNA 01/21/2025 6:46 AM EDT - 01/22/2025 11:06 AM EDT Hospital Encounter [facility] Progressive Care Unit [address] [place] [address] Kian Dominguez MD Jadhav, Emily Gentile MD Rotator cuff arthropathy of right shoulder Discharge Disposition: Home or Self Care 01/20/2025 Travel from Last 3 Months Family History Medical History Relation Name Comments Arthritis Other Cancer Other Diabetes Other Heart disease Other Hyperlipidemia Other Hypertension Other Kidney disease Other Lung disease Other Stroke Other Thyroid disease Other Relation Name Status Comments Other Social History Tobacco Use Types Packs/Day Years Used Date Smoking Tobacco: Never Smokeless Tobacco: Never Tobacco Cessation:Counseling Given: Not Answered Alcohol Use Standard Drinks/Week Comments Never 0 [...] Do you speak a language other than Fijian at [facility]? No 01/21/2025 Do you want help [...] on file Sexual Orientation Not on file Last Filed Vital Signs Vital Sign Reading Time Taken Comments Blood Pressure 124/73 03/05/2025 9:06 AM EDT Pulse 89 03/05/2025 9:06 AM EDT Temperature 36.2 C (97.1 F) 01/22/2025 7:37 AM EDT Respiratory Rate 20 01/22/2025 10:24 AM EDT Oxygen Saturation 96% 01/22/2025 7:56 AM EDT Inhaled Oxygen Concentration 28% 01/21/2025 3 :15 PM EDT Weight 85.3 kg (188 lb) 03/05/2025 9:06 AM EDT Height 165.1 cm (5' 5 ) 03/05/2025 9:06 AM EDT Body Mass Index 31.28 03/05/2025 9:06 AM EDT Plan of Treatment Upcoming Encounters Date Type Department Care Team (Late st Contact Info) Description 04/16/2025 9:15 AM EDT Office Visit [facility] Orthopedics - [address] [phone] Kian Dominguez MD [address] [place] [id number] Health Maintenance Due Date Last Done Comments CT Colonography 1962 Colonoscopy 1962 Colorectal Cancer Screening 1960 Diabetic Kidney Health Evalu ation (KED) 1962 FOBT/FIT 1962 Fit-DNA (Cologuard) 1962 Sigmoidoscopy 1960 Diabetic Eye Exam 02/08/1972 Depression Screening (12+) 1974 HIV Screening 1977 Hepatitis C Screening 02/08/1980 Pap Smear 1983 Breast Cancer Screening 2002 Lipid Panel 2007 Shingles Vaccine (Zoster) (1 of 2) 02/08/2012 Pneumococcal 50+ years (2 of 2 - PCV) 03/07/2013, 02/01/2012 Respiratory Syncytial Virus (RSV) Adult or (1 - Risk 60-74 years 1-dose series) 2022 COVID-19 VACCINE ( season) 2024 06/25/2023, 08/18/2021, 12/21/2020 Medicare Initial AWV G0438 11/16/2024 Hemoglobin A1C 01/21/2025 Influenza Vaccine (#1) 2025 07/17/2019 Tobacco Cessation Counseling and Screening (12+) 02/05/2026 02/05/2025 DTAP/TDAP/TD VACCINES (2 - T d or Tdap) 03/27/2030 03/27/2020 Medical Devices Implanted Type Area Vulcanizer Rubber Plate Device Identifier Shelf Expiration Date Model / Serial / Lot Baseplt Lat +3mm 25mm [id number] - [id number] Implanted:Qty: 1 on 01/21/2025 by Kian Dominguez MD at [facility] IMPLANTS Right: Shoulder TORNIER [id number] 11/05/2029 [id number] / [id number] / Insrt Rev Perf Hum Sz 1/2 3mm [id number] - [id number] Implanted:Qty: 1 on 01/21/2025 by Kian Dominguez MD at [facility] IMPLANTS Right: Shoulder TORNIER [id number] 04/26/2028 [id number] / [id number] / Stem Hum Sz 2+ Long Dwx2pl - [id number] Implanted:Qty: 1 on 01/21/2025 by Kian Dominguez MD at [facility] IMPLANTS Right: Shoulder TORNIER [id number] 10/09/2029 [id number] / [id number] / Glenosphere Std 36mm [id number] - [id number] Implanted:Qty: 1 on 01/21/2025 by Kian Dominguez MD at [facility] IMPLANTS Right: Shoulder TORNIER [id number] 05/01/2029 [id number] / [id number] / Scr Periph 5.0x14mm Ns [id number] - [id number] Implanted:Qty: 2 on 01/21/2025 by Kian Dominguez MD at [facility] IMPLANTS Right: Shoulder TORNIER [id number] / / Scr Cntrl Thd Post 6.5x40mm [id number] - [id number] Implanted:Qty: 1 on 01/21/2025 by Kian Dominguez MD at [facility] IMPLANTS Right: Shoulder TORNIER [id number] / / Scr Periph 5.0x18mm Ns [id number] - [id number] Implanted:Qty: 1 on 01/21/2025 by Kian Dominguez MD at [facility] IMPLANTS Right: Shoulder TORNIER [id number] / / Scr Periph 5.0x38mm Ns [id number] - [id number] Implanted:Qty: 1 on 01/21/2025 by Kian Dominguez MD at [facility] IMPLANTS Right: Shoulder TORNIER [id number] / / Procedures Procedure Name Priority Date/Time Associated Diagnosis Comments XR SHOULDER COMPLETE 2 VIEWS MIN RIGHT Routine 02/05/2025 8:55 AM EDT S/P reverse total shoulder arthroplasty, right NOVA GLUCOSE POC Routine 01/22/2025 5:56 AM EDT NOVA GLUCOSE POC Routine 01/21/2025 8:25 PM EDT NOVA GLUCOSE POC Routine 01/21/2025 4:30 PM EDT MANUAL DIFFERENTIAL Routine 01/21/2025 3 :20 PM EDT CBC W/ AUTO DIFF STAT 01/21/2025 3:20 PM EDT COMPREHENSIVE METABOLIC PANEL STAT 01/21/2025 3:20 PM EDT XR CHEST AP PORTABLE Routine 01/21/2025 1:36 PM EDT NOVA GLUCOSE POC Routine 01/21/2025 1:04 PM EDT XR SHOULDER 1 VIEW RIGHT STAT 01/21/2025 11:42 AM EDT NOVA GLUCOSE POC Routine 01/21/2025 11:3 0 AM EDT ANESTHESIA INTUBATION Routine 01/21/2025 10:08 AM EDT [place] ARTHROPLASTY GLENOHUMERAL JOINT TOTAL SHOULDER 01/21/2025 10:01 AM EDT Rotator cuff arthropathy of right shoulder Case Notes [id number] TISSUE EXAM [facility] AP Routine 01/21/2025 9:31 AM EDT Rotator cuff arthropathy of right shoulder HC PERIPHERAL NERVE BLOCK SINGLE SHOT Routine 01/21/2025 9:09 AM EDT NOVA GLUCOSE POC Routine 01/21/2025 7:28 AM EDT ABO/RH CONFIRMATION/RETYPE ([place] BKR) STAT 01/21/2025 7:20 AM EDT TYPE AND SCREEN ([place] BKR) STAT 01/21/2025 7:15 AM EDT from Last 3 Months Results * XR shoulder complete 2 views min right (02/05/2025 8:55 AM EDT) Anatomical Region Laterality Modality X-Ray Impressions 02/05/2025 8:51 AM EDT 2 view of the right shoulder demonstrates maintained prosthesis in good alignment. No acute fracture or dislocation appreciated. No loosening noted. Radha Fontana PAC 02/05/25 us Radha Fontana PA-Chucky IMG DIAGNOSTIC IMAGING ORDERABL ES Final Result * (ABNORMAL) Glucose, Nova Meter (01/22/2025 5:56 AM EDT) Only the most recent of6 resultswithin the time period is included. POC-GLUCOSE 164(H) 70 - 99 mg/dL 01/22/2025 6:10 AM EDT [facility] Comment:In the event of poor peripheral blood flow, venous or arterial blood should be used due to the potential of erroneous results. Estimator Lumber [id number] 01/22/2025 6:10 AM EDT [facility] Blood WHOLE BLOOD / Unknown 01/22/2025 5:56 AM EDT 01/22/2025 6:10 AM EDT Narrative [facility] - 01/22/2025 6:10 AM EDT Estimator Lumber ID is - [id number] us Emily Gray MD POINT OF CARE TEST ORDERAB LES Final Result [facility] [address] [phone] * (ABNORMAL) CBC with automated diff (01/21/2025 3:20 PM EDT) WBC 8.2 4.8 - 10.8 K/ L 01/21/2025 3:39 PM EDT [facility] RBC 4.52 3.50 - 5.20 M/ L 01/21/2025 3:39 PM EDT [facility] Hemoglobin 13.3 11.7 - 15.8 GM/DL 01/21/2025 3:39 PM EDT [facility] Hematocrit 39.9 35.0 - 47.0 % 01/21/2025 3:39 PM EDT [facility] MCV 88 81 - 101 fL 01/21/2025 3:39 PM EDT [facility] MCH 29.4 27.0 - 34.0 pg 01/21/2025 3:39 PM EDT [facility] MCHC 33.3 32.0 - 36.0 GM/DL 01/21/2025 3:39 PM EDT [facility] RDW 12.0 11.5 - 14.5 % 01/21/2025 3:39 PM EDT [facility] Platelets 185 150 - 400 K/CU MM 01/21/2025 3:39 PM EDT [facility] MPV 9.1(L) 9.4 - 12.4 fL 01/21/2025 3:39 PM EDT [facility] Nucleated Red Blood Cell 0.0 0 - 0.2 % 01/21/2025 3:39 PM EDT [facility] NRBC Absolute <0.01 0 - 0.012 K/ul 01/21/2025 3:39 PM EDT [facility] Blood Venipuncture / Unknown 01/21/2025 3:20 PM EDT 01/21/2025 3:20 PM EDT Narrative [facility] - 01/21/2025 3:39 PM EDT When CBC w/ Auto Diff is ordered the lab will add a Manual Differential as a quality check at no additional charge if: Lymphocytes greater than seventy five percent with normal or increased WBC Monocytes greater than Fifteen percent Basophil greater than four percent Bands >10% or several immature myeloids are seen on scan Blast? Flag noted Atypical Lymph flag noted Emily Gray MD LAB BLOOD ORDERABLES Final Result [facility] [address] [place] [address] * (ABNORMAL) Manual Differential (01/21/2025 3:20 PM EDT) Total Counted 100 01/21/2025 3:39 PM EDT [facility] % Neutros (manual) 91(H) 15 - 67 % 01/21/2025 3:39 PM EDT [facility] % Bands (manual) 1(L) 2 - 21 % 01/21/2025 3:39 PM EDT [facility] % Lymphs (manual) 6(L) 10 - 50 % 01/21/2025 3:39 PM EDT [facility] % Monos (manual) 2 2 - 10 % 01/21/2025 3:39 PM EDT [facility] Platelet Estimate Adequate Adequate 01/21/2025 3:39 PM EDT [facility] ANC# 7.54 K/ L 01/21/2025 3:39 PM EDT [facility] Blood Venipuncture / Unknown 01/21/2025 3:20 PM EDT 01/21/2025 3:20 PM EDT us Emily Gray MD LAB BLOOD ORDERABLES Final Result [facility] [address] [place] [address] * (ABNORMAL) Comprehensive metabolic panel (01/21/2025 3:20 PM EDT) Sodium 138 136 - 145 meq/L 01/21/2025 3:41 PM EDT [facility] Potassium 4.5 3.5 - 5.1 meq/L 01/21/2025 3:41 PM EDT [facility] Chloride 105 98 - 107 meq/L 01/21/2025 3:41 PM EDT [facility] CO2 26 21 - 32 meq/L 01/21/2025 3:41 PM EDT [facility] Calcium 8.6 8.5 - 10.1 mg/dL 01/21/2025 3:41 PM EDT [facility] Glucose 256(H) 70 - 99 mg/dL 01/21/2025 3:41 PM EDT [facility] BUN 27(H) 7 - 18 mg/dL 01/21/2025 3:41 PM EDT [facility] Creatinine 1.44(H) 0.55 - 1.10 mg/dL 01/21/2025 3:41 PM EDT [facility] BUN/Creatinine 19 01/21/2025 3:41 PM EDT [facility] Albumin 3.4 3.4 - 5.0 g/dL 01/21/2025 3:41 PM EDT [facility] Alkaline Phosphatase 99 46 - 116 U/L 01/21/2025 3:41 PM EDT [facility] ALT 60 12 - 78 U/L 01/21/2025 3:41 PM EDT [facility] AST 63(H) 15 - 37 U/L 01/21/2025 3:41 PM EDT [facility] Total Bilirubin 0.3 0.2 - 1.0 mg/dL 01/21/2025 3:41 PM EDT [facility] Protein, Total 7.1 6.4 - 8.2 gm/dL 01/21/2025 3:41 PM EDT [facility] Anion Gap 12 11 - 22 01/21/2025 3:41 PM EDT [facility] A/G Ratio 0.9 01/21/2025 3:41 PM EDT [facility] Globulin 3.7 g/dL 01/21/2025 3:41 PM EDT [facility] Osmolality Calc 289.5 mOsm/kg 3:41 PM EDT [facility] eGFR (mL/min/1.73m2) 41(L) >=60 mL/min/1.7 3m2 01/21/2025 3:41 PM EDT [facility] Comment:ESTIMATED GFR IS NOT ACCURATE CREATININE CLEARANCE IN PREDICTING GLOMERULAR FILTRATION RATE. ESTIMATED GFR IS NOT APPLICABLE FOR DIALYSIS PATIENTS. Blood Venipuncture / Unknown 01/21/2025 3:20 PM EDT 01/21/2025 3:20 PM EDT us Emily Gray MD LAB BLOOD ORDERABLES Final Result [facility] [address] [place], [place] [id number] [phone] * XR chest AP portable (01/21/2025 1:36 PM EDT) Anatomical Region Laterality Modality Chest X-Ray 01/21/2025 1:53 PM EDT Impressions 01/21/2025 1:54 PM EDT Hypoaeration. Continued follow-up is recommended. Images reviewed, interpreted, and dictated by Dr. Scottie Jeong. Transcribed by Airam Antoine PA-C. Narrative 01/21/2025 1:54 PM EDT PORTABLE CHEST 01/21/2025 1:26 PM HISTORY: Postoperative respiratory failure. COMPARISON: November 25, 2024. FINDINGS: The heart is proper size. The mediastinum is widened. The lungs are hypoaerated with perihilar vascular crowding. There is no pneumothorax. The osseous structures are unremarkable. There is elevation of the right hemidiaphragm. Procedure Note Mayra Jeong MD - 01/21/2025 PORTABLE CHEST 01/21/2025 1:26 PM HISTORY: Postoperative respiratory failure. COMPARISON: November 25, 2024. FINDINGS: The heart is proper size. The mediastinum is widened. The lungs are hypoaerated with perihilar vascular crowding. There is no pneumothorax. The osseous structures are unremarkable. There is elevation of the right hemidiaphragm. IMPRESSION: Hypoaeration. Continued follow-up is recommended. Images reviewed, interpreted, and dictated by Dr. Scottie Jeong. Transcribed by Airam Antoine PA-C. Emily Gray MD IMG DIAGNOSTIC IMAGING ORD ERABLES Final Result * XR shoulder 1 view right (01/21/2025 11:42 AM EDT) Anatomical Region Laterality Modality Shoulder X-Ray 01/21/2025 12:0 0 PM EDT Impressions 01/21/2025 4:05 PM EDT Expected postoperative changes without immediate complications. Images personally reviewed, interpreted and dictated by PEDRO Parson. Narrative 01/21/2025 4:05 PM EDT CLINICAL INDICATION: Postop post op EXAMINATION TECHNIQUE: XR SHOULDER 1 VIEW RIGHT COMPARISON: Radiographs 09/03/2024. FINDINGS: There are expected postoperative changes from right reverse total shoulder arthroplasty prosthesis placement. No hardware complications evident. There is expected soft tissue swelling, gas and fluid in the surgical site. Alignment is near-anatomic. Mild right lung basilar atelectasis. Procedure Note David Cano MD - 01/21/2025 CLINICAL INDICATION: Postop post op EXAMINATION TECHNIQUE: XR SHOULDER 1 VIEW RIGHT COMPARISON: Radiographs 09/03/2024. FINDINGS: There are expected postoperative changes from right reverse total shoulder arthroplasty prosthesis placement. No hardware complications evident. There is expected soft tissue swelling, gas and fluid in the surgical site. Alignment is near-anatomic. Mild right lung basilar atelectasis. IMPRESSION: Expected postoperative changes without immediate complications. Images personally reviewed, interpreted and dictated by PEDRO Parsno. Kian Dominguez MD IMG DIAGNOSTIC IMAGING ORDERA BLES Final Result * AN SINGLE LUMEN INTUBATION (01/21/2025 10:08 AM EDT) Janette Suarez CRNA - 01/21/2025 10:08 AM EDT Janette Bob CRNA 01/21/2025 10:25 AM Intubation Authorized by: Janette Bob CRNA Performed by: Janette Bob CRNA Date/Time: 01/21/2025 10:08 AM Urgency: elective Indications and Patient Condition Indications for airway management: anesthesia and airway protection Sedation level: general anesthesia Preoxygenated: yes Patient position: sniffing Mask difficulty assessment: 2 - vent by mask + OA or adjuvant +/- NMBA Final Airway Details Final airway type: endotracheal airway Endotracheal tube type: ETT Cuffed: yes Successful intubation technique: direct laryngoscopy Facilitating devices/methods: intubating stylet Endotracheal tube insertion site: oral Blade: Kelsey Blade size: #3 ETT size (mm): 7.0 Cormack-Lehane Classification: grade I - full view of glottis Placement verified by: chest auscultation and capnometry Measured from: lips ETT to lips (cm): 21 Number of attempts at approach: 1 Janette Bob CRNA ANESTHESIA ORDERABLES Final Result * Tissue Exam (01/21/2025 9:31 AM EDT) AP RESULT See Note: [facility] Comment: [facility] [address] [place] [address] or [phone] Hakeem Sosa M.D., Tightening Machine Operator PATIENT NAME [facility]ATORY NO[facility] [address] FRANZ [id number] AGE SEX SSN CLIENT REF # [facility] Melissa 1960 F [id number] JOHNNY REQUESTING Tiffany ATTENDING Tiffany [place] [address] DATE COLLECTED DATE RECEIVED DATE REPORTED 01/21/2025 01/21/2025 01/22/2025 DIAGNOSIS: HUMERAL HEAD, GROSS ONLY, RIGHT SHOULDER: GROSS DIAGNOSIS: Changes consistent with mild osteoarthritis RLL/sm CLINICAL HISTORY: Other specific arthropathies, not elsewhere classified, right shoulder; asthma, chronic kidney disease (STAGE 3) GFR 30-59ml/min; diabetes mellitus, hypertension SPECIMENS RECEIVED: HUMERAL HEAD, GROSS ONLY, RIGHT SHOULDER Professional interpretation rendered by Hakeem Sosa M.D., Zoe at [employer], [address] [place] [address]. GROSS DESCRIPTION: Received in formalin labeled humeral head, right shoulder is a 4.2 x 3.7 x 2 cm intact humeral head with a smooth, viable, yellow-brown and trabecular surgical margin. No distinct masses or areas of bone softening are identified. The articular surface is smooth with minimal granularity and osteophyte formation. No eburnation is identified. No sections are submitted. HDM REVIEWED, DIAGNOSED AND ELECTRONICALLY SIGNED BY: Hakeem Sosa M.D., Shemar.C.A.P. CPT CODES: [id number] Tissue OTHER / Unknown 01/21/2025 9 :31 AM EDT Kian Dominguez MD PATHOLOGY/CYTOLOGY ORDERABLES Final Result [facility] [address] [place] [address] * HC PERIPHERAL NERVE BLOCK SINGLE SHOT (01/21/2025 9:09 AM EDT) Narrative Joseph Carrion MD - 01/21/2025 9:09 AM EDT Joseph Carrion MD 01/21/2025 9:16 AM Peripheral Nerve Block Authorized by: Joseph Carrion MD Performed by: Joseph Carrion MD Patient location during procedure: pre-op Start time: 01/21/2025 9:09 AM End time: 01/21/2025 9:13 AM Reason for block: at surgeon's request and post-op pain management Preanesthetic Checklist Completed: patient identified, IV checked, site marked, risks and benefits discussed, surgical consent, monitors and equipment checked, pre-op evaluation and timeout performed Peripheral Block Patient position: supine Prep: ChloraPrep Patient monitoring: heart rate, belt puncher and continuous pulse ox Block type: interscalene Laterality: right Injection technique: single-shot Guidance: ultrasound guided Local infiltration: lidocaine Needle Needle type: short-bevel Needle gauge: 20 G Needle length: 10 cm Needle localization: ultrasound guidance Test dose: negative Medications Administered midazolam (VERSED) injection 2 mg/2 mL - intravenous 2 mg - 01/21/2025 9:09:00 AM dexAMETHasone (DECADRON) injection 4 mg/mL - perineural 4 mg - 01/21/2025 9:09:00 AM ropivacaine PF (NAROPIN) injection 0.5 % - perineural 15 mL - 01/21/2025 9:09:00 AM Assessment Injection assessment: negative aspiration for heme, no paresthesia on injection, incremental injection and local visualized surrounding nerve on ultrasound Paresthesia pain: none Heart rate change: no Slow fractionated injection: yes us Joseph Carrion MD ANESTHESIA ORDERABLES Final Re sult * ABO/RH Confirmation/Retype (01/21/2025 7:20 AM EDT) RETYPE O POSITIVE 01/21/2025 7:13 AM EDT [facility] [place] Blood Venipuncture / Unknown 01/21/2025 7:20 AM EDT 01/21/2025 7:27 AM EDT us Kian Dominguez MD [facility] B[facility] TEST ORDERABLE S Final Result [facility] [address] [place], [facility], [facility] [phone] * Type and Screen (01/21/2025 7:15 AM EDT) ABO/Rh O POSITIVE 01/21/2025 7:10 AM EDT [facility] ([place] Antibody Screen NEGATIVE 01/21/2025 7:10 AM EDT [facility] ([place] HISTCHK HIST CHECK PERFORMED 01/21/2025 7:10 AM EDT [facility] ([place]) Blood Venipuncture / Unknown 01/21/2025 7:15 AM EDT 01/21/2025 7:26 AM EDT us Kian Dominguez MD [facility] BLOOD BANK TEST ORDERABLE S Edited Result - Final [facility] ([place]) [address] [place] [address], [facility] [phone] from Last 3 Months Insurance [place] [employer] [facility] ADV Advance Directives For more information, please contact: [phone] * Full Code (Latest Code Status on File) Date Activated Date Inactivated Comments 01/21/2025 12:10 PM 01/22/2025 12:07 PM * Full Code Date Activated Date Inactivated Comments 01/21/2025 6:09 AM 01/21/2025 12:10 PM Care Teams Board Setter Relationship Specialty Start Date End Date Lavinia Juarez, PURE CULTURE OPERATOR [address] [place] [address] PCP - General Family Medicine 10/20/24
--- OUTSIDE RECORDS SUMMARY | 2025-04-11 20:18 | XMS_ITS | Data Portability ---
Author Organization [facility]ETER Kang [facility] Address [address] [place] [address] [address] [place] [address] Assessment No assessment recorded. Plan of Treatment Reminders Order Date Submit Date Provider Last Modified By Organization Details Last Modified Time Details Appointments None recorded. Lab CBC w/ auto diff 2017 018 [employer] [facility], [address] [place] [address], [address], 8 10:45:25 CMP, serum or plasma 2017 018 [employer] [facility], [address] [place] [address], [address], 8 10:45:25 TSH + free T4, serum 2017 018 [employer] [facility], [address] [place] [address], [address], 8 10:45:25 Referral None recorded. Procedures treadmill nuclear stress test (PROC) 2017 Yahaira hayes Not available 8 07:37:02 trans-thora cic echocardiog brisa (TTE) (PROC) 2017 Yahaira hayes [facility], [address] [facility] , [facility], [place], [address], 8 09:55:22 Surgeries None recorded. Imaging electrocard iogram 2017 Yahaira thornton Not available 8 15:22:45 Medication Orders None recorded. Patient TargetsNo targets recorded. Patient InstructionsNo instructions recorded. Reason for Referral None Reported. Results Created Date Observation Date Name Description Value Unit Range Abnormal Flag Note LastModifiedBy Organization Detail LastModifiedTime 02/29/20 18 02/27/2018 rosy nieto am No observ ation record ed. [email or web address] [facility] [address], [place], [address], 02/28/2018 09:04:23 Result Notes None recorded. Problems Name Problem SNOMED Code Status Onset Date Resolution Date Notes Provider Name and Address Organization Details Recorded Time Chest pain 25429326 Active 2017 WHIT VELAZQUEZ, SHELLFISH [employer]ESSING LABORER [address] [place], [address], [facility] 8 15:07:38 Dyspnea on exertion 96941075 Active 2017 WHIT VELAZQUEZ, SHELLFISH PROCESSING LABORER [address] [place], [address], [facility] 8 15:07:42 Type 2 diabetes mellitus without complication 623924916 Active 2017 WHIT VELAZQUEZ, SHELLFISH PROCESSING LABORER [address] [place], [address], [facility] 8 15:07:47 Hypothyroidism 54892784 Active 2017 WHIT VELAZQUEZ, SHELLFISH PROCESSING LABORER [address] [place], [address], [facility] 8 15:20:18 Bipolar disorder 14205184 Active 2017 WHIT EVLAZQUEZ, SHELLFISH PROCESSING LABORER [address] [place], [address], [facility] 8 15:20:19 Hyperlipidemia 72069765 Active 2017 WHIT VELAZQUEZ, SHELLFISH PROCESSING LABORER [address] [place], [address], [facility] 8 15:20:20 Problem Notes None recorded. Procedures Surgical History Date Name Laterality Status Provider Name and Address Organization Details Recorded Time 02/27/2018 EKG completed WHIT VELAZQUEZ, SHE[employer] PROC[employer] LABORER [address] [place], [address], [facility] 02/27/2018 15:17:39 Imaging Results None recorded. Procedure Notes None recorded. Medical Equipment None Reported. Medications Name Sig Start Date Stop Date Status Note LastModified by Organization Details LastModified Time Prozac 40 mg capsule Take 1 capsule every day by oral route. active Not Available Not Available No t Available Risperdal 2 mg tablet Take 1 tablet every day by oral route. active Not Available Not Available No t Available aspirin 81 mg tablet,delay ed release Take 1 tablet every day by oral route. active Not Available Not Available No t Available Nexium 20 mg capsule,kishor yed release Take 1 capsule every day by oral route. active Not Available Not Available No t Available Lamictal 200 mg tablet Take 1 tablet every day by oral route. active Not Available Not Available No t Available lithium carbonate 600 mg capsule Take 1 capsule twice a day by oral route. active Not Available Not Available No t Available Synthroid 50 mcg tablet Take 1 tablet every day by oral route. active Not Available Not Available No t Available Prempro 0.625 mg-5 mg tablet Take 1 tablet every day by oral route. active Not Available Not Available No t Available Xolair 150 mg subcutaneous solution Inject 1.2 mL every 4 weeks by subcutaneou s route. active Not Available Not Available No t Available Risperdal Consta 50 mg/2 mL intramuscula r susp,extende d release Inject every 2 months by intramuscul ar route. active Not Available Not Available No t Available metformin ER 1,000 mg tablet,exten ded release 24 hr Take 1 tablet twice a day by oral route. active Not Available Not Available No t Available methotrexate 2.5 mg tablet Take 1 tablet by oral route. active Not Available Not Available Not Available Vitals Date Recorded Body weight Body mass index (BMI) Body height Heart rate Systolic And Diastolic Provider Name and Address Organization Details Last Updated DateTime 02/27/2018 56927.77 g 35.6 kg/m2 165.1 cm 68 /min 128/76 mm[Hg] Louann Wright [facility] 02/27/2018 14:49:56 Social History Question Answer Notes LastModified by Organizat ion Details LastModified Time Tobacco Smoking Status Never Smoker Louann soares [facility] 02/27/2018 14:56:57 What Was The Date Of Your Most Recent Tobacco Screening? 02/27/2018 Information n ot available 11/04/2019 Sex: Unknown Functional Status None recorded. Mental Status None recorded. Family History Relationship Description Onset Age of this Age Resolved Age Notes LastModified by Organization Details LastModified Time Unspecified Relation Heart disease egarth Not available 2017 14:54:18 Unspecified Relation Diabetes mellitus egarth Not available 2017 14:54:23 Unspecified Relation Family history of malignant neoplasm egarth Not available 2017 14:54:36 Unspecified Relation Hypertensive disorder egarth Not available 2017 14:54:45 Unspecified Relation Feeling nervous egarth Not available 2017 14:55:43 Unspecified Relation History of depression egarth Not available 02/27 14:55:54 Medical History Condition Response Coronary Artery Disease N Atrial Fibrillation N Heart Arrhythmia N COPD N Peripheral Arterial Disease N Nervous Illness N Edema N Anxiety Disorder N Hiatal hernia N Acid Reflux (GERD) N Cancer N Stroke N Arrhythmia N Endocrine Disorder N Heart Problems N Heart Conditions N Implanted Cardiac Device N Black Lung N Ulcers N Rheumatic Fever N Bleeding Disorder N Tuberculosis N AIDS/HIV N Asthma N Cardiac Disease N Peripheral Vascular Disease N Jaundice N GERD/Reflux N Restless leg syndrome N Thyroid Disease N Lung Disease N Pacemaker N Vascular Disease N History of Blood Thinners N Blood Thinners N Shortness of Breath N High Cholesterol N Thyroid Problems Y Chest Pain N Heart Attack ([place]) N Diabetes Y Cardiomyopathy N Heart Murmur N Congestive Heart Failure (CHF) N Hyperlipidemia N Sleep Apnea N Warfarin Management N Heart Disease N Hypertension Y Gynecological HistoryNo gynecological history recorded. Obstetrics History GPAL:G 0 P 0 0 0 0 Past Encounters Encounter ID Performer Location Encounter Start Date Encounter Closed Date Diagnosis/Indication Diagnosis SNOMED-CT Code Diagnosis ICD10 Code Diagnosis Note [id number] WHIT VELAZQUEZ APRN CARDIOLOG Y [facility] [address] [place] [address] 02/27/2018 14:18:47 02/27/2018 15:22:44 Chest pain 56354332 R07.9 CP is concerning . No concerning ST changes on EKG today. Has RF of HLP, Type II DM, and obesity. 2 sisters with Hx of CAD. Recommend Myoview to further eval her symptoms. She is agreeable. Will review results when available and make further recommenda tions at that time. Labs as noted below. Dyspnea on exertion 6084 5006 R06.09 Echocardio gram will be done for assessment of LVEF and evaluation for possible structural abnormalit ies. Will review results when available and make further recommenda tions at that time. Type 2 lauri betes mellitus without complication 514389177 E11.9 Noted, PCP following. Hypothyroidism 92239126 E03.9 Noted. Thyroid studies today as noted below. Bipolar disorder 6003455 4 F31.9 Well-contr olled on current medication s. Hyperlipidemia 07526900 E78.5 PCP following. Statin currently on hold secondary to myalgias. Health Concerns Section Related Observation LastModified by Organization Detai ls LastModified Time None Recorded Concern Status LastModified by Organization Details LastModified Time None Recorded Advance Directives Directive None Recorded Payers Insurance Date Sequence Insurance Name Policy Number Policy Sullivan Covered Member ID Sullivan Member ID Guarantor Name 08/11/2020 2 [facility]ICAID-[facility] CHOICES - FFS/TRADITIO NAL Margo Richard [id number] Margorj Ramos 08/11/2020 1 [place] Margorj Ramos [id number] Margorj Ramos Notes Date Note Type Note Provider Name and Address Organization Details Recorded Time 02/27/2018 text/html Ms. Ramos is a very pleasant 58-year-old female here today for new patient evaluation, seen in consultation at the request of Arely Hannon APRN for evaluation of chest pain. she has a medical history that includes type 2 diabetes mellitus, hyperlipidemia, thyroid disease, and obesity. She also suffers from BiPolar disorder, well-controlled with her medications. She has 2 sisters with CAD, one with PCI and the other with CABG. She presents today with complaints of left-sided chest pain she describes as a pressure. This sensation radiates to her left shoulder at times. She has symptoms in mid scapular area as well. She has associated shortness of breath. Her symptoms are not correlated with activity or rest. She has exertional shortness of breath with any activity. She does not routinely exercise. She has palpitations on occasion. She denies PND, orthopnea, syncope, and lower extremity edema. She does not smoke. She underwent a cardiac stress test several years ago, she feels was normal. No recent illness or hospitalization. No recent lab studies. WHIT VELAZQUEZ, SHELLFISH PROCESSING LABORER [address] [place], [address], [facility] 02/27/2018 15:21:35 OBGyn Episode No OBEpisode recorded.
--- OUTSIDE RECORDS SUMMARY | 2025-04-11 20:18 | XMS_ITS | Clinical Summary ---
Author Organization Healthcare Address [address] [place] [address] Care Team Providers Care Community Nutrition Educator Name Role Phone Lavinia Juarez Chucky EDMONDS Primary Care Provider [phone] Social History Tobacco Use Types Packs/Day Years Used Date Smoking Tobacco: Never Assessed Comments Unknown Sex and Gender Information Value Date Recorded Sex Assigned at Female 10/26/2023 3:05 PM EST Legal Sex Female 8:52 PM EDT Gender Identity Female 10/26/2023 3:05 PM EST Sexual Orientation Not on file Plan of Treatment Health Maintenance Due Date Last Done Comments [facility]-Depression Screening 1962 [facility]-Infant/Child/Adol SDOH Screenings 1962 [facility]- SDOH Screenings 02/08/1980 [facility]-Adult SDOH Screenings 02/08/1980 [facility]-Pap Smear 1983 [facility]-Cervical Cancer Screening 02/08/1992 [facility]-HPV/Cotest 02/08/1992 CT Colonography 2007 Colonoscopy 2007 FIT-DNA 2007 FIT 2007 FOBT 2007 Sigmoidoscopy 2007 [facility]-Colorectal Cancer Screening 2007 [facility]-Zoster Vaccines (1 of 2) 02/08/2012 [facility]-Pneumococcal Vaccine: 50+ Years (2 of 2 - PCV) 03/07/2013 03/07/2012, 02/01/2012 [id number] Vaccine ( season) 2024 06/25/2023, 08/18/2021, 12/21/2020 [facility]-Influenza Vaccine (#1) 05/18/202506/25, 07/10/2022, 07/05/2021, Additional history exists [facility]-DTaP,Tdap,and Td Vaccines (2 - Td or Tdap) 03/27/2030 03/27/2020 [facility]-RSV Vaccine: 60+ Years or (1 - 1-dose 75+ series) 2037 HPV Vaccines Aged Out No longer eligi ble based on patient's age to complete this topic [facility]-HIB Vaccines Aged Out No longer e ligible based on patient's age to complete this topic [facility]-Hepatitis A Vaccines Aged Out No longer eligible based on patient's age to complete this topic [facility]-IPV Vaccines Aged Out No longer e ligible based on patient's age to complete this topic [facility]-Rotavirus Vaccines Aged Out No lo nger eligible based on patient's age to complete this topic Insurance ANTHEM MEDICARE Care Teams Community Nutrition Educator Relationship Specialty Start Date End Date Laviina Juarez APRN [address] [place] [place] [address] PCP - General 11/30/23
--- OUTSIDE RECORDS SUMMARY | 2025-04-11 20:18 | XMS_ITS | Data Portability ---
Author Organization [place] - [facility] [place] & ASHWINI Retana ADMIN Address [address] [place] [address] Assessment No assessment recorded. Plan of Treatment Reminders Order Date Submit Date Provider Last Modified By Organization Details Last Modified Time Details Appointments None record ed. Lab None record ed. Referral None record ed. Procedures None record ed. Surgeries None record ed. Imaging None record ed. Medication Orders None record ed. Patient TargetsNo targets recorded. Patient Instructions Encounter Date Encounter Id Patient Instructions Last Modified By Organization Details Last Modified Time 07/19/2022 [id number] 1-Will add canal lock to aids. 2-F/u when aids return. [email or web address] Not available 07/19/2022 11:00:48 Reason for Referral None Reported. Medical Equipment None Reported. Medications Name Sig Start Date Stop Date Status Note LastModified by Organization Details LastModified Time fluoxetine 40 mg capsule active Not Available Not Available N ot Available atorvastatin 40 mg tablet active Not Available Not Available Not Available buspirone 5 mg tablet TAKE 1 TABLET BY MOUTH THREE TIMES DAILY active Not Available Not Available No t Available trazodone 50 mg tablet active Not Available Not Available No t Available lisinopril 20 mg-hydrochlor othiazide 12.5 mg tablet TAKE 1 TABLET(S) BY MOUTH DAILY active Not Available Not Available No t Available fluconazole 150 mg tablet TAKE 1 TABLET BY MOUTH ONCE active Not Available Not Available N ot Available sucralfate 100 mg/mL oral suspension active Not Available Not Available N ot Available glipizide ER 10 mg tablet, extended release 24 hr TAKE 1 TABLET (10 MG) BY ORAL ROUTE ONCE DAILY WITH BREAKFAST FOR DIABETES active Not Available Not Available No t Available sucralfate 1 gram tablet active Not Available Not Available Not Available clonazepam 0.5 mg tablet TAKE 1 - 2 TABLETS (0.5 - 1 MG) BY ORAL ROUTE EVERY 8 HOURS NEEDED FOR AGITATION active Not Available Not Available No t Available clonazepam 1 mg tablet active Not Available Not Available No t Available quetiapine 100 mg tablet active Not Available Not Availabl e Not Available bupropion HCl SR 100 mg tablet,12 hr sustained-rel ease active Not Available Not Available Not Available methocarbamol 750 mg tablet active Not Available Not Availabl e Not Available OneTouch Ultra Test strips TEST DIRECTED active Not Available Not Available No t Available levothyroxine 50 mcg tablet TAKE 1 TABLET BY MOUTH EVERY MORNING ON AN EMPTY STOMACH active Not Available Not Available No t Available metformin 1,000 mg tablet TAKE 1 TABLET (1,000 MG) BY ORAL ROUTE 2 TIMES PER DAY WITH MORNING AND EVENING MEALS active Not Available Not Available No t Available buspirone 10 mg tablet active Not Available Not Available No t Available omeprazole 20 mg capsule,delay ed release active Not Available Not Available N ot Available montelukast 10 mg tablet active Not Available Not Available Not Available epinephrine 0.3 mg/0.3 mL injection, auto-injector active Not Available Not Availabl e Not Available ibuprofen 600 mg tablet active Not Available Not Available No t Available dicyclomine 10 mg capsule active Not Available Not Availabl e Not Available esomeprazole magnesium 20 mg capsule,delay ed release active Not Available Not Available N ot Available bupropion HCl SR 200 mg tablet,12 hr sustained-rel ease TAKE 1 TABLET BY MOUTH EVERY MORNING active Not Available Not Available No t Available duloxetine 60 mg capsule,delay ed release TAKE 1 CAPSULE BY MOUTH ONCE DAILY active Not Available Not Available No t Available Symbicort 160 mcg-4.5 mcg/actuation HFA aerosol inhaler active Not Available Not Available Not Available Symbicort 80 mcg-4.5 mcg/actuation HFA aerosol inhaler active Not Available Not Available Not Available Lantus Solostar U-100 Insulin 100 unit/mL (3 mL) subcutaneous pen active Not Available Not Available Not Available Easy Comfort Pen [place] 31 gauge x 3/16 USE TO INJECT INSULIN SUB-Q DIRECTED active Not Available Not Available No t Available Jardiance 25 mg tablet active Not Available Not Available No t Available Trulicity 0.75 mg/0.5 mL subcutaneous pen injector active Not Available Not Available Not Available Vraylar 6 mg capsule active Not Available Not Available Not Available Vraylar 4.5 mg capsule active Not Available Not Available N ot Available OneTouch Delica Plus Lancet 33 gauge DIRECTED active Not Available Not Available No t Available Vitals None Recorded Social History None recorded. Functional Status None recorded. Mental Status None recorded. Family History Nothing Reported. Medical History No medical history recorded. Gynecological HistoryNo gynecological history recorded. Obstetrics History GPAL:G 0 P 0 0 0 0 Past Encounters Encounter ID Performer Location Encounter Start Date Encounter Closed Date Diagnosis/Indication Diagnosis SNOMED-CT Code Diagnosis ICD10 Code Diagnosis Note [id number] GISELLE LIANG [facility] [place] [address], [facility] [place] [address] 07/19/2022 10:35:00 07/19/2022 10:49:14 Sensorineural hearing loss 41743587 H90.3 Health Concerns Section Related Observation LastModified by Organization Detai ls LastModified Time None Recorded Concern Status LastModified by Organization Details LastModified Time None Recorded Advance Directives Directive None Recorded Payers Insurance Date Sequence Insurance Name Policy Number Policy Sullivan Covered Member ID Sullivan Member ID Guarantor Name 07/18/2022 2 MEDICAID-[facility] CHOICES - FFS/TRADITIONA Thom Ramos [id number] Margo aRmos 01/10/2022 1 *SELF PAY* Yonas Ramos 07/18/2022 1 [id number] [facility] [facility] MEDIBLUE PLUS (MEDICARE REPLACEMENT HMO) [id number] Margo Ramos [id number] Margo Richard Notes Date Note Type Note Provider Name and Address Organization Details Recorded Time 07/19/2022 text/html DizzinessReporte d by Patient Hearing Loss - AdultReported by PatientROS as noted in the HPI Ms. Ramos was seen today for a hearing aid service. GISELLE LIANG [address] [facility], [place], [address], [facility] & [place] 07/19/2022 11:01:00 OBGyn Episode No OBEpisode recorded.
--- OUTSIDE RECORDS SUMMARY | 2025-04-11 20:18 | XMS_ITS | Encounter Summary ---
Author Organization Healthcare Address [address] [place] [address] Care Team Providers Care Community Youth Secretary Name Role Phone Lavinia Juarez APRN Primary Care Provider [phone] Reason for Referral * Consultation (Routine) - Authorized Specialty Diagnoses / Procedures Referred By Juanito t Referred To Contact Gastroenterology Diagnoses Type 2 diabetes mellitus with autonomic neuropathy, unspecified whether shelter insulin use (CMS/HCC) Lavinia Juarez APRN [address] [place] [address] Phone: tel: fax: Referral ID Status Reason Start Date Expiration Date Visits Requested Visits Authorized [id number] Authorized Specialty Services Required 10/26/2023 04/26/2025 1 1 Encounter Details Date Type Department Care Team (Late st Contact Info) Description 10/26/2023 Community Orders Community Practice [address] [place] [address] Lavinia Juarez APRN [address] [place], [place] [id number] Type 2 diabetes mellitus with autonomic neuropathy, unspecified whether shelter insulin use (CMS/HCC) (Primary Dx) Social History Tobacco Use Types Packs/Day Years Used Date Smoking Tobacco: Never Assessed Comments Unknown Sex and Gender Information Value Date Recorded Sex Assigned at Female 10/26/2023 3:05 PM EST Legal Sex Female 8:52 PM EDT Gender Identity Female 10/26/2023 3:05 PM EST Sexual Orientation Not on file documented as of this encounter Plan of Treatment Scheduled Referrals Name Type Priority Associated Diagnoses Order Schedule Ambulatory referral to Gastroenterology Outpatient Referral Routine Type 2 diabetes mellitus with autonomic neuropathy, unspecified whether shelter insulin use ([facility]) Expected: 10/26/2023 (Approximate), Expires: 04/25/2025 documented as of this encounter Visit Diagnoses Diagnosis Type 2 diabetes mellitus with autonomic neuropathy, 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
--- OUTSIDE RECORDS SUMMARY | 2025-04-11 20:18 | XMS_ITS | Referral Summary ---
Author Organization [employer] ([place], [place], [place], [place]) Address [address] [facility] [place] [address] Care Team Providers Care Cutting Pressman Name Role Phone Lavinia Juarez APRN Primary Care Provider Encounters Date Type Department Care Team Description 03/05/2025 9:15 AM EDT Office Visit [facility] Orthopedic[address] [phone] Kian Hubbard MD S/P reverse total shoulder arthroplasty, right (Primary Dx) 02/06/2025 Refill [facility] [address]opedic[address] [address] Kian Hubbard MD 02/05/2025 8:55 AM EDT Ancillary Procedure [address] [address] Radha Fontana PA-C 02/05/2025 9:15 AM EDT Office Visit [address] [address] Radha Fontana PA-C S/P reverse total shoulder arthroplasty, right (Primary Dx) 01/28/2025 Telephone [facility] Medical Surgical Unit [address] [place] [address] Aracelis Banerjee RN Post-Op Follow-up 01/21/2025 6:46 AM EDT - 01/22/2025 11:06 AM EDT Hospital Encounter [facility] Progressive Care Unit [address] [place] [address] Kian Hubbard MD Jadhav, Stephanie N, MD Rotator cuff arthropathy of right shoulder Discharge Disposition: Home or Self Care 01/21/2025 10:30 AM EDT - 01/21/2025 12:23 PM EDT Surgery [facility] Operating Room [address] [place] [address] Kian Hubbard MD ARTHROPLASTY, RIGHT SHOULDER, TOTAL, REVERSE 01/21/2025 10:01 AM EDT Anesthesia Event [facility] Operating Room [address] [place] [phone] Daniel Jules CRNA Toohey, Eric, CRNA 01/20/2025 Travel from Last 3 Months Allergies No known active allergies Medications hydrOXYzine [...] Diabetes mellitus Overview (01/21/2025): type 2 Hypertension Social History Tobacco Use Types Packs/Day Years [...] living situation today? I have a [facility] place to live 01/21/2025 Think about the [...] Do you speak a language other than [facility] at [facility]? No 01/21/2025 Do you want help [...] [facility] [address] [phone] Kian Hubbard MD [address] [place] [id number] Medical Devices Implanted Type Area Supervisor Dock Device Identifier Shelf Expiration Date Model / Serial / Lot Baseplt Lat +3mm 25mm [id number] - [id number] Implanted:Qty: 1 on 01/21/2025 by Kian Hubbard MD at [facility] IMPLANTS Right: Shoulder TORNIER [id number] 11/05/2029 [id number] / [id number] / Insrt Rev Perf Hum Sz 1/2 3mm [id number] - [id number] Implanted:Qty: 1 on 01/21/2025 by Kian Hubbard MD at [facility] IMPLANTS Right: Shoulder TORNIER [id number] 04/26/2028 [id number] / [id number] / Stem Hum Sz 2+ Long Dwx2pl - [id number] Implanted:Qty: 1 on 01/21/2025 by Kian Hubbard MD at [facility] IMPLANTS Right: Shoulder TORNIER [id number] 10/09/2029 [id number] / [id number] / Glenosphere Std 36mm [id number] - [id number] Implanted:Qty: 1 on 01/21/2025 by Kian Hubbard MD at [facility] IMPLANTS Right: Shoulder TORNIER [id number] 05/01/2029 [id number] / [id number] / Scr Periph 5.0x14mm Ns [id number] - [id number] Implanted:Qty: 2 on 01/21/2025 by Kian Hubbard MD at [facility] IMPLANTS Right: Shoulder TORNIER [id number] / / Scr Cntrl Thd Post 6.5x40mm [id number] - [id number] Implanted:Qty: 1 on 01/21/2025 by Kian Hubbard MD at [facility] IMPLANTS Right: Shoulder TORNIER [id number] / / Scr Periph 5.0x18mm Ns Cbr915 - [id number] Implanted:Qty: 1 on 01/21/2025 by Kian Hubbard MD at [facility] IMPLANTS Right: Shoulder TORNIER [id number] / / Scr Periph 5.0x38mm Ns [id number] - [id number] Implanted:Qty: 1 on 01/21/2025 by Kian Hubbard MD at [facility] IMPLANTS Right: Shoulder TORNIER [id number] / / Procedures Procedure Name Priority Date/Time [...] ANESTHESIA INTUBATION Routine 01/21/2025 10:08 AM EDT [place] ARTHROPLASTY GLENOHUMERAL JOINT TOTAL SHOULDER 01/21/2025 10:01 AM EDT Rotator cuff arthropathy of right shoulder Case Notes 0745 TISSUE EXAM [facility] AP Routine 01/21/2025 9:31 AM EDT Rotator [...] - 99 mg/dL 01/22/2025 6:10 AM EDT [facility] Comment:In the event of poor peripheral blood flow, venous or arterial blood should be used due to the potential of erroneous results. President And Chief Commercial Officer [id number] 01/22/2025 6:10 AM EDT [facility] Blood WHOLE BLOOD / Unknown 01/22/2025 5:56 AM EDT 01/22/2025 6:10 AM EDT Narrative [facility] - 01/22/2025 6:10 AM EDT President And Chief Commercial Officer ID is - [id number] us Emily Gray MD POINT OF CARE TEST ORDERAB LES Final Result [facility] [address] [place] [address] * (ABNORMAL) CBC with automated diff (01/21/2025 3:20 PM EDT) WBC 8.2 4.8 - 10.8 K/ L 01/21/2025 3:39 PM EDT [facility] RBC 4.52 3.50 - 5.20 M/ L 01/21/2025 3:39 PM EDT [facility] Hemoglobin 13.3 11.7 - 15.8 GM/DL 01/21/2025 3:39 PM EDT [facility] Hematocrit 39.9 35.0 - 47.0 % 01/21/2025 3:39 PM EDT [facility] MCV 88 81 - 101 fL 01/21/2025 3:39 PM EDT [facility] MCH 29.4 27.0 - 34.0 pg 01/21/2025 3:39 PM EDT [facility] MCHC 33.3 32.0 - 36.0 GM/DL 01/21/2025 3:39 PM EDT [facility] RDW 12.0 11.5 - 14.5 % 01/21/2025 3:39 PM EDT [facility] Platelets 185 150 - 400 K/CU MM 01/21/2025 3:39 PM EDT [facility] MPV 9.1(L) 9.4 - 12.4 fL 01/21/2025 3:39 PM EDT [facility] Nucleated Red Blood Cell 0.0 0 - 0.2 % 01/21/2025 3:39 PM EDT [facility] NRBC Absolute <0.01 0 - 0.012 K/ul 01/21/2025 3:39 PM EDT [facility] Blood Venipuncture / Unknown 01/21/2025 3:20 PM EDT 01/21/2025 3:20 PM EDT Narrative [facility] - 01/21/2025 3:39 PM EDT [...] Blast? Flag noted Atypical Lymph flag noted us Emily Gray MD LAB BLOOD ORDERABLES Final Result [facility] [address] [place] [address] * (ABNORMAL) Manual Differential (01/21/2025 3:20 PM EDT) Total Counted 100 01/21/2025 3:39 PM EDT [facility] % Neutros (manual) 91(H) 15 - 67 % 01/21/2025 3:39 PM EDT [facility] % Bands (manual) 1(L) 2 - 21 % 01/21/2025 3:39 PM EDT [facility] % Lymphs (manual) 6(L) 10 - 50 % 01/21/2025 3:39 PM EDT [facility] % Monos (manual) 2 2 - 10 % 01/21/2025 3:39 PM EDT [facility] Platelet Estimate Adequate Adequate 01/21/2025 3:39 PM EDT [facility] ANC# 7.54 K/ L 01/21/2025 3:39 PM EDT [facility] Blood Venipuncture / Unknown 01/21/2025 3:20 PM EDT 01/21/2025 3:20 PM EDT Emily Gray MD LAB BLOOD ORDERABLES Final Result [facility] [address] [place] [address] * (ABNORMAL) Comprehensive metabolic panel (01/21/2025 3:20 PM EDT) Sodium 138 136 - 145 meq/L 01/21/2025 3:41 PM EDT [facility] Potassium 4.5 3.5 - 5.1 meq/L 01/21/2025 3:41 PM EDT [facility] Chloride 105 98 - 107 meq/L 01/21/2025 3:41 PM EDT [facility] CO2 26 21 - 32 meq/L 01/21/2025 3:41 PM EDT [facility] Calcium 8.6 8.5 - 10.1 mg/dL 01/21/2025 3:41 PM EDT [facility] Glucose 256(H) 70 - 99 mg/dL 01/21/2025 3:41 PM EDT [facility] BUN 27(H) 7 - 18 mg/dL 01/21/2025 3:41 PM EDT [facility] Creatinine 1.44(H) 0.55 - 1.10 mg/dL 01/21/2025 3:41 PM EDT [facility] BUN/Creatinine 19 01/21/2025 3:41 PM EDT [facility] Albumin 3.4 3.4 - 5.0 g/dL 01/21/2025 3:41 PM EDT [facility] Alkaline Phosphatase 99 46 - 116 U/L 01/21/2025 3:41 PM EDT [facility] ALT 60 12 - 78 U/L 01/21/2025 3:41 PM EDT [facility] AST 63(H) 15 - 37 U/L 01/21/2025 3:41 PM EDT [facility] Total Bilirubin 0.3 0.2 - 1.0 mg/dL 01/21/2025 3:41 PM EDT [facility] Protein, Total 7.1 6.4 - 8.2 gm/dL 01/21/2025 3:41 PM EDT [facility] Anion Gap 12 11 - 22 01/21/2025 3:41 PM EDT [facility] A/G Ratio 0.9 01/21/2025 3:41 PM EDT [facility] Globulin 3.7 g/dL 01/21/2025 3:41 PM EDT [facility] Osmolality Calc 289.5 mOsm/kg 3:41 PM EDT [facility] eGFR (mL/min/1.73m2) 41(L) >=60 mL/min/1.7 3m2 01/21/2025 3:41 PM EDT [facility] Comment:ESTIMATED GFR IS NOT ACCURATE CREATININE CLEARANCE IN PREDICTING GLOMERULAR FILTRATION RATE. ESTIMATED GFR IS NOT APPLICABLE FOR DIALYSIS PATIENTS. Blood Venipuncture / Unknown 01/21/2025 3:20 PM EDT 01/21/2025 3:20 PM EDT us Emily Gray MD LAB BLOOD ORDERABLES Final Result [facility] [address] [place] [address], [facility] [phone] * XR chest AP portable (01/21/2025 1:36 [...] reviewed, interpreted and dictated by PEDRO Parson. Kian Hubbard MD IMG DIAGNOSTIC IMAGING ORDERA BLES Final [...] of attempts at approach: 1 Janette Bob SALO ANESTHESIA ORDERABLES Final Result * Tissue Exam (01/21/2025 9:31 AM EDT) AP RESULT See Note: [facility] Comment: [facility] [address] [place] [address] or [phone] Hakeem Sosa M.D., Patch Driller PATIENT NAME LABORATORY NO. [address] [id number] AGE SEX SSN CLIENT REF # [facility] 64 1960 F [id number] JOHNNY REQUESTING Tiffany ATTENDING Tiffany COPY [address] KIAN HUBBARD [place] [id number] DATE COLLECTED DATE RECEIVED DATE REPORTED 01/21/2025 01/21/2025 01/22/2025 DIAGNOSIS: HUMERAL HEAD, GROSS ONLY, RIGHT SHOULDER: GROSS DIAGNOSIS: Changes consistent with mild osteoarthritis RLL/sm CLINICAL HISTORY: Other specific arthropathies, not elsewhere classified, right shoulder; asthma, chronic kidney disease (STAGE 3) GFR 30-59ml/min; diabetes mellitus, hypertension SPECIMENS RECEIVED: HUMERAL HEAD, GROSS ONLY, RIGHT SHOULDER Professional interpretation rendered by Hakeem Sosa M.D., F.C.A.P. at [facility], [address] [place] [address]. GROSS DESCRIPTION: Received in formalin labeled humeral [...] AND ELECTRONICALLY SIGNED BY: Hakeem Sosa M.D., F.C.A.P. CPT CODES: [id number] Tissue OTHER / Unknown 01/21/2025 9 :31 AM EDT us Kian Hubbard MD PATHOLOGY/CYTOLOGY ORDERABLES Final Result [facility] [address] * HC PERIPHERAL NERVE BLOCK SINGLE SHOT (01/21/2025 9:09 AM EDT) Joseph Edwards MD - 01/21/2025 9:09 AM EDT Joseph [...] supine Prep: ChloraPrep Patient monitoring: heart rate, lacquer mixer and continuous pulse ox Block type: interscalene [...] rate change: no Slow fractionated injection: yes Joseph Carrion MD ANESTHESIA ORDERABLES Final Re sult * ABO/RH Confirmation/Retype (01/21/2025 7:20 AM EDT) RETYPE O POSITIVE 01/21/2025 7:13 AM EDT [facility] ([place]) Blood Venipuncture / Unknown 01/21/2025 7:20 AM EDT 01/21/2025 7:27 AM EDT us Kian Hubbard MD [facility] BLOOD [facility] TEST ORDERABLE S Final Result [facility] BLOOD [facility] ([place]) [address] [facility] [place] [address], [facility] [phone] * Type and Screen (01/21/2025 7:15 AM EDT) ABO/Rh O POSITIVE 01/21/2025 7:10 AM EDT [facility] BLOOD [facility] ([place]) Antibody Screen NEGATIVE 01/21/2025 7:10 AM EDT [facility] ([place]) HISTCHK HIST CHECK PERFORMED 01/21/2025 7:10 AM EDT [facility] ([place] Blood Venipuncture / Unknown 01/21/2025 7:15 AM EDT 01/21/2025 7:26 AM EDT us Kian Hubbard MD [facility] BLOOD BANK TEST ORDERABLE S Edited Result - Final [facility] ([place]) [address] [facility] [place] [address], [facility] [phone] from Last 3 Months Insurance [place] AET[place] MCR ADV Advance Directives For more information, please contact: [phone] * Full Code (Latest Code Status on File) Date Activated Date Inactivated Comments 01/21/2025 12:10 PM 01/22/2025 12:07 PM * Full Code Date Activated Date Inactivated Comments 01/21/2025 6:09 AM 01/21/2025 12:10 PM Care Teams Cutting Pressman Relationship Specialty Start Date End Date Lavinia Juarez, CYTOLOGIST [address] [place] [address] PCP - General Family Medicine 10/20/24
--- NOTE | 2025-04-11 20:41 | CT_ITS ---
PROCEDURE INFORMATION: Exam: CTA Head With Contrast, Arteriography Exam date and time: 04/11/2025 9:24 PM Age: 65 years old Clinical indication: Other: AMS; Additional info: Possible stroke TECHNIQUE: Imaging protocol: Computed tomographic angiography of the head with contrast. Exam focused on the arteries. 3D rendering (Not supervised by radiologist): MIP and/or 3D reconstructed images were created by the technologist. Radiation optimization: All CT scans at this facility use at least one of these dose optimization techniques: automated exposure control; mA and/or kV adjustment per patient size (includes targeted exams where dose is matched to clinical indication); or iterative reconstruction. Contrast material: ISOUVE 370; Contrast volume: 80 ml; Contrast route: INTRAVENOUS (IV); COMPARISON: CT HEAD/BRAIN WO CON 04/11/2025 9:22 PM FINDINGS: ANTERIOR CIRCULATION: Right internal carotid artery: Intracranial segment is patent with no significant stenosis. No aneurysm. Right middle cerebral artery: No occlusion or significant stenosis. No aneurysm. Right anterior cerebral artery: No occlusion or significant stenosis. No aneurysm. Left internal carotid artery: Intracranial segment is patent with no significant stenosis. No aneurysm. Left middle cerebral artery: No occlusion or significant stenosis. No aneurysm. Left anterior cerebral artery: No occlusion or significant stenosis. No aneurysm. 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 Left vertebral artery: Dominant intracranial left vertebral artery with patent vertebrobasilar junction, basilar artery . Basilar artery: See Left vertebral artery finding. Right posterior cerebral artery: Moderate to severe multifocal right P1 and P2 segment intracranial atherosclerotic stenoses image 4/439. multifocal Left posterior cerebral artery: No occlusion or significant stenosis. No aneurysm. Brain: No evidence for intracranial hemorrhage, mass lesions or acute stroke. Cerebral ventricles: No ventriculomegaly. Bones/joints: Unremarkable. No acute fracture. Soft tissues: Unremarkable. Other findings: No evidence for large vessel occlusion. IMPRESSION: 1. No evidence for large vessel occlusion. 2. Moderate to severe multifocal right P1 and P2 segment intracranial atherosclerotic stenoses image 4/439. multifocal 3. 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 4. Dominant intracranial left vertebral artery with patent vertebrobasilar junction, basilar artery . 5. No evidence for intracranial hemorrhage, mass lesions or acute stroke.
--- NOTE | 2025-04-11 20:41 | CT_ITS ---
PROCEDURE INFORMATION: Exam: CTA Neck With Contrast Exam date and time: 04/11/2025 9:24 PM Age: 65 years old Clinical indication: Other: AMS; Additional info: Possible stroke TECHNIQUE: Imaging protocol: Computed tomographic angiography of the neck with contrast. Exam focused on the cervical segments of the vasculature. 3D rendering (Not supervised by radiologist): MIP and/or 3D reconstructed images were created by the technologist. Radiation optimization: All CT scans at this facility use at least one of these dose optimization techniques: automated exposure control; mA and/or kV adjustment per patient size (includes targeted exams where dose is matched to clinical indication); or iterative reconstruction. Contrast material: ISOUVE 370; Contrast volume: 80 ml; Contrast route: INTRAVENOUS (IV); COMPARISON: CT CERVICAL SPINE WO CON 02/10/2021 8:12 PM FINDINGS: Right common carotid artery: No stenosis. No dissection or occlusion. Right internal carotid artery: No stenosis of the extracranial segment. No dissection or occlusion. Right external carotid artery: No occlusion or stenosis of the origin. Left common carotid artery: No stenosis. No dissection or occlusion. Left internal carotid artery: No stenosis of the extracranial segment. No dissection or occlusion. Left external carotid artery: No occlusion or stenosis of the origin. Right vertebral artery: No stenosis. No dissection or occlusion. Left vertebral artery: No stenosis. No dissection or occlusion. Aorta: There is mild dilation of the ascending aorta. Thyroid: Multiple peripherally calcified thyroid nodules; recommend ultrasound. Soft tissues: Normal. No significant soft tissue swelling. Bones/joints: No acute fracture. Other findings: Great vessel origins are patent. IMPRESSION: 1. No evidence for occlusion, stenosis or dissection of the cervical vessels. 2. There is mild dilation of the ascending aorta. 3. Great vessel origins are patent. 4. Multiple peripherally calcified thyroid nodules; recommend ultrasound. 5. Shotty bilateral internal jugular chain adenopathy. COMMENTS: Consistent with the [place] [employer]'s Incidental Findings Committee white paper (J Am Cb Radiol 2015): In patients aged 35 years and older with an incidental thyroid nodule equal to or greater than 1.[address], MRI or extrathyroidal US, further evaluation with dedicated thyroid US is recommended for patients with normal life expectancy and without comorbidities. For smaller nodules without suspicious features, no further evaluation or follow up is recommended. REFERENCES: NASCET CRITERIA. The degree of stenosis in the cervical segment of the internal carotid artery is based on NASCET criteria. Normal is no stenosis. Mild is less than 50% stenosis. Moderate is 50-69% stenosis. Severe is 70% to 99% stenosis. Total occlusion is no detectable patent lumen.
--- NOTE | 2025-04-11 20:41 | ECG_ITS ---
APPROVED REPORT Exam: Resting ECG HR:86 bpm ECG Measurements Heart Rate 86 AXES ME 165 P 41 QRSd 94 QRS 24 QT 397 T 37 QTc 441 Conclusion SINUS RHYTHM LOW QRS VOLTAGE IN PRECORDIAL LEADS [QRS DEFLECTION < 1.0 mV IN CHEST LEADS] BORDERLINE ECG Electronically signed by : KENNETH MENDEZ, 04/12/2025 07:12:29
--- NOTE | 2025-04-11 20:41 | CT_ITS ---
PROCEDURE INFORMATION: Exam: CT Head Without Contrast Exam date and time: 04/11/2025 9:22 PM Age: 65 years old Clinical indication: Altered mental status/memory loss; Additional info: Possible stroke TECHNIQUE: Imaging protocol: Computed tomography of the head without contrast. Radiation optimization: All CT scans at this facility use at least one of these dose optimization techniques: automated exposure control; mA and/or kV adjustment per patient size (includes targeted exams where dose is matched to clinical indication); or iterative reconstruction. COMPARISON: CT HEAD/BRAIN WO CON 09/05/2023 5:46 PM FINDINGS: Brain: No evidence for intracranial hemorrhage, mass lesions or acute stroke. Ill-defined low-density left occipital lobe image 3/ and coronal image 1001/60-62. and sagittal image 1002/36. Some ill-defined low-density is seen in the same region on 09/05/2023. Cerebral ventricles: No ventriculomegaly. Pituitary gland and sella: Negative Paranasal sinuses: Visualized sinuses are unremarkable. No fluid levels. Mastoid air cells: Visualized mastoid air cells are well aerated. Orbital cavities: Negative. Bones: Unremarkable. No acute fracture. Soft tissues: Unremarkable. Vasculature: Negative. IMPRESSION: 1. No evidence for intracranial hemorrhage, mass lesions or acute stroke. 2. Ill-defined low-density left occipital lobe image 3/ and coronal image 1001/60-62. and sagittal image 1002/36. Some ill-defined low-density is seen in the same region on 09/05/2023. MRI may be helpful to further delineate this finding and determine whether this represents beam hardening artifact versus infarct. 3. The CT angiogram study shows a patent left posterior cerebral artery. 4. The CT angiogram shows multifocal intracranial atherosclerotic stenosis of the right posterior cerebral artery but there is no evidence for infarct in this distribution.
[2025-04-11 21:00] LABS: Microscopic, Urine URINE MICROSCOPIC (MICROSCOPIC)
[2025-04-11] MEDS: droPERidol 5MG/2ML VIAL 2.5 MG IV (21:00)
--- NOTE | 2025-04-11 21:09 | HMH.EDGENADL ---
Discharge Plan Disposition Patient Disposition: Home, Self-Care Condition: Good Prescriptions Prescriptions: No Action fluoxetine 40 mg capsule 40 mg PO DAILY bupropion HCl 150 mg tablet sustained-release 12 hr 150 mg PO BID lisinopril-hydrochlorothiazide 20-12.5 mg tablet 1 tab PO DAILY clonazepam 1 mg tablet 1 mg PO HS levothyroxine 50 mcg tablet 50 mcg PO AM buspirone 10 mg tablet 10 mg PO DAILY montelukast 10 mg tablet 10 mg PO DAILY albuterol sulfate [Ventolin HFA] 90 mcg/actuation HFA aerosol inhaler 2 inh INHALATION Q4-6H PRN (Reason: Breathing Problems) duloxetine 60 mg capsule,delayed release(DR/EC) 60 mg PO DAILY Jardiance 25 mg tablet 25 mg PO DAILY Vraylar 4.5 mg capsule 4.5 mg PO DAILY Kerendia 10 mg Tablet 10 mg PO DAILY amitriptyline 10 mg tablet 10 mg PO HS Referrals Follow up/Referrals: Lavinia Juarez [Primary Care Provider, Medical] - See instructions Activity Restrictions/Add. Instructions Additional Instructions/Restrictions: You were evaluated in the emergency department today. At this time, your CT scan shows some incidental findings that I do not feel are likely related to your current symptoms. You have narrowing of blood vessels going to your brain, for which I recommended discussing aspirin and a cholesterol medication with your primary care doctor. You also have an abnormal appearing lesion in your brain that could just be artifact from imaging technique, but I recommend following up with your primary care provider to see if they would like to do an MRI of your brain. You also have a thyroid nodule, for which I recommend follow-up with your primary care provider for outpatient ultrasound. Take Tylenol and ibuprofen as needed for pain. Return to the emergency department for new or worsening symptoms. Clinical Impressions Clinical Impression: Headache, Intracranial atherosclerosis, Thyroid nodule, Abnormal CT of the head, Neck pain Stand Alone Forms Stand Alone Forms: Work/School Release Instructions Patient Instructions: DI for Migraine, DI for Headache, DI for Neck Pain Print Language Print Language: Slovak Discharge ED Provider: Daina Grey General Adult HPI General Chief complaint: Headache Stated complaint: Headache past 3 days, neck pain, Time Seen by Provider: 04/11/25 20:13 Mode of Arrival: Ambulatory Description of Symptoms (Recalled from ER Triage Doc. by RN): pt comes in c/o head and neck pain. pt states shes had a headache on and off the oa week but today she states her head feels like its going to explode . Pt states the pain is radiating down into her neck, she also complains of bilateral leg weakness. no complaints of blurry vision. History of Present Illness HPI narrative: This patient is a 65-year-old female with a history of gastroparesis, GERD, insulin-dependent diabetes, bipolar disorder, depression, anxiety, hypothyroidism, hypertension and hyperlipidemia presented to the emergency department for evaluation with concern for headache. Patient states has been having headache for 3 days now this been off and on, but today is much worse. She states it feels like her head is going to explode. She notes it radiates down into her neck and she states that all of her extremities feel like noodles. She denies any vision change, numbness, tingling, unilateral weakness, gait instability, or other concerns. She states she just cannot walk because she feels like everything is so weak. Related Data Home Medications ?Medication ?Instructions ?Recorded ?Confirmed albuterol sulfate 90 mcg/actuation 2 inh inhalation Q4-6H PRN 01/31/23 04/11/25 aerosol inhaler (Ventolin HFA) Breathing Problems bupropion HCl 150 mg tablet,12 hr 150 mg PO BID Mood 01/31/23 04/11/25 sustained-release buspirone 10 mg tablet 10 mg PO DAILY Mood 01/31/23 04/11/25 cariprazine 4.5 mg capsule 4.5 mg PO DAILY Mood 01/31/23 04/11/25 (Vraylar) clonazepam 1 mg tablet 1 mg PO HS Anxiety 01/31/23 04/11/25 duloxetine 60 mg capsule,delayed 60 mg PO DAILY Mood 01/31/23 04/11/25 release empagliflozin 25 mg tablet 25 mg PO DAILY Diabetes 01/31/23 04/11/25 (Jardiance) fluoxetine 40 mg capsule 40 mg PO DAILY Mood 01/31/23 04/11/25 levothyroxine 50 mcg tablet 50 mcg PO AM Thyroid 01/31/23 04/11/25 lisinopril 20 1 tab PO DAILY High blood pressure 01/31/23 04/11/25 mg-hydrochlorothiazide 12.5 mg tablet montelukast 10 mg tablet 10 mg PO DAILY Allergy symptoms 01/31/23 04/11/25 amitriptyline 10 mg tablet 10 mg PO HS sleep 03/14/23 04/11/25 finerenone 10 mg tablet (Kerendia) 10 mg PO DAILY kidney disease 03/14/23 04/11/25 Allergies Allergy/AdvReac Type Severity Reaction Status Date / Time No Known Allergies Allergy Verified 10/14/24 10:52 [facility] Disclaimer: The information contained in this section may have been updated after the patient was seen, as this information can be updated by other users. Medical History Vomiting Eczema GERD (gastroesophageal reflux disease) Insulin dependent diabetes mellitus Type 2 diabetes mellitus Depression Anxiety Bipolar depression Thyroid disease Asthma Chest pain High cholesterol Hypertension Surgical History History of cholecystectomy Family History Mother Cancer, Onset Age: 91 Father Cancer, Onset Age: 60 Other Diabetes Heart attack High cholesterol Hypertension Stroke Social History Smoking Status: Never smoker second hand exposure: No alcohol intake: never substance use type: denies use current occupational status: disabled Travel in the last 8 weeks?: None household members: none housing: house lives independently: Yes marital status: single education level: college service: No current occupational exposures/hazards: No caffeine: Yes do you feel safe at home: Yes victim of physical abuse: No victim of emotional abuse: No victim of sexual abuse: No would you like helpful sources: No Have you lived/traveled outside US in past 30 days?: No Contact w/someone who lives/traveled outside US past 30 days?: No Exposure to someone with infectious disease in past 14 days?: No Do you have a fever (greater than 100.4 F or 38 C)?: No Have you tested positive for COVID-19?: No Exposed to someone with COVID-19 in past 14 days?: No Do you have a sore throat?: No Do you have a cough?: No Do you have any weakness?: Yes Do you have any diarrhea?: No Are you experiencing any unusual bleeding?: No Do you have any muscle aches/pain?: Yes Do you have any abdominal pain?: No Are you experiencing loss of taste or smell?: No Other Medical History Have you received the Flu Vaccine for this season: No Have you received the Pneumonia Vaccine: No ROS Obtained: Yes All systems reviewed & no additional complaints except as documented Physical Exam General General appearance: alert, in no apparent distress and obese Head Head exam: atraumatic and normocephalic Eye Eye exam: Present normal appearance, PERRL and EOMI ENT ENT exam: Present normal exam, normal oropharynx, mucous membranes moist and normal external ear exam Neck Neck exam: Present normal inspection, full ROM and trachea midline; Absent tenderness Chest Chest inspection: Present normal inspection and symmetric chest wall rise; Absent tenderness Respiratory Respiratory exam: Present normal lung sounds bilaterally; Absent respiratory distress, wheezes, stridor or accessory muscle use Cardiovascular Cardiovascular exam: Present regular rate and normal rhythm Abdominal Exam Abdominal exam: Present soft; Absent distention, tenderness or guarding Extremities Exam Extremities exam: Present normal inspection, full ROM and normal capillary refill; Absent tenderness or edema Back Exam Back exam: Present normal inspection and full ROM; Absent tenderness Neurological Exam Neurological exam: Present alert, oriented X3, CN II-XII intact and normal gait; Absent motor sensory deficit Psychiatric Psychiatric exam: Present normal affect and normal mood Skin Skin exam: Present warm and dry Medical Decision Making Medical Records Medical records reviewed: Yes I reviewed the patient's medical records. Screening: Per USPSTF and CDC recommendations, given the prevalence of disease in our region, it is our hospital?s policy to screen for HIV and viral Hepatitis for all patients aged 18 and over and those with ongoing risk factors. Emile Inquiry Pt receiving controlled substance: No Vital Signs: 04/11/25 20:22 04/11/25 20:29 04/11/25 20:30 Temperature Pulse Rate 90 82 Pulse Rate [Left Ulnar] 90 Respiratory Rate 20 20 16 Blood Pressure 153/82 H 149/72 H Blood Pressure [Left Arm] 153/82 H Blood Pressure Mean 88 Blood Pressure Mean [Left Arm] 105 02 Sat by Pulse Oximetry 97 97 98 Oxygen Delivery Method Room Air Room Air 04/11/25 21:06 04/11/25 21:30 04/11/25 22:00 Temperature Pulse Rate 86 84 86 Pulse Rate [Left Ulnar] Respiratory Rate 16 16 15 Blood Pressure 122/67 127/63 125/69 Blood Pressure [Left Arm] Blood Pressure Mean 80 82 84 Blood Pressure Mean [Left Arm] 02 Sat by Pulse Oximetry 98 96 97 Oxygen Delivery Method 04/11/25 22:15 04/11/25 23:44 Temperature 97.8 F 98.4 F Pulse Rate 80 86 Pulse Rate [Left Ulnar] Respiratory Rate 18 18 Blood Pressure 142/78 H 125/69 Blood Pressure [Left Arm] Blood Pressure Mean Blood Pressure Mean [Left Arm] 02 Sat by Pulse Oximetry 98 Oxygen Delivery Method Room Air Lab Data Lab results reviewed: Yes I reviewed the patient's lab results. Lab Results 04/11/25 20:25: Urine Color Yellow, Urine Appearance Clear, Urine pH 6.0, Ur Specific [place] <= 1.005, Urine Protein Negative, Urine Glucose (UA) 3+, Urine Ketones Negative, Urine Blood Negative, Urine Nitrate Negative, Urine Bilirubin Negative, Urine Urobilinogen 0.2, Ur Leukocyte Esterase Negative, Urine RBC None, Urine WBC Occasional, Ur Squamous Epith Cells Occasional, Urine Bacteria None, Urine Opiates Screen Negative, Urine Methadone Screen Negative, Ur Barbituates Screen Negative, Ur Phencyclidine Scrn Negative, Ur Amphetamines Screen Negative, U Benzodiazepines Scrn Negative, Urine Cocaine Screen Negative, U Marijuana (THC) Screen Negative 04/11/25 20:50: WBC 7.7, RBC 4.88, Hgb 14.1, Hct 43.2, MCV 88.5, MCH 28.9, MCHC 32.6, RDW 12.7, Plt Count 245, MPV 8.9, Neut % (Auto) 55.4, Lymph % (Auto) 33.9, [place] % (Auto) 7.3, Eos % (Auto) 2.3, Baso % (Auto) 0.8, Neut # (Auto) 4.3, Lymph # (Auto) 2.6, [place] # (Auto) 0.6, Eos # (Auto) 0.2, Baso # (Auto) 0.1, PT 10.9, INR 0.98, APTT 23.6, Sodium 137, Potassium 4.5, Chloride 99, Carbon Dioxide 28, Anion Gap 14.5, BUN 25 H, Creatinine 1.10 H, Estimated Creat Clear 69, Estimated GFR 50 L, Est GFR ( Amer) 61, Glucose 183 H, Calcium 10.1, Total Bilirubin 0.3, AST 31, ALT 31, Alkaline Phosphatase 141 H, Troponin I < 0.01, Total Protein 8.7 H, Albumin 4.9, Globulin 3.8 H, Albumin/Globulin Ratio 1.3, Triglycerides 435 H, Cholesterol 218 H, LDL Cholesterol Direct 99.25 L, HDL Cholesterol 40, Cholesterol/HDL Ratio 5.5 H, Plasma/Serum Alcohol < 10 04/11/25 20:50 04/11/25 20:50 Orders (Tests/Meds): ED MEDICATIONS Discontinued Medications Generic Name Dose Route Start Last Admin Trade Name Sonuq PRN Reason Stop Dose Admin Acetaminophen 1,000 mg 04/11/25 21:58 04/11/25 22:11 Acetaminophen 500mg Tab PO 04/11/25 21:59 1,000 mg ONCE ONE Administration Dexamethasone Sodium Phosphate 8 mg 04/11/25 23:34 04/11/25 23:41 Dexamethasone 4mg/Ml 1ml Vial IV 04/11/25 23:35 8 mg ONCE ONE Administration Droperidol 2.5 mg 04/11/25 20:45 04/11/25 21:00 Droperidol 5mg/2ml Vial IV 04/11/25 20:46 2.5 mg ONCE ONE Administration Iopamidol 80 ml 04/11/25 21:26 04/11/25 21:27 Iopamidol-370 (76%);100ml Bottle IV 04/11/25 21:27 80 ml ONCE ONE Administration Ketorolac Tromethamine 15 mg 04/11/25 21:58 04/11/25 22:10 Ketorolac 30mg/Ml Vial IV 04/11/25 21:59 15 mg ONCE ONE Administration Lidocaine 1 each 04/11/25 22:26 04/11/25 22:30 Lidocaine 5% Transdermal Patch TD 04/11/25 22:27 1 each ONCE ONE Administration Sodium Chloride 10 ml 04/11/25 20:41 04/11/25 22:15 Sodium Chloride 0.9% 10ml Flush Syringe IV 05/11/25 20:40 10 ml NEEDED PRN Administration Maintain IV Site Sodium Chloride 10 ml 04/11/25 21:26 04/11/25 22:14 Sodium Chloride 0.9% 10ml Syr (Rad Only) IV 05/11/25 21:25 10 ml NEEDED PRN Administration Maintain IV Site Sodium Chloride 50 ml 04/11/25 21:26 04/11/25 21:27 0.9 % Sodium Chloride 50 Ml Vial IV 04/11/25 21:27 50 ml ONCE ONE Administration ORDERS Category Date Time Status CT angio head Stat Cat Scan 04/11/25 20:[address] angio neck Stat Cat Scan 04/11/25 20:[address] head/brain wo con Stat Cat Scan 04/11/25 20:41 Completed Activated Partial Thrombo Time Stat Lab 04/11/25 20:50 Completed Complete Blood Count Auto Diff Stat Lab 04/11/25 20:50 Completed Comprehensive Metabolic Panel Stat Lab 04/11/25 20:50 Completed Drug Screen,Urine Stat Lab 04/11/25 20:25 Completed Ethyl Alcohol Stat Lab 04/11/25 20:50 Completed Lipid Panel Stat Lab 04/11/25 20:50 Completed Prothrombin Time INR Stat Lab 04/11/25 20:50 Completed Troponin I Stat Lab 04/11/25 20:50 Completed Urinalysis and Microscopic Stat Lab 04/11/25 20:25 Completed ECG Data Tracing #1: I reviewed this ECG and interpreted as documented below: I dependently interpreted EKG from 2112 and noted normal sinus rhythm with a ventricular of [address] changes concerning for ischemia. Normal QTc at 441 ms ECG initial impression date: 04/11/25 ECG initial impression time: 21:13 Medical Decision Narrative: In summary, this patient is a 65-year-old female presenting to the Emergency Department for evaluation of 3 days of intermittent headache and general weakness that started today. Differential diagnoses considered include but are not limited to migraine, tension headache, intracranial hemorrhage, hypertensive urgency. Ruling out the most morbid conditions drove assessment. It should be noted patient's history includes bipolar disorder, anxiety, depression, hypothyroid, insulin-dependent diabetes, GERD, gastroparesis, hypertension, hyperlipidemia which may or may not be at goal therapy. This complicates all aspects of care by increasing patient's risk for morbidity. On exam, the patient is well-appearing lying in bed in no acute distress. She is afebrile and nontoxic-appearing with no meningismus. She has no focal neurologic deficits. Workup included stroke CT scans out of an abundance of precaution, though I doubt acute stroke given the lack of focal neurologic symptoms/deficits. Basic lab evaluation was also obtained. Patient was given IV droperidol for symptomatic improvement of presumed migraine. I independently interpreted CT scan prior to the radiologist read and noted no intracranial hemorrhage and no large vessel occlusion. Please see their read for final interpretation. They do note intracranial atherosclerosis on indirect discussion and they note artifact versus a small hypodense lesion, but I do not feel this likely correlates with the patient's pain. Her headache resolved after administration of droperidol, but now she states that she has a lot of neck pain. I feel is likely musculoskeletal based on exam. Toradol, Tylenol, lidocaine patch, dexamethasone were added. These did significant improve her symptoms. Labs were obtained that demonstrated reassuring CBC with no significant leukocytosis or anemia, reassuring chemistry.. Ultimately given improvement in symptoms, reassuring workup and exam I feel the patient is appropriate for discharge home with close follow-up with PCP. Advised that she follow-up closely with for primary care provider thyroid nodules, intracranial atherosclerosis for risk factor modification, and for outpatient MRI for this possible hypodense lesion. She is currently neurologically intact so I did not feel that any of these things were required inpatient. I discussed risk factor modification such as aspirin and statins with her, but she states that she is not supposed to be on those. Critical Care Critical Care Time Critical Care Time: No
[2025-04-11 21:10] LABS: Albumin Level 4.9 g/dl (3.5-5.0); Chloride 99 mmol/L (98-107); Potassium 4.5 mmoL/L (3.5-5.1); Sodium 137 mmol/L (136-145)
[2025-04-11 21:11] LABS: Bilirubin,Urine Negative (Negative); Color,Urine YELLOW (Yellow); Glucose,Urine (UA) 3+ (Negative); Ketones,Urine Negative (Negative); Leukocyte Esterase,Urine Negative (Negative); PH,Urine 6.0 (5.0-8.5); Protein,Urine Negative (Negative); Specific Gravity, Urine <= 1.005 (1.005-1.030); Urobilinogen,Urine 0.2 EU/dl (0.2)
[2025-04-11 21:12] LABS: Alanine Aminotransferase 31 U/L (12-78); Aspartate Amino Transferase 31 U/L (14-36); Blood Urea Nitrogen 25 mg/dl (7-17); Creatinine Clearance Estimated 69 mL/min (50-200); Creatinine,Serum 1.10 mg/dl (0.52-1.04); Estimated Glomerular Filt Rate 50 ml/min (>60); GFR (African American) 61 ML/MIN (>60)
[2025-04-11 21:13] LABS: Albumin/Globulin Ratio 1.3 (1.1-1.8); Alkaline Phosphatase 141 U/L (38-126); Anion Gap 14.5 mEq/L (5-15); Bilirubin,Total 0.3 mg/dl (0.2-1.3); Calcium 10.1 mg/dl (8.4-10.2); Carbon Dioxide 28 mmol/L (22.0-30.0); Cholesterol 218 mg/dl (140-200); Globulin 3.8 g/dL (1.3-3.2); Glucose 183 mg/dl (74-100); Total Protein,Serum 8.7 g/dl (6.3-8.2); Triglycerides 435 mg/dl (30-150)
[2025-04-11 21:17] LABS: Hematocrit 43.2 % (37.0-47.0); Hemoglobin 14.1 g/dL (12.2-16.2); Immature Granulocytes % 0.3 %; Mean Corpuscular HGB Conc 32.6 g/dL (31.8-35.4); Mean Corpuscular Hemoglobin 28.9 pg (27.0-31.2); Mean Corpuscular Volume 88.5 fl (81-99); Nucleated Red Blood Cells % 0 %; Platelet Count 245 K/mm3 (142-424); Red Blood Count 4.88 M/mm3 (4.20-5.40); Red Cell Distribution Width-SD 41.2 fL; White Blood Count 7.7 K/mm3 (4.8-10.8)
[2025-04-11 21:25] LABS: Activated Partial Thrombo Time 23.6 seconds (22.8-30.6); INR 0.98 (0.9-1.1); Prothrombin Time 10.9 seconds (10.1-12.5)
[2025-04-11 21:25] LABS: Amphetamine/Metha Screen,Urine Negative ng/ml (<1000); Barbiturates Screen,Urine Negative ng/ml (<200)
[2025-04-11 21:26] LABS: Benzodiazepines Screen,Urine Negative ng/ml (<200)
[2025-04-11] MEDS: IOPAMIDOL-370 (76%);100ML BOTTLE 80 ML IV (21:27)
[2025-04-11] MEDS: 0.9 % SODIUM CHLORIDE 50 ML VIAL IV (21:27)
[2025-04-11 21:28] LABS: Methadone Screen,Urine Negative ng/ml (<300)
[2025-04-11 21:28] LABS: Troponin I < 0.01 ng/ml (0.00-0.034)
[2025-04-11] MEDS: SODIUM CHLORIDE 0.9% 10ML SYR (RAD ONLY) 10 ML IV ×2 (21:28→22:14)
[2025-04-11 21:29] LABS: Phencyclidine Screen,Urine Negative ng/ml (<25)
[2025-04-11 21:32] LABS: Opiate Screen,Urine Negative ng/ml (<300)
[2025-04-11 21:34] LABS: HDL Cholesterol 40 mg/dl (40-60)
[2025-04-11 22:09] LABS: Squamous Epithelial Cell,Urine Occasional #/hpf (0-5); WBC,Urine Occasional #/hpf (0-3)
[2025-04-11] MEDS: KETOROLAC 30MG/ML VIAL 15 MG IV (22:10)
[2025-04-11] MEDS: ACETAMINOPHEN 500MG TAB 1000 MG PO (22:11)
[2025-04-11] MEDS: SODIUM CHLORIDE 0.9% 10ML FLUSH SYRINGE 10 ML IV (22:15)
[2025-04-11] MEDS: LIDOCAINE 5% TRANSDERMAL PATCH 1 EACH TD (22:30)
[2025-04-11] MEDS: DEXAMETHASONE 4MG/ML 1ML VIAL 8 MG IV (23:41)
== END 2025-04-11 23:50 | disposition home or self-care (01) ==
PROVIDERS: Emergency Provider Emergency Medicine; PCP Nurse Practitioner Family
DX: R51.9 Headache, unspecified (principal); M54.2 Cervicalgia; I67.2 Cerebral atherosclerosis; R93.0 Abnormal findings on diagnostic imaging of skull and head, not elsewhere classified; E04.1 Nontoxic single thyroid nodule; I10 Essential (primary) hypertension; E78.5 Hyperlipidemia, unspecified
CPT/HCPCS: 70450; 70496; 70498; 80053; 80061; 80307; 80320; 81001; 84484; 85025; 85610; 85730; 93005; 96374; 96375; 99285; J1100; J1790; J1885; Q9967

== ENCOUNTER 2025-04-24 17:29 | Emergency (ER) | payer MEDICARE, MEDICAID, SELFPAY ==
--- OUTSIDE RECORDS SUMMARY | 2025-03-05 09:15 | XMS_ITS | Encounter Summary ---
Author Organization [employer] ([place], [place], [place], [place]) Address [address] [place] [address] Care Team Providers Care Reinforcing Steel Placer Name Role Phone Lavinia Juarez APRN Primary Care Provider [phone] Reason for Visit * Reason Comments Post-Op Follow-up s/p right reverse TS A, DOS: 01/21/25 Encounter Details Date Type Department Care Team (Late st Contact Info) Description 03/05/2025 9:15 AM EDT Office Visit [facility] Orthopedics - [address] [phone] Flo Dominguez MD [address] [place] [phone] S/P reverse total shoulder arthroplasty, right (Primary Dx) Social History Tobacco Use Types Packs/Day Years [...] harm? Never 01/21/2025 How often does anyone, inclu ding family and friends, scream or curse at [...] Do you speak a language other than [place] at [facility]? No 01/21/2025 Do you want help with [...] on file documented as of this encounter Last Filed Vital Signs Vital Sign Reading Time Taken Comments Blood Pressure 124/73 03/05/2025 9:06 AM EDT Pulse 89 03/05/2025 9:06 AM EDT Temperature - - Respiratory Rate - - Oxygen Saturation - - Inhaled Oxygen Concentration - - Weight 85.3 kg (188 lb) 03/05/2025 9:06 AM EDT Height 165.1 cm (5' 5 ) 03/05/2025 9:06 AM EDT Body Mass Index 31.28 03/05/2025 9:06 AM EDT documented in this encounter Progress Notes * Flo Dominguez MD - 03/05/2025 9:15 AM EDT NAME: Margo Ramos CSN: [id number] : 1960 PCP: Lavinia Juarez APRN REASON FOR VISIT Post-Op Follow-up (s/p right reverse TSA, DOS: 01/21/25) Is this Worker's Comp? No HPI Margo Ramos is a 65 y.o. female Established patient presents for follow up s/p right reverse TSA, DOS: 01/21/25. Patient reports is not doing well. She reports that her motion is very limited. She reports that she has not been doing HEP, but is active so she believes that should be enough. She reports that she takes tylenol PRN. She rates her pain a 8/10 in the office. CURRENT MEDICATIONS Current Outpatient Medications Medication Instructions buPROPion SR (WELLBUTRIN SR) 200 mg, 2 times daily busPIRone (BUSPAR) 10 mg, 3 times daily clonazePAM (KLONOPIN) 1 mg, oral, 3 times daily PRN DULoxetine (CYMBALTA) 60 mg, Daily escitalopram (LEXAPRO) 20 mg, Daily hydrOXYzine (ATARAX) 10 mg, Every 4 hours PRN Jardiance 25 mg tablet Take 1 tablet (25 mg total) by mouth daily. levothyroxine (SYNTHROID) 50 MCG tablet Take 1 tablet (50 mcg total) by mouth in the morning. oxyCODONE (OXY-IR) 5 mg, oral, Every 6 hours PRN pantoprazole (PROTONIX) 40 mg, Daily Singulair 10 mg tablet Take 1 tablet (10 mg total) by mouth every evening. valsartan (DIOVAN) 80 mg, Daily Ventolin HFA 90 mcg/actuation inhaler 2 puffs, inhalation, Every 4 to 6 hours as needed for wheezing Vraylar 4.5 mg capsule Take 1 capsule (4.5 mg total) by mouth daily. ALLERGIES No Known Allergies PAST MEDICAL/SURGICAL HISTORY Past Medical History: Diagnosis Date Asthma CKD (chronic kidney disease) stage 3, GFR 30-59 ml/min ([facility]) Diabetes mellitus (HCC) type 2 Hypertension Past Surgical History: Procedure Laterality Date ARTHROPLASTY,SHOULDER REVERSE Right 01/21/2025 Procedure: ARTHROPLASTY, RIGHT SHOULDER, TOTAL, REVERSE; Surgeon: Flo Dominguez MD; Location: [facility]; Service: Orthopedic Surgery; Laterality: Right; CHOLECYSTECTOMY SOCIAL HISTORY Social History Tobacco Use Smoking status: Never Smokeless tobacco: Never Substance Use Topics Alcohol use: Never Drug use: Never FAMILY HISTORY Family History Problem Relation Name Age of Onset Arthritis Other Cancer Other Diabetes Other Heart disease Other Hypertension Other Kidney disease Other Stroke Other Thyroid disease Other Hyperlipidemia Other Lung disease Other REVIEW OF SYSTEMS General: No recent fever or chills, no recent weight loss or weight gain, no insomnia HEENT: No change in vision, no glasses/contacts, no hearing loss, no tinnitus, no vertigo, no congestion/sinus issues CVS: No chest pain, no palpitations, no edema, no varicose veins Resp: No dyspnea, no wheezing, no cough, no hemoptysis GI: No dysphagia, no nausea, no vomiting, no heart burn, no constipation, no diarrhea : No dysuria, no hematuria, no nocturia, no history of chronic UTI Musculoskeletal: See HPI Derm: No rash, no abrasions, no skin discoloration, no history or MRSA Neuro: See HPI Endo: No cold/heat intolerance Heme: No abnormal bruising or bleeding Psych: No depression, no anxiety, no fatigue, no mood swings Scribe Attestation: Celeste Bonds RTR acted as a scribe and transcribed components of the current encounter under the direction of the Attending Provider. I have not been involved in providing any clinical treatments or patient care. Electronically SignedCeleste RTR OBJECTIVE Vitals: 03/05/25 0906 BP: 124/73 Pulse: 89 Weight: 85.3 kg (188 lb) Height: 1.651 m (5' 5 ) Ortho Exam Right Shoulder Exam General: Awake, Alert, Oriented x3, Well developed Appearance: Swelling WNL, - deformity Palpation: Tender to palpation diffuse WNL ROM: Elbow and wrist ROM intact, AFE 70; PFE 120 and ER deferred Abduction 30 Strength: Deferred. Spot Washer 5/5 Neurovascular: NVI, -Homans Skin: Dressing intact without obvious evidence of drainage or erythema, dressing removed to demonstrate incision which is clean, dry and intact with routine healing Gait: Normal wearing sling ASSESSMENT Problem List Items Addressed This Visit None Visit Diagnoses S/P reverse total shoulder arthroplasty, right - Primary PLAN Return in about 6 weeks (around 04/16/2025) for f/u s/p right reverse TSA, DOS: 01/21/25. Rest Ice Return to Clinic if new or worse symptoms occur HEP: gentle ROM as tolerated Activity Restriction: limited lifting, pushing or pulling Arm sling no longer required Scribe Attestation: Amanda Bonds RTR acted as a scribe and transcribed components of the current encounter under the direction of the Attending Provider. I have not been involved in providing any clinical treatments or patient care. Electronically SignedAmanda RTR I, James Rollins, MD attest that I have examined the above patient. I have dictated the exam, diagnosis, and plan to the scribe listed above to be transcribed into this document. I have supplemented the above documentation as warranted. I attest that I have reviewed the above documentation in its entirety and concur. Electronically SignedFlo MD 03/05/2025 9:36 AM EDT Ani Bolaños: Yara ROSALES / GINETTE is undergoing an EHR transition as of this date of service. There may be a delay in uploading older paper and EHR chart data to this new system. The above encounter has been documented to the best of the provider's working knowledge of the EHR in conjunction with medical information provided by the patient (and/or the patient's family member). documented in this encounter Plan of Treatment Upcoming Encounters Date Type Department Care Team (Late st Contact Info) Description 07/20/2025 9:15 AM EST Office Visit [facility] Orthopedics - [address] [phone] Flo Dominguez MD [address] [place] [phone] documented as of this encounter Visit Diagnoses Diagnosis S/P reverse total shoulder arthroplasty, right- Primary documented in this encounter Care Teams Reinforcing Steel Placer Relationship Specialty Start Date End Date Lavinia Juarez, STEAM SHOVEL ENGINEER [address] [place], [place] [id number] PCP - General Family Medicine 10/20/24 documented as of this encounter
--- OUTSIDE RECORDS SUMMARY | 2025-04-16 09:15 | XMS_ITS | Encounter Summary ---
Author Organization [employer] ([place], [place], [place], [place]) Address [address] [place] [address] Care Team Providers Care Lead Handler Name Role Phone Lavinia Juarez APRN Primary Care Provider [phone] Reason for Visit * Reason Comments Follow-up S/p Right reverse TS A DOS: 01/21/25 Encounter Details Date Type Department Care Team (Late st Contact Info) Description 04/16/2025 9:15 AM EDT Office Visit [facility] Orthoped[facility] - [address] [phone] Flo Dominguez MD [address] [place] [phone] S/P reverse total shoulder arthroplasty, right [...] Do you speak a language other than Burkinan at [facility]? No 01/21/2025 Do you want help with [...] 9:15 AM EDT NAME: Margo Ramos CSN: [id number] : 1960 PCP: KENDAL Wyatt CONSENT The [...] kidney disease) stage 3, GFR 30-59 ml/min ([facility]) Diabetes mellitus (HCC) type 2 Hypertension Past Surgical History: Procedure Laterality Date ARTHROPLASTY,SHOULDER REVERSE Right 01/21/2025 Procedure: ARTHROPLASTY, RIGHT SHOULDER, TOTAL, REVERSE; Surgeon: Flo Dominguez MD; Location: [facility]; Service: Orthopedic Surgery; Laterality: Right; CHOLECYSTECTOMY SOCIAL [...] - deformity Palpation: no tenderness Strength: Deferred. Mold Holder 5/5 Neurovascular: NVI, -Homans Gait: Normal MUSCULOSKELETAL: [...] follow-up appointment in three months. Scribe Attestation: Emily Bonds CMA/YANCY acted as a scribe and transcribed [...] Description 07/20/2025 9:15 AM EST Office Visit [facility] Orth[facility] - [address] [phone] Flo Dominguez MD [address] [place] [phone] documented as of this encounter Visit Diagnoses Diagnosis S/P reverse total shoulder arthroplasty, right- Primary documented in this encounter Care Teams Lead Handler Relationship Specialty Start Date End Date Lavinia Juarez, EDUCATIONAL PSYCHOLOGY PROFESSOR [address] [place] [address] PCP - General Family Medicine 10/20/24 documented as of this encounter
[2025-04-24 17:55] VITALS: BP 156/84; PULSE 87; RESP 17; TEMP 36.7; O2SAT 98; BMI 30.9
--- NOTE | 2025-04-24 18:31 | XR_ITS ---
PROCEDURE INFORMATION: Exam: XR Left Knee Exam date and time: 04/24/2025 6:28 PM Age: 65 years old Clinical indication: Pain and injury or trauma; Fall; Blunt trauma; Knee; Left; Additional info: Anterior pain after fall TECHNIQUE: Imaging protocol: Radiologic exam of the left knee. Views: 3 views. COMPARISON: CR XR FOOT WT BEARING LT 3V 11/28/2023 12:12 PM FINDINGS: Bones/joints: Moderate Tricompartmental joint space narrowing and osteophyte formation consistent with degenerative changes. Joint space narrowing most evident in the patellofemoral joint. There is no evidence of acute fracture.There is no evidence of malalignment or dislocation. Soft tissues: Normal. IMPRESSION: 1. Moderate Tricompartmental joint space narrowing and osteophyte formation consistent with degenerative changes. Joint space narrowing most evident in the patellofemoral joint. 2. There is no evidence of acute fracture.There is no evidence of malalignment or dislocation.
--- OUTSIDE RECORDS SUMMARY | 2025-04-24 18:31 | XMS_ITS | Encounter Summary ---
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 (CMS/HCC) Lavinia Juarez APRN [address] [place] [address] Phone: tel: fax: Referral ID Status Reason Start Date Expiration Date Visits Requested Visits Authorized [id number] Authorized Specialty Services Required 10/26/2023 04/26/2025 1 1 Encounter Details Date Type Department Care Team (Late st Contact Info) Description 10/26/2023 Community Orders Community Practice [address] [place] [address] Lavinia Juarez APRN [address] [place], [place] [id number] Type 2 diabetes mellitus with autonomic neuropathy, unspecified whether termite 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 insulin use (CMS/HCC) (Primary Dx) Social History [...] diabetes mellitus with autonomic neuropathy, unspecified whether nursing home insulin use ([facility]) Expected: 10/26/2023 (Approximate), Expires: 04/25/2025 documented as of this encounter Visit Diagnoses Diagnosis Type 2 diabetes mellitus with autonomic neuropathy, unspecified whether termite 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 insulin use ([facility]ER[facility])- Primary documented in this encounter Care Teams Processing Inspector Relationship Specialty Start Date End Date Lavinia Juarez, KENDAL [address] [place] [address] PCP - General 11/30/23 documented as of this encounter
--- OUTSIDE RECORDS SUMMARY | 2025-04-24 18:31 | XMS_ITS | Referral Summary ---
Author Organization [employer] ([place], [place], [place], [place]) Address [address] [facility] [place] [address] Care Team Providers Care Physician Office Clin Asst Name Role Phone Lavinia Juarez APRN Primary Care Provider Encounters Date Type Department Care Team Description 04/16/2025 9:15 AM EDT Office Visit [address] [phone] Flo Dominguez MD S/P reverse total shoulder arthroplasty, right (Primary Dx) 03/05/2025 9:15 AM EDT Office Visit [address] [address] Flo Dominguez MD S/P reverse total shoulder arthroplasty, right (Primary Dx) 02/06/[address] [address] Flo Dominguez MD 02/05/2025 8:55 AM EDT Ancillary Procedure [address] [address] Radha Fontana PA-C 02/05/2025 9:15 AM EDT Office Visit [address] [address] Radha Fontana PA-C S/P reverse total shoulder arthroplasty, right (Primary Dx) 01/28/2025 Telephone [facility] Surgical Unit [address] [place] [address] Aracelis Banerjee RN Post-Op Follow-up 01/21/2025 6:46 AM EDT - 01/22/2025 11:06 AM EDT Hospital Encounter [facility] Progressive Care Unit [address] [place] [address] Flo Dominguez MD Jadhav, Emily Gentile MD Rotator cuff arthropathy of right shoulder Discharge Disposition: Home or Self Care from Last 3 Months Allergies No known [...] your living situation today? I have a [facility] place to live 01/21/2025 Think about the [...] Do you speak a language other than Sudanese at [facility]? No 01/21/2025 Do you want help [...] Pulse 95 04/16/2025 9:03 AM EDT Temperature 36.2 C (97.1 F) 01/22/2025 7:37 AM EDT Respiratory Rate 20 01/22/2025 10:24 AM EDT Oxygen Saturation 96% 01/22/2025 7:56 AM EDT Inhaled Oxygen Concentration 28% 01/21/2025 3 :15 PM EDT Weight 85.3 kg (188 lb) 04/16/2025 9:03 AM EDT Height 165.1 cm (5' 5 ) 04/16/2025 9:03 AM EDT Body Mass Index 31.28 04/16/2025 9:03 AM EDT Plan of Treatment Upcoming Encounters Date Type Department Care Team (Late st Contact Info) Description 07/20/2025 9:15 AM EST Office Visit [facility] Orthopedics - [address] [phone] Flo Dominguez MD [address] [place] [address] Medical Devices Implanted Type Area Director Digital Marketing Device Identifier Shelf Expiration Date Model / Serial / Lot Baseplt Lat +3mm 25mm [id number] - [id number] Implanted:Qty: 1 on 01/21/2025 by Flo Dominguez MD at [facility] IMPLANTS Right: Shoulder TORNIER [id number] 11/05/2029 [id number] / [id number] / Insrt Rev Perf Hum Sz 1/2 3mm [id number] - [id number] Implanted:Qty: 1 on 01/21/2025 by Flo Dominguez MD at [facility] IMPLANTS Right: Shoulder TORNIER [id number] 04/26/2028 [id number] / [id number] / Stem Hum Sz 2+ Long Dwx2pl - [id number] Implanted:Qty: 1 on 01/21/2025 by Flo Dominguez MD at [facility] IMPLANTS Right: Shoulder TORNIER [id number] 10/09/2029 [id number] / [id number] / Glenosphere Std 36mm [id number] - [id number] Implanted:Qty: 1 on 01/21/2025 by Flo Dominguez MD at [facility] IMPLANTS Right: Shoulder TORNIER [id number] 05/01/2029 [id number] / [id number] / Scr Periph 5.0x14mm Ns Pbi071 - [id number] Implanted:Qty: 2 on 01/21/2025 by Flo Dominguez MD at [facility] IMPLANTS Right: Shoulder TORNIER [id number] / / Scr Cntrl Thd Post 6.5x40mm Jft546 - [id number] Implanted:Qty: 1 on 01/21/2025 by Flo Dominguez MD at [facility] IMPLANTS Right: Shoulder TORNIER [id number] / / Scr Periph 5.0x18mm Ns Ary304 - [id number] Implanted:Qty: 1 on 01/21/2025 by Flo Dominguez MD at [facility] IMPLANTS Right: Shoulder TORNIER [id number] / / Scr Periph 5.0x38mm Ns [id number] - [id number] Implanted:Qty: 1 on 01/21/2025 by Flo Dominguez MD at [facility] IMPLANTS Right: Shoulder TORNIER [id number] / / Procedures Procedure Name Priority Date/Time Associated Diagnosis Comments XR SHOULDER COMPLETE 2 VIEWS MIN RIGHT Routine 02/05/2025 8:55 AM EDT S/P reverse total shoulder arthroplasty, right NOVA GLUCOSE POC Routine 01/22/2025 5:56 AM EDT from Last 3 Months Results [...] Glucose, Nova Meter (01/22/2025 5:56 AM EDT) POC-GLUCOSE 164(H) 70 - 99 mg/dL 01/22/2025 6:10 AM EDT [facility] Comment:In the event of poor peripheral blood flow, venous or arterial blood should be used due to the potential of erroneous results. Baker [id number] 01/22/2025 6:10 AM EDT [facility] Blood WHOLE BLOOD / Unknown 01/22/2025 5:56 AM EDT 01/22/2025 6:10 AM EDT Narrative [facility] - 01/22/2025 6:10 AM EDT Baker ID is - [id number] Emily Gray MD POINT OF CARE TEST ORDERAB LES Final Result [facility] [address] [phone] from Last 3 Months Insurance MEDICAID OF [place] AET[place] [facility] ADV Advance Directives For more information, please contact: [phone] * Full Code (Latest Code Status on File) Date Activated Date Inactivated Comments 01/21/2025 12:10 PM 01/22/2025 12:07 PM * Full Code Date Activated Date Inactivated Comments 01/21/2025 6:09 AM 01/21/2025 12:10 PM Care Teams Physician Office Clin Asst Relationship Specialty Start Date End Date Lavinia Juarez, DERMATOLOGY SALES REPRESENTATIVE [address] [place] [address] PCP - General Family Medicine 10/20/24
--- OUTSIDE RECORDS SUMMARY | 2025-04-24 18:31 | XMS_ITS | Clinical Summary ---
Author Organization Healthcare Address [address] [place] [address] Care Team Providers Care Short Order Fry Cook Name Role Phone Lavinia Juarez Chucky EDMONDS Primary Care Provider [phone] Social History Tobacco Use Types Packs/Day Years [...] of 2 - PCV) 03/07/2013 03/07/2012, 02/01/2012 [id number] Vaccine ( season) 2024 06/25/2023, 08/18/2021, 12/21/2020 [...] this topic Insurance [employer] MEDICARE Care Teams Short Order Fry Cook Relationship Specialty Start Date End Date Lavinia Juarez APRN [address] [place] [address] PCP - General 11/30/23
--- OUTSIDE RECORDS SUMMARY | 2025-04-24 18:31 | XMS_ITS | Clinical Summary ---
Author Organization [employer] ([place], [place], [place], [place]) Address [address] [facility] [place] [address] Care Team Providers Care Exercise Physiologist Certified Name Role Phone Lavinia Juarez APRN Primary Care Provider [phone] Allergies No known active allergies Medications hydrOXYzine [...] Description 04/16/2025 9:15 AM EDT Office Visit [address] [address] Flo Dominguez MD S/P reverse total shoulder arthroplasty, right (Primary Dx) 03/05/2025 9:15 AM EDT Office Visit [address] [phone] Flo Dominguez MD S/P reverse total shoulder arthroplasty, right (Primary Dx) 02/06/[address] [address] Flo Dominguez MD 02/05/2025 9:15 AM EDT Office Visit [address] [address] Rahda Fontana PA-C S/P reverse total shoulder arthroplasty, right (Primary Dx) 02/05/2025 8:55 AM EDT Ancillary Procedure [address] [phone] Radha Fontana PA-C 01/28/2025 Telephone [facility] Medical Surgical Unit [address] [place] [address] Aracelis Banerjee RN Post-Op Follow-up 01/21/2025 6:46 AM EDT - 01/22/2025 11:06 AM EDT Hospital Encounter [facility] [address] [place] [address] Flo Dominguez MD Jadhav, Stephanie N, MD Rotator cuff arthropathy of right shoulder Discharge Disposition: Home or Self Care from Last 3 Months Family History Medical [...] your living situation today? I have a [facility] place to live 01/21/2025 Think about [...] Do you speak a language other than Turkish at [facility]? No 01/21/2025 Do you want help with [...] Description 07/20/2025 9:15 AM EST Office Visit [facility] Orthopedics - [address] [phone] Flo Dominguez MD [address] [place] [address] Health Maintenance Due Date Last Done [...] 07/17/2019 Tobacco Cessation Counseling and Screening (12+) 04/16/2026 04/16/2025 DTAP/TDAP/TD VACCINES (2 - T d or Tdap) 03/27/2030 03/27/2020 Medical Devices Implanted Type Area Fruit Tester Device Identifier Shelf Expiration Date Model / Serial / Lot Baseplt Lat +3mm 25mm [id number] - [id number] Implanted:Qty: 1 on 01/21/2025 by Flo Dominguez MD at [facility] IMPLANTS Right: Shoulder TORNIER [id number] 11/05/2029 [id number] / [id number] / Insrt Rev Perf Hum Sz 1/2 3mm [id number] - [id number] Implanted:Qty: 1 on 01/21/2025 by Flo Dominguez MD at [facility] IMPLANTS Right: Shoulder TORNIER [id number] 04/26/2028 [id number] / [id number] / Stem Hum Sz 2+ Long Dwx2pl - [id number] Implanted:Qty: 1 on 01/21/2025 by Flo Dominguez MD at [facility] IMPLANTS Right: Shoulder TORNIER [id number] 10/09/2029 [id number] / [id number] / Glenosphere Std 36mm Xfl139 - [id number] Implanted:Qty: 1 on 01/21/2025 by Flo Dominguez MD at [facility] IMPLANTS Right: Shoulder TORNIER [id number] 05/01/2029 [id number] / [id number] / Scr Periph 5.0x14mm Ns Ipz601 - [id number] Implanted:Qty: 2 on 01/21/2025 by Flo Dominguez MD at [facility] IMPLANTS Right: Shoulder TORNIER [id number] / / Scr Cntrl Thd Post 6.5x40mm Xso927 - [id number] Implanted:Qty: 1 on 01/21/2025 by Flo Dominguez MD at [facility] IMPLANTS Right: Shoulder TORNIER FUC100 / / Scr Periph 5.0x18mm Ns Fuq714 - [id number] Implanted:Qty: 1 on 01/21/2025 by Flo Dominguez MD at [facility] IMPLANTS Right: Shoulder TORNIER [id number] / / Scr Periph 5.0x38mm Ns Vwz304 - [id number] Implanted:Qty: 1 on 01/21/2025 by Flo Dominguez MD at [facility] IMPLANTS Right: Shoulder TORNIER [id number] / / Procedures Procedure Name Priority Date/Time [...] - 99 mg/dL 01/22/2025 6:10 AM EDT [facility] Comment:In the event of poor peripheral blood flow, venous or arterial blood should be used due to the potential of erroneous results. Tree Surgeon [id number] 01/22/2025 6:10 AM EDT [facility] Blood WHOLE BLOOD / Unknown 01/22/2025 5:56 AM EDT 01/22/2025 6:10 AM EDT Narrative [facility] - 01/22/2025 6:10 AM EDT Tree Surgeon ID is - [id number] Emily Gray MD POINT OF CARE TEST ORDERAB LES Final Result [facility] [address] [place] [id number], [facility] [phone] from Last 3 Months Insurance [place] [id number] [employer] MCR ADV Advance Directives For more information, please contact: [phone] * Full Code (Latest Code Status on File) Date Activated Date Inactivated Comments 01/21/2025 12:10 PM 01/22/2025 12:07 PM * Full Code Date Activated Date Inactivated Comments 01/21/2025 6:09 AM 01/21/2025 12:10 PM Care Teams Exercise Physiologist Certified Relationship Specialty Start Date End Date Lavinia Juarez, HIGH SCHOOL SOCIAL SCIENCE TEACHER [address] [place] [address] PCP - General Family Medicine 10/20/24
--- NOTE | 2025-04-24 18:51 | ED_ITS ---
<Statement entered by Radha Camargo DO - 04/25/25 02:13> I was consulted by the [facility], and we discussed the complexity of problems being addressed. I approve the treatment and management plan for this patient's care in the emergency department, thus performing a substantial portion of the medical decision making. Radha Camargo DO Discharge Plan Disposition Patient Disposition: Home, Self-Care Condition: Good Prescriptions Prescriptions: No Action fluoxetine 40 mg capsule 40 mg PO DAILY bupropion HCl 150 mg tablet sustained-release 12 hr 150 mg PO BID lisinopril-hydrochlorothiazide 20-12.5 mg tablet 1 tab PO DAILY clonazepam 1 mg tablet 1 mg PO HS levothyroxine 50 mcg tablet 50 mcg PO AM buspirone 10 mg tablet 10 mg PO DAILY montelukast 10 mg tablet 10 mg PO DAILY albuterol sulfate [Ventolin HFA] 90 mcg/actuation HFA aerosol inhaler 2 inh INHALATION Q4-6H PRN (Reason: Breathing Problems) duloxetine 60 mg capsule,delayed release(DR/EC) 60 mg PO DAILY Jardiance 25 mg tablet 25 mg PO DAILY Vraylar 4.5 mg capsule 4.5 mg PO DAILY Kerendia 10 mg Tablet 10 mg PO DAILY amitriptyline 10 mg tablet 10 mg PO HS Referrals Follow up/Referrals: Robert Grant DO [Staff Physician, Orthopedics] - See instructions Lavinia Juarez [Primary Care Provider, Medical] - See instructions Activity Restrictions/Add. Instructions Additional Instructions/Restrictions: You were seen for knee pain. Please follow up with orthopedics for your arthritis and acute knee pain after a fall. Return to the ER for any significant swelling or increased pain. Clinical Impressions Clinical Impression: Degenerative joint disease of knee, left Instructions Patient Instructions: DI for Knee Pain Print Language Print Language: Wallisian Discharge ED Provider: Radha Camargo General Adult HPI <VIBHA Chowdhury - Last Filed: 04/24/25 23:32> General Chief complaint: Extremity Injury, Lower Stated complaint: AO 04/24/25 1630 Left knee injury Time Seen by Provider: 04/24/25 18:26 Mode of Arrival: Ambulatory Source of Information: Patient Description of Symptoms (Recalled from ER Triage Doc. by RN): pt to the ED with left knee pain after slipping and falling onto her knees yesterday. pt reports she fell and injured the same knee a month ago and is worried she reinjured it. pt ambulatory on assessment History of Present Illness HPI narrative: Patient presents with left knee pain. She reports that her knee buckled and she hit it on concrete. She denies any other injury. Denies any swelling. She reports that she took tramadol for pain. She reports she is unable to flex more than 90 degrees. Denies any fevers or vomiting MD complaint: Knee pain Onset (ago): hour(s) Location: left and lower extremity Radiation: non-radiation Severity: moderate Consistency: constant Relieving factors: rest Exacerbating factors: movement Associated symptoms: negative fever/chills or nausea/vomiting Treatments prior to arrival: other (Tramadol) Related Data Home Medications ?Medication ?Instructions ?Recorded ?Confirmed albuterol sulfate 90 mcg/actuation 2 inh inhalation Q4 -6H PRN 01/31/23 04/11/25 aerosol inhaler (Ventolin HFA) Breathing Problems bupropion HCl 150 mg tablet,12 hr 150 mg PO BID Mood 0 01/31/23 04/11/25 sustained-release buspirone 10 mg tablet 10 mg PO DAILY Mood 01/31/23 04/11/25 cariprazine 4.5 mg capsule 4.5 mg PO DAILY Mood 04/11/25 (Vraylar) clonazepam 1 mg tablet 1 mg PO HS Anxiety 01/31/23 04/11/25 duloxetine 60 mg capsule,delayed 60 mg PO DAILY Mood 0 01/31/23 04/11/25 release empagliflozin 25 mg tablet 25 mg PO DAILY Diabetes 04/11/25 (Jardiance) fluoxetine 40 mg capsule 40 mg PO DAILY Mood 01/31/23 04/11/25 levothyroxine 50 mcg tablet 50 mcg PO AM Thyroid 01/3104/11/25 lisinopril 20 1 tab PO DAILY High blood pr essure 01/31/23 04/11/25 mg-hydrochlorothiazide 12.5 mg tablet montelukast 10 mg tablet 10 mg PO DAILY Allergy sympt oms 01/31/23 04/11/25 amitriptyline 10 mg tablet 10 mg PO HS sleep 03/14/23 04/11/25 finerenone 10 mg tablet (Kerendia) 10 mg PO DAILY kidn ey disease 03/14/23 04/11/25 Allergies Allergy/AdvReac Type Severity Reaction Status Date / Time No Known Allergies Allergy Verified 10/14/24 10:52 [facility] <VIBHA Chowdhury - Last Filed: 04/24/25 23:32> [facility] Disclaimer: The information contained in this section may have been updated after the patient was seen, as this information can be updated by other users. Medical History Vomiting Eczema GERD (gastroesophageal reflux disease) Insulin dependent diabetes mellitus Type 2 diabetes mellitus Depression Anxiety Bipolar depression Thyroid disease Asthma Chest pain High cholesterol Hypertension Surgical History History of cholecystectomy Family History Mother Cancer, Onset Age: 91 Father Cancer, Onset Age: 60 Other Diabetes Heart attack High cholesterol Hypertension Stroke Social History Smoking Status: Unknown if ever smoked second hand exposure: No alcohol intake: never substance use type: denies use current occupational status: disabled Travel in the last 8 weeks?: None household members: none housing: house lives independently: Yes marital status: single education level: college service: No current occupational exposures/hazards: No caffeine: Yes do you feel safe at home: Yes victim of physical abuse: No victim of emotional abuse: No victim of sexual abuse: No would you like helpful sources: No Have you lived/traveled outside US in past 30 days?: No Contact w/someone who lives/traveled outside US past 30 days?: No Exposure to someone with infectious disease in past 14 days?: No Do you have a fever (greater than 100.4 F or 38 C)?: No Have you tested positive for COVID-19?: No Exposed to someone with COVID-19 in past 14 days?: No Do you have a sore throat?: No Do you have a cough?: No Do you have any weakness?: No Do you have any diarrhea?: No Are you experiencing any unusual bleeding?: No Do you have any muscle aches/pain?: No Do you have any abdominal pain?: No Are you experiencing loss of taste or smell?: No Other Medical History Have you received the Flu Vaccine for this season: No Have you received the Pneumonia Vaccine: No <VIBHA Chowdhury - Last Filed: 04/24/25 23:32> ROS Obtained: Yes Systems reviewed as appropriate & no additional complaints except as documented Physical Exam <VIBHA Chowdhury - Last Filed: 04/24/25 23:32> General General appearance: alert and in no apparent distress Head Head exam: atraumatic and normocephalic Eye Eye exam: Present normal appearance and EOMI Chest Chest inspection: Present symmetric chest wall rise Respiratory Respiratory exam: Present normal lung sounds bilaterally; Absent wheezes or stridor Cardiovascular Cardiovascular exam: Present regular rate and normal rhythm; Absent systolic murmur Extremities Exam Extremities exam: Present tenderness (Tenderness of the anterior left knee) and other (Neurovascularly intact); Absent full ROM (Able to flex to 90 degrees, able to fully extend) or cyanosis Neurological Exam Neurological exam: Present alert and oriented X3 Psychiatric Psychiatric exam: Present normal affect and normal mood Skin Skin exam: Present warm, dry and intact Medical Decision Making <VIBHA Chowdhury Last Filed: 04/24/25 23:32> Medical Records Screening: Per USPSTF and CDC recommendations, given the prevalence of disease in our region, it is our hospital?s policy to screen for HIV and viral Hepatitis for a ll patients aged 18 and over and those with ongoing risk factors. Emile Inquiry Pt receiving controlled substance: No Vital Signs: 04/24/25 17:55 04/24/25 19:51 Temperature 98.1 F 98.1 F Temperature Source Oral Pulse Rate 88 Pulse Rate [Left Radial] 87 Respiratory Rate 17 20 Blood Pressure 148/98 H Blood Pressure [Right Arm] 156/84 H Blood Pressure Mean [Right Arm] 108 Blood Pressure Source [Right Arm] Automatic Cuff Blood Pressure Position [Right Arm] Sitting 02 Sat by Pulse Oximetry 98 Oxygen Delivery Method Room Air Room Air Orders (Tests/Meds): ORDERS Category Date Time Status Knee XR left 3 views [XR knee LT 3V] Stat Exams 04/24/25 18:31 Completed Medical Decision Narrative: In summary patient is a 65-year-old female who presents the emergency department for evaluation of left knee pain. Patient is hemodynamically upon arrival, afebrile. Mild tenderness to the left anterior knee. Differential diagnosis includes fracture, contusion, sprain. Initial workup will be conducted with x- ray. Upon repeat evaluation patient continues to rest comfortably. X-ray negative for fracture. Given this patient is appropriate for discharge home at this time with follow-up with orthopedics. Given strict return precautions.. <Radha Camargo DO - Last Filed: 04/25/25 02:13> Vital Signs: 04/24/25 17:55 04/24/25 19:51 Temperature 98.1 F 98.1 F Temperature Source Oral Pulse Rate 88 Pulse Rate [Left Radial] 87 Respiratory Rate 17 20 Blood Pressure 148/98 H Blood Pressure [Right Arm] 156/84 H Blood Pressure Mean [Right Arm] 108 Blood Pressure Source [Right Arm] Automatic Cuff Blood Pressure Position [Right Arm] Sitting 02 Sat by Pulse Oximetry 98 Oxygen Delivery Method Room Air Room Air Orders (Tests/Meds): ORDERS Category Date Time Status Knee XR left 3 views [XR knee LT 3V] Stat Exams 04/24/25 18:31 Completed Medical Decision Narrative: In summary patient is a 65-year-old female who presents the emergency department for evaluation of left knee pain. Patient is hemodynamically upon arrival, afebrile. Mild tenderness to the left anterior knee. Differential diagnosis includes fracture, dislocation, contusion, sprain. Initial workup will be conducted with x-ray. Upon repeat evaluation patient continues to rest comfortably. X-ray was reviewed and interpreted by myself and was negative for fracture. Given this patient is appropriate for discharge home at this time with follow-up with orthopedics. Given strict return precautions. Critical Care <VIBHA Chowdhury - Last Filed: 04/24/25 23:32> Critical Care Time Critical Care Time: No
[2025-04-24 19:51] VITALS: BP 148/98; PULSE 88; RESP 20; TEMP 36.7; O2SAT 97
== END 2025-04-24 19:58 | disposition home or self-care (01) ==
PROVIDERS: Emergency Provider Student in an Organized Health Care Education/Training Program; PCP Nurse Practitioner Family
DX: M17.12 Unilateral primary osteoarthritis, left knee (principal); M25.562 Pain in left knee; W18.30XA Fall on same level, unspecified, initial encounter
CPT/HCPCS: 73562; 99283

== ENCOUNTER 2025-05-11 18:24 | Emergency (ER) | payer MEDICARE, MEDICAID, SELFPAY ==
--- OUTSIDE RECORDS SUMMARY | 2025-04-16 09:15 | XMS_ITS | Encounter Summary ---
Author Organization [employer] ([place], [place], [place], [place]) Address [address] [place] [address] Care Team Providers Care Regional Business Manager Name Role Phone Lavinia Juarez APRN Primary Care Provider [phone] Reason for Visit * Reason Comments Follow-up S/p Right reverse TS A DOS: 01/21/25 Encounter Details Date Type Department Care Team (Late st Contact Info) Description 04/16/2025 9:15 AM EDT Office Visit [facility] - [address] [phone] Flo Dominguez MD [address] [place] [phone] S/P reverse total shoulder arthroplasty, right (Primary Dx) Social History Tobacco Use Types Packs/Day Years Used Date Smoking Tobacco: Never Smokeless Tobacco: Never Alcohol Use Standard Drinks/Week Comments Never 0 (1 standard drink = 0.6 oz pur e alcohol) Utilities Answer Date Recorded In the past 12 months, has t he [employer], gas, oil, or water [employer] threatened to shut off services in your [...] Do you speak a language other than Ukrainian at [facility]? No 01/21/2025 Do you want help [...] Sign Reading Time Taken Comments Blood Pressure 120/77 04/16/2025 9:03 AM EDT Pulse 95 04/16/2025 9:03 AM EDT Temperature - - Respiratory Rate - - Oxygen Saturation - - Inhaled Oxygen Concentration - - Weight 85.3 kg (188 lb) 04/16/2025 9:03 AM EDT Height 165.1 cm (5' 5 ) 04/16/2025 9:03 AM EDT Body Mass Index 31.28 04/16/2025 9:03 AM EDT documented in this encounter Progress Notes * Flo Dominguez MD - 04/16/2025 9:15 AM EDT NAME: Margo Ramos CSN: [id number] : 1960 PCP: KENDAL Wyatt CONSENT The following consent language was reviewed verbally with the patient in full: Sami, I am using a tool to help me do my notes. It is recording our conversation and creates my notes automatically and I can focus on our discussion instead of typing in the room. Is that okay with you? The patient demonstrated understanding and verbally agreed to the above consent language. All questions were addressed, and the patient provided informed consent to proceed. REASON FOR VISIT Follow-up (S/p Right reverse TSA DOS: 01/21/25) Is this Worker's Comp? No HPI Margo Ramos is a 65 y.o. female She presents today for a Post-op Follow-up S/P Right Reverse TSA, DOS: 01/21/25. Patient reports her shoulder is doing well. Patient reports intermittent pain at times. Patient rates her pain 2/10 inoffice. History of Present Illness Margo Ramos is a 65 year old female who presents for follow-up after shoulder surgery. She is three months post-operative from a reverse total shoulder arthroplasty performed on January 21, 2025. She experiences mild pain, particularly during certain movements such as washing her hair, which she describes as a 'back and forth motion.' She can place objects down but has difficulty picking them up. Despite these challenges, she notes gradual improvement over time. She rates her pain as 2 out of 10, indicating it is not severe. However, she finds certain arm motions, such as those required to wash her hair, challenging. CURRENT MEDICATIONS Current Outpatient Medications Medication Instructions [...] TOTAL, REVERSE; Surgeon: Flo Dominguez MD; Location: [facility]; Service: Orthopedic Surgery; Laterality: Right; CHOLECYSTECTOMY [...] no anxiety, no fatigue, no mood swings OBJECTIVE Vitals: 04/16/25 0903 BP: 120/77 Pulse: 95 Weight: 85.3 kg (188 lb) Height: 1.651 m (5' 5 ) Physical Exam Right Shoulder Exam General: Awake, Alert, Oriented x3, Well developed Appearance: Swelling WNL, - deformity Palpation: no tenderness Strength: Deferred. Straw Hat Plunger Operator 5/5 Neurovascular: NVI, -Homans Gait: Normal MUSCULOSKELETAL: Incision site on shoulder well-healed. Shoulder elevation to 130 degrees. Shoulderexternal rotation to 45 degrees. Internal to L5. Shoulder motion decent, improving. ASSESSMENT/PLAN Problem List Items Addressed This Visit None Visit Diagnoses S/P reverse total shoulder arthroplasty, right - Primary Assessment & Plan Status post right reverse total shoulder arthroplasty with postoperative right shoulder pain Three months post-surgery with mild pain and improving range of motion. Full recovery expected by one year. - Continue current exercises to improve range of motion. - Encourage use of the shoulder to facilitate recovery. - Schedule follow-up appointment in three months. Scribe Attestation: IEmily CMA/YANCY acted as a scribe and transcribed components of the current encounter under the direction of the Attending Provider. I have not been involved in providing any clinical treatments or patient care. Electronically Signed, Emily Wright CMA/LXMO I, Flo Dominguez MD attest that I have examined the above patient. I have dictated the exam, diagnosis, and plan to the scribe listed above to be transcribed into this document. I have supplemented the above documentation as warranted. I attest that I have reviewed the above documentation in its entirety and concur. Electronically Signed, Flo Dominguez MD 04/16/2025 9:49 AM EDT documented in this encounter Plan of Treatment Upcoming Encounters Date Type Department Care Team (Late st Contact Info) Description 05/13/2025 8:00 AM EDT Appointment [facility] [address] [place] [phone] Lavinia Juarez, SISAL OPERATOR [address] [place] [address] 07/20/2025 9:15 AM EST Office Visit [facility] - [address] [phone] Flo Dominguez MD [address] [place] [phone] documented as of this encounter Visit Diagnoses Diagnosis S/P reverse total shoulder arthroplasty, right- Primary documented in this encounter Care Teams Regional Business Manager Relationship Specialty Start Date End Date Lavinia Juarez, SISAL OPERATOR [address] [place], [place] [id number] PCP - General Family Medicine 10/20/24 documented as of this encounter
[2025-05-11 19:13] VITALS: BP 158/83; PULSE 82; RESP 16; TEMP 36.6; O2SAT 100; BMI 30.9
--- NOTE | 2025-05-11 19:17 | XR_ITS ---
PROCEDURE INFORMATION: Exam: XR Left Ankle Exam date and time: 05/11/2025 7:33 PM Age: 65 years old Clinical indication: Injury or trauma; Fall; Blunt trauma; Ankle; Left; Additional info: Pain after tripping TECHNIQUE: Imaging protocol: Radiologic exam of the left ankle. Views: 3 or more views. COMPARISON: CR XR ANKLE LT MIN 3V 07/10/2022 8:14 PM FINDINGS: Bones/joints: Calcaneal spurring. No acute fracture or dislocation. Soft tissues: Normal. IMPRESSION: No acute findings.
--- NOTE | 2025-05-11 19:17 | XR_ITS ---
PROCEDURE INFORMATION: Exam: XR Left Foot Exam date and time: 05/11/2025 7:32 PM Age: 65 years old Clinical indication: Injury or trauma; Fall; Blunt trauma; Foot; Left; Additional info: Pain after tripping TECHNIQUE: Imaging protocol: Radiologic exam of the left foot. Views: 3 or more views. COMPARISON: CR XR FOOT WT BEARING LT 3V 11/28/2023 12:12 PM FINDINGS: Bones/joints: Avulsion fracture involving the base of the 5th proximal phalanx medially. No additional fracture or dislocation Soft tissues: Normal. IMPRESSION: Avulsion fracture involving the base of the 5th proximal phalanx medially. No additional fracture or dislocation
--- OUTSIDE RECORDS SUMMARY | 2025-05-11 19:23 | XMS_ITS | Clinical Summary ---
Author Organization Healthcare Address [address] [place] [address] Care Team Providers Care Seismic Computer Name Role Phone Lavinia Juarez Chucky EDMONDS Primary Care Provider Social History Tobacco Use Types Packs/Day Years Used Date Smoking Tobacco: Never Assessed Comments Unknown Sex and Gender Information Value Date Recorded Sex Assigned at Female 10/26/2023 3:05 PM EST Legal Sex Female 8:52 PM EDT Gender Identity Female 10/26/2023 3:05 PM EST Sexual Orientation Not on file Plan of Treatment Health Maintenance Due Date Last Done Comments [facility]-Depression Screening 1962 [facility]-/Child/Adol SDOH Screenings 1962 [facility]- SDOH Screenings 02/08/1980 [facility]-Adult SDOH Screenings 02/08/1980 [facility]-Pap Smear 1983 [facility]-Cervical Cancer Screening 02/08/1992 [facility]-HPV/Cotest 02/08/1992 CT Colonography 2007 Colonoscopy 2007 FIT-DNA 2007 FIT 2007 FOBT 2007 Sigmoidoscopy 2007 [facility]-Colorectal Cancer Screening 2007 [facility]-Zoster Vaccines (1 of 2) 02/08/2012 [facility]-Pneumococcal Vaccine: 50+ Years (2 of 2 - PCV) 03/07/2013 03/07/2012, 02/01/2012 [id number] Vaccine ( season) 2024 06/25/2023, 08/18/2021, 12/21/2020 [...] this topic Insurance [employer] MEDICARE Care Teams Seismic Computer Relationship Specialty Start Date End Date Lavinia Juarez APRN [address] [place] [address] PCP - General 11/30/23
--- OUTSIDE RECORDS SUMMARY | 2025-05-11 19:23 | XMS_ITS | Encounter Summary ---
Author Organization [employer] ([place], [place], [place], [place]) Address [address] [place] [address] Care Team Providers Care Rn Recovery Name Role Phone Lavinia Juarez APRN Primary Care Provider [phone] Reason for Referral * MRI (Routine) - Pending Review Specialty Diagnoses / Procedures Referred By Contac t Referred To Contact Radiology Diagnoses New daily persistent headache (ndph) Procedures MR Brain Without IV Contrast Lavinia Juarez APRN [address] [place] [address] Phone: tel: fax: [facility] MRI [address] [place] [address] Phone: tel: fax: Referral ID Status Reason Start Date Expiration Date V isits Requested Visits Authorized [id number] Pending Review 04/27/2025 04/27/2026 1 1 Encounter Details Date Type Department Care Team (Late st Contact Info) Description 04/27/2025 Outside Orders [facility] Central Scheduling [address] [place] [address] Lavinia Juarez APRN [address] [place], [place] [id number] New daily persistent headache (ndph) (Primary Dx) Social History Tobacco Use Types [...] your living situation today? I have a [facility] place to live 01/21/2025 Think about [...] Do you speak a language other than [facility] at [facility]? No 01/21/2025 Do you want help [...] Info) Description 05/13/2025 8:00 AM EDT Appointment [facility] MRI [address] [place] [address] Lavinia Juarez, MARINA SALES AND SERVICE SUPERVISOR [address] [place], [place] [id number] 07/20/2025 9:15 AM EST Office Visit [facility] - [address] [address] Flo Dominguez MD [address] [place] [address] Scheduled Orders Name Type Priority Associated Diagnoses Orde r Schedule MR Brain Without IV Contrast Imaging Routine New daily persistent headache (ndph) Expected: 04/27/2025, Expires: 05/28/2026 documented as of this encounter Visit Diagnoses Diagnosis New daily persistent headache (ndph)- Primary documented in this encounter Care Teams Rn Recovery Relationship Specialty Start Date End Date Lavinia Juarez, MARINA SALES AND SERVICE SUPERVISOR [address] [place] [address] PCP - General Family Medicine 10/20/24 documented as of this encounter
--- OUTSIDE RECORDS SUMMARY | 2025-05-11 19:23 | XMS_ITS | Encounter Summary ---
Author Organization Healthcare Address [address] [place] [address] Care Team Providers Care Bench Worker Binding Name Role Phone Lavinia Juarez PROFESSOR OF PSYCHOLOGY Primary Care Provider Encounter Details Date Type Department Care Team (Late st Contact Info) Description 10/26/2023 Community [facility] Community Practice [address] [place] [address] Lavinia Juarez, PROFESSOR OF PSYCHOLOGY [address] [place], [place] [id number] Type 2 diabetes mellitus with autonomic neuropathy, unspecified whether endoscopy specialty technician insulin use (CMS/HCC) (Primary Dx) Social History Tobacco Use Types Packs/Day Years Used Date Smoking Tobacco: Never Assessed Comments Unknown Sex and Gender Information Value Date Recorded Sex Assigned at Female 10/26/2023 3:05 PM EST Legal Sex Female 8:52 PM EDT Gender Identity Female 10/26/2023 3:05 PM EST Sexual Orientation Not on file documented as of this encounter Plan of Treatment Not on file documented as of this encounter Visit Diagnoses Diagnosis Type 2 diabetes mellitus with autonomic neuropathy, unspecified whether alf insulin use (CMS/HCC)- Primary documented in this encounter Care Teams Bench Worker Binding Relationship Specialty Start Date End Date Lavinia Juarez APRN [address] [place], [place] [id number] PCP - General 11/30/23 documented as of this encounter
--- OUTSIDE RECORDS SUMMARY | 2025-05-11 19:23 | XMS_ITS | Clinical Summary ---
Author Organization [employer] ([place], [place], [place], [place]) Address [address] [place] [address] Care Team Providers Care Cafeteria Clerk Name Role Phone Lavinia Juarez APRN Primary Care Provider [phone] Allergies No known active allergies Medications hydrOXYzine [...] Encounters Date Type Department Care Team Description 04/27/2025 Outside Orders [facility] Central Scheduling [address] [place] [id number] Lavinia Juarez APRN New daily persistent headache (ndph) (Primary Dx) 04/16/2025 9:15 AM EDT Office Visit [facility] [address] [address] Flo Dominguez MD S/P reverse total shoulder arthroplasty, right (Primary Dx) 03/05/2025 9:15 AM EDT Office Visit [address] [address] Flo Dominguez MD S/P reverse total shoulder arthroplasty, right (Primary Dx) from Last 3 Months Family History Medical [...] Date Record ed How often does anyone, inclu ding family and friends, physically hurt you? Never [...] your living situation today? I have a [facility] place to live 01/21/2025 Think about the [...] Do you speak a language other than Romansh at [facility]? No 01/21/2025 Do you want help with [...] Info) Description 05/13/2025 8:00 AM EDT Appointment [facility] [address] [place] [address] Lavinia Juarez, NETWORK TECHNICIAN [address] [place] [address] 07/20/2025 9:15 AM EST Office Visit [facility] - [address] [phone] Flo Dominguez MD [address] [place] [address] Health Maintenance Due Date Last Done Comments [...] 60-74 years 1-dose series) 2022 COVID-19 VACCINE (2023- season) 2024 06/25/2023, 08/18/2021, 12/21/2020 Medicare Initial AWV [id number] 11/16/2024 Hemoglobin A1C 01/21/2025 Influenza Vaccine (#1) 2025 07/17/2019 Tobacco Cessation Counseling and Screening (12+) 04/16/2026 04/16/2025 DTAP/TDAP/TD VACCINES (2 - T d or Tdap) 03/27/2030 03/27/2020 Medical Devices Implanted Type Area Inventory Control Clerk Device Identifier Shelf Expiration Date Model / Serial / Lot Baseplt Lat +3mm 25mm [id number] - [id number] Implanted:Qty: 1 on 01/21/2025 by Flo Dominguez MD at [facility] IMPLANTS Right: Shoulder TORNIER [id number] 11/05/2029 [id number] / [id number] / Insrt Rev Perf Hum Sz 1/2 3mm [id number] - [id number] Implanted:Qty: 1 on 01/21/2025 by Flo Dominguez MD at [facility] IMPLANTS Right: Shoulder TORNIER [id number] 04/26/2028 [id number] / [id number] / Stem Hum Sz 2+ Long Dwx2pl - [id number] Implanted:Qty: 1 on 01/21/2025 by Flo Dominguez MD at [facility] IMPLANTS Right: Shoulder TORNIER [id number] 10/09/2029 [id number] / [id number] / Glenosphere Std 36mm [id number] - [id number] Implanted:Qty: 1 on 01/21/2025 by Flo Dominguez MD at [facility] IMPLANTS Right: Shoulder TORNIER [id number] 05/01/2029 [id number] / [id number] / Scr Periph 5.0x14mm Ns [id number] - [id number] Implanted:Qty: 2 on 01/21/2025 by Flo Dominguez MD at [facility] IMPLANTS Right: Shoulder TORNIER [id number] / / Scr Cntrl Thd Post 6.5x40mm [id number] - [id number] Implanted:Qty: 1 on 01/21/2025 by Flo Dominguez MD at [facility] IMPLANTS Right: Shoulder TORNIER [id number] / / Scr Periph 5.0x18mm Ns Wlo914 - [id number] Implanted:Qty: 1 on 01/21/2025 by Flo Dominguez MD at [facility] IMPLANTS Right: Shoulder TORNIER [id number] / / Scr Periph 5.0x38mm Ns [id number] - [id number] Implanted:Qty: 1 on 01/21/2025 by Flo Dominguez MD at [facility] IMPLANTS Right: Shoulder TORNIER [id number] / / Insurance [place] AETNA MCR ADV Advance Directives For more information, please contact: [phone] * Full Code (Latest Code Status on File) Date Activated Date Inactivated Comments 01/21/2025 12:10 PM 01/22/2025 12:07 PM * Full Code Date Activated Date Inactivated Comments 01/21/2025 6:09 AM 01/21/2025 12:10 PM Care Teams Cafeteria Clerk Relationship Specialty Start Date End Date Lavinia Juarez, NETWORK TECHNICIAN [address] [place] [address] PCP - General Family Medicine 10/20/24
--- OUTSIDE RECORDS SUMMARY | 2025-05-11 19:23 | XMS_ITS | Referral Summary ---
Author Organization [employer] ([place], [place], [place], [place]) Address [address] [facility] [place] [address] Care Team Providers Care Security Officer Supervisor Name Role Phone Lavinia Juarez APRN Primary Care Provider Encounters Date Type Department Care Team Description 04/27/2025 Outside Orders [facility] Central Scheduling [address] [place] [address] Lavinia Juarez APRN New daily persistent headache (ndph) (Primary Dx) 04/16/2025 9:15 AM EDT Office Visit [facility] [address] [phone] Flo Dominguez MD S/P reverse total shoulder arthroplasty, right (Primary Dx) 03/05/2025 9:15 AM EDT Office Visit [facility] [address] Flo Dominguez MD S/P reverse total shoulder arthroplasty, right (Primary Dx) from Last 3 Months Allergies No known [...] the past 12 months, has t he [employer], [employer], [employer], or water [employer] threatened to shut off services in your [...] Do you speak a language other than Lao at [facility]? No 01/21/2025 Do you want help [...] Info) Description 05/13/2025 8:00 AM EDT Appointment [facility] MRI [address] [place] [address] Lavinia Juarez, HAIR SPRING WINDER [address] [place] [address] 07/20/2025 9:15 AM EST Office Visit [facility] - [address] [phone] Flo Dominguez MD [address] [place] [address] Medical Devices Implanted Type Area Ornamental Iron Erector Device Identifier Shelf Expiration Date Model / Serial / Lot Baseplt Lat +3mm 25mm [id number] - [id number] Implanted:Qty: 1 on 01/21/2025 by Flo Dominguez MD at [facility] IMPLANTS Right: Shoulder TORNIER [id number] 11/05/2029 [id number] / [id number] / Insrt Rev Perf Hum Sz 1/2 3mm [id number] - [id number] Implanted:Qty: 1 on 01/21/2025 by Flo Dominguez MD at [facility] IMPLANTS Right: Shoulder TORNIER [id number] 04/26/2028 [id number] / [id number] / Stem Hum Sz 2+ Long Dwx2pl - [id number] Implanted:Qty: 1 on 01/21/2025 by Flo Dominguez MD at [facility] IMPLANTS Right: Shoulder TORNIER [id number] 10/09/2029 [id number] / [id number] / Glenosphere Std 36mm Qql738 - [id number] Implanted:Qty: 1 on 01/21/2025 by Flo Dominguez MD at [facility] IMPLANTS Right: Shoulder TORNIER [id number] 05/01/2029 [id number] / [id number] / Scr Periph 5.0x14mm Ns Hnm720 - [id number] Implanted:Qty: 2 on 01/21/2025 by Flo Dominguez MD at [facility] IMPLANTS Right: Shoulder TORNIER [id number] / / Scr Cntrl Thd Post 6.5x40mm Ldz645 - [id number] Implanted:Qty: 1 on 01/21/2025 by Flo Dominguez MD at [facility] IMPLANTS Right: Shoulder TORNIER [id number] / / Scr Periph 5.0x18mm Ns [id number] - [id number] Implanted:Qty: 1 on 01/21/2025 by Flo Dominguez MD at [facility] IMPLANTS Right: Shoulder TORNIER [id number] / / Scr Periph 5.0x38mm Ns Gua349 - [id number] Implanted:Qty: 1 on 01/21/2025 by Flo Dominguez MD at [facility] IMPLANTS Right: Shoulder TORNIER [id number] / / Insurance MEDICAID OF [place] AETNA MCR ADV Advance Directives For more information, please contact: [phone] * Full Code (Latest Code Status on File) Date Activated Date Inactivated Comments 01/21/2025 12:10 PM 01/22/2025 12:07 PM * Full Code Date Activated Date Inactivated Comments 01/21/2025 6:09 AM 01/21/2025 12:10 PM Care Teams Security Officer Supervisor Relationship Specialty Start Date End Date Lavinia Juarez, HAIR SPRING WINDER [address] [place] [address] PCP - General Family Medicine 10/20/24
--- NOTE | 2025-05-11 20:03 | HMH.EDGENADL ---
Discharge Plan Disposition Patient Disposition: Home, Self-Care Condition: Good Prescriptions Prescriptions: No Action fluoxetine 40 mg capsule 40 mg PO DAILY bupropion HCl 150 mg tablet sustained-release 12 hr 150 mg PO BID lisinopril-hydrochlorothiazide 20-12.5 mg tablet 1 tab PO DAILY clonazepam 1 mg tablet 1 mg PO HS levothyroxine 50 mcg tablet 50 mcg PO AM buspirone 10 mg tablet 10 mg PO DAILY montelukast 10 mg tablet 10 mg PO DAILY albuterol sulfate [Ventolin HFA] 90 mcg/actuation HFA aerosol inhaler 2 inh INHALATION Q4-6H PRN (Reason: Breathing Problems) duloxetine 60 mg capsule,delayed release(DR/EC) 60 mg PO DAILY Jardiance 25 mg tablet 25 mg PO DAILY Vraylar 4.5 mg capsule 4.5 mg PO DAILY Kerendia 10 mg Tablet 10 mg PO DAILY amitriptyline 10 mg tablet 10 mg PO HS Referrals Follow up/Referrals: Robert Grant DO [Staff Physician, Orthopedics] - See instructions Lavinia Juarez [Primary Care Provider, Medical] - See instructions Activity Restrictions/Add. Instructions Additional Instructions/Restrictions: Have given you a referral to Dr. Grant who is the orthopedic doctor, follow-up with him in clinic. You will need to call him tomorrow to schedule an appointment. Keep the tape on as long as you can. Wear a hard soled shoe that will help with pain relief you can take Tylenol and Motrin as well as the tramadol which you have already been prescribed for other issues. Return to the emergency department for any acute or worsening symptoms. Clinical Impressions Clinical Impression: Fracture of toe Print Language Print Language: Afghan Discharge ED Provider: Radha Camargo General Adult HPI General Chief complaint: Extremity Injury, Lower Stated complaint: AO 05/11/25 1730 left ankle injury Time Seen by Provider: 05/11/25 20:03 Mode of Arrival: Wheelchair Source of Information: Patient Description of Symptoms (Recalled from ER Triage Doc. by RN): pt states she fell over a toy about 1hPTA and rolled her ankle. pt c/o L ankle/foot pain. pt states her pain is 7/10, constant, and dull. pt states she took a tramadol GERENTOLOGICAL PHYSIOTHERAPIST that has helped with her pain. History of Present Illness HPI narrative: Patient is an otherwise healthy 5-year-old female presenting to the emergency department with a left ankle injury. Rolled her ankle about 1 hour prior to arrival. Patient is reporting some pain with ambulation. Patient took tramadol prior to arrival. Patient denies any other injuries did not lose consciousness. Related Data Home Medications ?Medication ?Instructions ?Recorded ?Confirmed albuterol sulfate 90 mcg/actuation 2 inh inhalation Q4-6H PRN 01/31/23 04/11/25 aerosol inhaler (Ventolin HFA) Breathing Problems bupropion HCl 150 mg tablet,12 hr 150 mg PO BID Mood 01/31/23 04/11/25 sustained-release buspirone 10 mg tablet 10 mg PO DAILY Mood 01/31/23 04/11/25 cariprazine 4.5 mg capsule 4.5 mg PO DAILY Mood 01/31/23 04/11/25 (Vraylar) clonazepam 1 mg tablet 1 mg PO HS Anxiety 01/31/23 04/11/25 duloxetine 60 mg capsule,delayed 60 mg PO DAILY Mood 01/31/23 04/11/25 release empagliflozin 25 mg tablet 25 mg PO DAILY Diabetes 01/31/23 04/11/25 (Jardiance) fluoxetine 40 mg capsule 40 mg PO DAILY Mood 01/31/23 04/11/25 levothyroxine 50 mcg tablet 50 mcg PO AM Thyroid 01/31/23 04/11/25 lisinopril 20 1 tab PO DAILY High blood pressure 01/31/23 04/11/25 mg-hydrochlorothiazide 12.5 mg tablet montelukast 10 mg tablet 10 mg PO DAILY Allergy symptoms 01/31/23 04/11/25 amitriptyline 10 mg tablet 10 mg PO HS sleep 03/14/23 04/11/25 finerenone 10 mg tablet (Kerendia) 10 mg PO DAILY kidney disease 03/14/23 04/11/25 Allergies Allergy/AdvReac Type Severity Reaction Status Date / Time No Known Allergies Allergy Verified 10/14/24 10:52 [facility] Disclaimer: The information contained in this section may have been updated after the patient was seen, as this information can be updated by other users. Medical History Vomiting Eczema GERD (gastroesophageal reflux disease) Insulin dependent diabetes mellitus Type 2 diabetes mellitus Depression Anxiety Bipolar depression Thyroid disease Asthma Chest pain High cholesterol Hypertension Surgical History History of cholecystectomy Family History Mother Cancer, Onset Age: 91 Father Cancer, Onset Age: 60 Other Diabetes Heart attack High cholesterol Hypertension Stroke Social History Smoking Status: Never smoker second hand exposure: No alcohol intake: never substance use type: denies use current occupational status: disabled Travel in the last 8 weeks?: None household members: none housing: house lives independently: Yes marital status: single education level: college service: No current occupational exposures/hazards: No caffeine: Yes do you feel safe at home: Yes victim of physical abuse: No victim of emotional abuse: No victim of sexual abuse: No would you like helpful sources: No Other Medical History Have you received the Flu Vaccine for this season: No Have you received the Pneumonia Vaccine: No ROS Obtained: Yes All systems reviewed & no additional complaints except as documented and Yes Systems reviewed as appropriate & no additional complaints except as documented Physical Exam General General appearance: alert and in no apparent distress Head Head exam: atraumatic, normocephalic and normal inspection Eye Eye exam: Present normal appearance, PERRL and EOMI; Absent scleral icterus ENT ENT exam: Present normal exam and normal external ear exam Neck Neck exam: Present normal inspection and full ROM Chest Chest inspection: Present normal inspection and symmetric chest wall rise Respiratory Respiratory exam: Present normal lung sounds bilaterally; Absent respiratory distress or wheezes Cardiovascular Cardiovascular exam: Present regular rate, normal rhythm and normal heart sounds Abdominal Exam Abdominal exam: Present soft and distention; Absent tenderness, guarding or rebound Extremities Exam Extremities exam: Present normal inspection, full ROM and other (tenderness along the forefoot and medial and lateral malleolus) Back Exam Back exam: Present normal inspection and full ROM Neurological Exam Neurological exam: Present alert and oriented X3 Psychiatric Psychiatric exam: Present normal affect and normal mood Skin Skin exam: Present warm and dry Medical Decision Making Medical Records Medical records reviewed: Yes I reviewed the patient's medical records. Screening: Per USPSTF and CDC recommendations, given the prevalence of disease in our region, it is our hospital?s policy to screen for HIV and viral Hepatitis for all patients aged 18 and over and those with ongoing risk factors. Emile Inquiry Pt receiving controlled substance: No Vital Signs: 05/11/25 19:13 05/11/25 20:28 Temperature 97.9 F 98.0 F Temperature Source Oral Oral Pulse Rate 80 Pulse Rate [Left] 82 Respiratory Rate 16 16 Blood Pressure 150/81 H Blood Pressure [Right Arm] 158/83 H Blood Pressure Mean [Right Arm] 108 Blood Pressure Source [Right Arm] Automatic Cuff Blood Pressure Position Supine Blood Pressure Position [Right Arm] Sitting 02 Sat by Pulse Oximetry 100 Oxygen Delivery Method Room Air Room Air Lab Data Lab results reviewed: Yes I reviewed the patient's lab results. Orders (Tests/Meds): ORDERS Category Date Time Status Foot XR left minimum 3 views [XR foot LT min 3V] Stat Exams 05/11/25 19:17 Completed XR ankle LT min 3V Stat Exams 05/11/25 19:17 Completed Medical Decision Narrative: Patient is an otherwise healthy 65-year-old female who presented to the emergency department with left ankle pain. On arrival, patient was hemodynamically stable with unremarkable vital signs. Differential includes but not limited to: Fracture, dislocation, sprain, strain, amongst others. X-rays were obtained of the left lower extremity which showed no acute fractures. Patient was able to ambulate with related pain. Patient was given patient advised to follow-up with send for more than 1 week. Patient was otherwise discharged home in stable condition. Critical Care Critical Care Time Critical Care Time: No
[2025-05-11 20:28] VITALS: BP 150/81; PULSE 80; RESP 16; TEMP 36.7; O2SAT 98
== END 2025-05-11 20:30 | disposition home or self-care (01) ==
PROVIDERS: Emergency Provider Student in an Organized Health Care Education/Training Program; PCP Nurse Practitioner Family
DX: S92.919A Unspecified fracture of unspecified toe(s), initial encounter for closed fracture (principal)
CPT/HCPCS: 73610; 73630; 99283

== ENCOUNTER 2025-07-22 13:35 | Emergency (ER) | payer MEDICARE, MEDICAID, SELFPAY ==
[2025-07-22 13:41] VITALS: BP 151/77; PULSE 88; RESP 18; TEMP 36.8; O2SAT 94; BMI 30.9
--- OUTSIDE RECORDS SUMMARY | 2025-07-22 14:03 | XMS_ITS | Data Portability ---
Author Organization [facility] DIETER Kang [place] CLOSED Address [address] [place] [address] [address] [place] [address] Assessment No assessment recorded. Plan of Treatment Reminders Order Date Submit Date Provider Last Modified By Organization Details Last Modified Time Details Appointments None recorded. Lab CBC w/ auto diff 2017 018 Loc[facility] (ML4D)vtICRTec [facility], [address] [place] [address], [address], 8 10:45:25 CMP, serum or plasma 2017 018 [facility] (ML4D)vtICRTec [facility], [address] [place] [address], [address], 8 10:45:25 TSH + free T4, serum 2017 018 [facility] (ML4D)vtICRTec [facility], [address] [place] [address], [address], 8 10:45:25 Referral None recorded. Procedures treadmill nuclear stress test (PROC) 2017 Yahaira hayes Not available 8 07:37:02 trans-thora cic echocardiog brisa (TTE) (PROC) 2017 Yahaira hayes [facility], [address] [facility] , [facility], [place], [address], 8 09:55:22 Surgeries None recorded. Imaging electrocard iogram 2017 Yahaira thornton Not available 8 15:22:45 Medication Orders None recorded. Patient TargetsNo targets recorded. Patient InstructionsNo instructions recorded. Reason for Referral None Reported. Results Created Date Observation Date Name Description Value Unit Range Abnormal Flag Note LastModifiedBy Organization Detail LastModifiedTime 02/29/20 18 02/27/2018 rosy nieto am No observ ation record ed. [facility] [address], [place], [address], 02/28/2018 09:04:23 Result Notes None recorded. Problems Name Problem SNOMED Code Status Onset Date Resolution Date Notes Provider Name and Address Organization Details Recorded Time Chest pain 74020527 Active 2017 WHIT VELAZQUEZ, FIBER DESIGNER [address] [place], [address], [facility] 8 15:07:38 Dyspnea on exertion 32038556 Active 2017 WHIT VELAZQUEZ, FIBER DESIGNER [address] [place], [address], [facility] 8 15:07:42 Type 2 diabetes mellitus without complication 747641894 Active 2017 WHIT VELAZQUEZ, FIBER DESIGNER [address] [place], [address], [facility] 8 15:07:47 Hypothyroidism 10627823 Active 2017 WHIT VELAZQUEZ, FIBER DESIGNER [address] [place], [address], [facility] 8 15:20:18 Bipolar disorder 45973378 Active 2017 WHIT VELAZQUEZ, FIBER DESIGNER [address] [place], [address], [facility] 8 15:20:19 Hyperlipidemia 64282207 Active 2017 WHIT VELAZQUEZ, FIBER DESIGNER [address] [place], [address], [facility] 8 15:20:20 Problem Notes None recorded. Procedures Surgical History Date Name Laterality Status Provider Name and Address Organization Details Recorded Time 02/27/2018 EKG completed WHIT VELAZQUEZ, FIBER DESIGNER [address] [place], [address], [facility] 02/27/2018 15:17:39 Imaging Results None recorded. Procedure [...] Address Organization Details Last Updated DateTime 02/27/2018 76838.77 g 35.6 kg/m2 165.1 cm 68 /min 128/76 mm[Hg] Louann Wright [facility] 02/27/2018 14:49:56 Social History Question Answer Notes LastModified by Organizat ion Details LastModified Time Tobacco Smoking Status Never Smoker Louann soares [facility] 02/27/2018 14:56:57 What Was The Date [...] Coronary Artery Disease N Atrial Fibrillation N Thyroid Disease N Heart Arrhythmia N Lung Disease N COPD N Peripheral Arterial Disease N Pacemaker N Nervous Illness N Edema N Vascular Disease N Anxiety Disorder N Hiatal hernia N Acid Reflux (GERD) N Cancer N Stroke N History of Blood Thinners N Blood Thinners N Shortness of Breath N High Cholesterol N Arrhythmia N Endocrine Disorder N Heart Problems N Heart Conditions N Implanted Cardiac Device N Black Lung N Thyroid Problems Y Chest Pain N Heart Attack (MT) N Ulcers N Diabetes Y Rheumatic Fever N Cardiomyopathy N Bleeding Disorder N Heart Murmur N Tuberculosis N AIDS/HIV N Congestive Heart Failure (CHF) N Hyperlipidemia N Asthma N Cardiac Disease N Peripheral Vascular Disease N Jaundice N Sleep Apnea N GERD/Reflux N Warfarin Management N Heart Disease N Restless leg syndrome N Hypertension Y Gynecological HistoryNo gynecological history recorded. Obstetrics History GPAL:G 0 P 0 0 0 0 Past Encounters Encounter ID Performer Location Encounter Start Date Encounter Closed Date Diagnosis/Indication Diagnosis SNOMED-CT Code Diagnosis ICD10 Code Diagnosis IMO Codes Diagnosis Note [id number] WHIT VELAZQUEZ APRN CARDIOLOG Y [facility] CLOSED [address] [place] [address] 02/27/2018 14:18:47 02/27/2018 15:22:44 Chest pain 91942719 R07.9 CP is concerning . No concerning [...] Type 2 lauri betes mellitus without complication 006166486 E11.9 Noted, PCP following. Hypothyroidism 10758094 E03.9 Noted. Thyroid studies today as noted below. Bipolar disorder 3423172 4 F31.9 Well-contr olled on current medication s. Hyperlipidemia 20323172 E78.5 PCP following. Statin currently on hold secondary to myalgias. Health Concerns Section Related Observation LastModified by Organization Detai ls LastModified Time None Recorded Concern Status LastModified by Organization Details LastModified Time None Recorded Advance Directives Directive None Recorded Payers Insurance Date Sequence Insurance Name Policy Number Policy Sullivan Covered Member ID Sullivan Member ID Guarantor Name 08/11/2020 2 MEDICAID-[facility] CHOICES - FFS/TRADITIO NAL Margo Richard [id number] Margo Ramos 08/11/2020 1 MED[place]ARE[place] Margo Ramos [id number] Margorj Ramos Notes Date Note Type Note [...] hospitalization. No recent lab studies. WHIT VELAZQUEZ, FIBER DESIGNER [address] [place], [address], [facility] 02/27/2018 15:21:35 OBGyn Episode No OBEpisode recorded.
--- OUTSIDE RECORDS SUMMARY | 2025-07-22 14:03 | XMS_ITS | Encounter Summary ---
Author Organization Healthcare Address [address] [place] [address] Care Team Providers Care Vice President Of Marketing Name Role Phone Lavinia Juarez OPERATIONS CONSULTANT Primary Care Provider Encounter Details Date Type Department Care Team (Late st Contact Info) Description 10/26/2023 [facility] [address] [place] [address] Lavinia Juarez, OPERATIONS CONSULTANT [address] [place], [place] [id number] Type 2 diabetes mellitus with autonomic neuropathy, unspecified whether snf insulin use (CMS/[facility]) (Primary Dx) Social History Tobacco Use Types [...] diabetes mellitus with autonomic neuropathy, unspecified whether snf insulin use- Primary documented in this encounter Care Teams Vice President Of Marketing Relationship Specialty Start Date End Date Lavinia Juarez APRN [address] [place], [place] [id number] PCP - General 11/30/23 documented as of this encounter
--- OUTSIDE RECORDS SUMMARY | 2025-07-22 14:03 | XMS_ITS | Referral Summary ---
Author Organization [employer] ([place], [place], [place], [place], [place]) Address [address] [facility] [place] [address] Care Team Providers Care Manager Camp Name Role Phone Lavinia Juarez APRN Primary Care Provider [phone] Encounters Date Type Department Care Team Description 04/27/2025 Outside Orders [facility] Central Scheduling [address] [place] [address] Lavinia Juarez APRN New daily persistent headache (ndph) (Primary Dx) from Last 3 Months Allergies [...] Do you speak a language other than Kazakh at [facility]? No 01/21/2025 Do you want help [...] Care Team (Late st Contact Info) Description 08/10/2025 2:30 PM EST Office Visit [facility] Orthopedics - [address] [phone] Flo Dominguez MD [address] [place] [address] Medical Devices Implanted Type Area Dock Attendant Device Identifier Shelf Expiration Date Model / Serial / Lot Baseplt Lat +3mm 25mm [id number] - [id number] Implanted:Qty: 1 on 01/21/2025 by Flo Dominguez MD at [facility] IMPLANTS Right: Shoulder TORNIER [id number] 11/05/2029 [id number] / [id number] / Insrt Rev Perf Hum Sz 1/2 3mm [id number] - [id number] Implanted:Qty: 1 on 01/21/2025 by Flo Dominguez MD at [facility] IMPLANTS Right: Shoulder TORNIER [id number] 04/26/2028 [id number] / [id number] / Stem Hum Sz 2+ Long Dwx2pl - [id number] Implanted:Qty: 1 on 01/21/2025 by Flo Dominguez MD at [facility] IMPLANTS Right: Shoulder TORNIER [id number] 10/09/2029 [id number] / [id number] / Glenosphere Std 36mm Kjl788 - [id number] Implanted:Qty: 1 on 01/21/2025 by Flo Dominguez MD at [facility] IMPLANTS Right: Shoulder TORNIER [id number] 05/01/2029 [id number] / [id number] / Scr Periph 5.0x14mm Ns Iyp175 - [id number] Implanted:Qty: 2 on 01/21/2025 by Flo Dominguez MD at [facility] IMPLANTS Right: Shoulder TORNIER [id number] / / Scr Cntrl Thd Post 6.5x40mm Vxa737 - [id number] Implanted:Qty: 1 on 01/21/2025 by Flo Dominguez MD at [facility] IMPLANTS Right: Shoulder TORNIER [id number] / / Scr Periph 5.0x18mm Ns Atj744 - [id number] Implanted:Qty: 1 on 01/21/2025 by Flo Dominguez MD at [facility] IMPLANTS Right: Shoulder TORNIER [id number] / / Scr Periph 5.0x38mm Ns Xkc113 - [id number] Implanted:Qty: 1 on 01/21/2025 by Flo Dominguez MD at [facility] IMPLANTS Right: Shoulder TORNIER [id number] / / Insurance MEDICAID OF [place] AETNA MCR ADV Advance Directives For more information, please contact: [phone] * Full Code (Latest Code Status on File) Date Activated Date Inactivated Comments 01/21/2025 12:10 PM 01/22/2025 12:07 PM * Full Code Date Activated Date Inactivated Comments 01/21/2025 6:09 AM 01/21/2025 12:10 PM Care Teams Manager Camp Relationship Specialty Start Date End Date Lavinia Juarez, WOODWORKER [address] [place] [address] PCP - General Family Medicine 10/20/24
--- OUTSIDE RECORDS SUMMARY | 2025-07-22 14:03 | XMS_ITS | Clinical Summary ---
Author Organization Healthcare Address [address] [place] [address] Care Team Providers Care Chemist Instrumentation Name Role Phone Lavinia Juarez Chucky EDMONDS Primary Care Provider [phone] Social History Tobacco Use Types Packs/Day Years [...] of 2 - PCV) 03/07/2013 03/07/2012, 02/01/2012 [id number] Vaccine (2024- season) 2025 06/25/2023, 08/18/2021, 12/21/2020 UKY-Influenza Vaccine (#1) 05/18/202506/25, [...] this topic Insurance [employer] MEDICARE Care Teams Chemist Instrumentation Relationship Specialty Start Date End Date Lavinia Juarez APRN [address] [place] [address] PCP - General 11/30/23
--- OUTSIDE RECORDS SUMMARY | 2025-07-22 14:03 | XMS_ITS | Encounter Summary ---
Author Organization [employer] ([place], [place], [place], [place], [place]) Address [address] [place] [address] Care Team Providers Care Planning Official Name Role Phone Lavinia Juarez APRN Primary Care Provider [phone] Reason for Referral * MRI (Routine) - Authorized Specialty Diagnoses / Procedures Referred By Contac t Referred To Contact Radiology Diagnoses New daily persistent headache (ndph) Procedures MR Brain Without IV Contrast Lavinia Juarez APRN [address] [place] [address] Phone: tel: fax: [facility] MRI [address] [place] [address] Phone: tel: fax: Referral ID Status Reason Start Date Expiration Date V isits Requested Visits Authorized [id number] Authorized 04/27/2025 04/27/2026 1 1 Encounter Details Date Type Department Care Team (Late st Contact Info) Description 04/27/2025 Outside Orders [facility] Central Scheduling [address] [place] [address] Lavinia Juarez APRN [address] [place], [place] [id number] New daily persistent headache (ndph) (Primary Dx) [...] living situation today? I have a [facility] place to live 01/21/2025 Think about [...] need 01/21/2025 Feeling Lonely or Isolated 0 05/07 /2025 Educational Attainment Answer Date Jayden rded Do you speak a language other than Hebrew at [facility]? No 01/21/2025 Do you want help with [...] Description 08/10/2025 2:30 PM EST Office Visit [facility] Orthopedics - [address] [address] Flo Dominguez MD [address] [place] [address] Scheduled Orders Name Type Priority Associated Diagnoses Orde r Schedule MR Brain Without IV Contrast Imaging Routine New daily persistent headache (ndph) Expected: 04/27/2025, Expires: 05/28/2026 documented as of this encounter Visit Diagnoses Diagnosis New daily persistent headache (ndph)- Primary documented in this encounter Care Teams Planning Official Relationship Specialty Start Date End Date Lavinia Juarez, PHARMACY SERVICES REPRESENTATIVE [address] [place] [address] PCP - General Family Medicine 10/20/24 documented as of this encounter
--- OUTSIDE RECORDS SUMMARY | 2025-07-22 14:03 | XMS_ITS | Data Portability ---
Author Organization [place] - [facility] [place] [facility] ASHWINI [employer] ADMIN Address [address] [place] [address] Assessment No assessment recorded. Plan of Treatment [...] By Organization Details Last Modified Time 07/19/2022 [id number] 1-Will add canal lock to aids. 2-F/u when aids return. [email or web address] Not available 07/19/2022 11:00:48 Reason for Referral [...] Not Available Not Available Easy Comfort Pen [place] 31 gauge x 3/16 USE TO INJECT [...] ICD10 Code Diagnosis IMO Codes Diagnosis Note [id number] GISELLE LIANG [facility] [place] [address] [place] [address] 07/19/2022 10:35:00 07/19/2022 10:49:14 Sensorineural hearing loss 73470348 H90.3 Health Concerns Section Related Observation LastModified by Organization Detai ls LastModified Time None Recorded Concern Status LastModified by Organization Details LastModified Time None Recorded Advance Directives Directive None Recorded Payers Insurance Date Sequence Insurance Name Policy Number Policy Sullivan Covered Member ID Sullivan Member ID Guarantor Name 07/18/2022 2 [place] [facility] CHO[facility] - FFS/TRADITIONA Thom Ramos [id number] Margo Ramos 01/10/2022 1 *SELF PAY* Yonas Ramos 07/18/2022 1 [place] [facility] MEDIBLUE PLUS (MEDICARE REPLACEMENT HMO) [id number] Margo Rmaos [id number] Margo Richard Notes Date Note Type Note Provider Name and Address Organization Details Recorded Time 07/19/2022 text/html DizzinessReporte d by Patient Hearing Loss - AdultReported by PatientROS as noted in the HPI Ms. Ramos was seen today for a hearing aid service. GISELLE LIANG [address] [facility], [place], [address], [facility] 07/19/2022 11:01:00 OBGyn Episode No OBEpisode recorded.
--- OUTSIDE RECORDS SUMMARY | 2025-07-22 14:03 | XMS_ITS | Clinical Summary ---
Author Organization [email or web address] ([place], [place], [place], [place], [place]) Address [address] [place] [address] Care Team Providers Care Printing Machinist Name Role Phone Lavinia Juarez APRN Primary Care Provider [phone] Allergies No known active allergies Medications hydrOXYzine [...] Department Care Team Description 04/27/2025 Outside Orders [facility] Central Scheduling [address] [place] [address] Lavinia Juarez, KENDAL New daily persistent headache (ndph) (Primary Dx) from Last 3 Months Family [...] Do you speak a language other than Israeli at [facility]? No 01/21/2025 Do you want help [...] Description 08/10/2025 2:30 PM EST Office Visit [facility] Orthopedics - [address] [address] Flo Dominguez MD [address] [place] [address] Health Maintenance Due Date Last Done Comments [...] - Risk 60-74 years 1-dose series) 2022 Medicare Initial AWV [id number] 11/16/2024 Hemoglobin A1C 01/21/2025 COVID-19 VACCINE ( season) 2025 06/25/2023, 08/18/2021, 12/21/2020 Influenza Vaccine (#1) 2025 07/17/2019 Tobacco Cessation Counseling and Screening (12+) 04/16/2026 04/16/2025 DTAP/TDAP/TD VACCINES (2 - T d or Tdap) 03/27/2030 03/27/2020 Medical Devices Implanted Type Area Lens Cutter Device Identifier Shelf Expiration Date Model / Serial / Lot Baseplt Lat +3mm 25mm [id number] - [id number] Implanted:Qty: 1 on 01/21/2025 by Flo Dominguez MD at [facility] IMPLANTS Right: Shoulder TORNIER [id number] 11/05/2029 [id number] / [id number] / Insrt Rev Perf Hum Sz 1/2 3mm [id number] - [id number] Implanted:Qty: 1 on 01/21/2025 by Flo Dominguez MD at [facility] IMPLANTS Right: Shoulder TORNIER [id number] 04/26/2028 [id number] / [id number] / Stem Hum Sz 2+ Long Dwx2pl - [id number] Implanted:Qty: 1 on 01/21/2025 by Flo Dominguez MD at [facility] IMPLANTS Right: Shoulder TORNIER [id number] 10/09/2029 DWX2PL / [id number] / Glenosphere Std 36mm Tku763 - [id number] Implanted:Qty: 1 on 01/21/2025 by Flo Dominguez MD at [facility] IMPLANTS Right: Shoulder TORNIER [id number] 05/01/2029 [id number] / [id number] / Scr Periph 5.0x14mm Ns Raa229 - [id number] Implanted:Qty: 2 on 01/21/2025 by Flo Dominguez MD at [facility] IMPLANTS Right: Shoulder TORNIER [id number] / / Scr Cntrl Thd Post 6.5x40mm Cpn477 - [id number] Implanted:Qty: 1 on 01/21/2025 by Flo Dominguez MD at [facility] IMPLANTS Right: Shoulder TORNIER [id number] / / Scr Periph 5.0x18mm Ns Wpq320 - [id number] Implanted:Qty: 1 on 01/21/2025 by Flo Dominguez MD at [facility] IMPLANTS Right: Shoulder TORNIER [id number] / / Scr Periph 5.0x38mm Ns Nnl138 - [id number] Implanted:Qty: 1 on 01/21/2025 by Flo Dominguez MD at [facility] IMPLANTS Right: Shoulder TORNIER [id number] / / Insurance MEDICA[place] OF [place] A[place] [facility] [place] Advance Directives For more information, please contact: [phone] * Full Code (Latest Code Status on File) Date Activated Date Inactivated Comments 01/21/2025 12:10 PM 01/22/2025 12:07 PM * Full Code Date Activated Date Inactivated Comments 01/21/2025 6:09 AM 01/21/2025 12:10 PM Care Teams Printing Machinist Relationship Specialty Start Date End Date Lavinia Juarez, GALVANOMETER ASSEMBLER [address] [place] [address] PCP - General Family Medicine 10/20/24
--- NOTE | 2025-07-22 14:05 | XR_ITS ---
FINAL REPORT CLINICAL HISTORY: fall FINDINGS: AP, lateral and oblique views of the right knee were obtained. There is no prior exam for comparison. There is no acute osseous abnormality of the right knee. There is mild degenerative joint disease. The soft tissues are normal. There is no joint effusion. IMPRESSION: No acute osseous abnormality of the right knee. Reviewed, Interpreted and Dictated by Sabine Bashir MD Transcribed by Marci Higgins Authenticated and [facility]
--- NOTE | 2025-07-22 14:05 | XR_ITS ---
FINAL REPORT CLINICAL HISTORY: fall COMPARISON: 04/24/2025 FINDINGS: AP, lateral and oblique views of the left knee were obtained. There is no acute osseous abnormality of the left knee. There is mild degenerative joint disease, unchanged from prior. The soft tissues are normal. There is no joint effusion. IMPRESSION: No acute osseous abnormality of the left knee. Reviewed, Interpreted and Dictated by Sabine Bashir MD Transcribed by Marci Higgins Authenticated and [facility]
--- NOTE | 2025-07-22 14:05 | XR_ITS ---
FINAL REPORT CLINICAL HISTORY: fall FINDINGS: PELVIS One view was obtained. There is no fracture or dislocation. There is mild degenerative disease bilaterally. There is a large amount of stool in the included colon. No soft tissue abnormality is identified. IMPRESSION: No acute process. Reviewed, Interpreted and Dictated by Sabine Bashir MD Transcribed by Marci Higgins Authenticated and [facility]
[2025-07-22 14:14] VITALS: O2SAT 100
--- NOTE | 2025-07-22 14:35 | ED_ITS ---
<Statement entered by Cesar Mcghee MD - 07/23/25 10:37> I was consulted by the STANTON, and we discussed the complexity of the problems being addressed. I approve the treatment and management plan for this patient's care in the emergency department, thus performing a substantive portion of the medical decision making. Cesar Mcghee MD Discharge Plan Disposition Patient Disposition: Home, Self-Care Prescriptions Prescriptions: New ketorolac 10 mg tablet 10 mg PO Q8H 5 Days Qty: 15 0RF methocarbamol 1,000 mg tablet 1,000 mg PO Q8H 10 Days Qty: 30 0RF No Action sodium,potassium,mag sulfates [Suprep Bowel Prep Kit] 17.5-3.13-1.6 gram recon soln See Rx Instructions PO .COMPLEX Qty: 354 0RF Rx Instructions: DILUTE; drink full amount early evening before AND next morning at least 4-5 hr before procedure; follow w 960 mL water PO fluoxetine 40 mg capsule 40 mg PO DAILY bupropion HCl 150 mg tablet sustained-release 12 hr 150 mg PO BID lisinopril-hydrochlorothiazide 20-12.5 mg tablet 1 tab PO DAILY clonazepam 1 mg tablet 1 mg PO HS levothyroxine 50 mcg tablet 50 mcg PO AM buspirone 10 mg tablet 10 mg PO DAILY montelukast 10 mg tablet 10 mg PO DAILY albuterol sulfate [Ventolin HFA] 90 mcg/actuation HFA aerosol inhaler 2 inh INHALATION Q4-6H PRN (Reason: Breathing Problems) duloxetine 60 mg capsule,delayed release(DR/EC) 60 mg PO DAILY Jardiance 25 mg tablet 25 mg PO DAILY Vraylar 4.5 mg capsule 4.5 mg PO DAILY Kerendia 10 mg Tablet 10 mg PO DAILY amitriptyline 10 mg tablet 10 mg PO HS Referrals Follow up/Referrals: Lavinia Juarez [Primary Care Provider, Medical] - See instructions Activity Restrictions/Add. Instructions Additional Instructions/Restrictions: Increase fluids and rest. Take meds as directed. Use the walker when walking. Keep Camron wrap's intact. Please follow-up with Lavinia Juarez for further workup and treatment. Clinical Impressions Clinical Impression: Acute bilateral knee pain Instructions Patient Instructions: DI for Knee Pain Print Language Print Language: Estonian Discharge ED Provider: Cesar Mcghee General Adult [facility] General Chief complaint: Fall Stated complaint: AO-1130 hours, fall, pain both knees and elbows Time Seen by Provider: 07/22/25 13:50 Mode of Arrival: Ambulatory Source of Information: Patient Description of Symptoms (Recalled from ER Triage Doc. by RN): patient presents after a fall she took at home just trying to get up and answer her phone. She's unsure if she tripped but denies LOC, hitting her head, denies lightheaddedness or any dizziness and taking any blood thinners. History of Present Illness HPI narrative: 65-year-old female presents to the ED today for complaint of a fall at home. She says she was trying to get up and answer the phone and got up too quick and fell onto her knees and hit her elbows as well. She has pain in her bilateral knees but no other pain. She denies hip pain, back pain, neck or head pain. She did not hit her head or lose consciousness. She denies any headache, dizziness or lightheadedness denies any other pain or problems today. Related Data Home Medications ?Medication ?Instructions ?Recorded ?Confirmed albuterol sulfate 90 mcg/actuation 2 inh inhalation Q4 -6H PRN 01/31/23 04/11/25 aerosol inhaler (Ventolin HFA) Breathing Problems bupropion HCl 150 mg tablet,12 hr 150 mg PO BID Mood 0 01/31/23 04/11/25 sustained-release buspirone 10 mg tablet 10 mg PO DAILY Mood 01/31/23 04/11/25 cariprazine 4.5 mg capsule 4.5 mg PO DAILY Mood 04/11/25 (Vraylar) clonazepam 1 mg tablet 1 mg PO HS Anxiety 01/31/23 04/11/25 duloxetine 60 mg capsule,delayed 60 mg PO DAILY Mood 0 01/31/23 04/11/25 release empagliflozin 25 mg tablet 25 mg PO DAILY Diabetes 04/11/25 (Jardiance) fluoxetine 40 mg capsule 40 mg PO DAILY Mood 01/31/23 04/11/25 levothyroxine 50 mcg tablet 50 mcg PO AM Thyroid 01/3104/11/25 lisinopril 20 1 tab PO DAILY High blood pr essure 01/31/23 04/11/25 mg-hydrochlorothiazide 12.5 mg tablet montelukast 10 mg tablet 10 mg PO DAILY Allergy sympt oms 01/31/23 04/11/25 amitriptyline 10 mg tablet 10 mg PO HS sleep 03/14/23 04/11/25 finerenone 10 mg tablet (Kerendia) 10 mg PO DAILY kidn ey disease 03/14/23 04/11/25 Previous Rx's ?Medication ?Instructions ?Recorded sodium,potassium,mag sulfates 17.5 See Rx Instructions PO .COMPLEX 06/24/25 gram-3.13 gram-1.6 gram oral soln #354 mL (Suprep Bowel Prep Kit) ketorolac 10 mg tablet 10 mg PO Q8H 5 days #15 tabs 07/22/25 methocarbamol 1,000 mg tablet 1,000 mg PO Q8H 10 days #30 tabs 07/22/25 Allergies Allergy/AdvReac Type Severity Reaction Status Date / Time No Known Allergies Allergy Verified 10/14/24 10:52 [facility] Disclaimer: The information contained in this section may have been updated after the patient was seen, as this information can be updated by other users. Medical History Vomiting Eczema GERD (gastroesophageal reflux disease) Insulin dependent diabetes mellitus Type 2 diabetes mellitus Depression Anxiety Bipolar depression Thyroid disease Asthma Chest pain High cholesterol Hypertension Surgical History History of cholecystectomy Family History Mother Cancer, Onset Age: 91 Father Cancer, Onset Age: 60 Other Diabetes Heart attack High cholesterol Hypertension Stroke Social History Smoking Status: Never smoker second hand exposure: No alcohol intake: never substance use type: denies use current occupational status: disabled Travel in the last 8 weeks?: None household members: none housing: house lives independently: Yes marital status: single education level: college service: No current occupational exposures/hazards: No caffeine: Yes do you feel safe at home: Yes victim of physical abuse: No victim of emotional abuse: No victim of sexual abuse: No would you like helpful sources: No Have you lived/traveled outside US in past 30 days?: No Contact w/someone who lives/traveled outside US past 30 days?: No Exposure to someone with infectious disease in past 14 days?: No Do you have a fever (greater than 100.4 F or 38 C)?: No Have you tested positive for COVID-19?: No Exposed to someone with COVID-19 in past 14 days?: No Do you have a sore throat?: No Do you have a cough?: No Do you have any weakness?: No Do you have any diarrhea?: No Are you experiencing any unusual bleeding?: No Do you have any muscle aches/pain?: No Do you have any abdominal pain?: No Are you experiencing loss of taste or smell?: No Other Medical History Have you received the Flu Vaccine for this season: No Have you received the Pneumonia Vaccine: No ROS Obtained: Yes Systems reviewed as appropriate & no additional complaints except as documented Constitutional Constitutional: Reports as per HPI Physical Exam General General appearance: alert Head Head exam: atraumatic and normocephalic Eye Eye exam: Present PERRL and EOMI ENT ENT exam: Present normal oropharynx and mucous membranes moist Neck Neck exam: Present full ROM and trachea midline Respiratory Respiratory exam: Present normal lung sounds bilaterally Cardiovascular Cardiovascular exam: Present regular rate, normal rhythm, normal heart sounds, +S1 and +S2 Extremities Exam Extremities exam: Present normal inspection, full ROM, tenderness (To both knees) and normal capillary refill Neurological Exam Neurological exam: Present alert and oriented X3 Skin Skin exam: Present warm and dry Medical Decision Making Medical Records Screening: Per USPSTF and CDC recommendations, given the prevalence of disease in our region, it is our hospital?s policy to screen for HIV and viral Hepatitis for all patients aged 18 and over and those with ongoing risk factors. Emile Inquiry Pt receiving controlled substance: No Emile was queried for this patient: No Vital Signs: 07/22/25 13:41 07/22/25 14:14 Temperature 98.2 F Temperature Source Oral Pulse Rate [Right Radial] 88 Respiratory Rate 18 Blood Pressure [Right Arm] 151/77 H Blood Pressure Mean [Right Arm] 101 Blood Pressure Source [Right Arm] Automatic Cuff Blood Pressure Position [Right Arm] Sitting 02 Sat by Pulse Oximetry 94 L 100 Oxygen Delivery Method Room Air Room Air Orders (Tests/Meds): ED MEDICATIONS Discontinued Medications Generic Name Dose Route Start Last Admin Trade Name Freq PRN Reason Stop Dose Admin Hydrocodone Bitart/Acetaminophen 2 tab 07/22/25 14:30 07/22/25 15:17 Hydrocodone/Apap 5/325 Mg Tablet PO 07/22/25 14:31 2 tab ONCE ONE Administration Ketorolac Tromethamine 30 mg 07/22/25 14:30 07/22/25 15:17 Ketorolac 30mg/Ml Vial IM 07/22/25 14:31 30 mg ONCE ONE Administration ORDERS Category Date Time Status Knee XR left 3 views [XR knee LT 3V] Stat Exams 07/22/25 14:05 Completed Knee XR right 3 views [XR knee RT 3V] Stat Exams 07/22/25 14:05 Completed Pelvis XR 1-2 views [XR pelvis 1-2V] Stat Exams 07/22/25 14:05 Completed Medical Decision Narrative: patient is a 65-year-old female presenting to the emergency department for evaluation of bilateral knee pain after she fell directly onto her knees prior to arrival. Patient is hemodynamically stable and nontoxic-appearing upon arrival, afebrile. Differential diagnosis includes knee pain, strain versus fracture. Workup will be conducted with specific imaging. Initial inventions include analgesics. Patient's films were negative for any acute fractures or dislocations. Patient says she cannot bear weight without pain. We Camron wrapped both knees and used a walker. She was able to stand up and walk with the walker doing this. She was unable to do so before we use a walker. I want her to follow-up with her primary care physician tomorrow. Patient will be discharged with meds and she will follow with PCP tomorrow. We have discussed the need for further management. Critical Care Critical Care Time Critical Care Time: No
[2025-07-22] MEDS: KETOROLAC 30MG/ML VIAL 30 MG IM (15:17)
[2025-07-22] MEDS: HYDROCODONE/APAP 5/325 MG TABLET 2 TAB PO (15:17)
--- NOTE | 2025-07-22 16:17 | PC.NURSE ---
family members have been updated at this time
--- NOTE | 2025-07-22 16:50 | PC.NURSE ---
calling natasha at this time
[2025-07-22 17:39] VITALS: BP 142/79; PULSE 80; RESP 16; TEMP 36.6; O2SAT 98
== END 2025-07-22 17:40 | disposition home or self-care (01) ==
PROVIDERS: Emergency Provider Student in an Organized Health Care Education/Training Program; PCP Nurse Practitioner Family
DX: M25.561 Pain in right knee (principal); M25.562 Pain in left knee; W18.30XA Fall on same level, unspecified, initial encounter
CPT/HCPCS: 72170; 73562; 96372; 99284; 99285; J1885

== ENCOUNTER 2025-09-05 09:51 | Emergency (ER) | payer MEDICARE, MEDICAID, SELFPAY ==
--- OUTSIDE RECORDS SUMMARY | 2025-08-08 13:42 | XMS_ITS | Encounter Summary ---
Author Organization [facility] ([place], [place], [place], [place], [place]) Address [address] [place] [address] Care Team Providers Care Conservation Science Teacher Name Role Phone Lavinia Juarez APRN Primary Care Provider [phone] Reason for Visit * Reason Comments Knee Pain Fell 3 weeks ago, se en at [facility] after falling, c/o pain in BLE Encounter Details Date Type Department Care Team (Late st Contact Info) Description 08/08/2025 1:42 PM EST - 08/08/2025 2:52 PM EST Emergency [facility] Emergency Department [address] [place] [address] Flo Moctezuma DO [address] [place] [address] Chronic pain of both knees (Primary Dx) Discharge Disposition: ED Dismiss - Left after MSE Social History Tobacco Use Types Packs/Day Years [...] Do you speak a language other than Jordanian at [facility]? No 01/21/2025 Do you want help with [...] Sign Reading Time Taken Comments Blood Pressure 136/87 08/08/2025 1:46 PM EST Pulse 98 08/08/2025 1:46 PM EST Temperature 36.2 C (97.1 F) 08/08/2025 1:46 PM EST Respiratory Rate 16 08/08/2025 1:46 PM EST Oxygen Saturation 98% 08/08/2025 1:46 PM EST Inhaled Oxygen Concentration - - Weight 83.9 kg (185 lb) 08/08/2025 1:46 PM EST Height 157.5 cm (5' 2 ) 08/08/2025 1:46 PM EST Body Mass Index 33.84 08/08/2025 1:46 PM EST documented in this encounter Discharge Instructions * Attachments The following attachments cannot be sent through Care Everywhere. * Joint Pain [id number] (Jordanian) documented in this encounter Medications at Time of Discharge buPROPion SR (WELLBUTRIN SR) 200 MG 12 hr tablet Take 1 tablet (200 mg total) by mouth 2 (two) times daily. busPIRone (BUSPAR) 10 MG tablet Take 1 tablet (10 mg total) by mouth 3 (three) times daily. clonazePAM (KlonoPIN) 1 MG tablet Take 1 tablet (1 mg total) by mouth 3 (three) times daily as needed. DULoxetine (CYMBALTA) 60 MG capsule Take 1 capsule (60 mg total) by mouth daily. escitalopram (LEXAPRO) 20 MG tablet Take 1 tablet (20 mg total) by mouth daily. hydrOXYzine (ATARAX) 10 MG tablet Take 1 tablet (10 mg total) by mouth every 4 (four) hours as needed. Jardiance 25 mg tablet Take 1 tablet (25 mg total) by mouth daily. levothyroxine (SYNTHROID) 50 MCG tablet Take 1 tablet (50 mcg total) by mouth in the morning. oxyCODONE (OXY-IR) 5 mg capsule Take 1 capsule (5 mg total) by mouth every 6 (six) hours as needed for pain. Max Daily Amount: 20 mg pantoprazole (PROTONIX) 40 MG tablet Take 1 tablet (40 mg total) by mouth daily. Singulair 10 mg tablet Take 1 tablet (10 mg total) by mouth every evening. valsartan (DIOVAN) 80 MG tablet Take 1 tablet (80 mg total) by mouth daily. Ventolin HFA 90 mcg/actuation inhaler Inhale 2 puffs by mouth Every 4 to 6 hours as needed for wheezing. Vraylar 4.5 mg capsule Take 1 capsule (4.5 mg total) by mouth daily. documented as of this encounter ED Notes * Shawanda Marcelino PA-C - 08/08/2025 2:52 PM EST Subjective Chief Complaint: Knee Pain (Fell 3 weeks ago, seen at [facility] after falling, c/o pain in BLE) PT is a 65yo female who presents to the ER with c/o bilateral knee pain for the past 3 weeks after falling. PT was seen at other ER after fall, pain has continued says she has a follow up with ortho Sunday. No new injury numbness or tingling. Patient History Past Medical History: Diagnosis Date Asthma CKD (chronic kidney disease) stage 3, GFR 30-59 ml/min (HCC) Diabetes mellitus (HCC) type 2 Hypertension Past Surgical History: Procedure Laterality Date ARTHROPLASTY,SHOULDER REVERSE Right 01/21/2025 Procedure: ARTHROPLASTY, RIGHT SHOULDER, TOTAL, REVERSE; Surgeon: Flo Dominguez MD; Location: [facility]; Service: Orthopedic Surgery; Laterality: Right; CHOLECYSTECTOMY Family History Problem Relation Name Age of Onset Arthritis Other Cancer Other Diabetes Other Heart disease Other Hypertension Other Kidney disease Other Stroke Other Thyroid disease Other Hyperlipidemia Other Lung disease Other Social History Tobacco Use Smoking status: Never Smokeless tobacco: Never Substance Use Topics Alcohol use: Never I reviewed the HPI, ROS and PFSH documentation recorded by others in the medical record and supplemented my note as needed. Review of Systems Review of Systems Musculoskeletal: Bilateral knee pain All other systems reviewed and are negative. Physical Exam ED Triage Vitals [08/08/25 1346] Encounter Vitals Group BP 136/87 Girls Systolic BP Percentile Girls Diastolic BP Percentile Boys Systolic BP Percentile Boys Diastolic BP Percentile Pulse 98 Resp 16 Temp 97.1 ??F (36.2 ??C) Temp src Temporal Art SpO2 98 % Weight 83.9 kg (185 lb) Height 1.575 m (5' 2 ) Head Circumference Peak Flow Pain Score Ten Pain Loc Pain Education Exclude from Growth Chart Physical Exam Vitals and nursing note reviewed. Constitutional: General: She is not in acute distress. Appearance: Normal appearance. She is not ill-appearing or toxic-appearing. HENT: Head: Normocephalic and atraumatic. Mouth/Throat: Mouth: Mucous membranes are moist. Cardiovascular: Rate and Rhythm: Normal rate. Pulmonary: Effort: Pulmonary effort is normal. Musculoskeletal: General: No swelling, deformity or signs of injury. Normal range of motion. Skin: General: Skin is warm and dry. Capillary Refill: Capillary refill takes less than 2 seconds. Neurological: General: No focal deficit present. Mental Status: She is alert and oriented to person, place, and time. Psychiatric: Mood and Affect: Mood normal. Behavior: Behavior normal. Neurological Exam Mental Status Alert. Oriented to person, place, and time. Ortho Exam ED Course & MDM Medications - No data to display Results for orders placed or performed during the hospital encounter of 01/21/25 Comprehensive metabolic panel Result Value Ref Range Sodium 138 136 - 145 meq/L Potassium 4.5 3.5 - 5.1 meq/L Chloride 105 98 - 107 meq/L CO2 26 21 - 32 meq/L Calcium 8.6 8.5 - 10.1 mg/dL Glucose 256 (H) 70 - 99 mg/dL BUN 27 (H) 7 - 18 mg/dL Creatinine 1.44 (H) 0.55 - 1.10 mg/dL BUN/Creatinine 19 Albumin 3.4 3.4 - 5.0 g/dL Alkaline Phosphatase 99 46 - 116 U/L ALT 60 12 - 78 U/L AST 63 (H) 15 - 37 U/L Total Bilirubin 0.3 0.2 - 1.0 mg/dL Protein, Total 7.1 6.4 - 8.2 gm/dL Anion Gap 12 11 - 22 A/G Ratio 0.9 Globulin 3.7 g/dL Osmolality Calc 289.5 mOsm/kg eGFR (mL/min/1.73m2) 41 (L) >=60 mL/min/1.73m2 CBC with automated diff Result Value Ref Range WBC 8.2 4.8 - 10.8 K/??L RBC 4.52 3.50 - 5.20 M/??L Hemoglobin 13.3 11.7 - 15.8 GM/DL Hematocrit 39.9 35.0 - 47.0 % MCV 88 81 - 101 fL MCH 29.4 27.0 - 34.0 pg MCHC 33.3 32.0 - 36.0 GM/DL RDW 12.0 11.5 - 14.5 % Platelets 185 150 - 400 K/CU MM MPV 9.1 (L) 9.4 - 12.4 fL Nucleated Red Blood Cell 0.0 0 - 0.2 % NRBC Absolute <0.01 0 - 0.012 K/ul Manual Differential Result Value Ref Range Total Counted 100 % Neutros (manual) 91 (H) 15 - 67 % % Bands (manual) 1 (L) 2 - 21 % % Lymphs (manual) 6 (L) 10 - 50 % % Monos (manual) 2 2 - 10 % Platelet Estimate Adequate Adequate # Neutrophils (manual) 7.54 K/??L Glucose, Nova Meter Result Value Ref Range POC-GLUCOSE 180 (H) 70 - 99 mg/dL [employer] [id number] Glucose, Nova Meter Result Value Ref Range POC-GLUCOSE 263 (H) 70 - 99 mg/dL [employer] [id number] Glucose, Nova Meter Result Value Ref Range POC-GLUCOSE 266 (H) 70 - 99 mg/dL [employer] [id number] Glucose, Nova Meter Result Value Ref Range POC-GLUCOSE 256 (H) 70 - 99 mg/dL [employer] [id number] Glucose, Nova Meter Result Value Ref Range POC-GLUCOSE 198 (H) 70 - 99 mg/dL [employer] [id number] Glucose, Nova Meter Result Value Ref Range POC-GLUCOSE 164 (H) 70 - 99 mg/dL [employer] [id number] Type and Screen Result Value Ref Range ABO/Rh O POSITIVE Antibody Screen NEGATIVE HISTCHK HIST CHECK PERFORMED ABO/RH Confirmation/Retype Result Value Ref Range RETYPE O POSITIVE Tissue Exam Result Value Ref Range AP RESULT See Note: XR KNEE BILATERAL 4 VIEW Non-Weight Bearing (Results Pending) ED Course as of 08/08/25 1510 Sat Aug 08, 2025 1446 Reviewed bilateral knee x-rays , Interpretation: No obvious fracture or dislocation [KISHAN] ED Course User Index [KISHAN] Flo Moctezuma DO Procedures Medical Decision Making Pts VS were stable, XR ordered pt request to leave prior to being roomed, I saw her in the lobby informed her that her XR were not read however a wet read showed no obvious fx pt says she will see Alberto Sunday and asked I send the XR to him. I sent a secure chat to Dr Dominguez as requested. PT will follow up Sunday. Amount and/or Complexity of Data Reviewed Radiology: ordered and independent interpretation performed. Assessment & Plan Clinical Impression Diagnosis Comment Added By Time Added Chronic pain of both knees Shawanda Marcelino PA-C 08/08/2025 2:50 PM Disposition Discharge [1] - 08/08/2025 2:47 PM Discharge Medication List as of 08/08/2025 1:52 PM Contact information for follow-up Flo Dominguez MD Specialty: Orthopedic Surgery [address] [place] [id number] Next Steps: Follow up on 08/10/2025 Electronically Signed By Shawanda Marcelino PA-C 08/08/25 1510 Cosigned by Flo Moctezuma DO at 08/08/2025 3:47 PM EST ING FLAGS DECORATOR ING FLAGS DECORATOR documented in this encounter Plan of Treatment Upcoming Encounters Date Type Department Care Team (Late st Contact Info) Description 09/21/2025 12:30 PM EST Office Visit [facility] - [address] [phone] Flo Dominguez MD [address] [place] [phone] documented as of this encounter Procedures Procedure Name Priority Date/Time Associated Diagnosis Comments XR KNEE BILATERAL 4 VIEW STAT 08/08/2025 2:24 PM EST documented in this encounter Results * XR KNEE BILATERAL 4 VIEW Non-Weight Bearing (08/08/2025 2:24 PM EST) Anatomical Region Laterality Modality Knee X-Ray 08/10/2025 2:17 PM EST Impressions 08/10/2025 4:03 PM EST No acute bony abnormality. LEFT KNEE HISTORY: Left knee pain, fall. COMPARISON: None FINDINGS: Four views show no evidence of an acute fracture. There is mild medial compartment narrowing. There is mild spurring of the tibial spines. There is no effusion. IMPRESSION: No acute bony abnormality. Images reviewed, interpreted, and dictated by Dr. Inocente Armendariz. Transcribed by Raquel Glynn PA-C. Narrative 08/10/2025 4:03 PM EST BILATERAL KNEE SERIES RIGHT KNEE HISTORY: Right knee pain, fall. COMPARISON: None FINDINGS: Four views show no evidence of an acute fracture. There is mild medial compartment narrowing. There is mild spurring of the tibial spines. There is no effusion. Procedure Note Inocente Armendariz MD - 08/10/2025 BILATERAL KNEE SERIES RIGHT KNEE HISTORY: Right knee pain, fall. COMPARISON: None FINDINGS: Four views show no evidence of an acute fracture. There is mild medial compartment narrowing. There is mild spurring of the tibial spines. There is no effusion. IMPRESSION: No acute bony abnormality. LEFT KNEE HISTORY: Left knee pain, fall. COMPARISON: None FINDINGS: Four views show no evidence of an acute fracture. There is mild medial compartment narrowing. There is mild spurring of the tibial spines. There is no effusion. IMPRESSION: No acute bony abnormality. Images reviewed, interpreted, and dictated by Dr. Inocente Armendariz. Transcribed by Raquel Glynn PA-C. us Flo Moctezuma DO IMG DIAGNOSTIC IMAGING ORDERABLE S Final Result documented in this encounter Visit Diagnoses Diagnosis Chronic pain of both knees- Primary documented in this encounter Care Teams Conservation Science Teacher Relationship Specialty Start Date End Date Lavinia Juarez, ORDER BUILDER [address] [place] [address] PCP - General Family Medicine 10/20/24 documented as of this encounter
--- OUTSIDE RECORDS SUMMARY | 2025-08-10 14:30 | XMS_ITS | Encounter Summary ---
Author Organization [employer] (formerly [employer]) ([place], [place], [place], [place], [place]) Address [address] [place] [address] Care Team Providers Care Passenger Train Braker Name Role Phone Lavinia Juarez APRN Primary Care Provider [phone] Reason for Visit * Reason Comments Post-Op Follow-up S/p right reverse TS A, DOS: 01/21/25. Encounter Details Date Type Department Care Team (Late st Contact Info) Description 08/10/2025 2:30 PM EST Office Visit [facility] - [address] [phone] Flo Dominguez MD [address] [place] [address] S/P reverse total shoulder arthroplasty, right [...] speak a language other than [place]ese at [facility]? No 01/21/2025 Do you want [...] Sign Reading Time Taken Comments Blood Pressure 133/80 08/10/2025 2:55 PM EST Pulse 89 08/10/2025 2:55 PM EST Temperature - - Respiratory Rate - - Oxygen Saturation - - Inhaled Oxygen Concentration - - Weight 83.9 kg (185 lb) 08/10/2025 2:55 PM EST Height 165.1 cm (5' 5 ) 08/10/2025 2:55 PM EST Body Mass Index 30.79 08/10/2025 2:55 PM EST documented in this encounter Progress Notes * Flo Dominguez MD - 08/10/2025 2:30 PM EST NAME: Margo Ramos CSN: [id number] : 1960 PCP: KENDAL Wyatt CONSENT The [...] informed consent to proceed. REASON FOR VISIT Post-Op Follow-up (S/p right reverse TSA, DOS: 01/21/25. ) Is this Worker's Comp? No HPI History of Present Illness Margo Ramos is a 65 year old female with a history of reverse total shoulder arthroplasty who presents with right shoulder pain following a fall. Established patient presents for follow up s/p right reverse TSA, DOS: 01/21/25. Patient reports falling at least 3-4 times at home in the past 2 weeks.Patient presents ambulatory without assist. She states she does have a walker that she uses at home, but did not bring it with her today. Patient reports increase pain in right shoulder with limited ROM. Patient reports taking Tylenol as needed for pain control. She experienced a fall two weeks ago, landing on her knees and injuring her right shoulder. Since the fall, she has been unable to move her right shoulder to wash her left arm and cannot bring it forward as she could before the incident. She describes increased pain and limited range of motion in her right shoulder. Prior to the fall, she was doing better with her shoulder. She has a history of reverse total shoulder arthroplasty. Recent X-rays show the prosthesis is in good alignment with no fractures or complications from the fall. CURRENT MEDICATIONS Current Outpatient Medications Medication Instructions [...] REVERSE; Surgeon: Flo Dominguez MD; Location: [facility]; Service: Orthopedic Surgery; Laterality: Right; CHOLECYSTECTOMY [...] no fatigue, no mood swings OBJECTIVE Vitals: 08/10/25 1455 BP: 133/80 Pulse: 89 Weight: 83.9 kg (185 lb) Height: 1.651 m (5' 5 ) Body mass index is 30.79 kg/m??. Physical Exam right Shoulder Exam General: Awake, Alert, Oriented x3, Well developed Appearance: - Swelling, - deformity, - skin tenting, - scapular winging Palpation: - Crepitus, Tender to palpation: none ROM: 90 AFE, 40 ER, IR to hip pocket, Wrist and elbow ROM WNL Strength: 4/5 Neurovascular: Intact Skin: normal appearance with no obvious discoloration or wounds. Incision well healed Gait: Normal IMAGING/OUTSIDE REPORTS X-Rays were performed and interpreted today in office of right shoulder, 3 views non-weight bearingrevealing: Reverse total shoulder arthroplasty in good alignment. No fractures noted. (08/10/2025) ASSESSMENT/PLAN Problem List Items Addressed This Visit None Visit Diagnoses S/P reverse total shoulder arthroplasty, right - Primary Relevant Orders XR shoulder complete 2 views min right Assessment & Plan Right shoulder pain and limited range of motion following reverse total shoulder arthroplasty and recent fall Pain and limited motion post-fall likely muscular. X-rays show no fractures. Recovery expected in six weeks with conservative management. - Limit use of right shoulder, focus on elbow movements. - Perform gentle elbow circles as post-surgery. - Gradually increase shoulder motion as tolerated, guided by pain. - Follow-up in four weeks. Discussed slowing down activity to give the muscles in the shoulder time to calm down Return in about 4 weeks (around 09/07/2025) for S/p right reverse TSA, DOS: 01/21/25. Scribe Attestation: Lucero Bonds CMA acted as a scribe and transcribed components of the current encounter under the direction of the Attending Provider. I have not been involved in providing any clinical treatments or patient care. Electronically Signed, Lucero Wyatt CMA I, James Rollins, MD attest that I have examined the above patient. I have dictated the exam, diagnosis, and plan to the scribe listed above to be transcribed into this document. I have supplemented the above documentation as warranted. I attest that I have reviewed the above documentation in its entirety and concur. Electronically Signed, Flo Dominguez MD 08/10/2025 3:10 PM EST IN DUMPER documented in this encounter Plan of Treatment Upcoming Encounters Date Type Department Care Team (Late st Contact Info) Description 09/21/2025 12:30 PM EST Office Visit [facility] - [address] [phone] Flo Dominguez MD [address] [place] [id number] documented as of this encounter Results * XR shoulder complete 2 views min right (08/10/2025 3:01 PM EST) Anatomical Region Laterality Modality X-Ray Narrative 08/10/2025 3:16 PM EST X-Rays were performed and interpreted today in office of right shoulder, 3 views non-weight bearing revealing: Reverse total shoulder arthroplasty in good alignment. No fractures noted. (08/10/2025) us Flo Dominguez MD IMG DIAGNOSTIC IMAGING ORDERA BLES Final Result documented in this encounter Visit Diagnoses Diagnosis S/P reverse total shoulder arthroplasty, right- Primary S/P reverse total shoulder arthroplasty, right documented in this encounter Care Teams Passenger Train Braker Relationship Specialty Start Date End Date Lavinia Juarez, [employer] [address] [place] [address] PCP - General Family Medicine 10/20/24 documented as of this encounter
--- OUTSIDE RECORDS SUMMARY | 2025-08-10 15:00 | XMS_ITS | Encounter Summary ---
Author Organization [employer] ([place], [place], [place], [place], [place]) Address [address] [place] [address] Care Team Providers Care Salesperson Women'S Hats Name Role Phone Lavinia Juarez APRN Primary Care Provider [phone] Encounter Details Date Type Department Care Team (Late st Contact Info) Description 08/10/2025 3:00 PM EST Ancillary Procedure [facility] - [address] [phone] Flo Dominguez MD [address] [place] [phone] S/P reverse total shoulder arthroplasty, right Social History Tobacco Use Types Packs/Day Years Used Date Smoking Tobacco: Never Smokeless Tobacco: Never Alcohol Use Standard Drinks/Week Comments Never 0 (1 standard drink = 0.6 oz pur e alcohol) Utilities Answer Date Recorded In the past 12 months, has t he [employer], gas, oil, or water [employer] threatened to shut off services in your [...] Do you speak a language other than [place]i at [facility]? No 01/21/2025 Do you want help [...] Description 09/21/2025 12:30 PM EST Office Visit [facility] - [address] [phone] Flo Dominguez MD [address] [place] [phone] documented as of this encounter Procedures Procedure Name Priority Date/Time Associated Diagnosis Comments XR SHOULDER COMPLETE 2 VIEWS MIN RIGHT Routine 08/10/2025 3:01 PM EST S/P reverse total shoulder arthroplasty, right documented [...] Diagnoses Diagnosis S/P reverse total shoulder arthroplasty, right documented in this encounter Care Teams Salesperson Women'S Hats Relationship Specialty Start Date End Date Lavinia Juarez, SEARCH ENGINE OPTIMIZER [address] [place] [address] PCP - General Family Medicine 10/20/24 documented as of this encounter
[2025-09-05 09:55] VITALS: BP 167/84; PULSE 91; O2SAT 88
[2025-09-05 09:58] VITALS: BP 167/84; PULSE 89; RESP 16; TEMP 36.6; O2SAT 96; BMI 31.6
[2025-09-05 10:01] VITALS: BP 138/75; PULSE 92; O2SAT 97
--- NOTE | 2025-09-05 10:02 | XR_ITS ---
PROCEDURE INFORMATION: Exam: XR Right Tibia and Fibula Exam date and time: 09/05/2025 10:10 AM Age: 65 years old Clinical indication: Other: Laceration; Additional info: Tibia pain, laceration to mid anterior portion of tibfib TECHNIQUE: Imaging protocol: Radiologic exam of the right tibia and fibula. Views: 2 views. COMPARISON: CR XR FOOT WT BEARING RT 3V 11/28/2023 12:12 PM FINDINGS: Bones/joints: No acute fracture. No dislocation. Soft tissues: Normal. IMPRESSION: No acute findings.
--- NOTE | 2025-09-05 10:03 | ED_ITS ---
Discharge Plan Disposition Patient Disposition: Home, Self-Care Condition: Good Prescriptions Prescriptions: No Action sodium,potassium,mag sulfates [Suprep Bowel Prep Kit] 17.5-3.13-1.6 gram recon soln See Rx Instructions PO .COMPLEX Qty: 354 0RF Rx Instructions: DILUTE; drink full amount early evening before AND next morning at least 4-5 hr before procedure; follow w 960 mL water PO fluoxetine 40 mg capsule 40 mg PO DAILY bupropion HCl 150 mg tablet sustained-release 12 hr 150 mg PO BID lisinopril-hydrochlorothiazide 20-12.5 mg tablet 1 tab PO DAILY clonazepam 1 mg tablet 1 mg PO HS levothyroxine 50 mcg tablet 50 mcg PO AM buspirone 10 mg tablet 10 mg PO DAILY montelukast 10 mg tablet 10 mg PO DAILY albuterol sulfate [Ventolin HFA] 90 mcg/actuation HFA aerosol inhaler 2 inh INHALATION Q4-6H PRN (Reason: Breathing Problems) duloxetine 60 mg capsule,delayed release(DR/EC) 60 mg PO DAILY Jardiance 25 mg tablet 25 mg PO DAILY Vraylar 4.5 mg capsule 4.5 mg PO DAILY Kerendia 10 mg Tablet 10 mg PO DAILY amitriptyline 10 mg tablet 10 mg PO HS ketorolac 10 mg tablet 10 mg PO Q8H 5 Days Qty: 15 0RF methocarbamol 1,000 mg tablet 1,000 mg PO Q8H 10 Days Qty: 30 0RF Referrals Follow up/Referrals: Lavinia Juarez [Primary Care Provider, Medical] - See instructions Activity Restrictions/Add. Instructions Additional Instructions/Restrictions: Please follow-up with your primary care provider. Use Band-Aids as needed. Apply bacitracin or Neosporin 3 times daily for the next 3 to 5 days. Return to the ER with any signs or symptoms of infection. Clinical Impressions Clinical Impression: Abrasion of leg, right Qualifiers: Encounter type: initial encounter Qualified Code(s): S80.811A - Abrasion, right lower leg, initial encounter Instructions Patient Instructions: DI for Abrasion Print Language Print Language: Syriac Discharge ED Provider: Bridger Slaughter JR General Adult HPI General Chief complaint: Extremity Injury, Lower Stated complaint: AO 09/05 0830, fell, lac rt leg Time Seen by Provider: 09/05/25 10:00 Mode of Arrival: Ambulatory Source of Information: Patient Description of Symptoms (Recalled from ER Triage Doc. by RN): pt hit has r rausch on her bed. small skin tear. not bleeding. pt ambulating well History of Present Illness HPI narrative: 65-year-old female with no reported medical history, no blood thinners, presents to the Emergency Department after hitting her rausch against the edge of her bed. Has small abrasion to right tibial area. Patient complains of pain with ambulation and tenderness to palpation. No other complaints or injuries. Tetanus shot is up-to-date. Did not fall and hit her head. No loss of consciousness. No other complaints. Related Data Home Medications ?Medication ?Instructions ?Recorded ?Confirmed albuterol sulfate 90 mcg/actuation 2 inh inhalation Q4 -6H PRN 01/31/23 04/11/25 aerosol inhaler (Ventolin HFA) Breathing Problems bupropion HCl 150 mg tablet,12 hr 150 mg PO BID Mood 0 01/31/23 04/11/25 sustained-release buspirone 10 mg tablet 10 mg PO DAILY Mood 01/31/23 04/11/25 cariprazine 4.5 mg capsule 4.5 mg PO DAILY Mood 04/11/25 (Vraylar) clonazepam 1 mg tablet 1 mg PO HS Anxiety 01/31/23 04/11/25 duloxetine 60 mg capsule,delayed 60 mg PO DAILY Mood 0 01/31/23 04/11/25 release empagliflozin 25 mg tablet 25 mg PO DAILY Diabetes 04/11/25 (Jardiance) fluoxetine 40 mg capsule 40 mg PO DAILY Mood 01/31/23 04/11/25 levothyroxine 50 mcg tablet 50 mcg PO AM Thyroid 01/3104/11/25 lisinopril 20 1 tab PO DAILY High blood pr essure 01/31/23 04/11/25 mg-hydrochlorothiazide 12.5 mg tablet montelukast 10 mg tablet 10 mg PO DAILY Allergy sympt oms 01/31/23 04/11/25 amitriptyline 10 mg tablet 10 mg PO HS sleep 03/14/23 04/11/25 finerenone 10 mg tablet (Kerendia) 10 mg PO DAILY kidn ey disease 03/14/23 04/11/25 Previous Rx's ?Medication ?Instructions ?Recorded sodium,potassium,mag sulfates 17.5 See Rx Instructions PO .COMPLEX 06/24/25 gram-3.13 gram-1.6 gram oral soln #354 mL (Suprep Bowel Prep Kit) ketorolac 10 mg tablet 10 mg PO Q8H 5 days #15 tabs 07/22/25 methocarbamol 1,000 mg tablet 1,000 mg PO Q8H 10 days #30 tabs 07/22/25 Allergies Allergy/AdvReac Type Severity Reaction Status Date / Time No Known Allergies Allergy Verified 10/14/24 10:52 [facility] Disclaimer: The information contained in this section may have been updated after the patient was seen, as this information can be updated by other users. Medical History Vomiting Eczema GERD (gastroesophageal reflux disease) Insulin dependent diabetes mellitus Type 2 diabetes mellitus Depression Anxiety Bipolar depression Thyroid disease Asthma Chest pain High cholesterol Hypertension Surgical History History of cholecystectomy Family History Mother Cancer, Onset Age: 91 Father Cancer, Onset Age: 60 Other Diabetes Heart attack High cholesterol Hypertension Stroke Social History Smoking Status: Never smoker second hand exposure: No alcohol intake: never substance use type: denies use current occupational status: disabled Travel in the last 8 weeks?: None household members: none housing: house lives independently: Yes marital status: single education level: college service: No current occupational exposures/hazards: No caffeine: Yes do you feel safe at home: Yes victim of physical abuse: No victim of emotional abuse: No victim of sexual abuse: No would you like helpful sources: No Have you lived/traveled outside US in past 30 days?: No Contact w/someone who lives/traveled outside US past 30 days?: No Exposure to someone with infectious disease in past 14 days?: No Do you have a fever (greater than 100.4 F or 38 C)?: No Have you tested positive for COVID-19?: No Exposed to someone with COVID-19 in past 14 days?: No Do you have a sore throat?: No Do you have a cough?: No Do you have any weakness?: No Do you have any diarrhea?: No Are you experiencing any unusual bleeding?: No Do you have any muscle aches/pain?: No Do you have any abdominal pain?: No Are you experiencing loss of taste or smell?: No Other Medical History Have you received the Flu Vaccine for this season: No Have you received the Pneumonia Vaccine: No ROS Obtained: Yes All systems reviewed & no additional complaints except as documented and Yes Systems reviewed as appropriate & no additional complaints except as documented Constitutional Constitutional: Reports system reviewed and no additional complaints, except as documented and Reports as per HPI Eyes Eyes: Reports system reviewed and no additional complaints, except as documented and Reports as per HPI ENT Ears, Nose, Mouth, and Throat: Reports system reviewed and no additional complaints, except as documented and Reports as per HPI Cardiovascular Cardiovascular: Reports system reviewed and no additional complaints, except as documented and Reports as per HPI Respiratory Respiratory: Reports system reviewed and no additional complaints, except as documented and Reports as per HPI Gastrointestinal Gastrointestingal: Reports system reviewed and no additional complaints, except as documented and as per HPI Genitourinary Female Genitourinary: Reports system reviewed and no additional complaints, except as documented and Reports as per HPI Musculoskeletal Musculoskeletal: Reports other (Right rausch pain, abrasion) Neurologic Neurologic: Reports system reviewed and no additional complaints, except as documented and Reports as per HPI Physical Exam General General appearance: alert and in no apparent distress Head Head exam: atraumatic and normocephalic Eye Eye exam: Present normal appearance, PERRL and EOMI Neck Neck exam: Present normal inspection and full ROM Chest Chest inspection: Present normal inspection Respiratory Respiratory exam: Present normal lung sounds bilaterally and respiratory distress Cardiovascular Cardiovascular exam: Present regular rate and normal rhythm Abdominal Exam Abdominal exam: Present soft; Absent tenderness Extremities Exam Extremities exam: Present other (Tenderness to right tibia. Small abrasion. No deep laceration. Bleeding controlled.) Neurological Exam Neurological exam: Present alert and oriented X3 Medical Decision Making Medical Records Screening: Per USPSTF and CDC recommendations, given the prevalence of disease in our [facility], it is our hospital?s policy to screen for HIV and viral Hepatitis for all patients aged 18 and over and those with ongoing risk factors. Emile Inquiry Pt receiving controlled substance: No Vital Signs: 09/05/25 09:55 09/05/25 09:58 09/05/25 10:01 Temperature 97.9 F Temperature Source Oral Pulse Rate 91 H 92 H Pulse Rate [Right] 89 Respiratory Rate 16 Blood Pressure 167/84 H 138/75 Blood Pressure [Right Arm] 167/84 H Blood Pressure Mean [Right Arm] 111 02 Sat by Pulse Oximetry 88 L 96 97 Oxygen Delivery Method Room Air Orders (Tests/Meds): ORDERS Category Date Time Status XR tibia fibula RT 2V Stat Exams 09/05/25 10:02 Taken Medical Decision Narrative: 65-year-old female presenting with right rausch abrasion after knocking it against her bed. No laceration. No need for suture repair. Tetanus shot up-to-date. Will obtain x-ray imaging to rule out fracture. X-ray reviewed and independently interpreted, significant for no acute fracture. Please see final radiology report for further details. Patient able to ambulate. No need for suture repair. We will wash wound out and place Band-Aid over the wound. Patient instructed to follow-up with primary care provider, take Tylenol and ibuprofen at home as needed for pain, and return to the ER if symptoms persist or worsen. Critical Care Critical Care Time Critical Care Time: No
--- OUTSIDE RECORDS SUMMARY | 2025-09-05 10:07 | XMS_ITS | Clinical Summary ---
Author Organization Healthcare Address [address] [place] [address] Care Team Providers Care Social Media Sr Strategy Manager Name Role Phone Lavinia Juarez Chucky EDMONDS Primary Care Provider [phone] Social History Tobacco Use Types Packs/Day Years [...] of 2 - PCV) 03/07/2013 03/07/2012, 02/01/2012 [id number] Vaccine (2024- season) 2025 06/25/2023, 08/18/2021, 12/21/2020 UKY-Influenza Vaccine (#1) 05/18/202506/25, 07/10/2022, 07/05/2021, Additional history exists UKY-DTaP,Tdap,and Td Vaccines (2 - Td or Tdap) 03/27/2030 03/27/2020 UKY-RSV Vaccine: 60+ Years or (1 - 1-dose 75+ series) 2037 HPV Vaccines (No Doses Required) Completed UKY-HIB Vaccines Aged Out No longer e [...] this topic Insurance [employer]IC[employer] Care Teams Social Media Sr Strategy Manager Relationship Specialty Start Date End Date Lavinia Juarez APRN [address] [place] [address] PCP - General 11/30/23
--- OUTSIDE RECORDS SUMMARY | 2025-09-05 10:07 | XMS_ITS | Data Portability ---
Author Organization [facility] DIETER Kang LESTER CLOSED Address [address] [place] [address] [address] [place] [address] Assessment No assessment recorded. Plan of Treatment Reminders Order Date Submit Date Provider Last Modified By Organization Details Last Modified Time Details Appointments None recorded. Lab CBC w/ auto diff 2017 018 [facility], [address] [place] [address], [address], 8 10:45:25 CMP, serum or plasma 2017 018 [facility], [address] [place] [address], [address], 8 10:45:25 TSH + free T4, serum 2017 018 [facility], [address] [place] [address], [address], 8 10:45:25 Referral None recorded. Procedures treadmill nuclear stress test (PROC) 2017 Yahaira hayes Not available 8 07:37:02 trans-thora cic echocardiog brisa (TTE) (PROC) 2017 Yahaira hayes [facility], [address] [place] [address] , [facility], [place], [address], 8 09:55:22 Surgeries None recorded. Imaging electrocard iogram 2017 Yahaira thornton Not available 8 15:22:45 Medication Orders None recorded. Patient TargetsNo targets recorded. Patient InstructionsNo instructions recorded. Reason for Referral None Reported. Results Created Date Observation Date Name Description Value Unit Range Abnormal Flag Note LastModifiedBy Organization Detail LastModifiedTime 02/29/20 18 02/27/2018 rosy nieto am No observ ation record ed. [email or web address] [facility] Cardiology [address], [place], [address], 02/28/2018 09:04:23 Result Notes None recorded. Problems Name Problem SNOMED Code Status Onset Date Resolution Date Notes Provider Name and Address Organization Details Recorded Time Chest pain 78195773 Active 2017 WHIT VELAZQUEZ, FLEXIBLE MACHINING SYSTEM MACHINIST [address] [place], [address], [facility] 8 15:07:38 Dyspnea on exertion 79943131 Active 2017 WHIT VELAZQUEZ FLEXIBLE MACHINING SYSTEM MACHINIST [address] [place], [address], [facility] 8 15:07:42 Type 2 diabetes mellitus without complication 277084737 Active 2017 WHIT VELAZQUEZ, FLEXIBLE MACHINING SYSTEM MACHINIST [address] [place], [address], [facility] 8 15:07:47 Hypothyroidism 87115769 Active 2017 WHIT VELAZQUEZ, FLEXIBLE MACHINING SYSTEM MACHINIST [address] [place], [address], [facility] 8 15:20:18 Bipolar disorder 79819789 Active 2017 WHIT VELAZQUEZ, FLEXIBLE MACHINING SYSTEM MACHINIST [address] [place], [address], [facility] 8 15:20:19 Hyperlipidemia 29745448 Active 2017 WHIT VELAZQUEZ, FLEXIBLE MACHINING SYSTEM MACHINIST [address] [place], [address], [facility] 8 15:20:20 Problem Notes None recorded. Procedures Surgical History Date Name Laterality Status Provider Name and Address Organization Details Recorded Time 02/27/2018 EKG completed WHIT VELAZQUEZ, FLEXIBLE MACHINING SYSTEM MACHINIST [address] [place], [address], [facility] 02/27/2018 15:17:39 Imaging Results None recorded. [...] Address Organization Details Last Updated DateTime 02/27/2018 60740.77 g 35.6 kg/m2 165.1 cm 68 /min 128/76 mm[Hg] Louann Wright [facility] 02/27/2018 14:49:56 Social History Question Answer Notes LastModified by Organizat ion Details LastModified Time Tobacco Smoking Status Never Smoker Louann soares [facility] 02/27/2018 14:56:57 What Was The Date Of [...] Problems Y Chest Pain N Heart Attack ([place]) N Diabetes Y Cardiomyopathy N Heart Murmur [...] ICD10 Code Diagnosis IMO Codes Diagnosis Note [id number] WHIT VELAZQUEZ APRN CARDIOLOG Y [facility] CLOSED [address] [place] [address] 02/27/2018 14:18:47 02/27/2018 15:22:44 Chest pain 34619540 R07.9 CP is concerning . No concerning [...] Type 2 lauri betes mellitus without complication 413176004 E11.9 Noted, PCP following. Hypothyroidism 96219227 E03.9 Noted. Thyroid studies today as noted below. Bipolar disorder 0100779 4 F31.9 Well-contr olled on current medication s. Hyperlipidemia 64616571 E78.5 PCP following. Statin currently on hold secondary to myalgias. Health Concerns Section Related Observation LastModified by Organization Detai ls LastModified Time None Recorded Concern Status LastModified by Organization Details LastModified Time None Recorded Advance Directives Directive None Recorded Payers Insurance Date Sequence Insurance Name Policy Number Policy Sullivan Covered Member ID Sullivan Member ID Guarantor Name 08/14/2025 2 MED[place]ID-[facility] CHO[facility] - FFS/TRADITIO NAL Margo Richard [id number] Margo Richard 08/11/2025 1 [place]ARE[place] Margo Tomas Richard [id number] Margo Richard 08/11/2025 1 [employer] (MEDICARE REPLACEMENT/ ADVANTAGE - PPO) [id number] Margo Tomas Richard [id number] Margo Richard Notes Date Note Type Note [...] hospitalization. No recent lab studies. WHIT VELAZQUEZ, FLEXIBLE MACHINING SYSTEM MACHINIST [address] [place], [address], [facility] 02/27/2018 15:21:35 OBGyn Episode No OBEpisode recorded.
--- OUTSIDE RECORDS SUMMARY | 2025-09-05 10:07 | XMS_ITS | Referral Summary ---
Author Organization [employer] ([place], [place], [place], [place], [place]) Address [address] [facility] [place] [address] Care Team Providers Care Rouge Mixer Name Role Phone Lavinia Juarez APRN Primary Care Provider [phone] Encounters Date Type Department Care Team Description 08/10/2025 3:00 PM EST Ancillary Procedure [address] [address] Flo Dominguez MD S/P reverse total shoulder arthroplasty, right 08/10/2025 2:30 PM EST Office Visit [address] [address] Flo Dominguez MD S/P reverse total shoulder arthroplasty, right (Primary Dx) 08/08/2025 1:42 PM EST - 08/08/2025 2:52 PM EST Emergency [facility] Emergency Department [address] [place] [address] Flo Moctezuma DO Chronic pain of both knees (Primary Dx) Discharge Disposition: ED Dismiss - Left after MSE from Last 3 Months Allergies No known [...] the past 12 months, has t he [employer], gas, oil, or water company threatened to [...] Do you speak a language other than [place]uran at ho [place]? No 01/21/2025 Do you want help with [...] Pulse 89 08/10/2025 2:55 PM EST Temperature 36.2 C (97.1 F) 08/08/2025 1:46 PM EST Respiratory Rate 16 08/08/2025 1:46 PM EST Oxygen Saturation 98% 08/08/2025 1:46 PM EST Inhaled Oxygen Concentration 28% 01/21/2025 3 :15 PM EDT Weight 83.9 kg (185 lb) 08/10/2025 2:55 PM EST Height 165.1 cm (5' 5 ) 08/10/2025 2:55 PM EST Body Mass Index 30.79 08/10/2025 2:55 PM EST Plan of Treatment Upcoming Encounters Date Type Department Care Team (Late st Contact Info) Description 09/21/2025 12:30 PM EST Office Visit [facility] Orthopedics - [address] [address] Flo Dominguez MD [address] [place] [address] Medical Devices Implanted Type Area Cloth Packer Device Identifier Shelf Expiration Date Model / Serial / Lot Baseplt Lat +3mm 25mm [id number] - [id number] Implanted:Qty: 1 on 01/21/2025 by Flo Dominguez MD at [facility] IMPLANTS Right: Shoulder TORNIER [id number] 11/05/2029 [id number] / [id number] / Insrt Rev Perf Hum Sz 1/2 3mm [id number] - [id number] Implanted:Qty: 1 on 01/21/2025 by Flo Dominguez MD at [facility] IMPLANTS Right: Shoulder TORNIER [id number] 04/26/2028 [id number] / [id number] / Stem Hum Sz 2+ Long Dwx2pl - [id number] Implanted:Qty: 1 on 01/21/2025 by Flo Dominguez MD at [facility] IMPLANTS Right: Shoulder TORNIER [id number] 10/09/2029 [id number] / [id number] / Glenosphere Std 36mm [id number] - [id number] Implanted:Qty: 1 on 01/21/2025 by Flo Dominguez MD at [facility] IMPLANTS Right: Shoulder TORNIER [id number] 05/01/2029 [id number] / [id number] / Scr Periph 5.0x14mm Ns Umz611 - [id number] Implanted:Qty: 2 on 01/21/2025 by Flo Dominguez MD at [facility] IMPLANTS Right: Shoulder TORNIER FBP833 / / Scr Cntrl Thd Post 6.5x40mm Ncs142 - [id number] Implanted:Qty: 1 on 01/21/2025 by Flo Dominguez MD at [facility] IMPLANTS Right: Shoulder TORNIER [id number] / / Scr Periph 5.0x18mm Ns Skw214 - [id number] Implanted:Qty: 1 on 01/21/2025 by Flo Dominguez MD at [facility] IMPLANTS Right: Shoulder TORNIER [id number] / / Scr Periph 5.0x38mm Ns Sxc173 - [id number] Implanted:Qty: 1 on 01/21/2025 by Flo Dominguez MD at [facility] IMPLANTS Right: Shoulder TORNIER [id number] / / Procedures Procedure Name Priority Date/Time Associated Diagnosis Comments XR SHOULDER COMPLETE 2 VIEWS MIN RIGHT Routine 08/10/2025 3:01 PM EST S/P reverse total shoulder arthroplasty, right XR KNEE BILATERAL 4 VIEW STAT 08/08/2025 2:24 PM EST from Last 3 Months Results * XR shoulder complete 2 views min right (08/10/2025 3:01 PM EST) Anatomical Region Laterality Modality X-Ray Narrative 08/10/2025 3:16 PM EST X-Rays were performed and interpreted today in office of right shoulder, 3 views non-weight bearing revealing: Reverse total shoulder arthroplasty in good alignment. No fractures noted. (08/10/2025) Flo Dominguez MD IMG DIAGNOSTIC IMAGING ORDERA BLES Final Result * XR KNEE BILATERAL 4 VIEW Non-Weight [...] Inocente Armendariz. Transcribed by Raquel Glynn PA-C. Flo Moctezuma DO IMG DIAGNOSTIC IMAGING ORDERABLE S Final Result from Last 3 Months Insurance MEDICAID OF [place] AETNA [facility] Advance Directives For more information, please contact: [phone] * Full Code (Latest Code Status on File) Date Activated Date Inactivated Comments 01/21/2025 12:10 PM 01/22/2025 12:07 PM * Full Code Date Activated Date Inactivated Comments 01/21/2025 6:09 AM 01/21/2025 12:10 PM Care Teams Rouge Mixer Relationship Specialty Start Date End Date Lavinia Juarez, SPAR FINISHER [address] [place] [address] PCP - General Family Medicine 10/20/24
--- OUTSIDE RECORDS SUMMARY | 2025-09-05 10:07 | XMS_ITS | Encounter Summary ---
Author Organization Healthcare Address [address] [place] [address] Care Team Providers Care Civil Engineer'S Aide Name Role Phone Lavinia Juarez JAVASCRIPT SOFTWARE ENGINEER Primary Care Provider Encounter Details Date Type Department Care Team (Late st Contact Info) Description 10/26/2023 Community [facility] Community Practice [address] [place] [address] Lavinia Juarez, JAVASCRIPT SOFTWARE ENGINEER [address] [place], [place] [id number] Type 2 diabetes mellitus with autonomic neuropathy, unspecified whether terminal operations manager insulin use (CMS/[facility]) (Primary Dx) Social History Tobacco [...] diabetes mellitus with autonomic neuropathy, unspecified whether terminal operations manager insulin use- Primary documented in this encounter Care Teams Civil Engineer'S Aide Relationship Specialty Start Date End Date Lavinia Juarez APRN [address] [place], [place] [address] PCP - General 11/30/23 documented as of this encounter
--- OUTSIDE RECORDS SUMMARY | 2025-09-05 10:07 | XMS_ITS | Clinical Summary ---
Author Organization [employer] ([place], [place], [place], [place], [place]) Address [address] [place] [address] Care Team Providers Care Pail Tester Name Role Phone Lavinia Juarez APRN Primary Care Provider [phone] Allergies No known active allergies Medications hydrOXYzine [...] Description 08/10/2025 3:00 PM EST Ancillary Procedure [address] [address] Flo Dominguez MD S/P reverse total shoulder arthroplasty, right 08/10/2025 2:30 PM EST Office Visit [address] [address] Flo Dominguez MD S/P reverse total shoulder arthroplasty, right (Primary Dx) 08/08/2025 1:42 PM EST - 08/08/2025 2:52 PM EST Emergency [facility] Emergency Department [address] [place] [address] Flo Moctezuma DO Chronic pain of both knees (Primary Dx) Discharge Disposition: ED Dismiss - Left after MSE from Last 3 Months Family History Medical [...] the past 12 months, has t he [employer], gas, oil, or water [employer] threatened to shut off services in your [...] Do you speak a language other than Brazilian at [facility]? No 01/21/2025 [...] Description 09/21/2025 12:30 PM EST Office Visit [facility] Orthopedics - [address] [address] Flo Dominguez MD [address] [place] [address] Health Maintenance Due Date Last Done Comments [...] 11/16/2024 Hemoglobin A1C 01/21/2025 COVID-19 VACCINE ( - 2024- season) 2025 06/25/2023, 08/18/2021, 12/21/2020 Influenza Vaccine (#1) 2025 07/17/2019 Tobacco Cessation Counseling and Screening (12+) 08/10/2026 08/10/2025 DTAP/TDAP/TD VACCINES (2 - T d or Tdap) 03/27/2030 03/27/2020 Medical Devices Implanted Type Area Diesel Powerplant Mechanic Helper Device Identifier Shelf Expiration Date Model / Serial / Lot Baseplt Lat +3mm 25mm [id number] - [id number] Implanted:Qty: 1 on 01/21/2025 by Flo Dominguez MD at [facility] IMPLANTS Right: Shoulder TORNIER [id number] 11/05/2029 [id number] / [id number] / Insrt Rev Perf Hum Sz 1/2 3mm [id number] - [id number] Implanted:Qty: 1 on 01/21/2025 by Flo Dominguez MD at [facility] IMPLANTS Right: Shoulder TORNIER [id number] 04/26/2028 [id number] / [id number] / Stem Hum Sz 2+ Long Dwx2pl - [id number] Implanted:Qty: 1 on 01/21/2025 by Flo Dominguez MD at [facility] IMPLANTS Right: Shoulder TORNIER [id number] 10/09/2029 [id number] / [id number] / Glenosphere Std 36mm Cei794 - [id number] Implanted:Qty: 1 on 01/21/2025 by Flo Dominguez MD at [facility] IMPLANTS Right: Shoulder TORNIER [id number] 05/01/2029 [id number] / [id number] / Scr Periph 5.0x14mm Ns Mrn008 - [id number] Implanted:Qty: 2 on 01/21/2025 by Flo Dominguez MD at [facility] IMPLANTS Right: Shoulder TORNIER QCU632 / / Scr Cntrl Thd Post 6.5x40mm Agp641 - [id number] Implanted:Qty: 1 on 01/21/2025 by Flo Dominguez MD at [facility] IMPLANTS Right: Shoulder TORNIER [id number] / / Scr Periph 5.0x18mm Ns [id number] - [id number] Implanted:Qty: 1 on 01/21/2025 by Flo Dominguez MD at [facility] IMPLANTS Right: Shoulder TORNIER EVB329 / / Scr Periph 5.0x38mm Ns Aoh638 - [id number] Implanted:Qty: 1 on 01/21/2025 by Flo Dominguez MD at [facility] IMPLANTS Right: Shoulder TORNIER [id number] / / Procedures Procedure Name Priority Date/Time [...] reviewed, interpreted, and dictated by Dr. Inocente Marcello. Transcribed by Raquel Glynn PA-C. us Flo Moctezuma DO IMG DIAGNOSTIC IMAGING ORDERABLE S Final Result from Last 3 Months Insurance [place]ICAID OF [place] AETNA [place] [facility] Advance Directives For more information, please contact: [phone] * Full Code (Latest Code Status on File) Date Activated Date Inactivated Comments 01/21/2025 12:10 PM 01/22/2025 12:07 PM * Full Code Date Activated Date Inactivated Comments 01/21/2025 6:09 AM 01/21/2025 12:10 PM Care Teams Pail Tester Relationship Specialty Start Date End Date Lavinia Juarez, ETHYLENE PLANT OPERATOR [address] [place] [address] PCP - General Family Medicine 10/20/24
[2025-09-05 10:33] VITALS: BP 151/89; PULSE 94; O2SAT 96
[2025-09-05 10:36] VITALS: BP 151/89; PULSE 89; RESP 19; TEMP 36.7; O2SAT 93
== END 2025-09-05 10:37 | disposition home or self-care (01) ==
PROVIDERS: Emergency Provider Student in an Organized Health Care Education/Training Program; PCP Nurse Practitioner Family
DX: S80.811A Abrasion, right lower leg, initial encounter (principal); W22.8XXA Striking against or struck by other objects, initial encounter
CPT/HCPCS: 73590; 99283